=== PATIENT | female | born 1950 ===

== ENCOUNTER 2016-06-17 13:42 | Inpatient (IN) | payer MEDICAID ==
[2016-06-17 13:42] VITALS: PULSE 196; BMI 16.4
[2016-06-17] MEDS ORDERED: Albuterol-Ipratrop 3 mg / 0.5 (3 ml) UD IH STA (14:07)
[2016-06-17] MEDS ORDERED: Albuterol-Ipratrop 3 mg / 0.5 (3 ml) UD INH STA (14:07)
--- NOTE | 2016-06-17 14:13 | ED PDOC ---
HPI: General Adult Time Seen by Provider: 06/17/16 13:54 Chief Complaint (Nursing): Fever Chief Complaint (Provider): Fever and high blood pressure History Per: Other (prison) History/Exam Limitations: clinical condition Onset/Duration Of Symptoms: Days (Today) Current Symptoms Are (Timing): Still Present Additional Complaint(s): Pt. sent to ER from group home for fever and blood pressure being high. Pt. baseline is nonverbal and can't give any information. Has fernandes in place. Past Medical History Reviewed: Historical Data, Nursing Documentation, Vital Signs Vital Signs: Last Vital Signs Temp 101.6 F H 06/17/16 14:37 Pulse 115 H 06/17/16 13:44 Resp 20 06/17/16 13:44 BP 122/56 L 06/17/16 13:44 Pulse Ox 94 L 06/17/16 15:59 - Medical History PMH: Alzheimer's Disease, Anemia, Arthritis, Atrial Fibrillation, COPD, CVA ( left-sided), Dementia, Depression, Fractures (Left ankle), HTN, Hypercholesterolemia, Pneumonia, Chronic Kidney Disease - Surgical History Surgical History: - Family History Family History: States: Unknown Family Hx - Living Arrangements Living Arrangements: Correction/Assist Lv - Home Medications Home Medications: Ambulatory Orders Medication Instructions Recorded Acetaminophen [Tylenol 160mg/5ml 640 mg PEG Q4H PRN 08/24/15 Oral Soln] Ascorbic Acid [Vitamin C Liq] 500 mg PEG DAILY 08/24/15 Ferrous Sulfate [Ferosul] 5 ml PEG BID 08/24/15 Albuterol 0.083% [Albuterol 0.083% 3 ml IH Q6 #0 08/26/15 Inhal Mague (2.5 mg/3 ml) UD] Metoprolol Tartrate [Lopressor] 25 mg PO Q8 #0 tab 09/05/15 diltiaZEM [Cardizem] 60 mg GT Q8 #0 tab 09/05/15 Atorvastatin [Lipitor] 10 mg PEG HS 02/24/16 Lactulose [Generlac] 20 gm PEG BID PRN 02/24/16 Magnesium Hydroxide [Milk Of 30 ml PEG PRN PRN 02/24/16 Magnesia] Epoetin Narayan [Procrit] 10,000 unit SC MWF #0 ml 03/03/16 Piperacill/Tazo 3.375gm in Dex 3.375 gm IVPB QWK 03/10/16 [Zosyn 3.375 Gm IV] Vancomycin 1 GM [Vancomycin 1GM in 1 gm IVPB QWK 03/10/16 Normal Saline Addvantage] - Allergies Allergies/Adverse Reactions: Allergies Allergy/AdvReac Type Severity Reaction Status Date / Time No Known Allergies Allergy Verified 03/10/16 10:27 Review of Systems Review Of Systems: ROS cannot be obtained secondary to pt's inabilty to answer questions. Constitutional: Positive for: Fever Physical Exam - Reviewed Nursing Documentation Reviewed: Yes Vital Signs Reviewed: Yes - Physical Exam Appears: Positive for: Uncomfortable Head Exam: Positive for: ATRAUMATIC, NORMAL INSPECTION, NORMOCEPHALIC Skin: Positive for: Normal Color, Warm, DRY Eye Exam: Positive for: Normal appearance, PERRL ENT: Positive for: Normal ENT Inspection, Other (snores while breathing and mouth left open (pt. baseline)). Negative for: Tonsillar Exudate Neck: Positive for: Normal, Supple Cardiovascular/Chest: Positive for: Tachycardia (mild). Negative for: Edema Respiratory: Positive for: Decreased Breath Sounds, Other (coarse at base b/l). Negative for: Accessory Muscle Use Gastrointestinal/Abdominal: Positive for: Normal Exam, Bowel Sounds, Soft. Negative for: Tenderness Back: Positive for: Other (large sacral ulcer). Negative for: L CVA Tenderness , R CVA Tenderness Rectal: Positive for: Stool Is Heme: (black and hem pos), Black Stool Extremity: Negative for: Tenderness, Pedal Edema Neurologic/Psych: Positive for: Aphasia, Other (awake but nonverbal; does not follow any commands; has extremities in clenched position) - Laboratory Results Result Diagrams: 06/17/16 15:07 06/17/16 15:07 Interpretation Of Abn Labs: 19.9 wbc; lacate 2.5 - ECG ECG: Positive for: Interpreted By Me, Viewed By Me ECG Rhythm: Positive for: Sinus Tachycardia O2 Sat by Pulse Oximetry: 94 - Radiology X-Ray: Read By Radiologist X-Ray Interpretation: No Acute Disease - Progress ED Course And Treament: 1551: Stable. Awake. Likely uti as fernandes with purulent dc in urine (from fernandes from group home). Spoke with Dr. Nicholas. Will admit tele. Zosyn given as pt. urine infection sensitive from last visit. GI paged. [phone]: Spoke with Dr. Canales. Will consult. Continue current management. Spoke with quantitative researcher Dr. Paredes, does not need icu at this time. Will admit tele. - Critical Care Total Time (In Min): 30 Documented Critical Care: Time excludes all time spent performint seperately billable procedures Disposition - Clinical Impression Clinical Impression: Severe sepsis, UTI (urinary tract infection) - Patient ED Disposition Is Patient to be Admitted: Yes - Disposition Disposition Time: 15:55 Condition: GUARDED - Pt Status Changed To: Hospital Disposition Of: Inpatient - Admit Certification Admit to Inpatient:: After my assessment, the patient will require hospitalization for at least two midnights. This is because of the severity of symptoms shown, intensity of services needed, and/or the medical risk in this patient being treated as an outpatient. - POA Present On Arrival: Cath Associated UTI, Pressure Ulcer (sacral)
[2016-06-17] MEDS ORDERED: Sodium Chloride 0.9% 1,000 ML IV SCH (14:15)
--- NOTE | 2016-06-17 14:22 | CARD ---
APPROVED REPORT EKG Measurement Heart [id number] <Conclusion> Sinus tachycardia Nonspecific T wave abnormality Abnormal ECG
[2016-06-17] MEDS ORDERED: Albuterol-Ipratrop 3 mg / 0.5 (3 ml) UD ONE (14:30)
[2016-06-17 14:56] LABS: ABG ALLEN TEST YES; ARTERIAL BLOOD GAS PO2 94 mm/Hg (80-100)
[2016-06-17] MEDS: Pantoprazole 40 MG in Sodium Chloride 0.9% 100 ML IVPB SCH ×2 (15:07→22:24)
[2016-06-17 15:20] LABS: BASO # 0.1 K/uL (0.0-0.2); BASO % 0.5 % (0.0-2.0); EOS % 0.2 % (0.0-4.0); HEMATOCRIT 37.7 % (34.0-47.0); LYMPH # 0.8 K/uL (1.0-4.3); LYMPH % 4.2 % (20.0-40.0); MEAN CELL VOLUME 90.2 fl (81.0-99.0); MEAN CORPUSCULAR HEMOGLOBIN 28.8 pg (27.0-31.0); MEAN CORPUSCULAR HGB CONC 31.9 g/dL (33.0-37.0); MEAN PLATELET VOLUME 10.4 fl (7.2-11.7); MONO # 1.3 K/uL (0.0-0.8); MONO % 6.7 % (0.0-10.0); NEUT # 17.6 K/uL (1.8-7.0); NEUT % 88.4 % (50.0-75.0); NRBC % 0.3 % (0.0-0.0); RED CELL DISTRIBUTION WIDTH 13.7 % (11.5-14.5); WHITE BLOOD COUNT 19.9 K/uL (4.8-10.8)
[2016-06-17 15:21] LABS: PLATELET COUNT 174 K/uL (130-400)
[2016-06-17 15:31] LABS: ALKALINE PHOSPHATASE 86 U/L (38-126); ALT/SGPT 28 U/L (9-52); AST/SGOT 31 U/L (14-36); BILIRUBIN,TOTAL 0.5 mg/dl (0.2-1.3); BLOOD UREA NITROGEN 19 mg/dl (7-17); CALCIUM 9.6 mg/dL (8.4-10.2); CARBON DIOXIDE 25 mmol/L (22-30); CHLORIDE 102 mmol/L (98-107); GFR AFRICAN-AMERICAN > 60; GLUCOSE,RANDOM 118 mg/dL (65-105); MAGNESIUM 1.9 MG/DL (1.6-2.3); PHOSPHOROUS 3.3 mg/dl (2.5-4.5); POTASSIUM 4.2 MMOL/L (3.6-5.0); SODIUM 139 mmol/l (132-148); TOTAL PROTEIN 8.5 G/DL (6.3-8.2)
[2016-06-17 15:34] LABS: ALB/GLOB RATIO 0.8 (1.0-2.1)
--- NOTE | 2016-06-17 15:41 | RAD ---
Indication: Sepsis patient Portable chest Comparison: Chest x-ray performed 02/23/16 Findings: Examination limited by habitus, hypo inflation, and patient obliquity. The patient's chin obscures evaluation of the left lung apex. Chronic appearing interstitial markings. Small bilateral pleural effusions. Bibasilar atelectasis. No definite pneumothorax. Please note that chest x-ray has limited sensitivity for the detection of pulmonary masses. Degenerative changes. Osseous demineralization. Impression: Chronic appearing interstitial markings. Small bilateral pleural effusions. Bibasilar atelectasis.
[2016-06-17 15:42] LABS: PARTIAL THROMBOPLASTIN TIME 25.9 SECONDS (23.3-32.5)
[2016-06-17] MEDS ORDERED: Sodium Chloride 0.9% 1,000 ML IV STA (15:52)
[2016-06-17] MEDS ORDERED: Piperacillin/Tazobact 3.375 GM in Sodium Chloride 0.9% 100 ML IVPB ONE (16:15)
[2016-06-17 17:25] LABS: RBC URINE 56 /hpf (0-3); URINE BACTERIA RARE (<OCC); URINE BILIRUBIN NEGATIVE (NEGATIVE); URINE BLOOD MODERATE (NEGATIVE); URINE COLOR YELLOW (YELLOW); URINE GLUCOSE (UA) NEG (Normal); URINE KETONE NEGATIVE (NEGATIVE); URINE LEUKOCYTE ESTERASE MOD Leu/uL (Negative); URINE PROTEIN 100 mg/dL (NEGATIVE); URINE UROBILINOGEN 0.2-1.0 mg/dL (0.2-1.0); WBC URINE 22 /hpf (0-5)
[2016-06-17 18:09] LABS: NEUTROPHIL 89 % (42-75); TOTAL CELLS COUNTED 100
[2016-06-17 18:10] LABS: LARGE PLATELETS PRESENT
[2016-06-18] MEDS: Dextrose 5%/0.45% NS 1,000 ML IV SCH ×2 (00:53→16:20)
[2016-06-18] MEDS: Ciprofloxacin 400mg/200ml D5W 200 ML IVPB SCH ×2 (00:54→12:27)
[2016-06-18] MEDS: Piperacillin/Tazobact 3.375 GM in Sodium Chloride 0.9% 100 ML IVPB SCH ×4 (04:57→21:48)
[2016-06-18] MEDS: Pantoprazole 40 MG in Sodium Chloride 0.9% 100 ML IVPB SCH (04:59)
[2016-06-18 07:07] LABS: HEMATOCRIT 33.9 % (34.0-47.0); MEAN CELL VOLUME 90.6 fl (81.0-99.0); MEAN CORPUSCULAR HEMOGLOBIN 29.1 pg (27.0-31.0); MEAN CORPUSCULAR HGB CONC 32.1 g/dL (33.0-37.0); RED CELL DISTRIBUTION WIDTH 13.7 % (11.5-14.5); WHITE BLOOD COUNT 19.3 K/uL (4.8-10.8)
[2016-06-18 07:25] LABS: ALKALINE PHOSPHATASE 61 U/L (38-126); ALT/SGPT 22 U/L (9-52); AST/SGOT 23 U/L (14-36); BILIRUBIN,TOTAL 0.4 mg/dl (0.2-1.3); BLOOD UREA NITROGEN 14 mg/dl (7-17); CALCIUM 9.7 mg/dL (8.4-10.2); CARBON DIOXIDE 24 mmol/L (22-30); CHLORIDE 110 mmol/L (98-107); CHOLESTEROL 102 mg/dL (0-199); GFR AFRICAN-AMERICAN > 60; GLUCOSE,RANDOM 112 mg/dL (65-105); POTASSIUM 4.3 MMOL/L (3.6-5.0); SODIUM 142 mmol/l (132-148); TOTAL PROTEIN 7.5 G/DL (6.3-8.2)
[2016-06-18 07:32] LABS: T4 5.25 ug/dl (5.5-11.0)
[2016-06-18 07:41] LABS: ALB/GLOB RATIO 0.9 (1.0-2.1)
[2016-06-18] MEDS: Pantoprazole 40 mg Susp UD PEG SCH ×4 (12:00→16:48)
--- NOTE | 2016-06-18 12:37 | CP.PCM.CON ---
History of Present Illness - History of Present Illness History of Present Illness: GI Consult: Dr. Christianson Pt is a 65y/o non-verbal, jail female with Alzheimer's and dementia who presented to [facility] for high blood pressure and fever. History was obtained from chart as pt is unable to provide any. On admission pt was found to have Tmax of 101.6 and elevated WBC so pt was admitted. Currently, pt is resting comfortably in bed. No pain is elicited on physical exam. GI has been consulted for GI bleed but there is no history of bleeding that can be found anywhere in the chart. Pt does have blood in her urine on the UA and a hx of anemia which may be the cause of her slight drop in H/H. PMHx: Afib, COPD, HTN, HLD, CVA, anemia, & Alzheimer's dementia PSHx: PEG placement SocialHx: lives in jail NKDA Review of Systems - Review of Systems Systems not reviewed;Unavailable: Dementia Past Patient History - Infectious Disease Hx of Infectious Diseases: None - Past Medical History & Family History Past Medical History?: Yes - Past Social History Smoking Status: Former Smoker - CARDIAC Hx Atrial Fibrillation: Yes Hx Hypercholesterolemia: Yes Hx Hypertension: Yes - PULMONARY Hx Chronic Obstructive Pulmonary Disease (COPD): Yes - NEUROLOGICAL Hx Neurological Disorder: Yes Hx Alzheimer's Disease: Yes HX Cerebrovascular Accident: Yes Hx Dementia: Yes - HEENT Hx HEENT Problems: No - RENAL Hx Chronic Kidney Disease: Yes - ENDOCRINE/METABOLIC Hx Endocrine Disorders: No - HEMATOLOGICAL/ONCOLOGICAL Hx Anemia: Yes - INTEGUMENTARY Hx Dermatological Problems: Yes - MUSCULOSKELETAL/RHEUMATOLOGICAL Hx Falls: No - GASTROINTESTINAL Other/Comment: PEG tube - GENITOURINARY/GYNECOLOGICAL Hx Genitourinary Disorders: Yes - PSYCHIATRIC Hx Substance Use: No - SURGICAL HISTORY Hx Surgeries: Yes Hx Section: Yes Other/Comment: left ankle surgery, PEG insertion, PICC insertion - ANESTHESIA Hx Anesthesia: Yes Hx Anesthesia Reactions: No Hx Malignant Hyperthermia: No Meds Allergies/Adverse Reactions: Allergies Allergy/AdvReac Type Severity Reaction Status Date / Time No Known Allergies Allergy Verified 03/10/16 10:27 - Medications Medications: Current Medications Diltiazem HCl (Cardizem) 60 mg PEG Q8 [facility] Last Admin: 06/18/16 08:50 Dose: 60 mg Piperacillin Sod/Tazobactam (Sod 3.375 gm/ Sodium Chloride) 100 mls @ 100 mls/ hr IVPB Q6 [facility] Last Admin: 06/18/16 09:02 Dose: 100 mls/hr Ciprofloxacin (Cipro 400mg/200ml Dsw) 200 mls @ 200 mls/hr IVPB Q12H [facility] Last Admin: 06/18/16 12:27 Dose: 200 mls/hr Dextrose/Sodium Chloride (Dextrose 5%/0.45% Ns 1000 Ml) 1,000 mls @ 80 mls/hr IV .[id number] [facility] Stop: 06/19/16 00:16 Last Admin: 06/18/16 00:53 Dose: 80 mls/hr Latanoprost (Xalatan Opht) 1 drop OU HS [facility] Metoprolol Tartrate (Lopressor) 25 mg PEG Q8 [facility] Last Admin: 06/18/16 08:51 Dose: 25 mg Pantoprazole Sodium (Protonix Susp) 40 mg PEG BID [facility] Physical Exam - Constitutional Appears: No Acute Distress - Head Exam Head Exam: ATRAUMATIC, NORMOCEPHALIC - ENT Exam ENT Exam: Mucous Membranes Moist - Respiratory Exam Respiratory Exam: NORMAL BREATHING PATTERN - Cardiovascular Exam Cardiovascular Exam: Tachycardia - GI/Abdominal Exam GI & Abdominal Exam: Normal Bowel Sounds, Soft. absent: Distended, Guarding, Tenderness Additional comments: PEG tube in place - Rectal Exam Rectal Exam: absent: Black Stool, Bloody Stool - Extremities Exam Extremities exam: Negative for: tenderness - Skin Skin Exam: Dry, Warm Results - Vital Signs Recent Vital Signs: Last Vital Signs Temp 97.9 F 06/18/16 07:59 Pulse 91 H 06/18/16 09:00 Resp 20 06/18/16 07:59 BP 119/71 06/18/16 08:51 Pulse Ox 100 06/18/16 07:59 - Labs Result Diagrams: 06/18/16 05:55 06/18/16 05:55 Labs: Laboratory Results - last 24 hr 06/17/16 06/18/16 16:21 05:55 WBC 19.3 H RBC 3.74 L Hgb 10.9 L Hct 33.9 L MCV 90.6 MCH 29.1 MCHC 32.1 L RDW 13.7 Plt Count 149 Sodium 142 Potassium 4.3 Chloride 110 H Carbon Dioxide 24 Anion Gap 12 BUN 14 Creatinine 0.4 L Est GFR ( Amer) > 60 Est GFR (Non-Af Amer) > 60 Random Glucose 112 H Calcium 9.7 Total Bilirubin 0.4 AST 23 ALT 22 Alkaline Phosphatase 61 Total Protein 7.5 Albumin 3.4 L Globulin 4.0 H Albumin/Globulin Ratio 0.9 L Triglycerides 35 D Cholesterol 102 LDL Cholesterol Direct < 30 HDL Cholesterol 51 Thyroxine (T4) 5.25 L TSH 3rd Generation 0.70 Urine Color Yellow Urine Clarity Slighty-cloudy Urine pH 6.0 Ur Specific [place] 1.025 Urine Protein 100 Urine Glucose (UA) Neg Urine Ketones Negative Urine Blood Moderate Urine Nitrate Negative Urine Bilirubin Negative Urine Urobilinogen 0.2-1.0 Ur Leukocyte Esterase Mod Urine RBC (Auto) 56 H Urine Microscopic WBC 22 H Ur Squamous Epith Cells < 1 Urine Bacteria Rare Assessment & Plan - Assessment and Plan (Free Text) Assessment: 65F with fever & leukocytosis likely secondary to UTI Plan: - IV ABX - Monitor H/H - Ok to resume feeds through PEG tube - d/w Dr. Sammy Blair, PGY-2
--- NOTE | 2016-06-18 15:18 | CP.PCM.HP ---
History of Present Illness - History of Present Illness History of Present Illness: CC Fever/high BP. 65 y/o bedridden, non verbal resident at [facility] brought to ER [facility] for evaluation of high fever and high BP , onset DOA with no relief. Pt had high BP while at [place] associated to the fever, in ER TMAx 101.1 F, HR: 115 BP: 122/56, WBC: 19.9 Due to non verbal, all information was obtained from [facility]. No report of: N/V/D, abdominal pain, CP, SOB, cough, syncope, fall, sick contact. PMHx: A Fib with RVR, Metabolic Encephalopathy, Multiples CVAs, COPD, HTN, High Cholesterol, O/A, Alzheimer's, Severe Dementia, Hx Anemia, CKD. CXR shoed: B/L Pleural effusion, bibasilar atelectasis. EKG: Sinus Tachycardia. Present on Admission - Present on Admission Any Indicators Present on Admission: Yes Decubitus Ulcer Present: Yes Decubitus Ulcer Location: Sacrum Decubitus Ulcer Stage: IV Review of Systems - Review of Systems Systems not reviewed;Unavailable: Acuity of Condition, Dementia, Other (non verbal) Past Patient History - Infectious Disease Hx of Infectious Diseases: None - Past Medical History & Family History Past Medical History?: Yes - Past Social History Smoking Status: Former Smoker Alcohol: None Drugs: Denies Home Situation {Lives}: Group Home - CARDIAC Hx Cardiac Disorders: Yes Hx Atrial Fibrillation: Yes Hx Hypercholesterolemia: Yes Hx Hypertension: Yes - PULMONARY Hx Respiratory Disorders: Yes Hx Chronic Obstructive Pulmonary Disease (COPD): Yes Hx Pneumonia: Yes - NEUROLOGICAL Hx Neurological Disorder: Yes Hx Alzheimer's Disease: Yes HX Cerebrovascular Accident: Yes Hx Dementia: Yes - HEENT Hx HEENT Problems: No - RENAL Hx Chronic Kidney Disease: Yes - ENDOCRINE/METABOLIC Hx Endocrine Disorders: No - HEMATOLOGICAL/ONCOLOGICAL Hx Blood Disorders: Yes Hx Anemia: Yes - INTEGUMENTARY Hx Dermatological Problems: Yes - MUSCULOSKELETAL/RHEUMATOLOGICAL Hx Musculoskeletal Disorders: Yes Hx Arthritis: Yes Hx Falls: No Hx Fractures: Yes (L ankle) - GASTROINTESTINAL Hx Gastrointestinal Disorders: Yes Other/Comment: PEG tube - GENITOURINARY/GYNECOLOGICAL Hx Genitourinary Disorders: Yes Hx Urinary Tract Infection: Yes Other/Comment: Proctor Catheter - PSYCHIATRIC Hx Psychophysiologic Disorder: Yes Hx Depression: Yes Hx Substance Use: No - SURGICAL HISTORY Hx Surgeries: Yes Hx Section: Yes Other/Comment: left ankle surgery, PEG insertion, PICC insertion - ANESTHESIA Hx Anesthesia: Yes Hx Anesthesia Reactions: No Hx Malignant Hyperthermia: No Meds Allergies/Adverse Reactions: Allergies Allergy/AdvReac Type Severity Reaction Status Date / Time No Known Allergies Allergy Verified 03/10/16 10:27 Physical Exam - Constitutional Appears: No Acute Distress, Chronically Ill - Head Exam Head Exam: NORMAL INSPECTION - Eye Exam Eye Exam: PERRL - ENT Exam ENT Exam: Normal Oropharynx - Neck Exam Neck exam: Positive for: Normal Inspection - Respiratory Exam Respiratory Exam: Decreased Breath Sounds (at bases), Rhonchi (scattered) - Cardiovascular Exam Cardiovascular Exam: REGULAR RHYTHM, Systolic Murmur (3/6 Victor radiated to Axilla) - GI/Abdominal Exam GI & Abdominal Exam: Soft Additional comments: G Tube - Extremities Exam Additional comments: BUE contracted, stiff extremities. Left thigh with wound, redness R-L foot. - Back Exam Additional comments: Sacral pressure ulcer stage IV, excoriation b/l buttocks R>L. - Neurological Exam Additional comments: Non verbal, incomprehensible sounds, generalized rigidity, expressive aphasia. - Psychiatric Exam Psychiatric exam: Flat Affect - Skin Skin Exam: Warm Additional comments: Black discoloration L heel. Results - Vital Signs Recent Vital Signs: Last Vital Signs Temp 97.8 F 06/18/16 13:00 Pulse 90 06/18/16 13:00 Resp 20 06/18/16 13:00 BP 104/58 L 06/18/16 13:00 Pulse Ox 100 06/18/16 13:00 gavin Alberto - Labs Result Diagrams: 06/18/16 05:55 06/18/16 05:55 Labs: Laboratory Results - last 24 hr 06/17/16 06/18/16 16:21 05:55 WBC 19.3 H RBC 3.74 L Hgb 10.9 L Hct 33.9 L MCV 90.6 MCH 29.1 MCHC 32.1 L RDW 13.7 Plt Count 149 Sodium 142 Potassium 4.3 Chloride 110 H Carbon Dioxide 24 Anion Gap 12 BUN 14 Creatinine 0.4 L Est GFR ( Amer) > 60 Est GFR (Non-Af Amer) > 60 Random Glucose 112 H Calcium 9.7 Total Bilirubin 0.4 AST 23 ALT 22 Alkaline Phosphatase 61 Total Protein 7.5 Albumin 3.4 L Globulin 4.0 H Albumin/Globulin Ratio 0.9 L Triglycerides 35 D Cholesterol 102 LDL Cholesterol Direct < 30 HDL Cholesterol 51 Thyroxine (T4) 5.25 L TSH 3rd Generation 0.70 Urine Color Yellow Urine Clarity Slighty-cloudy Urine pH 6.0 Ur Specific [place] 1.025 Urine Protein 100 Urine Glucose (UA) Neg Urine Ketones Negative Urine Blood Moderate Urine Nitrate Negative Urine Bilirubin Negative Urine Urobilinogen 0.2-1.0 Ur Leukocyte Esterase Mod Urine RBC (Auto) 56 H Urine Microscopic WBC 22 H Ur Squamous Epith Cells < 1 Urine Bacteria Rare reviewed J.P. - EKG Data EKG comments: reviewed J.P. - Imaging and Cardiology Chest x-ray Status: Report reviewed by me (Remy) Assessment & Plan - Assessment and Plan (Free Text) Assessment: UTI Acte high PNA Acute high Severe Sepsis Acute high Anemia Chronic high HTN Chronic medium Dehydration Acute high Plan: Continue Zosyn, Cipro, Duoneb, Cardizen, Metropolol, f/u Blood and U C-S, GI consult appreciated. - Date & Time Date: 06/18/16 Time: 11:00
[2016-06-18] MEDS: Latanoprost 0.005% Opht SOUTION OU SCH (23:00)
[2016-06-19] MEDS: Ciprofloxacin 400mg/200ml D5W 200 ML IVPB SCH ×2 (00:30→12:21)
[2016-06-19] MEDS: Piperacillin/Tazobact 3.375 GM in Sodium Chloride 0.9% 100 ML IVPB SCH ×4 (05:00→21:23)
--- NOTE | 2016-06-19 09:07 | PQF GENQUE ---
This form is a permanent part of the medical record 06/19/16 Dr. Del Valle, Please clarify if the UTI is fernandes catheter related or not. Admitted with fever and high BP. Noted to have a fernandes and peg tube on admission.UA leukocytes and WBC. Urine CS pending. Treated with Cipro and Zosyn. Clarification of your documentation is requested to better reflect the severity of illness and intensity of treatment of your patient. PHYSICIAN'S RESPONSE [ ] UTI [ ] UTI due to indwelling fernandes catheter [ ] Other explanation : [ [ Unable to determine Based on your medical judgment of the clinical indicators outlined above please clarify the following: [] Practitioner response [] If unable to determine, please check the box, sign and date. Present On Admission (POA) Indicator: [] Present at the time of admission [] Not present at the time of admission [] Clinically Undetermined In responding to this query, please exercise your independent professional judgment. The fact that a question is asked does not imply that any particular answer is desired or expected. Thank you for your clarification on this documentation. If you have any questions please call:[phone] * Thank you, Yudy Leong RN CDMP MTDD
--- NOTE | 2016-06-19 09:22 | PQF GENQUE ---
This form is a permanent part of the medical record 06/19/16 Dr. Del Valle, Documentation Clarification: After workup : 1) Please clarify the possible etiology of the sepsis. 2) Documentation of Severe Sepsis. Please clarify the acute organ dysfunction related to severe sepsis. 65 year old snf patient admitted with fever and high BP. Temp 101.6, HR 115. WBC 19.9 with a L shift. Lactate 2.5. CXR: chronic appearing interstitial markings.Small bilateral effusions and atelectasis. Blood and urine cultures pending. Treated with Cipro and Zosyn. + fernandes,catheter, PEG tube and stage 4 sacral pressure ulcer POA. Clarification of your documentation is requested to better reflect the severity of illness and intensity of treatment of your patient. PHYSICIAN'S RESPONSE Based on your medical judgment of the clinical indicators outlined above please clarify the following: [] Practitioner response [] If unable to determine, please check the box, sign and date. Present On Admission (POA) Indicator: [] Present at the time of admission [] Not present at the time of admission [] Clinically Undetermined In responding to this query, please exercise your independent professional judgment. The fact that a question is asked does not imply that any particular answer is desired or expected. Thank you for your clarification on this documentation. If you have any questions please call:[phone] * Thank you, Yudy Leong RN [facility]
[2016-06-19] MEDS: Pantoprazole 40 mg Susp UD PEG SCH ×2 (10:21→17:46)
[2016-06-19 11:40] LABS: HEMATOCRIT 32.1 % (34.0-47.0); MEAN CELL VOLUME 90.6 fl (81.0-99.0); MEAN CORPUSCULAR HEMOGLOBIN 29.4 pg (27.0-31.0); MEAN CORPUSCULAR HGB CONC 32.4 g/dL (33.0-37.0); RED CELL DISTRIBUTION WIDTH 13.5 % (11.5-14.5); WHITE BLOOD COUNT 13.3 K/uL (4.8-10.8)
--- NOTE | 2016-06-19 13:49 | CP.PCM.PN ---
Subjective - Date & Time of Evaluation Date of Evaluation: 06/19/16 Time of Evaluation: 11:00 - Subjective Subjective: UTI/ PNA Pt with eyes open, f/u with head movements to verbal stimuli. Objective - Vital Signs/Intake and Output Vital Signs (last 24 hours): Temp Pulse Resp BP Pulse Ox 98.9 F 92 H 18 108/65 99 06/19/16 12:37 06/19/16 12:37 06/19/16 12:37 06/19/16 12:37 06/19/16 12:37 - Medications Medications: Current Medications Diltiazem HCl (Cardizem) 60 mg PEG Q8 [facility] Last Admin: 06/19/16 10:16 Dose: 60 mg Piperacillin Sod/Tazobactam (Sod 3.375 gm/ Sodium Chloride) 100 mls @ 100 mls/ hr IVPB Q6 [facility] Last Admin: 06/19/16 10:17 Dose: 100 mls/hr Ciprofloxacin (Cipro 400mg/200ml Dsw) 200 mls @ 200 mls/hr IVPB Q12H [facility] Last Admin: 06/19/16 12:21 Dose: 200 mls/hr Latanoprost (Xalatan Opht) 1 drop OU HS [facility] Last Admin: 06/18/16 23:00 Dose: 1 drop Metoprolol Tartrate (Lopressor) 25 mg PEG Q8 [facility] Last Admin: 06/19/16 10:20 Dose: 25 mg Pantoprazole Sodium (Protonix Susp) 40 mg PEG BID [facility] Last Admin: 06/19/16 10:21 Dose: 40 mg - Labs Labs: 06/19/16 11:35 06/18/16 05:55 PT 10.7 SECONDS (9.6-11.2) 06/17/16 15:07 INR 1.03 (0.92-1.08) 06/17/16 15:07 APTT 25.9 SECONDS (23.3-32.5) 06/17/16 15:07 - Constitutional Appears: No Acute Distress, Chronically Ill - Head Exam Head Exam: NORMAL INSPECTION - Eye Exam Eye Exam: PERRL - ENT Exam ENT Exam: Normal Oropharynx - Neck Exam Neck Exam: Normal Inspection - Respiratory Exam Respiratory Exam: Decreased Breath Sounds (at bases), Rhonchi (scattered) - Cardiovascular Exam Cardiovascular Exam: REGULAR RHYTHM, Murmur (systolic 3/6 apex radiated to axilla.) - GI/Abdominal Exam GI & Abdominal Exam: Soft Additional comments: PEG tube in place. - Extremities Exam Additional comments: BUE contracted, stiff extremities, left thigh with wound, redness R-L foot. - Back Exam Additional comments: Sacral pressure ulcer stage IV, excoriation b/l buttock R>L - Neurological Exam Additional comments: Non -verbal, incomprehensible sounds, generalized rigidity, expressive aphasia. - Psychiatric Exam Psychiatric exam: Flat Affect - Skin Skin Exam: Warm Additional comments: Black discoloration L heel. Assessment and Plan - Assessment and Plan (Free Text) Assessment: UTI Acute high PNA acute high Severe Sepsis Acute high Anemia Chronic high HTN Chronic medium Dehydration Resolved. Plan: Continue Zosyn, Cipro. Cardizem, Metoprolol and rest of Tx.
[2016-06-19] MEDS: Latanoprost 0.005% Opht SOUTION OU SCH (21:22)
[2016-06-20] MEDS: Ciprofloxacin 400mg/200ml D5W 200 ML IVPB SCH ×2 (00:07→11:38)
[2016-06-20] MEDS: Piperacillin/Tazobact 3.375 GM in Sodium Chloride 0.9% 100 ML IVPB SCH ×2 (03:18→09:33)
[2016-06-20] MEDS: Pantoprazole 40 mg Susp UD PEG SCH (09:33)
[2016-06-20 10:37] LABS: HEMATOCRIT 33.8 % (34.0-47.0); MEAN CELL VOLUME 89.1 fl (81.0-99.0); MEAN CORPUSCULAR HEMOGLOBIN 29.1 pg (27.0-31.0); MEAN CORPUSCULAR HGB CONC 32.7 g/dL (33.0-37.0); RED CELL DISTRIBUTION WIDTH 13.5 % (11.5-14.5); WHITE BLOOD COUNT 8.1 K/uL (4.8-10.8)
[2016-06-20 12:37] VITALS: PULSE 88; RESP 20
[2016-06-20 15:57] VITALS: BP 116/61; O2SAT 99
--- NOTE | 2016-06-20 17:24 | CP.PCM.PN ---
Subjective - Date & Time of Evaluation Date of Evaluation: 06/20/16 - Subjective Subjective: F/U UTI. Eyes open, moving head to verbal stimuli. Objective - Vital Signs/Intake and Output Vital Signs (last 24 hours): Temp Pulse Resp BP Pulse Ox 99.2 F 88 20 116/61 99 06/20/16 15:57 06/20/16 15:57 06/20/16 15:57 06/20/16 15:57 06/20/16 15:57 Intake and Output: 06/20/16 06/20/16 06:59 18:59 Intake Total 1940 Output Total 2625 Balance -685 - Medications Medications: Current Medications Diltiazem HCl (Cardizem) 60 mg PEG Q8 [facility] Last Admin: 06/20/16 09:32 Dose: 60 mg Piperacillin Sod/Tazobactam (Sod 3.375 gm/ Sodium Chloride) 100 mls @ 100 mls/ hr IVPB Q6 [facility] Last Admin: 06/20/16 09:33 Dose: 100 mls/hr Ciprofloxacin (Cipro 400mg/200ml Dsw) 200 mls @ 200 mls/hr IVPB Q12H [facility] Last Admin: 06/20/16 11:38 Dose: 200 mls/hr Latanoprost (Xalatan Opht) 1 drop OU HS [facility] Last Admin: 06/19/16 21:22 Dose: 1 drop Metoprolol Tartrate (Lopressor) 25 mg PEG Q8 [facility] Last Admin: 06/20/16 09:32 Dose: 25 mg Pantoprazole Sodium (Protonix Susp) 40 mg PEG BID [facility] Last Admin: 06/20/16 09:33 Dose: 40 mg - Labs Labs: 06/20/16 10:20 06/18/16 05:55 PT 10.7 SECONDS (9.6-11.2) 06/17/16 15:07 INR 1.03 (0.92-1.08) 06/17/16 15:07 APTT 25.9 SECONDS (23.3-32.5) 06/17/16 15:07 - Constitutional Appears: No Acute Distress, Chronically Ill - Head Exam Head Exam: NORMAL INSPECTION - Eye Exam Eye Exam: PERRL - ENT Exam ENT Exam: Normal Oropharynx - Neck Exam Neck Exam: Normal Inspection - Respiratory Exam Respiratory Exam: Decreased Breath Sounds (at bases) - Cardiovascular Exam Cardiovascular Exam: REGULAR RHYTHM, Murmur (systolic 3/6 apex radiated to axilla) - GI/Abdominal Exam GI & Abdominal Exam: Soft Additional comments: PEG tube in place - Extremities Exam Additional comments: BUE contracted, stiff extremities, redness R-L foot. - Back Exam Additional comments: Sacral ulcer stage IV, excoriation b/l buttock R>L - Neurological Exam Additional comments: Non verbal, incomprehensible sounds, generalized rigidity, expressive aphasia - Psychiatric Exam Psychiatric exam: Flat Affect - Skin Skin Exam: Warm (Black discoloration L heel.) Assessment and Plan - Assessment and Plan (Free Text) Assessment: UTI Acute high 2nd to Proctor catheter PNA Improved. Sepsis Improved. 2nd to UTI. Anemia Chronic improved. HTN Chronic. Dehydration Resolved. Plan: Pt discharged today on Cipro x 8 days, f/u Urine C-S 48 hrs after completion of Cipro.
[2016-06-20 18:17] VITALS: TEMP 98.2
== END 2016-06-20 17:30 | DRG 569 ==
LOC: H.ER 13:42 → H.ERHOLD 16:10 → H.TEL 21:57
PROVIDERS: ADMIT Internal Medicine Pulmonary Disease; ATTEND Internal Medicine Pulmonary Disease
DX: T83.511A Infection and inflammatory reaction due to indwelling urethral catheter, initial encounter (principal); A41.9 Sepsis, unspecified organism; R65.20 Severe sepsis without septic shock; J18.9 Pneumonia, unspecified organism; L89.154 Pressure ulcer of sacral region, stage 4; G30.9 Alzheimer's disease, unspecified; F02.80 Dementia in other diseases classified elsewhere, unspecified severity, without behavioral disturbance, psychotic disturbance, mood disturbance, and anxiety; J44.0 Chronic obstructive pulmonary disease with (acute) lower respiratory infection; N18.9 Chronic kidney disease, unspecified; E86.0 Dehydration; I48.91 Unspecified atrial fibrillation; Z93.1 Gastrostomy status; N39.0 Urinary tract infection, site not specified; E78.5 Hyperlipidemia, unspecified; Z74.01 Bed confinement status; Z87.891 Personal history of nicotine dependence; I12.9 Hypertensive chronic kidney disease with stage 1 through stage 4 chronic kidney disease, or unspecified chronic kidney disease; F32.9 Major depressive disorder, single episode, unspecified; Z86.73 Personal history of transient ischemic attack (TIA), and cerebral infarction without residual deficits; M19.90 Unspecified osteoarthritis, unspecified site; D64.9 Anemia, unspecified; E78.00 Pure hypercholesterolemia, unspecified

== ENCOUNTER 2016-09-27 15:49 | Emergency (ER) | payer MEDICARE, MEDICAID | END 2016-09-27 22:35 | LOC: H.ER 15:49 | DX: A41.9 Sepsis, unspecified organism (principal); J18.9 Pneumonia, unspecified organism ==

== ENCOUNTER 2016-09-27 20:01 | Inpatient (IN) | payer MEDICARE, MEDICAID ==
[~2016-09-27 20:01] MED LIST: Vancomycin 1 g Inj ONE
[2016-09-28 00:32] VITALS: BMI 20.6
[2016-09-28] MEDS ORDERED: LACTULOSE PEG PRN (01:01)
[2016-09-28] MEDS ORDERED: Magnesium Hydroxide Susp 30 ml UD PEG PRN (01:01)
[2016-09-28] MEDS ORDERED: Acetaminophen 160 mg/5 ml UD PEG PRN (01:01)
[2016-09-28] MEDS ORDERED: Acetaminophen 650mg/20.3ml solution UD PEG PRN (02:00)
[2016-09-28] MEDS: Piperacillin/Tazobact 3.375 GM in Sodium Chloride 0.9% 100 ML IVPB SCH ×4 (05:04→21:39)
[2016-09-28] MEDS: Albuterol-Ipratrop 3 mg / 0.5 (3 ml) UD INH SCH ×3 (07:30→19:28)
[2016-09-28] MEDS ORDERED: ASCORBATE CALCIUM 500 MG PEG SCH (09:00)
[2016-09-28 09:31] LABS: INR 1.1 (0.9-1.2); PARTIAL THROMBOPLASTIN TIME 27.3 Seconds (25.6-37.1)
[2016-09-28] MEDS: Ascorbic Acid 500 mg/5 ml Liq(50 ml) PEG SCH (10:01)
[2016-09-28] MEDS: Azithromycin 500 MG in Sodium Chloride 0.9% 250 ML IVPB SCH (10:02)
[2016-09-28 10:25] LABS: ALBUMIN 3.9 g/dL (3.5-5.0); ALT/SGPT 34 U/L (9-52); AST/SGOT 24 U/L (14-36); B-TYPE NATRIURETIC PEPTIDE 286 pg/ml (0-900); BLOOD UREA NITROGEN 26 mg/dl (7-17); CALCIUM 9.4 mg/dL (8.4-10.2); GFR AFRICAN-AMERICAN > 60; GFR NON-AFRICAN AMERICAN > 60
[2016-09-28] MEDS ORDERED: Magnesium Hydroxide Susp 30 ml UD PO PRN (11:17)
[2016-09-28 11:28] LABS: BASO # 0.1 K/uL (0.0-0.2); BASO % 0.7 % (0.0-2.0); EOS # 0.3 K/uL (0.0-0.7); EOS % 1.8 % (0.0-4.0); HEMOGLOBIN 10.8 g/dL (12.0-16.0); LYMPH # 1.5 K/uL (1.0-4.3); LYMPH % 10.3 % (20.0-40.0); MEAN CELL VOLUME 86.9 fl (81.0-99.0); MEAN CORPUSCULAR HEMOGLOBIN 27.7 pg (27.0-31.0); MEAN CORPUSCULAR HGB CONC 31.9 g/dL (33.0-37.0); MEAN PLATELET VOLUME 11.2 fl (7.2-11.7); MONO # 0.9 K/uL (0.0-0.8); MONO % 6.4 % (0.0-10.0); NEUT # 11.4 K/uL (1.8-7.0); NEUT % 80.8 % (50.0-75.0); NRBC % 0.1 % (0.0-0.0); RBC 3.91 Mil/uL (3.80-5.20); RED CELL DISTRIBUTION WIDTH 14.8 % (11.5-14.5); WHITE BLOOD COUNT 14.2 K/uL (4.8-10.8)
[2016-09-28] MEDS ORDERED: Pneumococcal 23-Valent Vaccine IM ONE (11:31)
[2016-09-28] MEDS: Acetaminophen 650mg/20.3ml solution UD PEG PRN (14:13)
--- NOTE | 2016-09-28 15:00 | CP.PCM.CON ---
History of Present Illness - History of Present Illness History of Present Illness: 65 y/o Female a halfway resident. h/o CVA, dementia, has GT tube feeding admitted for SOB Echo August 2014 EF35% sever MR Review of Systems - Constitutional Constitutional: Fever - Cardiovascular Cardiovascular: Leg Edema, Orthopnea - Respiratory Respiratory: Dyspnea Past Patient History - Infectious Disease Hx of Infectious Diseases: None - Past Medical History & Family History Past Medical History?: Yes - Past Social History Smoking Status: Unknown If Ever Smoked - CARDIAC Hx Cardiac Disorders: Yes Hx Atrial Fibrillation: Yes Hx Congestive Heart Failure: Yes (systolic failure) Hx Hypercholesterolemia: Yes Hx Hypertension: Yes - PULMONARY Hx Respiratory Disorders: Yes Hx Chronic Obstructive Pulmonary Disease (COPD): Yes Hx Pneumonia: Yes - NEUROLOGICAL Hx Neurological Disorder: Yes Hx Alzheimer's Disease: Yes HX Cerebrovascular Accident: Yes Hx Dementia: Yes - HEENT Hx HEENT Problems: No - RENAL Hx Chronic Kidney Disease: Yes - ENDOCRINE/METABOLIC Hx Endocrine Disorders: No - HEMATOLOGICAL/ONCOLOGICAL Hx Blood Disorders: Yes Hx Anemia: Yes - INTEGUMENTARY Hx Dermatological Problems: Yes - MUSCULOSKELETAL/RHEUMATOLOGICAL Hx Musculoskeletal Disorders: No Hx Falls: No - GASTROINTESTINAL Hx Gastrointestinal Disorders: Yes Other/Comment: PEG tube - GENITOURINARY/GYNECOLOGICAL Hx Genitourinary Disorders: Yes Hx Incontinence: Yes Other/Comment: Proctor Catheter - PSYCHIATRIC Hx Psychophysiologic Disorder: No Hx Substance Use: No - SURGICAL HISTORY Hx Surgeries: Yes Hx Section: Yes Other/Comment: left ankle surgery, PEG insertion, PICC insertion - ANESTHESIA Hx Anesthesia: Yes Hx Anesthesia Reactions: No Hx Malignant Hyperthermia: No Meds Allergies/Adverse Reactions: Allergies Allergy/AdvReac Type Severity Reaction Status Date / Time No Known Allergies Allergy Verified 03/10/16 10:27 - Medications Medications: Current Medications Acetaminophen (Tylenol 650mg/20.3ml Solution Ud) 650 mg PEG Q4 PRN PRN Reason: Pain, Mild (1-3) Acetaminophen (Tylenol 650mg/20.3ml Solution Ud) 650 mg PEG Q6 PRN PRN Reason: Temperature Last Admin: 09/28/16 14:13 Dose: 650 mg Albuterol/Ipratropium (Duoneb 3 Mg/0.5 Mg (3 Ml) Ud) 3 ml INH RQ6 [facility] Last Admin: 09/28/16 13:53 Dose: 3 ml Ascorbic Acid (Vitamin C Liq) 500 mg PEG DAILY [facility] Last Admin: 09/28/16 10:01 Dose: 5 ml Atorvastatin Calcium (Lipitor) 10 mg PEG HS [facility] Bisacodyl (Dulcolax) 10 mg [place] DAILY PRN PRN Reason: Constipation Diltiazem HCl (Cardizem) 60 mg PEG Q8 [facility] Last Admin: 09/28/16 10:00 Dose: 60 mg Vancomycin HCl 1 gm/ Sodium (Chloride) 250 mls @ 166.667 mls/hr IVPB Q12 [facility] Last Admin: 09/28/16 10:01 Dose: 166.667 mls/hr Azithromycin 500 mg/ Sodium (Chloride) 250 mls @ 250 mls/hr IVPB DAILY [facility] Last Admin: 09/28/16 10:02 Dose: 250 mls/hr Piperacillin Sod/Tazobactam (Sod 3.375 gm/ Sodium Chloride) 100 mls @ 100 mls/ hr IVPB Q6 [facility] Last Admin: 09/28/16 10:03 Dose: 100 mls/hr Lactulose (Enulose) 20 gm PEG BID PRN PRN Reason: Constipation Latanoprost (Xalatan Opht) 1 drop OU HS [facility] Magnesium Hydroxide (Milk Of Magnesia) 30 ml PO DAILY PRN PRN Reason: Constipation Metoprolol Tartrate (Lopressor) 25 mg PEG Q8 [facility] Last Admin: 09/28/16 10:00 Dose: 25 mg Tramadol HCl (Ultram) 50 mg GT Q6 PRN PRN Reason: Pain, severe (8-10) Physical Exam - Constitutional Appears: Toxic - Head Exam Head Exam: ATRAUMATIC - Eye Exam Eye Exam: Normal appearance - Neck Exam Neck exam: Positive for: Normal Inspection - Respiratory Exam Respiratory Exam: Rhonchi, Wheezes - Cardiovascular Exam Cardiovascular Exam: Tachycardia - GI/Abdominal Exam GI & Abdominal Exam: Normal Bowel Sounds - Extremities Exam Extremities exam: Positive for: pedal edema Results - Vital Signs Recent Vital Signs: Last Vital Signs Temp 100.4 F H 09/28/16 14:13 Pulse 96 H 09/28/16 12:00 Resp 18 09/28/16 12:00 BP 108/67 09/28/16 12:00 Pulse Ox 98 09/28/16 12:00 - Labs Result Diagrams: 09/27/16 16:30 07/01/17 16:30 Labs: Laboratory Results - last 24 hr 09/27/16 09/27/16 09/27/16 16:30 16:30 16:30 WBC 14.2 H D RBC 3.91 Hgb 10.8 L Hct 34.0 MCV 86.9 D MCH 27.7 MCHC 31.9 L RDW 14.8 H Plt Count 230 MPV 11.2 Neut % (Auto) 80.8 H Lymph % (Auto) 10.3 L [place] % (Auto) 6.4 Eos % (Auto) 1.8 Baso % (Auto) 0.7 Neut # 11.4 H Lymph # 1.5 [place] # 0.9 H Eos # 0.3 Baso # 0.1 PT 12.2 INR 1.1 APTT 27.3 Sodium 140 Potassium 4.2 Chloride 103 Carbon Dioxide 29 Anion Gap 12 BUN 26 H Creatinine 0.5 L Est GFR ( Amer) > 60 Est GFR (Non-Af Amer) > 60 Random Glucose 98 Calcium 9.4 Total Bilirubin 0.4 AST 24 ALT 34 Alkaline Phosphatase 110 Troponin I 0.0250 NT-Pro-B Natriuret Pep 286 Total Protein 7.7 Albumin 3.9 Globulin 3.8 Albumin/Globulin Ratio 1.0 09/28/16 09/28/16 06:30 12:20 WBC RBC Hgb Hct MCV MCH MCHC RDW Plt Count MPV Neut % (Auto) Lymph % (Auto) [place] % (Auto) Eos % (Auto) Baso % (Auto) Neut # Lymph # [place] # Eos # Baso # PT INR APTT Sodium Potassium Chloride Carbon Dioxide Anion Gap BUN Creatinine Est GFR ( Amer) Est GFR (Non-Af Amer) Random Glucose Calcium Total Bilirubin AST ALT Alkaline Phosphatase Troponin I 0.0320 0.0250 NT-Pro-B Natriuret Pep Total Protein Albumin Globulin Albumin/Globulin Ratio - EKG Data EKG comments: sinus Tachy. 105 BPM Assessment & Plan - Assessment and Plan (Free Text) Assessment: CHF acute systolic Pneumonia H/o CVA Plan: Cont. Acetaminophen (Tylenol 650mg/20.3ml Solution Ud) 650 mg PEG Q4 PRN PRN Reason: Pain, Mild (1-3) Acetaminophen (Tylenol 650mg/20.3ml Solution Ud) 650 mg PEG Q6 PRN PRN Reason: Temperature Last Admin: 09/28/16 14:13 Dose: 650 mg Albuterol/Ipratropium (Duoneb 3 Mg/0.5 Mg (3 Ml) Ud) 3 ml INH RQ6 [facility] Last Admin: 09/28/16 13:53 Dose: 3 ml Ascorbic Acid (Vitamin C Liq) 500 mg PEG DAILY [facility] Last Admin: 09/28/16 10:01 Dose: 5 ml Atorvastatin Calcium (Lipitor) 10 mg PEG HS [facility] Bisacodyl (Dulcolax) 10 mg [place] DAILY PRN PRN Reason: Constipation Diltiazem HCl (Cardizem) 60 mg PEG Q8 [facility] Last Admin: 09/28/16 10:00 Dose: 60 mg Vancomycin HCl 1 gm/ Sodium (Chloride) 250 mls @ 166.667 mls/hr IVPB Q12 [facility] Last Admin: 09/28/16 10:01 Dose: 166.667 mls/hr Azithromycin 500 mg/ Sodium (Chloride) 250 mls @ 250 mls/hr IVPB DAILY [facility] Last Admin: 09/28/16 10:02 Dose: 250 mls/hr Piperacillin Sod/Tazobactam (Sod 3.375 gm/ Sodium Chloride) 100 mls @ 100 mls/ hr IVPB Q6 [facility] Last Admin: 09/28/16 10:03 Dose: 100 mls/hr Lactulose (Enulose) 20 gm PEG BID PRN PRN Reason: Constipation Latanoprost (Xalatan Opht) 1 drop OU HS [facility] Magnesium Hydroxide (Milk Of Magnesia) 30 ml PO DAILY PRN PRN Reason: Constipation Metoprolol Tartrate (Lopressor) 25 mg PEG Q8 [facility] Last Admin: 09/28/16 10:00 Dose: 25 mg Tramadol HCl (Ultram) 50 mg [place] Q6 PRN PRN Reason: Pain, severe (8-10) Start Lasix 40 mg IVP daily. Enalapril 2.5 mg daily Repeat Echo Poor prognosis
--- NOTE | 2016-09-28 15:16 | CP.PCM.HP ---
History of Present Illness - History of Present Illness History of Present Illness: CC: SOB. 65 y/o F, non verbal, resident at [facility], brought by EMS to [facility] [place] for evaluation of SOB on 09/27/16 with no relirf. Pt was evaluated for moderate SOB associated to cough, non productive, non bloody. Worsening symptoms of Fever, TMAx today 100.4 F. WBC 14.2 Due to non verbal, Pt information is been obtained from NH and previous medical records. No: N/V/D, abdominal pain, CP, syncope, fall, sick contact. PMHx: COPD, Hx PAFib with RVR, Metabolic Encephalopathy, Multiples CVAs, NSTEMI , HTN, High Cholesterol, O/A, Alzheimer's Disease, Severe Dementia, Hx Chronic Anemia, CKD, PNA, UTI. CXR shows: PNA. Present on Admission - Present on Admission Any Indicators Present on Admission: Yes Decubitus Ulcer Present: Yes Decubitus Ulcer Location: Sacrum Decubitus Ulcer Stage: IV Review of Systems - Review of Systems Systems not reviewed;Unavailable: Acuity of Condition, Dementia, Other (Non verbal.) - Constitutional Constitutional: Fever Past Patient History - Infectious Disease Hx of Infectious Diseases: None - Past Medical History & Family History Past Medical History?: Yes Pertinent Family History: Unknown. - Past Social History Smoking Status: Former Smoker Alcohol: None Drugs: Denies Home Situation {Lives}: Correction - CARDIAC Hx Cardiac Disorders: Yes Hx Atrial Fibrillation: Yes Hx Congestive Heart Failure: Yes (systolic failure) Hx Hypercholesterolemia: Yes Hx Hypertension: Yes - PULMONARY Hx Respiratory Disorders: Yes Hx Chronic Obstructive Pulmonary Disease (COPD): Yes Hx Pneumonia: Yes - NEUROLOGICAL Hx Neurological Disorder: Yes Hx Alzheimer's Disease: Yes HX Cerebrovascular Accident: Yes Hx Dementia: Yes - HEENT Hx HEENT Problems: No - RENAL Hx Chronic Kidney Disease: Yes - ENDOCRINE/METABOLIC Hx Endocrine Disorders: No - HEMATOLOGICAL/ONCOLOGICAL Hx Blood Disorders: Yes Hx Anemia: Yes - INTEGUMENTARY Hx Dermatological Problems: Yes - MUSCULOSKELETAL/RHEUMATOLOGICAL Hx Musculoskeletal Disorders: No Hx Falls: No - GASTROINTESTINAL Hx Gastrointestinal Disorders: Yes Other/Comment: PEG tube - GENITOURINARY/GYNECOLOGICAL Hx Genitourinary Disorders: Yes Hx Incontinence: Yes Other/Comment: Proctor Catheter - PSYCHIATRIC Hx Psychophysiologic Disorder: No Hx Substance Use: No - SURGICAL HISTORY Hx Surgeries: Yes Hx Section: Yes Other/Comment: left ankle surgery, PEG insertion, PICC insertion - ANESTHESIA Hx Anesthesia: Yes Hx Anesthesia Reactions: No Hx Malignant Hyperthermia: No Meds Allergies/Adverse Reactions: Allergies Allergy/AdvReac Type Severity Reaction Status Date / Time No Known Allergies Allergy Verified 03/10/16 10:27 Physical Exam - Constitutional Appears: No Acute Distress, Chronically Ill - Head Exam Head Exam: NORMAL INSPECTION - Eye Exam Eye Exam: PERRL - ENT Exam ENT Exam: Normal Oropharynx - Neck Exam Neck exam: Positive for: Normal Inspection - Respiratory Exam Respiratory Exam: Decreased Breath Sounds, Rhonchi (b/l) - Cardiovascular Exam Cardiovascular Exam: REGULAR RHYTHM, Systolic Murmur (3/6 [place] radiated to Axilla.) - GI/Abdominal Exam GI & Abdominal Exam: Normal Bowel Sounds, Soft Additional comments: Peg Tube - Extremities Exam Additional comments: BUE contracted and stiff. - Back Exam Additional comments: Sacral ulcer stage IV - Neurological Exam Additional comments: Eyes open, expressive aphasia, generalized rigidity, moves head following verbal stimuli - Psychiatric Exam Psychiatric exam: Flat Affect - Skin Skin Exam: Warm Results - Vital Signs Recent Vital Signs: Last Vital Signs Temp 100.4 F H 09/28/16 14:13 Pulse 96 H 09/28/16 12:00 Resp 18 09/28/16 12:00 BP 108/67 09/28/16 12:00 Pulse Ox 98 09/28/16 12:00 reviewed Remy - Labs Result Diagrams: 09/27/16 16:30 09/27/16 16:30 Labs: Laboratory Results - last 24 hr 09/27/16 09/27/16 09/27/16 16:30 16:30 16:30 WBC 14.2 H D RBC 3.91 Hgb 10.8 L Hct 34.0 MCV 86.9 D MCH 27.7 MCHC 31.9 L RDW 14.8 H Plt Count 230 MPV 11.2 Neut % (Auto) 80.8 H Lymph % (Auto) 10.3 L [place] % (Auto) 6.4 Eos % (Auto) 1.8 Baso % (Auto) 0.7 Neut # 11.4 H Lymph # 1.5 [place] # 0.9 H Eos # 0.3 Baso # 0.1 PT 12.2 INR 1.1 APTT 27.3 Sodium 140 Potassium 4.2 Chloride 103 Carbon Dioxide 29 Anion Gap 12 BUN 26 H Creatinine 0.5 L Est GFR ( Amer) > 60 Est GFR (Non-Af Amer) > 60 Random Glucose 98 Calcium 9.4 Total Bilirubin 0.4 AST 24 ALT 34 Alkaline Phosphatase 110 Troponin I 0.0250 NT-Pro-B Natriuret Pep 286 Total Protein 7.7 Albumin 3.9 Globulin 3.8 Albumin/Globulin Ratio 1.0 09/28/16 09/28/16 06:30 12:20 WBC RBC Hgb Hct MCV MCH MCHC RDW Plt Count MPV Neut % (Auto) Lymph % (Auto) [place] % (Auto) Eos % (Auto) Baso % (Auto) Neut # Lymph # [place] # Eos # Baso # PT INR APTT Sodium Potassium Chloride Carbon Dioxide Anion Gap BUN Creatinine Est GFR ( Amer) Est GFR (Non-Af Amer) Random Glucose Calcium Total Bilirubin AST ALT Alkaline Phosphatase Troponin I 0.0320 0.0250 NT-Pro-B Natriuret Pep Total Protein Albumin Globulin Albumin/Globulin Ratio reviewed J.P. - Imaging and Cardiology Chest x-ray Status: Report reviewed by me (J.P.) Assessment & Plan (1) Pneumonia Status: Acute Priority: High (2) Acute on chronic systolic CHF (congestive heart failure) Status: Acute Priority: High (3) Mitral valve regurgitation Status: Acute Priority: High (4) COPD (chronic obstructive pulmonary disease) Status: Chronic Priority: High (5) HTN (hypertension) Status: Acute Priority: Medium (6) Chronic anemia Status: Chronic Priority: High (7) Hx of non-ST elevation myocardial infarction (NSTEMI) Status: Chronic Priority: Medium - Assessment and Plan (Free Text) Plan: F/U Blood C-S, continue Vanco, Zithromax. Zopsyn, Duoneb, Echo, Cardiology consult. - Date & Time Date: 09/28/16 Time: 11:20
[2016-09-28] MEDS: Latanoprost 0.005% Opht SOUTION OU SCH (21:42)
[2016-09-29] MEDS: Acetaminophen 650mg/20.3ml solution UD PEG PRN (00:04)
[2016-09-29] MEDS: Albuterol-Ipratrop 3 mg / 0.5 (3 ml) UD INH SCH ×4 (01:02→19:14)
[2016-09-29] MEDS: Piperacillin/Tazobact 3.375 GM in Sodium Chloride 0.9% 100 ML IVPB SCH ×4 (03:05→22:17)
[2016-09-29] MEDS: Azithromycin 500 MG in Sodium Chloride 0.9% 250 ML IVPB SCH (08:51)
[2016-09-29] MEDS: Ascorbic Acid 500 mg/5 ml Liq(50 ml) PEG SCH (09:39)
--- NOTE | 2016-09-29 09:48 | CARD ---
APPROVED REPORT EKG Measurement Heart [id number] <Conclusion> Sinus tachycardia Otherwise normal ECG
--- NOTE | 2016-09-29 09:59 | RAD ---
PROCEDURE: Chest dated 09/27/2016 HISTORY: None available COMPARISON: No prior study available comparison TECHNIQUE: Single AP semi-erect portable view of the chest performed note that the examination is somewhat limited due to patient side bending and rotation to the left side FINDINGS: Current study reveals poorly defined opacity left lower lobe that could represent some combination of atelectasis/infiltrate and small effusion. The on there also diffuse increased interstitial markings ; rule out mild pulmonary edema versus interstitial pneumonia versus other interstitial disease process. Clinical correlation recommended. . No evidence of pneumothorax IMPRESSION: Poorly defined opacity left lower lobe that could represent some combination of atelectasis/infiltrate and small effusion. The on there also diffuse increased interstitial markings ; rule out mild pulmonary edema versus interstitial pneumonia versus other interstitial disease process. Clinical correlation recommended.
--- NOTE | 2016-09-29 12:14 | CARD ---
APPROVED REPORT EXAM: Two-dimensional and M-mode echocardiogram with Doppler and color Doppler. Other Information Quality : GoodRhythm : NSR INDICATION Elevated Tropnin 2D DIMENSIONS IVSd0.74 (0.7-1.1cm)LVDd4.71 (3.9-5.9cm) LVOT Diameter1.90 (1.8-2.4cm)PWd1.02 (0.7-1.1cm) IVSs1.15 (0.8-1.2cm)LVDs3.72 (2.5-4.0cm) FS (%) 21.0 %PWs1.17 (0.8-1.2cm) M-Mode DIMENSIONS Left Atrium (MM)4.56 (2.5-4.0cm)IVSd0.76 (0.7-1.1cm) Aortic Root3.24 (2.2-3.7cm)LVDd6.38 (4.0-5.6cm) Aortic Cusp Exc.2.09 (1.5-2.0cm)PWd0.79 (0.7-1.1cm) IVSs1.06 cmFS (%) 35 % LVDs4.15 (2.0-3.8cm)PWs1.18 cm Mitral Valve MV E Vpxvmafm15.4cm/sMV DECEL [id number] A Nuzjctyz55.0cm/s MV [id number]/A ratio0.9MVA (PHT)2.29cm2 TDI Lateral E' Peak V13.12cm/sMedial E' Peak V6.68cm/sE/Lateral E'4.6 E/Medial E'9.0 Tricuspid Valve TR Peak [id number]/sRAP [id number] Peak Gr.23mmHg [id number] LEFT VENTRICLE The left ventricle is normal size. There is normal left ventricular wall thickness. The systolic function is moderately impaired. The Ejection Fraction is 30-35%. There is global hypokinesis of the left ventricle. The left ventricular diastolic function is normal. No left ventricle thrombus noted on this study. There is no mass noted in the left ventricle. RIGHT VENTRICLE The right ventricle is normal size. There is normal right ventricular wall thickness. The right ventricular systolic function is normal. ATRIA The left atrium is mildly dilated. The right atrium size is normal. The interatrial septum is intact with no evidence for an atrial septal defect. AORTIC VALVE The aortic valve is normal in structure and function. No aortic regurgitation is present. There is no aortic valvular stenosis. There is no aortic valvular vegetation. MITRAL VALVE Mitral annular calcification is mild to moderate. There is no evidence of mitral valve prolapse. There is no mitral valve stenosis. Mitral regurgitation is moderate to severe. TRICUSPID VALVE The tricuspid valve is normal in structure and function. There is no tricuspid valve regurgitation noted. There is no tricuspid valve prolapse or vegetation. There is no tricuspid valve stenosis. PULMONIC VALVE The pulmonary valve is normal in structure and function. There is no pulmonic valvular regurgitation. There is no pulmonic valvular stenosis. GREAT VESSELS The aortic root is normal in size. The IVC is normal in size and collapses >50% with inspiration. PERICARDIAL EFFUSION The pericardium appears normal. There is no pleural effusion. <Conclusion> The left ventricle is normal size. The systolic function is moderately impaired. The Ejection Fraction is 30-35%. There is global hypokinesis of the left ventricle. The left atrium is mildly dilated. Mitral annular calcification is mild to moderate. Mitral regurgitation is moderate to severe.
--- NOTE | 2016-09-29 14:37 | CP.PCM.PN ---
Subjective - Date & Time of Evaluation Date of Evaluation: 09/29/16 Time of Evaluation: 14:37 - Subjective Subjective: SOB improved Objective - Vital Signs/Intake and Output Vital Signs (last 24 hours): Temp Pulse Resp BP Pulse Ox 99.1 F 96 H 18 120/73 99 09/29/16 13:00 09/29/16 13:00 09/29/16 13:00 09/29/16 13:00 09/29/16 13:00 - Medications Medications: Current Medications Acetaminophen (Tylenol 650mg/20.3ml Solution Ud) 650 mg PEG Q4 PRN PRN Reason: Pain, Mild (1-3) Acetaminophen (Tylenol 650mg/20.3ml Solution Ud) 650 mg PEG Q6 PRN PRN Reason: Temperature Last Admin: 09/29/16 00:04 Dose: 650 mg Albuterol/Ipratropium (Duoneb 3 Mg/0.5 Mg (3 Ml) Ud) 3 ml INH RQ6 [facility] Last Admin: 09/29/16 13:42 Dose: 3 ml Ascorbic Acid (Vitamin C Liq) 500 mg PEG DAILY [facility] Last Admin: 09/29/16 09:39 Dose: 5 ml Atorvastatin Calcium (Lipitor) 10 mg PEG HS [facility] Last Admin: 09/28/16 21:38 Dose: 10 mg Bisacodyl (Dulcolax) 10 mg [place] DAILY PRN PRN Reason: Constipation Diltiazem HCl (Cardizem) 60 mg PEG Q8 [facility] Last Admin: 09/29/16 09:38 Dose: 60 mg Enalapril Maleate (Vasotec) 2.5 mg PO DAILY [facility] Last Admin: 09/29/16 09:39 Dose: 2.5 mg Furosemide (Lasix) 40 mg IV DAILY [facility] Last Admin: 09/29/16 09:01 Dose: 40 mg Vancomycin HCl 1 gm/ Sodium (Chloride) 250 mls @ 166.667 mls/hr IVPB Q12 [facility] Last Admin: 09/29/16 08:59 Dose: 166.667 mls/hr Azithromycin 500 mg/ Sodium (Chloride) 250 mls @ 250 mls/hr IVPB DAILY [facility] Last Admin: 09/29/16 08:51 Dose: 250 mls/hr Piperacillin Sod/Tazobactam (Sod 3.375 gm/ Sodium Chloride) 100 mls @ 100 mls/ hr IVPB Q6 [facility] Last Admin: 09/29/16 09:05 Dose: 100 mls/hr Lactulose (Enulose) 20 gm PEG BID PRN PRN Reason: Constipation Latanoprost (Xalatan Opht) 1 drop OU HS [facility] Last Admin: 09/28/16 21:42 Dose: 1 drop Magnesium Hydroxide (Milk Of Magnesia) 30 ml PO DAILY PRN PRN Reason: Constipation Metoprolol Tartrate (Lopressor) 25 mg PEG Q8 [facility] Last Admin: 09/29/16 09:37 Dose: 25 mg Tramadol HCl (Ultram) 50 mg GT Q6 PRN PRN Reason: Pain, severe (8-10) - Labs Labs: 09/27/16 16:30 09/27/16 16:30 PT 12.2 Seconds (9.8-13.1) 09/27/16 16:30 INR 1.1 (0.9-1.2) 09/27/16 16:30 APTT 27.3 Seconds (25.6-37.1) 09/27/16 16:30 - Head Exam Head Exam: ATRAUMATIC - Eye Exam Eye Exam: Normal appearance - Neck Exam Neck Exam: Normal Inspection - Respiratory Exam Respiratory Exam: Rhonchi - Cardiovascular Exam Cardiovascular Exam: REGULAR RHYTHM - Extremities Exam Extremities Exam: Normal Inspection Assessment and Plan - Assessment and Plan (Free Text) Assessment: CHF Pneumonia CVA Dementia Repeat Echo EF30-35 % Moderate to sever MR Plan: Cont. Acetaminophen (Tylenol 650mg/20.3ml Solution Ud) 650 mg PEG Q4 PRN PRN Reason: Pain, Mild (1-3) Acetaminophen (Tylenol 650mg/20.3ml Solution Ud) 650 mg PEG Q6 PRN PRN Reason: Temperature Last Admin: 09/29/16 00:04 Dose: 650 mg Albuterol/Ipratropium (Duoneb 3 Mg/0.5 Mg (3 Ml) Ud) 3 ml INH RQ6 [facility] Last Admin: 09/29/16 13:42 Dose: 3 ml Ascorbic Acid (Vitamin C Liq) 500 mg PEG DAILY [facility] Last Admin: 09/29/16 09:39 Dose: 5 ml Atorvastatin Calcium (Lipitor) 10 mg PEG HS [facility] Last Admin: 09/28/16 21:38 Dose: 10 mg Bisacodyl (Dulcolax) 10 mg [place] DAILY PRN PRN Reason: Constipation Diltiazem HCl (Cardizem) 60 mg PEG Q8 [facility] Last Admin: 09/29/16 09:38 Dose: 60 mg Enalapril Maleate (Vasotec) 2.5 mg PO DAILY [facility] Last Admin: 09/29/16 09:39 Dose: 2.5 mg Furosemide (Lasix) 40 mg IV DAILY [facility] Last Admin: 09/29/16 09:01 Dose: 40 mg Vancomycin HCl 1 gm/ Sodium (Chloride) 250 mls @ 166.667 mls/hr IVPB Q12 [facility] Last Admin: 09/29/16 08:59 Dose: 166.667 mls/hr Azithromycin 500 mg/ Sodium (Chloride) 250 mls @ 250 mls/hr IVPB DAILY [facility] Last Admin: 09/29/16 08:51 Dose: 250 mls/hr Piperacillin Sod/Tazobactam (Sod 3.375 gm/ Sodium Chloride) 100 mls @ 100 mls/ hr IVPB Q6 [facility] Last Admin: 09/29/16 09:05 Dose: 100 mls/hr Lactulose (Enulose) 20 gm PEG BID PRN PRN Reason: Constipation Latanoprost (Xalatan Opht) 1 drop OU HS [facility] Last Admin: 09/28/16 21:42 Dose: 1 drop Magnesium Hydroxide (Milk Of Magnesia) 30 ml PO DAILY PRN PRN Reason: Constipation Metoprolol Tartrate (Lopressor) 25 mg PEG Q8 [facility] Last Admin: 09/29/16 09:37 Dose: 25 mg Tramadol HCl (Ultram) 50 mg GT Q6 PRN PRN Reason: Pain, severe (8-10)
--- NOTE | 2016-09-29 16:59 | CP.PCM.PN ---
Subjective - Date & Time of Evaluation Date of Evaluation: 09/29/16 Time of Evaluation: 09:40 - Subjective Subjective: F/U PNA. Eyes ope, moving head to verbal stimuli. Objective - Vital Signs/Intake and Output Vital Signs (last 24 hours): Temp Pulse Resp BP Pulse Ox 99.5 F 106 H 20 122/69 97 09/29/16 15:44 09/29/16 16:48 09/29/16 15:44 09/29/16 16:48 09/29/16 15:44 - Medications Medications: Current Medications Acetaminophen (Tylenol 650mg/20.3ml Solution Ud) 650 mg PEG Q4 PRN PRN Reason: Pain, Mild (1-3) Acetaminophen (Tylenol 650mg/20.3ml Solution Ud) 650 mg PEG Q6 PRN PRN Reason: Temperature Last Admin: 09/29/16 00:04 Dose: 650 mg Albuterol/Ipratropium (Duoneb 3 Mg/0.5 Mg (3 Ml) Ud) 3 ml INH RQ6 [facility] Last Admin: 09/29/16 13:42 Dose: 3 ml Ascorbic Acid (Vitamin C Liq) 500 mg PEG DAILY [facility] Last Admin: 09/29/16 09:39 Dose: 5 ml Atorvastatin Calcium (Lipitor) 10 mg PEG HS [facility] Last Admin: 09/28/16 21:38 Dose: 10 mg Bisacodyl (Dulcolax) 10 mg [place] DAILY PRN PRN Reason: Constipation Diltiazem HCl (Cardizem) 60 mg PEG Q8 [facility] Last Admin: 09/29/16 16:46 Dose: 60 mg Enalapril Maleate (Vasotec) 2.5 mg PO DAILY [facility] Last Admin: 09/29/16 09:39 Dose: 2.5 mg Furosemide (Lasix) 40 mg IV DAILY [facility] Last Admin: 09/29/16 09:01 Dose: 40 mg Vancomycin HCl 1 gm/ Sodium (Chloride) 250 mls @ 166.667 mls/hr IVPB Q12 [facility] Last Admin: 09/29/16 08:59 Dose: 166.667 mls/hr Azithromycin 500 mg/ Sodium (Chloride) 250 mls @ 250 mls/hr IVPB DAILY [facility] Last Admin: 09/29/16 08:51 Dose: 250 mls/hr Piperacillin Sod/Tazobactam (Sod 3.375 gm/ Sodium Chloride) 100 mls @ 100 mls/ hr IVPB Q6 [facility] Last Admin: 09/29/16 15:38 Dose: 100 mls/hr Lactulose (Enulose) 20 gm PEG BID PRN PRN Reason: Constipation Latanoprost (Xalatan Opht) 1 drop OU HS [facility] Last Admin: 09/28/16 21:42 Dose: 1 drop Magnesium Hydroxide (Milk Of Magnesia) 30 ml PO DAILY PRN PRN Reason: Constipation Metoprolol Tartrate (Lopressor) 25 mg PEG Q8 [facility] Last Admin: 09/29/16 16:48 Dose: 25 mg Tramadol HCl (Ultram) 50 mg GT Q6 PRN PRN Reason: Pain, severe (8-10) - Labs Labs: 09/27/16 16:30 09/27/16 16:30 PT 12.2 Seconds (9.8-13.1) 09/27/16 16:30 INR 1.1 (0.9-1.2) 09/27/16 16:30 APTT 27.3 Seconds (25.6-37.1) 09/27/16 16:30 - Constitutional Appears: No Acute Distress, Chronically Ill - Head Exam Head Exam: NORMAL INSPECTION - Eye Exam Eye Exam: PERRL - ENT Exam ENT Exam: Normal Oropharynx - Neck Exam Neck Exam: Normal Inspection - Respiratory Exam Respiratory Exam: Decreased Breath Sounds, Rhonchi (b/l) - Cardiovascular Exam Cardiovascular Exam: REGULAR RHYTHM, Murmur (systolic 3/6 [place] radiated to Axilla.) - GI/Abdominal Exam GI & Abdominal Exam: Normal Bowel Sounds Additional comments: Peg tube in place. - Extremities Exam Additional comments: BUE contracted and stiff - Back Exam Additional comments: Sacral ulcer stage IV - Neurological Exam Neurological Exam: Awake Additional comments: Eyes open , moves head following verbal stimuli, expressive aphasia, generalized rigidity. - Psychiatric Exam Psychiatric exam: Flat Affect - Skin Skin Exam: Warm Assessment and Plan (1) Pneumonia Status: Acute (2) COPD (chronic obstructive pulmonary disease) Status: Chronic (3) Acute on chronic systolic CHF (congestive heart failure) Status: Acute (4) HTN (hypertension) Status: Acute (5) Mitral valve regurgitation Status: Acute (6) Chronic anemia Status: Chronic (7) Hx of non-ST elevation myocardial infarction (NSTEMI) Status: Chronic - Assessment and Plan (Free Text) Plan: Echo: Systolic function moderately impaired, EF 30-36%, moderate to severe MR. WBC from yesterday 14.2, no fever, continue Zithomax, Vanco, Zosyn, Duoneb and rest of Tx. Cardiology consult appreciated.
[2016-09-29 18:13] LABS: PROTHROMBIN TIME 12.2 Seconds (9.8-13.1)
[2016-09-29] MEDS: Latanoprost 0.005% Opht SOUTION OU SCH (22:19)
[2016-09-30] MEDS: Albuterol-Ipratrop 3 mg / 0.5 (3 ml) UD INH SCH ×4 (01:00→19:16)
[2016-09-30] MEDS: Acetaminophen 650mg/20.3ml solution UD PEG PRN (04:39)
[2016-09-30] MEDS: Piperacillin/Tazobact 3.375 GM in Sodium Chloride 0.9% 100 ML IVPB SCH ×4 (04:39→22:48)
[2016-09-30] MEDS: Azithromycin 500 MG in Sodium Chloride 0.9% 250 ML IVPB SCH (08:30)
[2016-09-30] MEDS: Ascorbic Acid 500 mg/5 ml Liq(50 ml) PEG SCH (08:53)
[2016-09-30] MEDS: Enoxaparin 40 mg Syringe SC SCH (13:00)
--- NOTE | 2016-09-30 16:10 | CP.PCM.PN ---
Subjective - Date & Time of Evaluation Date of Evaluation: 09/30/16 Time of Evaluation: 16:08 - Subjective Subjective: No apparent distress Objective - Vital Signs/Intake and Output Vital Signs (last 24 hours): Temp Pulse Resp BP Pulse Ox 98.3 F 97 H 20 153/78 H 100 09/30/16 13:40 09/30/16 13:40 09/30/16 13:40 09/30/16 13:40 09/30/16 13:40 Intake and Output: 09/30/16 09/30/16 06:59 18:59 Intake Total 1311 Balance 1311 - Medications Medications: Current Medications Acetaminophen (Tylenol 650mg/20.3ml Solution Ud) 650 mg PEG Q4 PRN PRN Reason: Pain, Mild (1-3) Acetaminophen (Tylenol 650mg/20.3ml Solution Ud) 650 mg PEG Q6 PRN PRN Reason: Temperature Last Admin: 09/30/16 04:39 Dose: 650 mg Albuterol/Ipratropium (Duoneb 3 Mg/0.5 Mg (3 Ml) Ud) 3 ml INH RQ6 [facility] Last Admin: 09/30/16 07:39 Dose: 3 ml Ascorbic Acid (Vitamin C Liq) 500 mg PEG DAILY [facility] Last Admin: 09/30/16 08:53 Dose: 500 ml Aspirin (Aspirin Chewable) 81 mg PO DAILY [facility] Atorvastatin Calcium (Lipitor) 10 mg PEG HS [facility] Last Admin: 09/29/16 22:00 Dose: 10 mg Bisacodyl (Dulcolax) 10 mg [place] DAILY PRN PRN Reason: Constipation Diltiazem HCl (Cardizem) 60 mg PEG Q8 [facility] Last Admin: 09/30/16 08:49 Dose: 60 mg Enalapril Maleate (Vasotec) 2.5 mg PO DAILY [facility] Last Admin: 09/30/16 08:52 Dose: 2.5 mg Enoxaparin Sodium (Lovenox) 40 mg SC DAILY [facility] PRN Reason: Protocol Last Admin: 09/30/16 13:00 Dose: 40 mg Furosemide (Lasix) 40 mg IV DAILY [facility] Last Admin: 09/30/16 08:50 Dose: 40 mg Vancomycin HCl 1 gm/ Sodium (Chloride) 250 mls @ 166.667 mls/hr IVPB Q12 [facility] Last Admin: 09/30/16 09:00 Dose: 166.667 mls/hr Azithromycin 500 mg/ Sodium (Chloride) 250 mls @ 250 mls/hr IVPB DAILY [facility] Last Admin: 09/30/16 08:30 Dose: 250 mls/hr Piperacillin Sod/Tazobactam (Sod 3.375 gm/ Sodium Chloride) 100 mls @ 100 mls/ hr IVPB Q6 [facility] Last Admin: 09/30/16 09:00 Dose: 100 mls/hr Lactulose (Enulose) 20 gm PEG BID PRN PRN Reason: Constipation Latanoprost (Xalatan Opht) 1 drop OU HS [facility] Last Admin: 09/29/16 22:19 Dose: 1 drop Magnesium Hydroxide (Milk Of Magnesia) 30 ml PO DAILY PRN PRN Reason: Constipation Metoprolol Tartrate (Lopressor) 25 mg PEG Q8 [facility] Last Admin: 09/30/16 08:45 Dose: 25 mg Tramadol HCl (Ultram) 50 mg GT Q6 PRN PRN Reason: Pain, severe (8-10) - Labs Labs: 09/27/16 16:30 09/27/16 16:30 PT 12.2 Seconds (9.8-13.1) 09/27/16 16:30 INR 1.1 (0.9-1.2) 09/27/16 16:30 APTT 27.3 Seconds (25.6-37.1) 09/27/16 16:30 - Head Exam Head Exam: NORMOCEPHALIC - Neck Exam Neck Exam: Normal Inspection - Respiratory Exam Respiratory Exam: Rhonchi - Cardiovascular Exam Cardiovascular Exam: REGULAR RHYTHM - Extremities Exam Extremities Exam: Pedal Edema Assessment and Plan - Assessment and Plan (Free Text) Assessment: CHF pneumonia CVA Moderate to sever MR Plan: Cont Acetaminophen (Tylenol 650mg/20.3ml Solution Ud) 650 mg PEG Q4 PRN PRN Reason: Pain, Mild (1-3) Acetaminophen (Tylenol 650mg/20.3ml Solution Ud) 650 mg PEG Q6 PRN PRN Reason: Temperature Last Admin: 09/30/16 04:39 Dose: 650 mg Albuterol/Ipratropium (Duoneb 3 Mg/0.5 Mg (3 Ml) Ud) 3 ml INH RQ6 [facility] Last Admin: 09/30/16 07:39 Dose: 3 ml Ascorbic Acid (Vitamin C Liq) 500 mg PEG DAILY [facility] Last Admin: 09/30/16 08:53 Dose: 500 ml Aspirin (Aspirin Chewable) 81 mg PO DAILY [facility] Atorvastatin Calcium (Lipitor) 10 mg PEG HS [facility] Last Admin: 09/29/16 22:00 Dose: 10 mg Bisacodyl (Dulcolax) 10 mg [place] DAILY PRN PRN Reason: Constipation Diltiazem HCl (Cardizem) 60 mg PEG Q8 [facility] Last Admin: 09/30/16 08:49 Dose: 60 mg Enalapril Maleate (Vasotec) 2.5 mg PO DAILY [facility] Last Admin: 09/30/16 08:52 Dose: 2.5 mg Enoxaparin Sodium (Lovenox) 40 mg SC DAILY [facility] PRN Reason: Protocol Last Admin: 09/30/16 13:00 Dose: 40 mg Furosemide (Lasix) 40 mg IV DAILY [facility] Last Admin: 09/30/16 08:50 Dose: 40 mg Vancomycin HCl 1 gm/ Sodium (Chloride) 250 mls @ 166.667 mls/hr IVPB Q12 [facility] Last Admin: 09/30/16 09:00 Dose: 166.667 mls/hr Azithromycin 500 mg/ Sodium (Chloride) 250 mls @ 250 mls/hr IVPB DAILY [facility] Last Admin: 09/30/16 08:30 Dose: 250 mls/hr Piperacillin Sod/Tazobactam (Sod 3.375 gm/ Sodium Chloride) 100 mls @ 100 mls/ hr IVPB Q6 [facility] Last Admin: 09/30/16 09:00 Dose: 100 mls/hr Lactulose (Enulose) 20 gm PEG BID PRN PRN Reason: Constipation Latanoprost (Xalatan Opht) 1 drop OU HS [facility] Last Admin: 09/29/16 22:19 Dose: 1 drop Magnesium Hydroxide (Milk Of Magnesia) 30 ml PO DAILY PRN PRN Reason: Constipation Metoprolol Tartrate (Lopressor) 25 mg PEG Q8 [facility] Last Admin: 09/30/16 08:45 Dose: 25 mg Tramadol HCl (Ultram) 50 mg GT Q6 PRN PRN Reason: Pain, severe (8-10)
--- NOTE | 2016-09-30 17:14 | CP.PCM.PN ---
Subjective - Date & Time of Evaluation Date of Evaluation: 09/30/16 Time of Evaluation: 13:00 - Subjective Subjective: F/U PNA Pt with eyes open, follows verbal stimuli with head movement, aphasic. Objective - Vital Signs/Intake and Output Vital Signs (last 24 hours): Temp Pulse Resp BP Pulse Ox 98.7 F 94 H 20 115/69 100 09/30/16 16:25 09/30/16 16:25 09/30/16 16:25 09/30/16 16:25 09/30/16 16:25 Intake and Output: 09/30/16 09/30/16 06:59 18:59 Intake Total 1311 Balance 1311 - Medications Medications: Current Medications Acetaminophen (Tylenol 650mg/20.3ml Solution Ud) 650 mg PEG Q4 PRN PRN Reason: Pain, Mild (1-3) Acetaminophen (Tylenol 650mg/20.3ml Solution Ud) 650 mg PEG Q6 PRN PRN Reason: Temperature Last Admin: 09/30/16 04:39 Dose: 650 mg Albuterol/Ipratropium (Duoneb 3 Mg/0.5 Mg (3 Ml) Ud) 3 ml INH RQ6 [facility] Last Admin: 09/30/16 07:39 Dose: 3 ml Ascorbic Acid (Vitamin C Liq) 500 mg PEG DAILY [facility] Last Admin: 09/30/16 08:53 Dose: 500 ml Aspirin (Aspirin Chewable) 81 mg PO DAILY [facility] Atorvastatin Calcium (Lipitor) 10 mg PEG HS [facility] Last Admin: 09/29/16 22:00 Dose: 10 mg Bisacodyl (Dulcolax) 10 mg [place] DAILY PRN PRN Reason: Constipation Diltiazem HCl (Cardizem) 60 mg PEG Q8 [facility] Last Admin: 09/30/16 16:25 Dose: 60 mg Enalapril Maleate (Vasotec) 2.5 mg PO DAILY [facility] Last Admin: 09/30/16 08:52 Dose: 2.5 mg Enoxaparin Sodium (Lovenox) 40 mg SC DAILY [facility] PRN Reason: Protocol Last Admin: 09/30/16 13:00 Dose: 40 mg Furosemide (Lasix) 40 mg IV DAILY [facility] Last Admin: 09/30/16 08:50 Dose: 40 mg Vancomycin HCl 1 gm/ Sodium (Chloride) 250 mls @ 166.667 mls/hr IVPB Q12 [facility] Last Admin: 09/30/16 09:00 Dose: 166.667 mls/hr Azithromycin 500 mg/ Sodium (Chloride) 250 mls @ 250 mls/hr IVPB DAILY [facility] Last Admin: 09/30/16 08:30 Dose: 250 mls/hr Piperacillin Sod/Tazobactam (Sod 3.375 gm/ Sodium Chloride) 100 mls @ 100 mls/ hr IVPB Q6 [facility] Last Admin: 09/30/16 16:20 Dose: 100 mls/hr Lactulose (Enulose) 20 gm PEG BID PRN PRN Reason: Constipation Latanoprost (Xalatan Opht) 1 drop OU HS [facility] Last Admin: 09/29/16 22:19 Dose: 1 drop Magnesium Hydroxide (Milk Of Magnesia) 30 ml PO DAILY PRN PRN Reason: Constipation Metoprolol Tartrate (Lopressor) 25 mg PEG Q8 [facility] Last Admin: 09/30/16 16:24 Dose: 25 mg Tramadol HCl (Ultram) 50 mg GT Q6 PRN PRN Reason: Pain, severe (8-10) - Labs Labs: 09/27/16 16:30 09/27/16 16:30 PT 12.2 Seconds (9.8-13.1) 09/27/16 16:30 INR 1.1 (0.9-1.2) 09/27/16 16:30 APTT 27.3 Seconds (25.6-37.1) 09/27/16 16:30 - Constitutional Appears: No Acute Distress, Chronically Ill - Head Exam Head Exam: NORMAL INSPECTION - Eye Exam Eye Exam: PERRL - ENT Exam ENT Exam: Normal Oropharynx - Neck Exam Neck Exam: Normal Inspection - Respiratory Exam Respiratory Exam: Decreased Breath Sounds, Rhonchi (b/l) - Cardiovascular Exam Cardiovascular Exam: REGULAR RHYTHM, Murmur (systolic murmur 3/6 [place] radiated to Axilla.) - GI/Abdominal Exam GI & Abdominal Exam: Soft, Normal Bowel Sounds Additional comments: Peg tube in place - Extremities Exam Additional comments: BUE contracted and stiff. - Back Exam Additional comments: Sacral ulcer stage IV - Neurological Exam Additional comments: Eyes open, expressive aphasia, generalized rigidity, moves head following verbal stimuli - Psychiatric Exam Psychiatric exam: Flat Affect - Skin Skin Exam: Warm Assessment and Plan (1) Pneumonia Status: Acute (2) COPD (chronic obstructive pulmonary disease) Status: Chronic (3) Acute on chronic systolic CHF (congestive heart failure) Status: Acute (4) HTN (hypertension) Status: Acute (5) Mitral valve regurgitation Status: Acute (6) Chronic anemia Status: Chronic (7) Hx of non-ST elevation myocardial infarction (NSTEMI) Status: Chronic - Assessment and Plan (Free Text) Plan: Continue Zithromax, Zosyn, [place], CT Chest in AM.
[2016-09-30] MEDS: Latanoprost 0.005% Opht SOUTION OU SCH (21:03)
[2016-10-01] MEDS: Albuterol-Ipratrop 3 mg / 0.5 (3 ml) UD INH SCH ×4 (01:11→20:23)
[2016-10-01] MEDS: Piperacillin/Tazobact 3.375 GM in Sodium Chloride 0.9% 100 ML IVPB SCH ×3 (04:09→18:04)
[2016-10-01 07:02] LABS: BASO # 0.1 K/uL (0.0-0.2); BASO % 0.9 % (0.0-2.0); EOS # 0.7 K/uL (0.0-0.7); EOS % 8.9 % (0.0-4.0); HEMOGLOBIN 10.7 g/dL (12.0-16.0); LYMPH # 1.5 K/uL (1.0-4.3); LYMPH % 20.7 % (20.0-40.0); MEAN CORPUSCULAR HGB CONC 32.2 g/dL (33.0-37.0); MEAN PLATELET VOLUME 10.7 fl (7.2-11.7); MONO # 0.8 K/uL (0.0-0.8); MONO % 11.3 % (0.0-10.0); NEUT # 4.3 K/uL (1.8-7.0); NEUT % 58.2 % (50.0-75.0); NRBC % 0.1 % (0.0-0.0); RBC 3.8 Mil/uL (3.80-5.20); RED CELL DISTRIBUTION WIDTH 14.6 % (11.5-14.5); WHITE BLOOD COUNT 7.4 K/uL (4.8-10.8)
[2016-10-01 07:13] LABS: ALB/GLOB RATIO 0.9 (1.0-2.1); ALBUMIN 3.6 g/dL (3.5-5.0); ALT/SGPT 30 U/L (9-52); AST/SGOT 26 U/L (14-36); BLOOD UREA NITROGEN 19 mg/dl (7-17); CALCIUM 9.3 mg/dL (8.4-10.2); GFR AFRICAN-AMERICAN > 60; GFR NON-AFRICAN AMERICAN > 60; HDL CHOLESTEROL 41 MG/DL (30-70)
[2016-10-01 07:23] LABS: T4 8.23 ug/dl (5.5-11.0)
[2016-10-01 07:24] LABS: LDL CHOLESTEROL 36 mg/dL (0-129)
--- NOTE | 2016-10-01 09:39 | PQF GENQUE ---
Dr. Del Valle, (1) Sepsis ruled in or Sepsis ruled out? (2) If ruled in etiology if known? i.e. due to Pneumonia or due to Sacral Decubitus or Multifactorial etiology OR: Unable to determine Admission order: Admitting dx: Pneumonia, Sepsis H and P: moderate SOB associated to cough, non productive, non bloody. Worsening symptoms of Fever, TMAx: today 100.4 F. WBC 14.2 POA:Ulcer Location: Sacrum Decubitus Ulcer Stage: IV Diagnoses include: (1) Pneumonia Status: Acute bld. culture; no growth after 24 hrs urine culture:1MSP <10,000 CFU/ML. C1MSP MULTIPLE SPECIES. PROBABLE CONTAMINATION. pulse: 96->104 09/28: temp: 100->100.4 and 09/29: temp: 101.5-max thus far WBC: 14.2 left shift IVAB This form is a permanent part of the medical record Clarification of your documentation is requested to better reflect the severity of illness and intensity of treatment of your patient. Indicators present [] Specify: [] [] Specify: [] [] Specify: [] [] Specify: [] Location in the medical record that reflects the above clinical findings: [] Treatment Provided: [] PHYSICIAN'S RESPONSE Based on your medical judgment of the clinical indicators outlined above please clarify the following: [] Practitioner response [] If unable to determine, please check the box, sign and date. Present On Admission (POA) Indicator: [] Present at the time of admission [] Not present at the time of admission [] Clinically Undetermined In responding to this query, please exercise your independent professional judgment. The fact that a question is asked does not imply that any particular answer is desired or expected. Thank you for your clarification on this documentation. If you have any questions please call. * Thank you, Evita Cooper RN BSN ext. #[phone] (ext. [phone] temporarily out of service) ALICIA
[2016-10-01] MEDS: Ascorbic Acid 500 mg/5 ml Liq(50 ml) PEG SCH (09:50)
[2016-10-01] MEDS: Enoxaparin 40 mg Syringe SC SCH (09:51)
--- NOTE | 2016-10-01 10:06 | PQF GENQUE ---
Dr. Del Valle, 1.. Please specify type of pneumonia in the progress notes: Aspiration pneumonia Please document specific aspirate (food, liquids, etc.) Please indicate if this is postprocedural Bacterial (specify organism) Bronchopneumonia (specify organism) Interstitual pneumonia Organizing pneumonia/BOOP RSV pneumonia Viral pneumonia Other pneumonia (specify organism or type) Clinically unable to determine OR:Unknown 2. Please specify the organism causing the pneumonia: if known after the work up is completed Note: CAP, HAP, and HCAP indicate where the pneumonia H and P: moderate SOB associated to cough, non productive, non bloody. Worsening symptoms of Fever, TMAx: today 100.4 F. WBC 14.2 POA:Ulcer Location: Sacrum Decubitus Ulcer Stage: IV PMHx: COPD, Hx PAFib with RVR, Metabolic Encephalopathy, Multiples CVAs, NSTEMI , HTN, High Cholesterol, O/A, Alzheimer's Disease, Severe Dementia, Hx Chronic Anemia, CKD, PNA, :BUE contracted and stiff. - Back Exam: Sacral ulcer stage IV -Eyes open, expressive aphasia, generalized rigidity, moves head following verbal stimuli IVAB This form is a permanent part of the medical record Clarification of your documentation is requested to better reflect the severity of illness and intensity of treatment of your patient. Indicators present [] Specify: [] [] Specify: [] [] Specify: [] [] Specify: [] Location in the medical record that reflects the above clinical findings: [] Treatment Provided: [] PHYSICIAN'S RESPONSE Based on your medical judgment of the clinical indicators outlined above please clarify the following: [] Practitioner response [] If unable to determine, please check the box, sign and date. Present On Admission (POA) Indicator: [] Present at the time of admission [] Not present at the time of admission [] Clinically Undetermined In responding to this query, please exercise your independent professional judgment. The fact that a question is asked does not imply that any particular answer is desired or expected. Thank you for your clarification on this documentation. If you have any questions please call. * Thank you, Evita Cooper RN BSN ext. #[phone] (ext. [phone] temporarily out of service) [facility]
[2016-10-01] MEDS: Azithromycin 500 MG in Sodium Chloride 0.9% 250 ML IVPB SCH (10:33)
--- NOTE | 2016-10-01 16:31 | CP.PCM.PN ---
Subjective - Date & Time of Evaluation Date of Evaluation: 10/01/16 Time of Evaluation: 16:29 - Subjective Subjective: No apparent distress Objective - Vital Signs/Intake and Output Vital Signs (last 24 hours): Temp Pulse Resp BP Pulse Ox 98.7 F 91 H 20 106/66 99 10/01/16 16:24 10/01/16 16:24 10/01/16 16:24 10/01/16 16:24 10/01/16 16:24 Intake and Output: 10/01/16 10/01/16 06:59 18:59 Intake Total 1480 1480 Balance 1480 1480 - Medications Medications: Current Medications Acetaminophen (Tylenol 650mg/20.3ml Solution Ud) 650 mg PEG Q4 PRN PRN Reason: Pain, Mild (1-3) Acetaminophen (Tylenol 650mg/20.3ml Solution Ud) 650 mg PEG Q6 PRN PRN Reason: Temperature Last Admin: 09/30/16 04:39 Dose: 650 mg Albuterol/Ipratropium (Duoneb 3 Mg/0.5 Mg (3 Ml) Ud) 3 ml INH RQ6 [facility] Last Admin: 10/01/16 13:24 Dose: 3 ml Ascorbic Acid (Vitamin C Liq) 500 mg PEG DAILY [facility] Last Admin: 10/01/16 09:50 Dose: 500 ml Aspirin (Aspirin Chewable) 81 mg PO DAILY [facility] Last Admin: 10/01/16 09:51 Dose: 81 mg Atorvastatin Calcium (Lipitor) 10 mg PEG HS [facility] Last Admin: 09/30/16 21:00 Dose: 10 mg Bisacodyl (Dulcolax) 10 mg [place] DAILY PRN PRN Reason: Constipation Diltiazem HCl (Cardizem) 60 mg PEG Q8 [facility] Last Admin: 10/01/16 09:50 Dose: 60 mg Enalapril Maleate (Vasotec) 2.5 mg PO DAILY [facility] Last Admin: 10/01/16 09:50 Dose: 2.5 mg Enoxaparin Sodium (Lovenox) 40 mg SC DAILY [facility] PRN Reason: Protocol Last Admin: 10/01/16 09:51 Dose: 40 mg Furosemide (Lasix) 40 mg IV DAILY [facility] Last Admin: 10/01/16 09:52 Dose: 40 mg Vancomycin HCl 1 gm/ Sodium (Chloride) 250 mls @ 166.667 mls/hr IVPB Q12 [facility] Last Admin: 10/01/16 09:54 Dose: 166.667 mls/hr Azithromycin 500 mg/ Sodium (Chloride) 250 mls @ 250 mls/hr IVPB DAILY [facility] Last Admin: 10/01/16 10:33 Dose: 250 mls/hr Piperacillin Sod/Tazobactam (Sod 3.375 gm/ Sodium Chloride) 100 mls @ 100 mls/ hr IVPB Q6 [facility] Last Admin: 10/01/16 10:34 Dose: 100 mls/hr Lactulose (Enulose) 20 gm PEG BID PRN PRN Reason: Constipation Latanoprost (Xalatan Opht) 1 drop OU HS [facility] Last Admin: 09/30/16 21:03 Dose: 1 drop Magnesium Hydroxide (Milk Of Magnesia) 30 ml PO DAILY PRN PRN Reason: Constipation Metoprolol Tartrate (Lopressor) 25 mg PEG Q8 [facility] Last Admin: 10/01/16 09:51 Dose: 25 mg Tramadol HCl (Ultram) 50 mg GT Q6 PRN PRN Reason: Pain, severe (8-10) - Labs Labs: 10/01/16 06:10 10/01/16 06:10 PT 12.2 Seconds (9.8-13.1) 09/27/16 16:30 INR 1.1 (0.9-1.2) 09/27/16 16:30 APTT 27.3 Seconds (25.6-37.1) 09/27/16 16:30 - Constitutional Appears: No Acute Distress - Head Exam Head Exam: NORMAL INSPECTION - Eye Exam Eye Exam: Normal appearance - Respiratory Exam Respiratory Exam: Rhonchi - Cardiovascular Exam Cardiovascular Exam: REGULAR RHYTHM - Extremities Exam Extremities Exam: Normal Inspection Assessment and Plan - Assessment and Plan (Free Text) Assessment: CHF CVA Pneumonia Plan: Cont Acetaminophen (Tylenol 650mg/20.3ml Solution Ud) 650 mg PEG Q4 PRN PRN Reason: Pain, Mild (1-3) Acetaminophen (Tylenol 650mg/20.3ml Solution Ud) 650 mg PEG Q6 PRN PRN Reason: Temperature Last Admin: 09/30/16 04:39 Dose: 650 mg Albuterol/Ipratropium (Duoneb 3 Mg/0.5 Mg (3 Ml) Ud) 3 ml INH RQ6 [facility] Last Admin: 10/01/16 13:24 Dose: 3 ml Ascorbic Acid (Vitamin C Liq) 500 mg PEG DAILY [facility] Last Admin: 10/01/16 09:50 Dose: 500 ml Aspirin (Aspirin Chewable) 81 mg PO DAILY [facility] Last Admin: 10/01/16 09:51 Dose: 81 mg Atorvastatin Calcium (Lipitor) 10 mg PEG HS [facility] Last Admin: 09/30/16 21:00 Dose: 10 mg Bisacodyl (Dulcolax) 10 mg [place] DAILY PRN PRN Reason: Constipation Diltiazem HCl (Cardizem) 60 mg PEG Q8 [facility] Last Admin: 10/01/16 09:50 Dose: 60 mg Enalapril Maleate (Vasotec) 2.5 mg PO DAILY [facility] Last Admin: 10/01/16 09:50 Dose: 2.5 mg Enoxaparin Sodium (Lovenox) 40 mg SC DAILY [facility] PRN Reason: Protocol Last Admin: 10/01/16 09:51 Dose: 40 mg Furosemide (Lasix) 40 mg IV DAILY [facility] Last Admin: 10/01/16 09:52 Dose: 40 mg Vancomycin HCl 1 gm/ Sodium (Chloride) 250 mls @ 166.667 mls/hr IVPB Q12 [facility] Last Admin: 10/01/16 09:54 Dose: 166.667 mls/hr Azithromycin 500 mg/ Sodium (Chloride) 250 mls @ 250 mls/hr IVPB DAILY [facility] Last Admin: 10/01/16 10:33 Dose: 250 mls/hr Piperacillin Sod/Tazobactam (Sod 3.375 gm/ Sodium Chloride) 100 mls @ 100 mls/ hr IVPB Q6 [facility] Last Admin: 10/01/16 10:34 Dose: 100 mls/hr Lactulose (Enulose) 20 gm PEG BID PRN PRN Reason: Constipation Latanoprost (Xalatan Opht) 1 drop OU HS [facility] Last Admin: 09/30/16 21:03 Dose: 1 drop Magnesium Hydroxide (Milk Of Magnesia) 30 ml PO DAILY PRN PRN Reason: Constipation Metoprolol Tartrate (Lopressor) 25 mg PEG Q8 [facility] Last Admin: 10/01/16 09:51 Dose: 25 mg Tramadol HCl (Ultram) 50 mg GT Q6 PRN PRN Reason: Pain, severe (8-10)
--- NOTE | 2016-10-01 16:52 | CP.PCM.PN ---
Subjective - Date & Time of Evaluation Date of Evaluation: 10/01/16 Time of Evaluation: 09:20 - Subjective Subjective: F/U PNA Pt aphasic, follows with the eyes verbal stimulation. Objective - Vital Signs/Intake and Output Vital Signs (last 24 hours): Temp Pulse Resp BP Pulse Ox 98.7 F 91 H 20 106/66 99 10/01/16 16:24 10/01/16 16:24 10/01/16 16:24 10/01/16 16:24 10/01/16 16:24 Intake and Output: 10/01/16 10/01/16 06:59 18:59 Intake Total 1480 1480 Balance 1480 1480 - Medications Medications: Current Medications Acetaminophen (Tylenol 650mg/20.3ml Solution Ud) 650 mg PEG Q4 PRN PRN Reason: Pain, Mild (1-3) Acetaminophen (Tylenol 650mg/20.3ml Solution Ud) 650 mg PEG Q6 PRN PRN Reason: Temperature Last Admin: 09/30/16 04:39 Dose: 650 mg Albuterol/Ipratropium (Duoneb 3 Mg/0.5 Mg (3 Ml) Ud) 3 ml INH RQ6 [facility] Last Admin: 10/01/16 13:24 Dose: 3 ml Ascorbic Acid (Vitamin C Liq) 500 mg PEG DAILY [facility] Last Admin: 10/01/16 09:50 Dose: 500 ml Aspirin (Aspirin Chewable) 81 mg PO DAILY [facility] Last Admin: 10/01/16 09:51 Dose: 81 mg Atorvastatin Calcium (Lipitor) 10 mg PEG HS [facility] Last Admin: 09/30/16 21:00 Dose: 10 mg Bisacodyl (Dulcolax) 10 mg [place] DAILY PRN PRN Reason: Constipation Diltiazem HCl (Cardizem) 60 mg PEG Q8 [facility] Last Admin: 10/01/16 09:50 Dose: 60 mg Enalapril Maleate (Vasotec) 2.5 mg PO DAILY [facility] Last Admin: 10/01/16 09:50 Dose: 2.5 mg Enoxaparin Sodium (Lovenox) 40 mg [place] DAILY [facility] PRN Reason: Protocol Last Admin: 10/01/16 09:51 Dose: 40 mg Furosemide (Lasix) 40 mg IV DAILY [facility] Last Admin: 10/01/16 09:52 Dose: 40 mg Vancomycin HCl 1 gm/ Sodium (Chloride) 250 mls @ 166.667 mls/hr IVPB Q12 [facility] Last Admin: 10/01/16 09:54 Dose: 166.667 mls/hr Azithromycin 500 mg/ Sodium (Chloride) 250 mls @ 250 mls/hr IVPB DAILY [facility] Last Admin: 10/01/16 10:33 Dose: 250 mls/hr Piperacillin Sod/Tazobactam (Sod 3.375 gm/ Sodium Chloride) 100 mls @ 100 mls/ hr IVPB Q6 [facility] Last Admin: 10/01/16 10:34 Dose: 100 mls/hr Lactulose (Enulose) 20 gm PEG BID PRN PRN Reason: Constipation Latanoprost (Xalatan Opht) 1 drop OU HS [facility] Last Admin: 09/30/16 21:03 Dose: 1 drop Magnesium Hydroxide (Milk Of Magnesia) 30 ml PO DAILY PRN PRN Reason: Constipation Metoprolol Tartrate (Lopressor) 25 mg PEG Q8 [facility] Last Admin: 10/01/16 09:51 Dose: 25 mg Tramadol HCl (Ultram) 50 mg [place] Q6 PRN PRN Reason: Pain, severe (8-10) - Labs Labs: 10/01/16 06:10 10/01/16 06:10 PT 12.2 Seconds (9.8-13.1) 09/27/16 16:30 INR 1.1 (0.9-1.2) 09/27/16 16:30 APTT 27.3 Seconds (25.6-37.1) 09/27/16 16:30 - Constitutional Appears: No Acute Distress, Chronically Ill - Head Exam Head Exam: NORMAL INSPECTION - Eye Exam Eye Exam: PERRL - ENT Exam ENT Exam: Normal Oropharynx - Neck Exam Neck Exam: Normal Inspection - Respiratory Exam Respiratory Exam: Decreased Breath Sounds, Rhonchi (b/l) - Cardiovascular Exam Cardiovascular Exam: REGULAR RHYTHM, Murmur (systolic 3/6 [place] radiated to Axilla.) - GI/Abdominal Exam GI & Abdominal Exam: Soft, Normal Bowel Sounds Additional comments: Peg tube in place. - Extremities Exam Additional comments: BUE contracted and stiff - Back Exam Additional comments: Sacral ulcer stage IV - Neurological Exam Additional comments: Eyes open, moves head following verbal stimuli, expressive aphasia, generalized rigidity. - Psychiatric Exam Psychiatric exam: Flat Affect - Skin Skin Exam: Warm Assessment and Plan (1) Pneumonia Status: Acute (2) Acute on chronic systolic CHF (congestive heart failure) Status: Acute (3) Mitral valve regurgitation Status: Acute (4) COPD (chronic obstructive pulmonary disease) Status: Chronic (5) HTN (hypertension) Status: Acute (6) Chronic anemia Status: Chronic (7) Hx of non-ST elevation myocardial infarction (NSTEMI) Status: Chronic - Assessment and Plan (Free Text) Plan: Continue current Tx, f/u CT chest result.
[2016-10-01] MEDS: Latanoprost 0.005% Opht SOUTION OU SCH (22:54)
[2016-10-02] MEDS: Piperacillin/Tazobact 3.375 GM in Sodium Chloride 0.9% 100 ML IVPB SCH ×5 (00:05→23:00)
[2016-10-02] MEDS: Albuterol-Ipratrop 3 mg / 0.5 (3 ml) UD INH SCH ×4 (01:00→19:14)
[2016-10-02 06:23] LABS: MEAN CELL VOLUME 85.9 fl (81.0-99.0); MEAN CORPUSCULAR HEMOGLOBIN 27.7 pg (27.0-31.0); MEAN CORPUSCULAR HGB CONC 32.3 g/dL (33.0-37.0); RBC 3.98 Mil/uL (3.80-5.20); RED CELL DISTRIBUTION WIDTH 14.3 % (11.5-14.5); WHITE BLOOD COUNT 7.6 K/uL (4.8-10.8)
[2016-10-02 06:31] LABS: BLOOD UREA NITROGEN 17 mg/dl (7-17); CALCIUM 9.4 mg/dL (8.4-10.2); GFR AFRICAN-AMERICAN > 60; GFR NON-AFRICAN AMERICAN > 60
--- NOTE | 2016-10-02 06:50 | CARD ---
APPROVED REPORT EKG Measurement Heart [id number] <Conclusion> Sinus tachycardia Moderate voltage criteria for LVH, may be normal variant Borderline ECG
[2016-10-02] MEDS: Azithromycin 500 MG in Sodium Chloride 0.9% 250 ML IVPB SCH (08:52)
[2016-10-02] MEDS: Enoxaparin 40 mg Syringe SC SCH (10:20)
[2016-10-02] MEDS: Ascorbic Acid 500 mg/5 ml Liq(50 ml) PEG SCH (10:20)
--- NOTE | 2016-10-02 14:39 | CT ---
PROCEDURE: CT Chest without contrast HISTORY: Pneumonia COMPARISON: 02/28/2016. CT abdomen and pelvis. Prior study demonstrated bilateral pleural effusions and compressive atelectasis. TECHNIQUE: Contiguous axial images were obtained through the chest without intravenous contrast enhancement. Sagittal and coronal reconstructions were performed. Radiation dose (DLP): 498.51 mGy-cm. This CT exam was performed using one or more of the following dose reduction techniques: Automated exposure control, adjustment of the mA and/or kV according to patient size, and/or use of iterative reconstruction technique. FINDINGS: LUNGS: Left lower lobe infiltrate, findings similar to those seen on recent chest x-ray. Incidental finding(s): Calcified granuloma as ago esophageal recess region, right lower lobe MEDIASTINUM: Unremarkable thoracic aorta. No aneurysm. Normal sized heart. Main pulmonary artery unremarkable. No vascular congestion. Multiple mediastinal lymph nodes the preponderance of which are 1.5 cm and less. PLEURA: No pleural fluid. No pneumothorax. BONES: No fracture. No destructive lesion. Scoliosis, secondary degenerative change at multiple levels. UPPER ABDOMEN: Nonobstructing right renal calculus disease. Similar findings identified on the prior CT. Smaller calculi identified both upper poles. OTHER FINDINGS: None. IMPRESSION: Left lower lobe infiltrate likely pneumonia. No additional, significance/adjacent abnormalities in the thorax. Incidental finding(s): Nonobstructing left renal calculus disease.
--- NOTE | 2016-10-02 15:15 | CP.PCM.PN ---
Subjective - Date & Time of Evaluation Date of Evaluation: 10/02/16 Time of Evaluation: 11:00 - Subjective Subjective: No apparent distress Objective - Vital Signs/Intake and Output Vital Signs (last 24 hours): Temp Pulse Resp BP Pulse Ox 98.8 F 89 18 122/77 97 10/02/16 07:42 10/02/16 10:19 10/02/16 07:42 10/02/16 10:19 10/02/16 07:42 Intake and Output: 10/02/16 10/02/16 06:59 18:59 Intake Total 890 Balance 890 - Medications Medications: Current Medications Acetaminophen (Tylenol 650mg/20.3ml Solution Ud) 650 mg PEG Q4 PRN PRN Reason: Pain, Mild (1-3) Acetaminophen (Tylenol 650mg/20.3ml Solution Ud) 650 mg PEG Q6 PRN PRN Reason: Temperature Last Admin: 09/30/16 04:39 Dose: 650 mg Albuterol/Ipratropium (Duoneb 3 Mg/0.5 Mg (3 Ml) Ud) 3 ml INH RQ6 [facility] Last Admin: 10/02/16 13:36 Dose: 3 ml Ascorbic Acid (Vitamin C Liq) 500 mg PEG DAILY [facility] Last Admin: 10/02/16 10:20 Dose: 500 ml Aspirin (Aspirin Chewable) 81 mg PO DAILY [facility] Last Admin: 10/02/16 10:16 Dose: 81 mg Atorvastatin Calcium (Lipitor) 10 mg PEG HS [facility] Last Admin: 10/01/16 22:53 Dose: 10 mg Bisacodyl (Dulcolax) 10 mg [place] DAILY PRN PRN Reason: Constipation Diltiazem HCl (Cardizem) 60 mg PEG Q8 [facility] Last Admin: 10/02/16 10:16 Dose: 60 mg Enalapril Maleate (Vasotec) 2.5 mg PO DAILY [facility] Last Admin: 10/02/16 10:20 Dose: 2.5 mg Enoxaparin Sodium (Lovenox) 40 mg [place] DAILY [facility] PRN Reason: Protocol Last Admin: 10/02/16 10:20 Dose: 40 mg Furosemide (Lasix) 40 mg IV DAILY [facility] Last Admin: 10/02/16 10:19 Dose: 40 mg Vancomycin HCl 1 gm/ Sodium (Chloride) 250 mls @ 166.667 mls/hr IVPB Q12 [facility] Last Admin: 10/02/16 08:52 Dose: 166.667 mls/hr Azithromycin 500 mg/ Sodium (Chloride) 250 mls @ 250 mls/hr IVPB DAILY [facility] Last Admin: 10/02/16 08:52 Dose: 250 mls/hr Piperacillin Sod/Tazobactam (Sod 3.375 gm/ Sodium Chloride) 100 mls @ 100 mls/ hr IVPB Q6 [facility] Last Admin: 10/02/16 10:21 Dose: 100 mls/hr Lactulose (Enulose) 20 gm PEG BID PRN PRN Reason: Constipation Latanoprost (Xalatan Opht) 1 drop OU HS [facility] Last Admin: 10/01/16 22:54 Dose: 1 drop Magnesium Hydroxide (Milk Of Magnesia) 30 ml PO DAILY PRN PRN Reason: Constipation Metoprolol Tartrate (Lopressor) 25 mg PEG Q8 [facility] Last Admin: 10/02/16 10:19 Dose: 25 mg Tramadol HCl (Ultram) 50 mg GT Q6 PRN PRN Reason: Pain, severe (8-10) - Labs Labs: 10/02/16 05:45 10/02/16 05:45 PT 12.2 Seconds (9.8-13.1) 09/27/16 16:30 INR 1.1 (0.9-1.2) 09/27/16 16:30 APTT 27.3 Seconds (25.6-37.1) 09/27/16 16:30 - Constitutional Appears: Non-toxic - Head Exam Head Exam: NORMAL INSPECTION Additional comments: starring look - ENT Exam ENT Exam: Normal Exam - Neck Exam Neck Exam: Normal Inspection - Respiratory Exam Respiratory Exam: Decreased Breath Sounds - Cardiovascular Exam Cardiovascular Exam: REGULAR RHYTHM - Extremities Exam Extremities Exam: Normal Inspection Assessment and Plan - Assessment and Plan (Free Text) Plan: (1) Pneumonia Status: Acute (2) Acute on chronic systolic CHF (congestive heart failure) Status: Acute (3) Mitral valve regurgitation Status: Acute (4) COPD (chronic obstructive pulmonary disease) Status: Chronic (5) HTN (hypertension) Status: Acute (6)CVA Status : old Cont. Acetaminophen (Tylenol 650mg/20.3ml Solution Ud) 650 mg PEG Q4 PRN PRN Reason: Pain, Mild (1-3) Acetaminophen (Tylenol 650mg/20.3ml Solution Ud) 650 mg PEG Q6 PRN PRN Reason: Temperature Last Admin: 09/30/16 04:39 Dose: 650 mg Albuterol/Ipratropium (Duoneb 3 Mg/0.5 Mg (3 Ml) Ud) 3 ml INH RQ6 [facility] Last Admin: 10/02/16 13:36 Dose: 3 ml Ascorbic Acid (Vitamin C Liq) 500 mg PEG DAILY [facility] Last Admin: 10/02/16 10:20 Dose: 500 ml Aspirin (Aspirin Chewable) 81 mg PO DAILY [facility] Last Admin: 10/02/16 10:16 Dose: 81 mg Atorvastatin Calcium (Lipitor) 10 mg PEG HS [facility] Last Admin: 10/01/16 22:53 Dose: 10 mg Bisacodyl (Dulcolax) 10 mg [place] DAILY PRN PRN Reason: Constipation Diltiazem HCl (Cardizem) 60 mg PEG Q8 [facility] Last Admin: 10/02/16 10:16 Dose: 60 mg Enalapril Maleate (Vasotec) 2.5 mg PO DAILY [facility] Last Admin: 10/02/16 10:20 Dose: 2.5 mg Enoxaparin Sodium (Lovenox) 40 mg SC DAILY [facility] PRN Reason: Protocol Last Admin: 10/02/16 10:20 Dose: 40 mg Furosemide (Lasix) 40 mg IV DAILY [facility] Last Admin: 10/02/16 10:19 Dose: 40 mg Vancomycin HCl 1 gm/ Sodium (Chloride) 250 mls @ 166.667 mls/hr IVPB Q12 [facility] Last Admin: 10/02/16 08:52 Dose: 166.667 mls/hr Azithromycin 500 mg/ Sodium (Chloride) 250 mls @ 250 mls/hr IVPB DAILY [facility] Last Admin: 10/02/16 08:52 Dose: 250 mls/hr Piperacillin Sod/Tazobactam (Sod 3.375 gm/ Sodium Chloride) 100 mls @ 100 mls/ hr IVPB Q6 [facility] Last Admin: 10/02/16 10:21 Dose: 100 mls/hr Lactulose (Enulose) 20 gm PEG BID PRN PRN Reason: Constipation Latanoprost (Xalatan Opht) 1 drop OU HS [facility] Last Admin: 10/01/16 22:54 Dose: 1 drop Magnesium Hydroxide (Milk Of Magnesia) 30 ml PO DAILY PRN PRN Reason: Constipation Metoprolol Tartrate (Lopressor) 25 mg PEG Q8 [facility] Last Admin: 10/02/16 10:19 Dose: 25 mg Tramadol HCl (Ultram) 50 mg GT Q6 PRN PRN Reason: Pain, severe (8-10)
--- NOTE | 2016-10-02 17:44 | CP.PCM.PN ---
Subjective - Date & Time of Evaluation Date of Evaluation: 10/02/16 Time of Evaluation: 12:00 - Subjective Subjective: F/U PNA. Pt with eyes open, aphasic, follows with head movements to verbal stimuli. Objective - Vital Signs/Intake and Output Vital Signs (last 24 hours): Temp Pulse Resp BP Pulse Ox 99 F 96 H 20 101/65 96 10/02/16 16:08 10/02/16 16:08 10/02/16 16:08 10/02/16 16:08 10/02/16 16:08 Intake and Output: 10/02/16 10/02/16 06:59 18:59 Intake Total 890 Balance 890 - Medications Medications: Current Medications Acetaminophen (Tylenol 650mg/20.3ml Solution Ud) 650 mg PEG Q4 PRN PRN Reason: Pain, Mild (1-3) Acetaminophen (Tylenol 650mg/20.3ml Solution Ud) 650 mg PEG Q6 PRN PRN Reason: Temperature Last Admin: 09/30/16 04:39 Dose: 650 mg Albuterol/Ipratropium (Duoneb 3 Mg/0.5 Mg (3 Ml) Ud) 3 ml INH RQ6 [facility] Last Admin: 10/02/16 13:36 Dose: 3 ml Ascorbic Acid (Vitamin C Liq) 500 mg PEG DAILY [facility] Last Admin: 10/02/16 10:20 Dose: 500 ml Aspirin (Aspirin Chewable) 81 mg PO DAILY [facility] Last Admin: 10/02/16 10:16 Dose: 81 mg Atorvastatin Calcium (Lipitor) 10 mg PEG HS [facility] Last Admin: 10/01/16 22:53 Dose: 10 mg Bisacodyl (Dulcolax) 10 mg [place] DAILY PRN PRN Reason: Constipation Diltiazem HCl (Cardizem) 60 mg PEG Q8 [facility] Last Admin: 10/02/16 10:16 Dose: 60 mg Enalapril Maleate (Vasotec) 2.5 mg PO DAILY [facility] Last Admin: 10/02/16 10:20 Dose: 2.5 mg Enoxaparin Sodium (Lovenox) 40 mg SC DAILY [facility] PRN Reason: Protocol Last Admin: 10/02/16 10:20 Dose: 40 mg Furosemide (Lasix) 40 mg IV DAILY [facility] Last Admin: 10/02/16 10:19 Dose: 40 mg Vancomycin HCl 1 gm/ Sodium (Chloride) 250 mls @ 166.667 mls/hr IVPB Q12 [facility] Last Admin: 10/02/16 08:52 Dose: 166.667 mls/hr Azithromycin 500 mg/ Sodium (Chloride) 250 mls @ 250 mls/hr IVPB DAILY [facility] Last Admin: 10/02/16 08:52 Dose: 250 mls/hr Piperacillin Sod/Tazobactam (Sod 3.375 gm/ Sodium Chloride) 100 mls @ 100 mls/ hr IVPB Q6 [facility] Last Admin: 10/02/16 16:31 Dose: 100 mls/hr Lactulose (Enulose) 20 gm PEG BID PRN PRN Reason: Constipation Latanoprost (Xalatan Opht) 1 drop OU HS [facility] Last Admin: 10/01/16 22:54 Dose: 1 drop Magnesium Hydroxide (Milk Of Magnesia) 30 ml PO DAILY PRN PRN Reason: Constipation Metoprolol Tartrate (Lopressor) 25 mg PEG Q8 [facility] Last Admin: 10/02/16 10:19 Dose: 25 mg Tramadol HCl (Ultram) 50 mg GT Q6 PRN PRN Reason: Pain, severe (8-10) - Labs Labs: 10/02/16 05:45 10/02/16 05:45 PT 12.2 Seconds (9.8-13.1) 09/27/16 16:30 INR 1.1 (0.9-1.2) 09/27/16 16:30 APTT 27.3 Seconds (25.6-37.1) 09/27/16 16:30 - Constitutional Appears: No Acute Distress, Chronically Ill - Head Exam Head Exam: NORMAL INSPECTION - Eye Exam Eye Exam: PERRL - ENT Exam ENT Exam: Normal Oropharynx - Neck Exam Neck Exam: Normal Inspection - Respiratory Exam Respiratory Exam: Decreased Breath Sounds, Rhonchi (b/l) - Cardiovascular Exam Cardiovascular Exam: REGULAR RHYTHM, Murmur (systolic 3/6 [place] radiated to Axilla.) - GI/Abdominal Exam GI & Abdominal Exam: Soft, Normal Bowel Sounds Additional comments: Peg tube in place. - Extremities Exam Additional comments: BUE contracted and stiff. - Back Exam Additional comments: Sacral ulcer stage IV - Neurological Exam Neurological Exam: Awake Additional comments: Eyes open , moves head following verbal stimuli, generalized rigidity. - Psychiatric Exam Psychiatric exam: Flat Affect - Skin Skin Exam: Warm Assessment and Plan (1) Pneumonia Status: Acute (2) Acute on chronic systolic CHF (congestive heart failure) Status: Acute (3) Mitral valve regurgitation Status: Acute (4) COPD (chronic obstructive pulmonary disease) Status: Chronic (5) HTN (hypertension) Status: Acute (6) Chronic anemia Status: Chronic (7) Hx of non-ST elevation myocardial infarction (NSTEMI) Status: Chronic - Assessment and Plan (Free Text) Plan: CT Chest LLL PNA, continue Zosyn, Vanco, Zithromax and rest of Tx.
[2016-10-02] MEDS: Latanoprost 0.005% Opht SOUTION OU SCH (22:30)
[2016-10-03] MEDS: Albuterol-Ipratrop 3 mg / 0.5 (3 ml) UD INH SCH ×3 (01:10→13:22)
[2016-10-03] MEDS: Piperacillin/Tazobact 3.375 GM in Sodium Chloride 0.9% 100 ML IVPB SCH ×2 (04:46→09:30)
[2016-10-03 08:21] VITALS: PULSE 96; O2SAT 96
[2016-10-03] MEDS: Azithromycin 500 MG in Sodium Chloride 0.9% 250 ML IVPB SCH (09:31)
[2016-10-03] MEDS: Enoxaparin 40 mg Syringe SC SCH (09:40)
[2016-10-03] MEDS: Ascorbic Acid 500 mg/5 ml Liq(50 ml) PEG SCH (09:43)
--- NOTE | 2016-10-03 13:37 | CP.PCM.PN ---
Subjective - Date & Time of Evaluation Date of Evaluation: 10/03/16 Time of Evaluation: 13:31 - Subjective Subjective: no apparent distress Objective - Vital Signs/Intake and Output Vital Signs (last 24 hours): Temp Pulse Resp BP Pulse Ox 99 F 96 H 20 109/68 96 10/03/16 08:21 10/03/16 09:44 10/03/16 08:21 10/03/16 09:44 10/03/16 08:21 Intake and Output: 10/03/16 10/03/16 06:59 18:59 Intake Total 890 Output Total 180 Balance 710 - Medications Medications: Current Medications Acetaminophen (Tylenol 650mg/20.3ml Solution Ud) 650 mg PEG Q4 PRN PRN Reason: Pain, Mild (1-3) Acetaminophen (Tylenol 650mg/20.3ml Solution Ud) 650 mg PEG Q6 PRN PRN Reason: Temperature Last Admin: 09/30/16 04:39 Dose: 650 mg Albuterol/Ipratropium (Duoneb 3 Mg/0.5 Mg (3 Ml) Ud) 3 ml INH RQ6 [facility] Last Admin: 10/03/16 13:22 Dose: 3 ml Ascorbic Acid (Vitamin C Liq) 500 mg PEG DAILY [facility] Last Admin: 10/03/16 09:43 Dose: 500 ml Aspirin (Aspirin Chewable) 81 mg PO DAILY [facility] Last Admin: 10/03/16 09:46 Dose: 81 mg Atorvastatin Calcium (Lipitor) 10 mg PEG HS [facility] Last Admin: 10/02/16 22:25 Dose: 10 mg Bisacodyl (Dulcolax) 10 mg VT DAILY PRN PRN Reason: Constipation Diltiazem HCl (Cardizem) 60 mg PEG Q8 [facility] Last Admin: 10/03/16 09:43 Dose: 60 mg Enalapril Maleate (Vasotec) 2.5 mg PO DAILY [facility] Last Admin: 10/03/16 09:46 Dose: 2.5 mg Enoxaparin Sodium (Lovenox) 40 mg SC DAILY [facility] PRN Reason: Protocol Last Admin: 10/03/16 09:40 Dose: 40 mg Furosemide (Lasix) 40 mg IV DAILY [facility] Last Admin: 10/02/16 10:19 Dose: 40 mg Vancomycin HCl 1 gm/ Sodium (Chloride) 250 mls @ 166.667 mls/hr IVPB Q12 [facility] Last Admin: 10/03/16 09:39 Dose: 166.667 mls/hr Azithromycin 500 mg/ Sodium (Chloride) 250 mls @ 250 mls/hr IVPB DAILY [facility] Last Admin: 10/03/16 09:31 Dose: 250 mls/hr Piperacillin Sod/Tazobactam (Sod 3.375 gm/ Sodium Chloride) 100 mls @ 100 mls/ hr IVPB Q6 [facility] Last Admin: 10/03/16 09:30 Dose: 100 mls/hr Lactulose (Enulose) 20 gm PEG BID PRN PRN Reason: Constipation Latanoprost (Xalatan Opht) 1 drop OU HS [facility] Last Admin: 10/02/16 22:30 Dose: 1 drop Magnesium Hydroxide (Milk Of Magnesia) 30 ml PO DAILY PRN PRN Reason: Constipation Metoprolol Tartrate (Lopressor) 25 mg PEG Q8 [facility] Last Admin: 10/03/16 09:44 Dose: 25 mg Tramadol HCl (Ultram) 50 mg GT Q6 PRN PRN Reason: Pain, severe (8-10) - Labs Labs: 10/02/16 05:45 10/02/16 05:45 PT 12.2 Seconds (9.8-13.1) 09/27/16 16:30 INR 1.1 (0.9-1.2) 09/27/16 16:30 APTT 27.3 Seconds (25.6-37.1) 09/27/16 16:30 - Head Exam Head Exam: ATRAUMATIC - Eye Exam Additional comments: starring look - Neck Exam Neck Exam: Normal Inspection - Respiratory Exam Respiratory Exam: Rhonchi - Cardiovascular Exam Cardiovascular Exam: REGULAR RHYTHM - Extremities Exam Extremities Exam: Normal Inspection Assessment and Plan - Assessment and Plan (Free Text) Assessment: CHF pneumonia CVA Plan: Cont. Acetaminophen (Tylenol 650mg/20.3ml Solution Ud) 650 mg PEG Q4 PRN PRN Reason: Pain, Mild (1-3) Acetaminophen (Tylenol 650mg/20.3ml Solution Ud) 650 mg PEG Q6 PRN PRN Reason: Temperature Last Admin: 09/30/16 04:39 Dose: 650 mg Albuterol/Ipratropium (Duoneb 3 Mg/0.5 Mg (3 Ml) Ud) 3 ml INH RQ6 [facility] Last Admin: 10/03/16 13:22 Dose: 3 ml Ascorbic Acid (Vitamin C Liq) 500 mg PEG DAILY [facility] Last Admin: 10/03/16 09:43 Dose: 500 ml Aspirin (Aspirin Chewable) 81 mg PO DAILY [facility] Last Admin: 10/03/16 09:46 Dose: 81 mg Atorvastatin Calcium (Lipitor) 10 mg PEG HS [facility] Last Admin: 10/02/16 22:25 Dose: 10 mg Bisacodyl (Dulcolax) 10 mg VT DAILY PRN PRN Reason: Constipation Diltiazem HCl (Cardizem) 60 mg PEG Q8 [facility] Last Admin: 10/03/16 09:43 Dose: 60 mg Enalapril Maleate (Vasotec) 2.5 mg PO DAILY [facility] Last Admin: 10/03/16 09:46 Dose: 2.5 mg Enoxaparin Sodium (Lovenox) 40 mg SC DAILY [facility] PRN Reason: Protocol Last Admin: 10/03/16 09:40 Dose: 40 mg Furosemide (Lasix) 40 mg IV DAILY [facility] Last Admin: 10/02/16 10:19 Dose: 40 mg Vancomycin HCl 1 gm/ Sodium (Chloride) 250 mls @ 166.667 mls/hr IVPB Q12 [facility] Last Admin: 10/03/16 09:39 Dose: 166.667 mls/hr Azithromycin 500 mg/ Sodium (Chloride) 250 mls @ 250 mls/hr IVPB DAILY [facility] Last Admin: 10/03/16 09:31 Dose: 250 mls/hr Piperacillin Sod/Tazobactam (Sod 3.375 gm/ Sodium Chloride) 100 mls @ 100 mls/ hr IVPB Q6 [facility] Last Admin: 10/03/16 09:30 Dose: 100 mls/hr Lactulose (Enulose) 20 gm PEG BID PRN PRN Reason: Constipation Latanoprost (Xalatan Opht) 1 drop OU HS [facility] Last Admin: 10/02/16 22:30 Dose: 1 drop Magnesium Hydroxide (Milk Of Magnesia) 30 ml PO DAILY PRN PRN Reason: Constipation Metoprolol Tartrate (Lopressor) 25 mg PEG Q8 [facility] Last Admin: 10/03/16 09:44 Dose: 25 mg Tramadol HCl (Ultram) 50 mg GT Q6 PRN PRN Reason: Pain, severe (8-10) For [facility] transfer Discussed with [facility]
[2016-10-03 16:22] VITALS: BP 108/70; RESP 18; TEMP 99.1
--- NOTE | 2016-10-03 21:38 | CP.PCM.PN ---
Subjective - Date & Time of Evaluation Date of Evaluation: 10/03/16 Time of Evaluation: 13:40 - Subjective Subjective: F/U PNA Pt aphasic, follows with head movements to verbal stimuli. Objective - Vital Signs/Intake and Output Vital Signs (last 24 hours): Temp Pulse Resp BP Pulse Ox 99.1 F 96 H 18 108/70 96 10/03/16 16:00 10/03/16 16:00 10/03/16 16:00 10/03/16 16:00 10/03/16 16:00 Intake and Output: 10/03/16 10/04/16 18:59 06:59 Intake Total 890 Output Total 180 Balance 710 - Labs Labs: 10/02/16 05:45 10/02/16 05:45 PT 12.2 Seconds (9.8-13.1) 09/27/16 16:30 INR 1.1 (0.9-1.2) 09/27/16 16:30 APTT 27.3 Seconds (25.6-37.1) 09/27/16 16:30 - Constitutional Appears: No Acute Distress, Chronically Ill - Head Exam Head Exam: NORMAL INSPECTION - Eye Exam Eye Exam: PERRL - ENT Exam ENT Exam: Normal Oropharynx - Neck Exam Neck Exam: Normal Inspection - Respiratory Exam Respiratory Exam: Decreased Breath Sounds (b/l) - Cardiovascular Exam Cardiovascular Exam: REGULAR RHYTHM, Murmur (systolic 3/6 [place] radiated to Axilla.) - GI/Abdominal Exam GI & Abdominal Exam: Soft, Normal Bowel Sounds Additional comments: Peg tube in place. - Extremities Exam Additional comments: BUE contracted and stiff. - Back Exam Additional comments: Sacral ulcer stage IV - Neurological Exam Neurological Exam: Awake Additional comments: Eyes open, moves head following verbal stimuli, expressive aphasia, generalized rigidity. - Psychiatric Exam Psychiatric exam: Flat Affect - Skin Skin Exam: Warm Assessment and Plan (1) Pneumonia Assessment & Plan: Improved. Status: Acute (2) Acute on chronic systolic CHF (congestive heart failure) Status: Acute (3) Mitral valve regurgitation Status: Acute (4) COPD (chronic obstructive pulmonary disease) Status: Chronic (5) HTN (hypertension) Status: Acute (6) Chronic anemia Status: Chronic (7) Hx of non-ST elevation myocardial infarction (NSTEMI) Status: Chronic - Assessment and Plan (Free Text) Plan: Pt improved and stable to be discharged to [facility], follows instruction medication sheet, I will follow the Pt in that facility.
--- NOTE | 2016-10-13 12:53 | CP.PCM.DIS ---
Provider - Provider Date of Admission: 09/27/16 20:01 Attending physician: Sy Del Valle MD Primary care physician: Chris Bonner MD Consults: Cardiology and Wound Care. Time Spent in preparation of Discharge (in minutes): 25 Diagnosis - Discharge Diagnosis (1) Pneumonia Status: Acute Priority: High (2) Acute on chronic systolic CHF (congestive heart failure) Status: Acute Priority: High (3) Mitral valve regurgitation Status: Acute Priority: High (4) COPD (chronic obstructive pulmonary disease) Status: Chronic Priority: High (5) HTN (hypertension) Status: Acute Priority: Medium (6) Chronic anemia Status: Chronic Priority: High (7) Hx of non-ST elevation myocardial infarction (NSTEMI) Status: Chronic Priority: Medium Hospital Course - Lab Results Lab Results: Micro Results 09/27/16 16:50 Blood Blood Culture - Final NO GROWTH AFTER 5 DAYS 09/27/16 16:50 Blood Gram Stain - Final TEST NOT PERFORMED 09/27/16 17:20 Throat Group A Strep Throat Culture - Final NO BETA STREP GROUP A ISOLATED. 09/27/16 16:30 Urine,Clean Catch Urine Culture - Final <10,000 CFU/ML. MULTIPLE SPECIES. PROBABLE CONTAMINATION. Most Recent Lab Values WBC 7.6 K/uL (4.8-10.8) 10/02/16 05:45 RBC 3.98 Mil/uL (3.80-5.20) 10/02/16 05:45 Hgb 11.0 g/dL (12.0-16.0) L 10/02/16 05:45 Hct 34.2 % (34.0-47.0) 10/02/16 05:45 MCV 85.9 fl (81.0-99.0) 10/02/16 05:45 MCH 27.7 pg (27.0-31.0) 10/02/16 05:45 MCHC 32.3 g/dL (33.0-37.0) L 10/02/16 05:45 RDW 14.3 % (11.5-14.5) 10/02/16 05:45 Plt Count 236 K/uL (130-400) 10/02/16 05:45 MPV 10.7 fl (7.2-11.7) 10/01/16 06:10 Neut % (Auto) 58.2 % (50.0-75.0) 10/01/16 06:10 Lymph % (Auto) 20.7 % (20.0-40.0) 10/01/16 06:10 Edgar % (Auto) 11.3 % (0.0-10.0) H 10/01/16 06:10 Eos % (Auto) 8.9 % (0.0-4.0) H 10/01/16 06:10 Baso % (Auto) 0.9 % (0.0-2.0) 10/01/16 06:10 Neut # 4.3 K/uL (1.8-7.0) 10/01/16 06:10 Lymph # 1.5 K/uL (1.0-4.3) 10/01/16 06:10 Edgar # 0.8 K/uL (0.0-0.8) 10/01/16 06:10 Eos # 0.7 K/uL (0.0-0.7) 10/01/16 06:10 Baso # 0.1 K/uL (0.0-0.2) 10/01/16 06:10 PT 12.2 Seconds (9.8-13.1) 09/27/16 16:30 INR 1.1 (0.9-1.2) 09/27/16 16:30 APTT 27.3 Seconds (25.6-37.1) 09/27/16 16:30 Sodium 145 mmol/l (132-148) 10/02/16 05:45 Potassium 3.6 MMOL/L (3.6-5.0) 10/02/16 05:45 Chloride 107 mmol/L (98-107) 10/02/16 05:45 Carbon Dioxide 29 mmol/L (22-30) 10/02/16 05:45 Anion Gap 14 (10-20) 10/02/16 05:45 BUN 17 mg/dl (7-17) 10/02/16 05:45 Creatinine 0.6 mg/dL (0.7-1.2) L 10/02/16 05:45 Est GFR ( Amer) > 60 10/02/16 05:45 Est GFR (Non-Af Amer) > 60 10/02/16 05:45 Random Glucose 102 mg/dL (65-105) 10/02/16 05:45 Calcium 9.4 mg/dL (8.4-10.2) 10/02/16 05:45 Total Bilirubin 0.3 mg/dl (0.2-1.3) 10/01/16 06:10 AST 26 U/L (14-36) 10/01/16 06:10 ALT 30 U/L (9-52) 10/01/16 06:10 Alkaline Phosphatase 86 U/L (38-126) 10/01/16 06:10 Troponin I 0.0250 ng/mL (0.00-0.120) 09/28/16 12:20 NT-Pro-B Natriuret Pep 286 pg/ml (0-900) 09/27/16 16:30 Total Protein 7.6 G/DL (6.3-8.2) 10/01/16 06:10 Albumin 3.6 g/dL (3.5-5.0) 10/01/16 06:10 Globulin 4.0 gm/dL (2.2-3.9) H 10/01/16 06:10 Albumin/Globulin Ratio 0.9 (1.0-2.1) L 10/01/16 06:10 Triglycerides 72 mg/DL (0-149) D 10/01/16 06:10 Cholesterol 103 mg/dL (0-199) 10/01/16 06:10 LDL Cholesterol Direct 36 mg/dL (0-129) 10/01/16 06:10 HDL Cholesterol 41 MG/DL (30-70) 10/01/16 06:10 Thyroxine (T4) 8.23 ug/dl (5.5-11.0) 10/01/16 06:10 TSH 3rd Generation 2.42 mIU/ML (0.46-4.68) 10/01/16 06:10 Mycoplasma pneumon IgG 1.73 (<=0.90) H 10/01/16 07:39 Mycoplasma pneumon IgM 62 U/mL (<770) 10/01/16 07:39 - Date & Time of H&P Date of H&P: 09/28/16 Time of H&P: 11:20 Discharge Exam - Head Exam Head Exam: NORMAL INSPECTION Discharge Plan - Discharge Medications Prescriptions: Furosemide [Lasix] 40 mg PO DAILY #30 udc Azithromycin [Zithromax] 500 mg PO DAILY #4 tablet Piperacillin/Tazobact 3.375 gm [Zosyn 3.375 in NS 100ml] 3.375 gm IVPB Q8 #21 bag - Follow Up Plan Condition: FAIR Disposition: TRANSF TO SNF Instructions: Sepsis (GEN) Additional Instructions: patient cleared for discharge to [facility] today by cont. Zosyn 3.375 q8 iv x 1 week cont. zithromax via peg Referrals: Chris Bonner MD [Primary Care Provider] -
== END 2016-10-03 20:06 | DRG 291 ==
LOC: H.TEL 20:01 → UNDODISIN 20:10 → UNDOADMIN 22:35 → H.ERHOLD 22:35 → H.TEL 23:01 → H.ERHOLD 23:01 → UNDOADMIN 09-28 20:00 → H.TEL 09-28 20:00 → H.MEDSURG1 09-29 20:00 → UNDOADMIN 09-29 20:00 → H.TEL 09-30 13:30 → H.MEDSURG1 09-30 13:30
PROVIDERS: ADMIT Internal Medicine Pulmonary Disease; ATTEND Internal Medicine Pulmonary Disease
PROC: 3E0G76Z Introduction of Nutritional Substance into Upper GI, Via Natural or Artificial Opening (ICD-10-PCS; principal; 2016-09-29)
DX: I13.0 Hypertensive heart and chronic kidney disease with heart failure and stage 1 through stage 4 chronic kidney disease, or unspecified chronic kidney disease (principal); I50.23 Acute on chronic systolic (congestive) heart failure; J18.9 Pneumonia, unspecified organism; L89.154 Pressure ulcer of sacral region, stage 4; G30.9 Alzheimer's disease, unspecified; F02.80 Dementia in other diseases classified elsewhere, unspecified severity, without behavioral disturbance, psychotic disturbance, mood disturbance, and anxiety; I48.91 Unspecified atrial fibrillation; D64.9 Anemia, unspecified; E78.00 Pure hypercholesterolemia, unspecified; I25.2 Old myocardial infarction; I34.0 Nonrheumatic mitral (valve) insufficiency; J44.9 Chronic obstructive pulmonary disease, unspecified; N18.9 Chronic kidney disease, unspecified; Z86.73 Personal history of transient ischemic attack (TIA), and cerebral infarction without residual deficits; Z87.01 Personal history of pneumonia (recurrent); Z87.440 Personal history of urinary (tract) infections; Z93.1 Gastrostomy status

== ENCOUNTER 2017-02-23 09:47 | Inpatient (IN) | payer MEDICARE, MEDICAID ==
[2017-02-23 09:48] VITALS: PULSE 196
[2017-02-23 09:51] VITALS: BMI 26.5
[2017-02-23 10:57] LABS: BASO # 0.1 K/uL (0.0-0.2); BASO % 1.1 % (0.0-2.0); EOS # 0.4 K/uL (0.0-0.7); EOS % 4.1 % (0.0-4.0); HEMATOCRIT 39.7 % (34.0-47.0); LYMPH # 2.3 K/uL (1.0-4.3); LYMPH % 22.2 % (20.0-40.0); MEAN CELL VOLUME 90.1 fl (81.0-99.0); MEAN CORPUSCULAR HEMOGLOBIN 29.8 pg (27.0-31.0); MONO # 0.7 K/uL (0.0-0.8); MONO % 7.2 % (0.0-10.0); NEUT # 6.6 K/uL (1.8-7.0); NEUT % 65.4 % (50.0-75.0); NRBC % 0.2 % (0.0-0.0); RED CELL DISTRIBUTION WIDTH 13.9 % (11.5-14.5); WHITE BLOOD COUNT 10.1 K/uL (4.8-10.8)
[2017-02-23 10:58] LABS: VENOUS BLOOD GAS BASE EXCESS 6.5 mmol/L (0.0-2.0); VENOUS BLOOD GAS PCO2 44 mmHg (40-60); VENOUS BLOOD PH 7.46 (7.32-7.43)
[2017-02-23 11:05] LABS: PARTIAL THROMBOPLASTIN TIME 30.2 Seconds (25.6-37.1)
[2017-02-23 11:06] LABS: ALKALINE PHOSPHATASE 74 U/L (38-126); ALT/SGPT 35 U/L (9-52); AST/SGOT 20 U/L (14-36); BILIRUBIN,TOTAL 0.4 mg/dl (0.2-1.3); BLOOD UREA NITROGEN 23 mg/dl (7-17); CALCIUM 9.6 mg/dL (8.4-10.2); CARBON DIOXIDE 29 mmol/L (22-30); CHLORIDE 107 mmol/L (98-107); GFR AFRICAN-AMERICAN > 60; GLUCOSE,RANDOM 93 mg/dL (65-105); POTASSIUM 4.8 MMOL/L (3.6-5.0); SODIUM 148 mmol/l (132-148); TOTAL PROTEIN 8.4 G/DL (6.3-8.2)
[2017-02-23 11:09] LABS: ALB/GLOB RATIO 1.1 (1.0-2.1)
--- NOTE | 2017-02-23 11:11 | ED PDOC ---
HPI: General Adult Time Seen by Provider: 02/23/17 10:24 Chief Complaint (Nursing): Abdominal Pain History Per: Patient Additional Complaint(s): Pt. brought in by EMS for peg tube malfunction as per CT ([place]). Pt. non-verbal. Past Medical History Reviewed: Historical Data, Nursing Documentation, Vital Signs Vital Signs: Last Vital Signs Temp 98.6 F 02/23/17 18:33 Pulse 98 H 02/23/17 19:24 Resp 18 02/23/17 19:24 BP 130/78 02/23/17 19:24 Pulse Ox 98 02/23/17 19:24 - Medical History PMH: Alzheimer's Disease, Anemia, Arthritis, Atrial Fibrillation, CHF (systolic failure), COPD, CVA (left-sided), Dementia, Depression, Fractures (L ankle), HTN , Hypercholesterolemia, Pneumonia, Chronic Kidney Disease - Surgical History Surgical History: - Family History Family History: States: No Known Family Hx - Home Medications Home Medications: Ambulatory Orders Medication Instructions Recorded Ascorbate Calcium [Vitamin C] 500 mg PEG DAILY 06/17/16 Atorvastatin [Lipitor] 10 mg PEG HS 06/17/16 Ferrous Sulfate [Ferosul] 330 mg PEG BID 06/17/16 Lactulose [Enulose] 30 ml PEG BID PRN 06/17/16 Latanoprost 0.005% Opht [Xalatan 1 drop OU HS 06/17/16 Opht] Magnesium Hydroxide [Milk Of 30 ml PEG HS PRN 06/17/16 Magnesia] Metoprolol Tartrate [Lopressor] 25 mg PEG Q8 06/17/16 [id number] [Cardizem] 60 mg PEG Q8 06/17/16 Acetaminophen [Tylenol 160mg/5ml 640 mg PEG Q4 PRN 09/28/16 Oral Soln] Tramadol HCl [Ultram] 50 mg PEG Q6 PRN 09/28/16 Albuterol/Ipratropium [Duoneb 3 3 ml INH RQ6 10/03/16 mg/0.5 mg (3 ml) UD] Bisacodyl [Dulcolax] 10 mg IA DAILY PRN sup 10/03/16 Enoxaparin [Lovenox] 40 mg SC DAILY syr 10/03/16 Acetaminophen [Tylenol 160mg/5ml 640 mg PEG DAILY 02/23/17 Oral Soln] Aspirin [Aspirin Chewable] 81 mg PEG DAILY 02/23/17 Enalapril Maleate [Vasotec] 2.5 mg PEG DAILY 02/23/17 - Allergies Allergies/Adverse Reactions: Allergies Allergy/AdvReac Type Severity Reaction Status Date / Time No Known Allergies Allergy Verified 03/10/16 10:27 Review of Systems Review Of Systems: ROS cannot be obtained secondary to pt's inabilty to answer questions. Physical Exam - Reviewed Nursing Documentation Reviewed: Yes Vital Signs Reviewed: Yes - Physical Exam Appears: Positive for: Non-toxic, No Acute Distress Head Exam: Positive for: ATRAUMATIC, NORMAL INSPECTION, NORMOCEPHALIC Skin: Positive for: Normal Color, Warm, DRY Eye Exam: Positive for: EOMI, Normal appearance, PERRL ENT: Positive for: Normal ENT Inspection Neck: Positive for: Normal Cardiovascular/Chest: Positive for: Regular Rate, Rhythm Respiratory: Positive for: CNT, Normal Breath Sounds Gastrointestinal/Abdominal: Positive for: Normal Exam, Bowel Sounds, Soft, Other (peg tube in place with foul smelling discharge noted). Negative for: Tenderness Back: Positive for: Normal Inspection Neurologic/Psych: Positive for: Alert. Negative for: Facial Droop - Laboratory Results Result Diagrams: 02/23/17 10:30 02/23/17 10:30 - ECG O2 Sat by Pulse Oximetry: 93 - Progress ED Course And Treament: Labs ordered. EKG ordered. CXR ordered. Case d/w Dr. Del Valle who requests Dr. Christianson and for pt. to be admitted. Case d/w Dr. Christianson who requests for pt. to get CT abd/pelvis w/ IV contrast. Pt. evaluated by Dr. Del Valle in ED. Peg tube functioning properly in ED. Disposition - Clinical Impression Clinical Impression: PEG tube malfunction - Patient ED Disposition Is Patient to be Admitted: No - Disposition Disposition Time: 11:10 Condition: STABLE
[2017-02-23 13:13] LABS: RBC URINE 6109 /hpf (0-3); URINE BACTERIA MANY (<OCC); URINE BILIRUBIN NEGATIVE (NEGATIVE); URINE BLOOD LARGE (NEGATIVE); URINE COLOR YELLOW (YELLOW); URINE GLUCOSE (UA) NEG (Normal); URINE KETONE NEGATIVE (NEGATIVE); URINE LEUKOCYTE ESTERASE NEG Leu/uL (Negative); URINE PROTEIN 30 mg/dL (NEGATIVE); URINE UROBILINOGEN 0.2-1.0 mg/dL (0.2-1.0); WBC URINE 197 /hpf (0-5)
[2017-02-23] MEDS ORDERED: Iohexol 300 100 ML IJ ONE (13:28)
[2017-02-23] MEDS ORDERED: Sodium Chloride 0.9% 50 ML IV ONE (13:28)
--- NOTE | 2017-02-23 14:03 | RAD ---
HISTORY: clearance COMPARISON: Chest x-ray performed 09/27/16 TECHNIQUE: Chest, one view. FINDINGS: Examination limited by habitus. LUNGS: Left lower lobe discoid atelectasis or infiltrate. Please note that chest x-ray has limited sensitivity for the detection of pulmonary masses. PLEURA: No significant pleural effusion identified. No definite pneumothorax . CARDIOVASCULAR: Heart size appears within normal limits. Atherosclerotic calcifications of the aorta. OSSEOUS STRUCTURES: Osseous demineralization. Degenerative changes. VISUALIZED UPPER ABDOMEN: Unremarkable. OTHER FINDINGS: None. IMPRESSION: Discoid left lower lobe atelectasis or infiltrate.
--- NOTE | 2017-02-23 14:31 | CT ---
PROCEDURE: CT Abdomen and Pelvis with contrast HISTORY: peg tube with discharge COMPARISON: 02/28/2016 TECHNIQUE: Contrast dose: 95 mL Omnipaque 300 Radiation dose: Total exam DLP = 964.92 mGy-cm. This CT exam was performed using one or more of the following dose reduction techniques: Automated exposure control, adjustment of the mA and/or kV according to patient size, and/or use of iterative reconstruction technique. FINDINGS: LOWER THORAX: Left lower lobe consolidation. There is fluid or mucus filling the left lower lobe bronchus and branches. Consideration should be given to suctioning. LIVER: Unremarkable. No gross lesion or ductal dilatation. GALLBLADDER AND BILE DUCTS: Unremarkable. PANCREAS: Unremarkable. No gross lesion or ductal dilatation. SPLEEN: Unremarkable. ADRENALS: Unremarkable. No mass. KIDNEYS AND URETERS: 1.6 cm left lower pole renal cyst. Previously, this measured approximately 1.4 cm. This apparent slight increase in size should be further evaluated with ultrasound. Tiny cortical cyst in the lower pole left kidney, unchanged. Previous identified nonobstructing bilateral renal calculi are not evident. No hydronephrosis. VASCULATURE: Unremarkable. No aortic aneurysm. BOWEL: There is a large amount of feces in the rectum. There is no bowel obstruction. A percutaneous gastrostomy tube is present. It is positioned within the gastric lumen. There is no collection seen about the tube in the anterior abdominal wall. There is a very small hiatal hernia. The stomach is otherwise unremarkable. There are no other abnormal bowel loops. APPENDIX: Normal appendix. PERITONEUM: Unremarkable. No free fluid. No free air. LYMPH NODES: Unremarkable. No enlarged lymph nodes. BLADDER: Decompressed around a [place] catheter balloon REPRODUCTIVE: Unremarkable postmenopausal uterus BONES: There is mild worsening of the L5 compression fracture compared to prior examination. There is worsened compression fracture of the L4 vertebra. There is new mild compression fracture of the L2 and L3 vertebrae. The age of these fractures is indeterminate. There is thoracolumbar dextroscoliosis. OTHER FINDINGS: None. IMPRESSION: No evidence of abdominal wall abscess about the percutaneous gastrostomy tube. The gastrostomy tube is appropriately positioned within the gastric lumen. Very small hiatal hernia. Large amount of feces in the rectum. Left lower lobe pulmonary consolidation and fluid or mucus within the lower lobe bronchus and branches. Consider chest PT and/or suction. Very small hiatal hernia. Multiple new or worsening compression fractures compared to 02/28/2016. These fractures are of indeterminate age.
[2017-02-23 16:07] LABS: VENOUS BLOOD GAS BASE EXCESS 4.5 mmol/L (0.0-2.0); VENOUS BLOOD GAS PCO2 43 mmHg (40-60); VENOUS BLOOD PH 7.44 (7.32-7.43)
--- NOTE | 2017-02-23 18:03 | CP.PCM.HP ---
History of Present Illness - History of Present Illness History of Present Illness: 66 y/o F, resident at [facility], was brought to ER [facility], [place] by EMS to be evaluated for Peg tube disfunction on DOA. Pt is Non verbal and bedridden with Multiple chronic PMHx, brought to hospital for Peg Tube replacement, Pt was seen by me in the ED unit, as per [place] information, Peg tube was pulled out by Pt in AM and appear with foul smelling and some discharge noted Aggravated factor: Unable to give information, unresponsive, non verbal. No report of Fever, chills, n/v/d, CP, SOB, cough, syncope. Present on Admission - Present on Admission Any Indicators Present on Admission: Yes Decubitus Ulcer Present: Yes Decubitus Ulcer Location: Sacral region Decubitus Ulcer Stage: IV Review of Systems - Review of Systems Systems not reviewed;Unavailable: Acuity of Condition, Dementia, Other (non verbal.) Past Patient History - Infectious Disease Hx of Infectious Diseases: None - Past Medical History & Family History Past Medical History?: Yes Pertinent Family History: Unknown - Past Social History Smoking Status: Former Smoker Alcohol: None Drugs: Denies Home Situation {Lives}: Fpc - CARDIAC Hx Cardiac Disorders: Yes Hx Atrial Fibrillation: Yes Hx Congestive Heart Failure: Yes (systolic failure) Hx Hypercholesterolemia: Yes Hx Hypertension: Yes - PULMONARY Hx Respiratory Disorders: Yes Hx Chronic Obstructive Pulmonary Disease (COPD): Yes Hx Pneumonia: Yes - NEUROLOGICAL Hx Neurological Disorder: Yes (Generalized rigidity.) Hx Alzheimer's Disease: Yes Hx Dementia: Yes - HEENT Hx HEENT Problems: No - RENAL Hx Chronic Kidney Disease: Yes - ENDOCRINE/METABOLIC Hx Endocrine Disorders: No - HEMATOLOGICAL/ONCOLOGICAL Hx Blood Disorders: Yes Hx Anemia: Yes - INTEGUMENTARY Hx Dermatological Problems: Yes - MUSCULOSKELETAL/RHEUMATOLOGICAL Hx Musculoskeletal Disorders: Yes Hx Arthritis: Yes Hx Fractures: Yes (L ankle) - GASTROINTESTINAL Hx Gastrointestinal Disorders: Yes Other/Comment: PEG tube, E-COLI - GENITOURINARY/GYNECOLOGICAL Hx Genitourinary Disorders: Yes Hx Incontinence: Yes Other/Comment: Proctor Catheter - PSYCHIATRIC Hx Psychophysiologic Disorder: Yes Hx Depression: Yes - SURGICAL HISTORY Hx Surgeries: Yes Hx Section: Yes Other/Comment: left ankle surgery, PEG insertion, PICC insertion - ANESTHESIA Hx Anesthesia: Yes Hx Anesthesia Reactions: No Hx Malignant Hyperthermia: No Meds Home Medications: Home Medication List Medication Instructions Recorded Confirmed Type Clindamycin [Cleocin] 300 mg IM Q8 #21 vial 02/27/17 Rx Lactobacillus Acidophilus [Bacid 1 cap PO BID cap 02/27/17 Rx Acidophilus] Meropenem [Merrem IV] 500 mg IVPB Q6 #28 vial 02/27/17 Rx Allergies/Adverse Reactions: Allergies Allergy/AdvReac Type Severity Reaction Status Date / Time No Known Allergies Allergy Verified 03/10/16 10:27 Physical Exam - Constitutional Appears: Chronically Ill - Head Exam Head Exam: NORMAL INSPECTION - Eye Exam Eye Exam: PERRL - ENT Exam ENT Exam: Normal Exam - Neck Exam Neck exam: Positive for: Normal Inspection - Respiratory Exam Respiratory Exam: Decreased Breath Sounds (at bases), Rhonchi (scattered) - Cardiovascular Exam Cardiovascular Exam: REGULAR RHYTHM, Systolic Murmur (3/6 [place] radiated to axilla.) - GI/Abdominal Exam GI & Abdominal Exam: Normal Bowel Sounds, Soft Additional comments: Peg tube in place with foul smelling secretion around the area. - Extremities Exam Additional comments: rigidity on extremities, LUE contracted. - Back Exam Additional comments: Sacral ulcer stage IV - Neurological Exam Additional comments: Generalized rigidity, non verbal, expressive aphasia. - Psychiatric Exam Additional comments: aphasic - Skin Skin Exam: Warm Results - Vital Signs Recent Vital Signs: Last Vital Signs Temp 98.6 F 02/23/17 17:16 Pulse 98 H 02/23/17 17:16 Resp 20 02/23/17 17:16 BP 110/66 02/23/17 17:16 Pulse Ox 98 02/23/17 17:16 reviewed J.Abigail - Labs Result Diagrams: 02/27/17 06:35 02/27/17 06:35 Labs: Laboratory Results - last 24 hr 02/23/17 02/23/17 02/23/17 10:30 10:30 10:30 WBC 10.1 RBC 4.41 Hgb 13.1 D Hct 39.7 MCV 90.1 D MCH 29.8 MCHC 33.0 RDW 13.9 Plt Count 201 MPV 11.0 Neut % (Auto) 65.4 Lymph % (Auto) 22.2 [place] % (Auto) 7.2 Eos % (Auto) 4.1 H Baso % (Auto) 1.1 Neut # 6.6 Lymph # 2.3 [place] # 0.7 Eos # 0.4 Baso # 0.1 PT 11.7 INR 1.0 APTT 30.2 pO2 VBG pH VBG pCO2 VBG HCO3 VBG Total CO2 VBG O2 Sat (Calc) VBG Base Excess VBG Potassium A-a O2 Difference Glucose Lactate FiO2 Crit Value Called To Crit Value Called By Crit Value Read Back Blood Gas Notified Time Sodium 148 Potassium 4.8 Chloride 107 Carbon Dioxide 29 Anion Gap 17 BUN 23 H Creatinine 0.6 L Est GFR ( Amer) > 60 Est GFR (Non-Af Amer) > 60 Random Glucose 93 Calcium 9.6 Total Bilirubin 0.4 AST 20 ALT 35 Alkaline Phosphatase 74 Total Protein 8.4 H Albumin 4.3 Globulin 4.1 H Albumin/Globulin Ratio 1.1 Venous Blood Potassium Urine Color Urine Clarity Urine pH Ur Specific [place] Urine Protein Urine Glucose (UA) Urine Ketones Urine Blood Urine Nitrate Urine Bilirubin Urine Urobilinogen Ur Leukocyte Esterase Urine RBC (Auto) Urine Microscopic WBC Ur Squamous Epith Cells Amorphous Sediment Urine Bacteria 02/23/17 02/23/17 02/23/17 10:36 12:38 15:57 WBC RBC Hgb Hct MCV MCH MCHC RDW Plt Count MPV Neut % (Auto) Lymph % (Auto) [place] % (Auto) Eos % (Auto) Baso % (Auto) Neut # Lymph # [place] # Eos # Baso # PT INR APTT pO2 22 L 53 VBG pH 7.46 H 7.44 H VBG pCO2 44 43 VBG HCO3 28.3 28.2 VBG Total CO2 32.7 H 30.5 H VBG O2 Sat (Calc) 42.9 93.9 H VBG Base Excess 6.5 H 4.5 H VBG Potassium 4.3 A-a O2 Difference 73.0 Glucose 79 110 H Lactate 2.3 H 0.8 FiO2 21.0 21.0 Crit Value Called To Jeet price Crit Value Called By 15 Crit Value Read Back Y Blood Gas Notified Time 1058 Sodium 196.0 H* Potassium Chloride 124.0 H 108.0 H Carbon Dioxide Anion Gap BUN Creatinine Est GFR ( Amer) Est GFR (Non-Af Amer) Random Glucose Calcium Total Bilirubin AST ALT Alkaline Phosphatase Total Protein Albumin Globulin Albumin/Globulin Ratio Venous Blood Potassium 4.3 Urine Color Yellow Urine Clarity Cloudy Urine pH 7.0 Ur Specific [place] 1.012 Urine Protein 30 Urine Glucose (UA) Neg Urine Ketones Negative Urine Blood Large Urine Nitrate Positive H Urine Bilirubin Negative Urine Urobilinogen 0.2-1.0 Ur Leukocyte Esterase Neg Urine RBC (Auto) 6109 H Urine Microscopic WBC 197 H Ur Squamous Epith Cells 4 Amorphous Sediment Rare H Urine Bacteria Many H reviewed J.P. Assessment & Plan (1) PEG tube malfunction Status: Acute Priority: High (2) Decubitus ulcer of lower back, stage 4 Status: Chronic Priority: High (3) Dementia Status: Chronic Priority: Medium (4) History of CVA (cerebrovascular accident) Status: Chronic Priority: Medium (5) Paroxysmal A-fib Status: Chronic Priority: Medium (6) Chronic systolic congestive heart failure Status: Chronic Priority: Medium (7) COPD (chronic obstructive pulmonary disease) Status: Chronic Priority: Medium (8) HTN (hypertension) Status: Chronic Priority: Medium - Assessment and Plan (Free Text) Plan: CT PEG tube within the Gastric Lumen , no abscess , multiple compression Fx' s , CXR lung left lower lobe atelectasis or consolidation , U/A bacteria , GI consult , continue PEG medications, hold PEG feeding ,f/u Wound C-S , Blood and U/A C-S
[2017-02-23] MEDS: Dextrose 5%/0.45% NS 1,000 ML IV SCH (23:07)
[2017-02-23] MEDS: Latanoprost 0.005% Opht SOUTION OU SCH (23:17)
[2017-02-24] MEDS: Albuterol-Ipratrop 3 mg / 0.5 (3 ml) UD INH SCH ×4 (01:21→19:12)
[2017-02-24 06:26] LABS: HEMATOCRIT 35.7 % (34.0-47.0); MEAN CELL VOLUME 89.4 fl (81.0-99.0); MEAN CORPUSCULAR HEMOGLOBIN 29.6 pg (27.0-31.0); MEAN CORPUSCULAR HGB CONC 33.1 g/dL (33.0-37.0); RED CELL DISTRIBUTION WIDTH 13.9 % (11.5-14.5); WHITE BLOOD COUNT 8.2 K/uL (4.8-10.8)
[2017-02-24 06:46] LABS: ALKALINE PHOSPHATASE 57 U/L (38-126); ALT/SGPT 28 U/L (9-52); AST/SGOT 17 U/L (14-36); BILIRUBIN,TOTAL 0.5 mg/dl (0.2-1.3); BLOOD UREA NITROGEN 21 mg/dl (7-17); CALCIUM 9.1 mg/dL (8.4-10.2); CARBON DIOXIDE 29 mmol/L (22-30); CHLORIDE 109 mmol/L (98-107); GFR AFRICAN-AMERICAN > 60; GLUCOSE,RANDOM 118 mg/dL (65-105); POTASSIUM 4.2 MMOL/L (3.6-5.0); SODIUM 145 mmol/l (132-148); T4 7.48 ug/dl (5.5-11.0); TOTAL PROTEIN 7.5 G/DL (6.3-8.2)
[2017-02-24 07:00] LABS: THYROID STIMULATING HORMONE 1.02 mIU/ML (0.46-4.68)
[2017-02-24] MEDS: Enoxaparin 40 mg Syringe SC SCH (09:26)
--- NOTE | 2017-02-24 10:55 | CARD ---
APPROVED REPORT EKG Measurement Heart [id number] <Conclusion> Normal sinus rhythm Nonspecific T wave abnormality Abnormal ECG
[2017-02-24] MEDS: Dextrose 5%/0.45% NS 1,000 ML IV SCH (12:12)
--- NOTE | 2017-02-24 13:18 | CP.PCM.PN ---
Subjective - Date & Time of Evaluation Date of Evaluation: 02/24/17 Time of Evaluation: 13:15 - Subjective Subjective: no overnight events Objective - Vital Signs/Intake and Output Vital Signs (last 24 hours): Temp Pulse Resp BP Pulse Ox 97.6 F 91 H 20 105/67 97 02/24/17 08:00 02/24/17 09:35 02/24/17 08:00 02/24/17 09:35 02/24/17 08:00 - Medications Medications: Current Medications Albuterol/Ipratropium (Duoneb 3 Mg/0.5 Mg (3 Ml) Ud) 3 ml INH RQ6 [facility] Last Admin: 02/24/17 07:35 Dose: 3 ml Aspirin (Aspirin Chewable) 81 mg PEG DAILY [facility] Last Admin: 02/24/17 09:28 Dose: 81 mg Diltiazem HCl (Cardizem) 60 mg PEG Q8 [facility] Last Admin: 02/24/17 09:35 Dose: 60 mg Enalapril Maleate (Vasotec) 2.5 mg PEG DAILY [facility] Last Admin: 02/24/17 09:36 Dose: 2.5 mg Enoxaparin Sodium (Lovenox) 40 mg SC DAILY [facility] PRN Reason: Protocol Last Admin: 02/24/17 09:26 Dose: 40 mg Dextrose/Sodium Chloride (Dextrose 5%/0.45% Ns 1000 Ml) 1,000 mls @ 80 mls/hr IV .[id number] [facility] Stop: 02/24/17 21:35 Last Admin: 02/24/17 12:12 Dose: 80 mls/hr Latanoprost (Xalatan Opht) 1 drop OU HS [facility] Last Admin: 02/23/17 23:17 Dose: 1 drop Metoprolol Tartrate (Lopressor) 25 mg PEG Q8 [facility] Last Admin: 02/24/17 09:35 Dose: 25 mg Pantoprazole Sodium (Protonix Inj) 40 mg IVP DAILY [facility] Last Admin: 02/24/17 09:27 Dose: 40 mg Tramadol HCl (Ultram) 50 mg GT Q6 PRN PRN Reason: Pain, severe (8-10) Last Admin: 02/24/17 00:22 Dose: 50 mg - Labs Labs: 02/24/17 05:25 02/24/17 05:25 PT 11.7 Seconds (9.8-13.1) 02/23/17 10:30 INR 1.0 (0.9-1.2) 02/23/17 10:30 APTT 30.2 Seconds (25.6-37.1) 02/23/17 10:30 - Head Exam Head Exam: ATRAUMATIC, NORMAL INSPECTION - Neck Exam Neck Exam: Normal Inspection - Respiratory Exam Respiratory Exam: NORMAL BREATHING PATTERN - Cardiovascular Exam Cardiovascular Exam: REGULAR RHYTHM Assessment and Plan - Assessment and Plan (Free Text) Assessment: 66 yo female with dysphagia peg in place, can use UTI with poss sepsis no active GI issues
[2017-02-24 15:05] LABS: RBC URINE 274 /hpf (0-3); URINE BACTERIA MANY (<OCC); URINE BILIRUBIN NEGATIVE (NEGATIVE); URINE BLOOD LARGE (NEGATIVE); URINE CALCIUM OXALATE CRYSTALS RARE /hpf (<OCC); URINE COLOR RED (YELLOW); URINE GLUCOSE (UA) NEG (Normal); URINE KETONE NEGATIVE (NEGATIVE); URINE LEUKOCYTE ESTERASE NEG Leu/uL (Negative); URINE PROTEIN 100 mg/dL (NEGATIVE); URINE UROBILINOGEN 0.2-1.0 mg/dL (0.2-1.0); WBC URINE 9 /hpf (0-5)
--- NOTE | 2017-02-24 17:14 | CP.PCM.PN ---
Subjective - Date & Time of Evaluation Date of Evaluation: 02/24/17 Time of Evaluation: 12:20 - Subjective Subjective: F/U Peg Tube malfunction. Pt awake, aphasic, following with eyes movements to verbal stimuli. Objective - Vital Signs/Intake and Output Vital Signs (last 24 hours): Temp Pulse Resp BP Pulse Ox 98.4 F 92 H 20 102/64 97 02/24/17 16:21 02/24/17 16:21 02/24/17 16:21 02/24/17 16:21 02/24/17 16:21 - Medications Medications: Current Medications Albuterol/Ipratropium (Duoneb 3 Mg/0.5 Mg (3 Ml) Ud) 3 ml INH RQ6 [facility] Last Admin: 02/24/17 13:36 Dose: 3 ml Aspirin (Aspirin Chewable) 81 mg PEG DAILY [facility] Last Admin: 02/24/17 09:28 Dose: 81 mg Diltiazem HCl (Cardizem) 60 mg PEG Q8 [facility] Last Admin: 02/24/17 09:35 Dose: 60 mg Enalapril Maleate (Vasotec) 2.5 mg PEG DAILY [facility] Last Admin: 02/24/17 09:36 Dose: 2.5 mg Enoxaparin Sodium (Lovenox) 40 mg SC DAILY [facility] PRN Reason: Protocol Last Admin: 02/24/17 09:26 Dose: 40 mg Dextrose/Sodium Chloride (Dextrose 5%/0.45% Ns 1000 Ml) 1,000 mls @ 80 mls/hr IV .[id number] [facility] Stop: 02/24/17 21:35 Last Admin: 02/24/17 12:12 Dose: 80 mls/hr Latanoprost (Xalatan Opht) 1 drop OU HS [facility] Last Admin: 02/23/17 23:17 Dose: 1 drop Metoprolol Tartrate (Lopressor) 25 mg PEG Q8 [facility] Last Admin: 02/24/17 09:35 Dose: 25 mg Mupirocin (Bactroban Ointment) 1 applic TOP BID [facility] Pantoprazole Sodium (Protonix Inj) 40 mg IVP DAILY [facility] Last Admin: 02/24/17 09:27 Dose: 40 mg Tramadol HCl (Ultram) 50 mg GT Q6 PRN PRN Reason: Pain, severe (8-10) Last Admin: 02/24/17 00:22 Dose: 50 mg - Labs Labs: 02/24/17 05:25 02/24/17 05:25 PT 11.7 Seconds (9.8-13.1) 02/23/17 10:30 INR 1.0 (0.9-1.2) 02/23/17 10:30 APTT 30.2 Seconds (25.6-37.1) 02/23/17 10:30 - Constitutional Appears: Chronically Ill - Head Exam Head Exam: NORMAL INSPECTION - Eye Exam Eye Exam: PERRL - ENT Exam ENT Exam: Normal Exam - Neck Exam Neck Exam: Normal Inspection - Respiratory Exam Respiratory Exam: Decreased Breath Sounds (at bases), Rhonchi (scattered) - Cardiovascular Exam Cardiovascular Exam: REGULAR RHYTHM, Murmur (systolic 3/6 [place] radiated to axilla.) - GI/Abdominal Exam GI & Abdominal Exam: Soft, Normal Bowel Sounds Additional comments: mild drainage , Peg tube in place - Extremities Exam Additional comments: Stiff extremities, LUE contracted - Back Exam Additional comments: Sacral ulcer stage IV - Neurological Exam Additional comments: Generalized rigidity, non verbal, expressive aphasia. - Skin Skin Exam: Warm Assessment and Plan (1) PEG tube malfunction Status: Acute (2) Decubitus ulcer of lower back, stage 4 Status: Chronic (3) Dementia Status: Chronic (4) History of CVA (cerebrovascular accident) Status: Chronic (5) Paroxysmal A-fib Status: Chronic (6) Chronic systolic congestive heart failure Status: Chronic (7) COPD (chronic obstructive pulmonary disease) Status: Chronic (8) HTN (hypertension) Status: Chronic - Assessment and Plan (Free Text) Plan: Will reviewed Retirement record for Hx of trauma. F/U Chest CT, Continue Bactroban, Lopressor, Duoneb and rest of Tx.
--- NOTE | 2017-02-24 18:40 | CT ---
CT chest without IV contrast Indication: Lung infiltrate Technique: Contiguous axial images were obtained through the chest without intravenous contrast enhancement. Sagittal and coronal reconstructions were generated and reviewed. This CT exam was performed using 1 or more of the falling dose reduction techniques: Automated exposure control, adjustment of the MAA and/or kV according to patient size, and/or use of iterative reconstruction technique. Radiation dose (DLP): 551.58 MGy-cm. Comparison: Chest x-ray performed 04/25/16 chest, CT chest without contrast performed 10/01/16 Findings: Visualized portions of the inferior thyroid gland appear unremarkable. The unenhanced mediastinal and hilar vascular structures appear grossly unremarkable. The heart appears within normal limits of size. Left lower lobe consolidation. Probable fluid or mucous filling left lower lobe bronchus or branches. Correlate clinically and recommend follow-up to resolution to exclude underlying malignant neoplasm. No pleural effusion. No pneumothorax. Small hiatal hernia/distal esophageal wall thickening. Limited visualization of the noncontrast upper abdomen demonstrates evidence of sludge and probable gallstone. Dense calcification within the right upper quadrant may reflect ureteral calculus. Marked scoliosis and kyphosis. Degenerative changes. Impression: Left lower lobe consolidation. Probable fluid or mucous filling left lower lobe bronchus or branches. Correlate clinically and recommend follow-up to resolution to exclude underlying malignant neoplasm. Limited visualization of the noncontrast upper abdomen demonstrates evidence of sludge and probable gallstone. Dense calcification within the right upper quadrant may reflect ureteral calculus.
[2017-02-24] MEDS: Latanoprost 0.005% Opht SOUTION OU SCH (21:04)
[2017-02-25] MEDS: Albuterol-Ipratrop 3 mg / 0.5 (3 ml) UD INH SCH ×4 (01:05→20:08)
--- NOTE | 2017-02-25 08:16 | CON ---
DATE: 02/23/2017 HISTORY OF PRESENT ILLNESS: This is a pleasant, but demented senior care patient who is 66 years old who was brought in for PEG tube dysfunction. Patient cannot give any history, history is obtained by chart and staff. Essentially, PEG tube was removed by the patient and restarted by the ER staff by the time I saw her, appears to be functioning well and in good position. Patient cannot give any history. There is no pain, no complaints at this point. Otherwise, lying in bed comfortably, in no apparent distress. PAST MEDICAL HISTORY: As above. PAST SURGICAL HISTORY: As above. MEDICATIONS: Have been reviewed. REVIEW OF SYSTEMS: All other systems have been reviewed and negative except the patient's dementia. PHYSICAL EXAMINATION: VITAL SIGNS: Here in the hospital, currently unremarkable. GENERAL: Pleasant elderly appearing female, lying in bed comfortably, in no apparent distress. HEENT: Head, normocephalic, atraumatic. Eyes, pupils equally reactive to light bilaterally. No conjunctival pallor or icterus. NECK: Supple. Normal range of motion. LUNGS: Coarse breath sounds bilaterally. HEART: S1, S2 regular rhythm. No murmurs appreciated. ABDOMEN: Soft, nontender. Bowel sounds present. No rebound, no guarding. RECTAL: Deferred. EXTREMITIES: Pulses felt bilaterally. SKIN: Warm, dry and intact. NEUROLOGIC: A and O x1. LABORATORY DATA: All labs and relevant radiology had been reviewed. Labs include WBC of 10.1, hemoglobin 13.1. Sodium 196, BUN 23, creatinine 0.6. UA positive for bacteria and nitrites. CAT scan done with the PEG tube in good position. ASSESSMENT AND PLAN: This is a [id number] female with what appears to be urinary tract infection and dysphagia. From gastrointestinal standpoint, can use the percutaneous endoscopic gastrostomy tube, antibiotics per Respiratory and Primary care team. We will follow patient with you. Thank you for the consult. Be Christianson MD/ PhD cc:
[2017-02-25] MEDS: Enoxaparin 40 mg Syringe SC SCH (09:18)
[2017-02-25] MEDS: Clindamycin in NS 300 MG/50 ML BAG IVPB SCH ×2 (11:30→17:27)
[2017-02-25] MEDS: Meropenem 500 MG in Sodium Chloride 0.9% 100 ML IVPB SCH ×2 (11:30→17:30)
--- NOTE | 2017-02-25 11:53 | CP.PCM.PCO ---
Assessment & Plan - Assessment and Plan (Free Text) Assessment: peg site wound cx reported positive for ecoli/ MRSA CT abd pelvis with new mild compression fx L2 L3 , worse compression fx L4 read by dr. Sam Previous and current CT scan reviewed and compared with As per vertebral fx appear subacute plan for bone scan as per Dr.pinal Liu consulted for pos cx results pt. started on Merrem and Clinda iv - sensitive to ecoli/ mrsa
--- NOTE | 2017-02-25 13:41 | CP.PCM.CON ---
History of Present Illness - History of Present Illness History of Present Illness: REFERRED FOR ID EVAL OF MDRO'S FROM PEG TUBE SITE 66 y/o F, resident at [facility], [facility] to be evaluated for Peg tube disfunction- PEG TUBE SITE WAS CULTURES AND FOUND TO HAVE MRSA AND E COLI MDRO STARTED ON IV RX / WOUND CARE REGIMEN Pt is Non verbal and bedridden with Multiple chronic PMHx, brought to hospital for Peg Tube replacement, Pt was seen by me in the ED unit, as per [facility] information, Peg tube was pulled out by Pt in AM and appear with foul smelling and some discharge noted Aggravated factor: Unable to give information, unresponsive, non verbal. No report of Fever, chills, n/v/d, CP, SOB, cough, syncope. PMH: Alzheimer's Disease, Anemia, Arthritis, Atrial Fibrillation, CHF (systolic failure), COPD, CVA (left-sided), Dementia, Depression, Fractures (L ankle), HTN , Hypercholesterolemia, Pneumonia, Chronic Kidney Disease Review of Systems - Review of Systems Systems not reviewed;Unavailable: Altered Mental Status - Constitutional Constitutional: As Per HPI - EENT Eyes: absent: As Per HPI, Blind Spots, Blurred Vision, Change in Vision, Decreased Night Vision, Diplopia, Discharge, Dry Eye, Exophthalmos, Floaters, Irritation, Itchy Eyes, Loss of Peripheral Vision, Pain, Photophobia, Requires Corrective Lenses, Sees Flashes, Spots in Vision, Tunnel Vision, Other Visual Disturbances, Loss of Vision, Other Ears: absent: As Per HPI, Decreased Hearing, Ear Discharge, Ear Pain, Tinnitus, Abnormal Hearing, Disequilibrium, Dizziness, Other Nose/Mouth/Throat: absent: As Per HPI, Epistaxis, Nasal Congestion, Nasal Discharge, Nasal Obstruction, Nasal Trauma, Nose Pain, Post Nasal Drip, Sinus Pain, Sinus Pressure, Bleeding Gums, Change in Voice, Dental Pain, Dry Mouth, Dysphagia, Halitosis, Hoarsness, Lip Swelling, Mouth Lesions, Mouth Pain, Odynophagia, Sore Throat, Throat Swelling, Tongue Swelling, Facial Pain, Neck Pain, Neck Mass, Other - Cardiovascular Cardiovascular: absent: As Per HPI, Acrocyanosis, Chest Pain, Chest Pain at Rest , Chest Pain with Activity, Claudication, Diaphoresis, Dyspnea, Dyspnea on Exertion, Edema, Irregular Heart Rhythm, Pain Radiating to Arm/Neck/Jaw, Leg Edema, Leg Ulcers, Lightheadedness, Orthopnea, Palpitations, Paroxysmal Nocturnal Dyspnea, Pedal Edema, Radiating Pain, Rapid Heart Rate, Slow Heart Rate, Syncope, Other - Respiratory Respiratory: absent: As Per HPI, Cough, Dyspnea, Hemoptysis, Dyspnea on Exertion , Wheezing, Snoring, Stridor, Pain on Inspiration, Chest Congestion, Excessive Mucous Production, Change in Mucous Color, Pain with Coughing, Other - Gastrointestinal Gastrointestinal: absent: As Per HPI, Abdominal Pain, Belching, Bloating, Change in Bowel Habits, Change in Stool Character, Coffee Ground Emesis, Constipation, Cramping, Diarrhea, Dyspepsia, Dysphagia, Early Satiety, Excessive Flatus, Fecal Incontinence, Heartburn, Hematemesis, Hematochezia, Loose Stools, Melena, Nausea, Odynophagia, Temesmus, Vomiting, Other - Genitourinary Genitourinary: absent: As Per HPI, Change in Urinary Stream, Difficulty Urinating, Dysuria, Flank Pain, Hematuria, Pyuria, Nocturia, Urinary Incontinence, Urinary Frequency, Urinary Hesitance, Urinary Urgency, Voiding Freq/Small Amts, Freq UTI, Hx Renal/Bladder Calculi, Hx /Renal Surgery, Bladder Distension, Other - Reproductive: Female Reproductive:Female: absent: As Per HPI, Amenorrhea, Amenorrhea/ Control, Currently Menstual, Cycle <21 Days, Cycle >35 Days, Cycle Variable, Menses 1-7 Days, Menses >/= 8 Days, Menses Variable, Cycle > 4 Weeks Between, No Menses for 6 Months, Heavy Menses, Light Menses, Normal Menses, Spotting Between Cycles , S/P Hysterectomy, Menopausal, Post Menopausal, Premenarche, Abnormal Vaginal Bleeding, Dysmenorrhea, Dyspareunia, Genital Lesions, Genital Pruritis, Pelvic Pain, Prolapse Symptoms, Sexual Dysfunction, Vaginal Discharge, Vaginal Dryness , Vaginal Odor, Vaginal Pruritis, Other - Menstruation Menstruation: absent: As Per HPI, Amenorrhea, Amenorrhea/ Control, Currently Menstual, Cycle <21 Days, Cycle >35 Days, Cycle Variable, Menses 1-7 Days, Menses >/= 8 Days, Menses Variable, Cycle > 4 Weeks Between, No Menses for 6 Months, Heavy Menses, Light Menses, Normal Menses, Spotting Between Cycles , S/P Hysterectomy, Menopausal, Post Menopausal, Premenarche, Abnormal Vaginal Bleeding, Dysmenorrhea, Other - Musculoskeletal Musculoskeletal: absent: As Per HPI, Abnormal Gait, Arthralgias, Atrophy, Back Pain, Deformity, Joint Swelling, Limited Range of Motion, Loss of Height, Muscle Cramps, Muscle Weakness, Myalgias, Neck Pain, Numbness, Radiating Pain into Limb, Stiffness, Tingling, Other - Integumentary Integumentary: absent: As Per HPI, Acne, Alopecia, Bleeding Lesions, Change in Hair, Change in Nails, Change in Pigmentation, Changing Lesions, Dry Skin, Erythema, Furuncle, Hirsutism, Lesions, New Lesions, Non-Healing Lesions, Photosensitivity, Pruritus, Rash, Skin Pain, Skin Ulcer, Sores, Striae, Swelling , Unusual Bruising, Wounds, Jaundice, Other - Neurological Neurological: absent: As Per HPI, Abnormal Gait, Abnormal Hearing, Abnormal Movements, Abnormal Speech, Behavioral Changes, Burning Sensations, Confusion, Convulsions, Disequilibrium, Dizziness, Numbness, Focal Weakness, Frequent Falls , Headaches, Lack of Coordination, Loss of Vision, Memory Loss, Paresthesias, Radicular Pain, Restless Legs, Sensory Deficit, Syncope, Tingling, Tremor, Vertigo, Weakness, Other Visual Disturbances, Other - Psychiatric Psychiatric: absent: As Per HPI, Abnormal Sleep Pattern, Anhedonia, Anxiety, Auditory Hallucinations, Behavioral Changes, Change in Appetite, Change in Libido, Confusion, Depression, Difficulty Concentrating, Hallucinations, Homicidal Ideation, Hopelessness, Irritability, Memory Loss, Mood Swings, Panic Attacks, Paranoia, Suicidal Ideation, Visual Hallucinations, Tactile Hallucinations, Other - Endocrine Endocrine: absent: As Per HPI, Change in Body Appearance, Change in Libido, Cold Intolorance, Deepening of Voice, Excessive Sweating, Fatigue, Flushing, Heat Intolorance, Increase in Ring/Shoe/Hat Size, Palpitations, Polydipsia, Polyphagia, Polyuria, Other - Hematologic/Lymphatic Hematologic: absent: As Per HPI, Easy Bleeding, Easy Bruising, Lymphadenopathy, Other Past Patient History - Infectious Disease Hx of Infectious Diseases: None - Past Medical History & Family History Past Medical History?: Yes - Past Social History Smoking Status: Former Smoker Alcohol: None Drugs: Denies Home Situation {Lives}: Alf - CARDIAC Hx Cardiac Disorders: Yes Hx Atrial Fibrillation: Yes Hx Congestive Heart Failure: Yes (systolic failure) Hx Hypercholesterolemia: Yes Hx Hypertension: Yes - PULMONARY Hx Respiratory Disorders: Yes Hx Chronic Obstructive Pulmonary Disease (COPD): Yes Hx Pneumonia: Yes - NEUROLOGICAL Hx Neurological Disorder: Yes (Generalized rigidity.) Hx Alzheimer's Disease: Yes Hx Dementia: Yes - HEENT Hx HEENT Problems: No - RENAL Hx Chronic Kidney Disease: Yes - ENDOCRINE/METABOLIC Hx Endocrine Disorders: No - HEMATOLOGICAL/ONCOLOGICAL Hx Blood Disorders: Yes Hx Anemia: Yes - INTEGUMENTARY Hx Dermatological Problems: Yes - MUSCULOSKELETAL/RHEUMATOLOGICAL Hx Musculoskeletal Disorders: Yes Hx Arthritis: Yes Hx Fractures: Yes (L ankle) - GASTROINTESTINAL Hx Gastrointestinal Disorders: Yes Other/Comment: PEG tube, E-COLI - GENITOURINARY/GYNECOLOGICAL Hx Genitourinary Disorders: Yes Hx Incontinence: Yes Other/Comment: Proctor Catheter - PSYCHIATRIC Hx Psychophysiologic Disorder: Yes Hx Depression: Yes - SURGICAL HISTORY Hx Surgeries: Yes Hx Section: Yes Other/Comment: left ankle surgery, PEG insertion, PICC insertion - ANESTHESIA Hx Anesthesia: Yes Hx Anesthesia Reactions: No Hx Malignant Hyperthermia: No Meds Allergies/Adverse Reactions: Allergies Allergy/AdvReac Type Severity Reaction Status Date / Time No Known Allergies Allergy Verified 03/10/16 10:27 - Medications Medications: Current Medications Albuterol/Ipratropium (Duoneb 3 Mg/0.5 Mg (3 Ml) Ud) 3 ml INH RQ6 [facility] Last Admin: 02/25/17 13:22 Dose: 3 ml Aspirin (Aspirin Chewable) 81 mg PEG DAILY [facility] Last Admin: 02/25/17 09:15 Dose: 81 mg Diltiazem HCl (Cardizem) 60 mg PEG Q8 [facility] Last Admin: 02/25/17 09:15 Dose: 60 mg Docusate Sodium (Colace Liquid) 100 mg PEG TID [facility] Enalapril Maleate (Vasotec) 2.5 mg PEG DAILY [facility] Last Admin: 02/25/17 09:27 Dose: 2.5 mg Enoxaparin Sodium (Lovenox) 40 mg SC DAILY [facility] PRN Reason: Protocol Last Admin: 02/25/17 09:18 Dose: 40 mg Clindamycin in NS (Clindamycin 300 Mg/50 Ml-Ns) 300 mg in 50 mls @ 50 mls/hr IVPB Q8 [facility] PRN Reason: Protocol Meropenem 500 mg/ Sodium (Chloride) 100 mls @ 100 mls/hr IVPB Q8 [facility] PRN Reason: Protocol Lactobacillus Acidophilus (Bacid Acidophilus) 1 cap PO BID [facility] Lactulose (Enulose) 10 gm PEG DAILY PRN PRN Reason: Constipation Latanoprost (Xalatan Opht) 1 drop OU HS [facility] Last Admin: 02/24/17 21:04 Dose: 1 drop Metoprolol Tartrate (Lopressor) 25 mg PEG Q8 [facility] Last Admin: 02/25/17 09:27 Dose: 25 mg Mupirocin (Bactroban Ointment) 1 applic TOP BID [facility] Last Admin: 02/25/17 09:15 Dose: 1 applic Pantoprazole Sodium (Protonix Inj) 40 mg IVP DAILY [facility] Last Admin: 02/25/17 09:19 Dose: 40 mg Tramadol HCl (Ultram) 50 mg GT Q6 PRN PRN Reason: Pain, severe (8-10) Last Admin: 02/24/17 20:55 Dose: 50 mg Physical Exam - Constitutional Appears: Non-toxic, Confused, Cachectic, Chronically Ill - Head Exam Head Exam: ATRAUMATIC, NORMAL INSPECTION, NORMOCEPHALIC - Eye Exam Eye Exam: PERRL. absent: Scleral icterus - ENT Exam ENT Exam: Mucous Membranes Dry, Normal External Ear Exam - Neck Exam Neck exam: Negative for: Lymphadenopathy - Respiratory Exam Respiratory Exam: Decreased Breath Sounds, Rhonchi - Cardiovascular Exam Cardiovascular Exam: Tachycardia, REGULAR RHYTHM, +S1, +S2 - GI/Abdominal Exam GI & Abdominal Exam: Diminished Bowel Sounds, Distended, Soft. absent: Guarding , Rebound, Rigid, Tenderness Additional comments: MILD DRAINAGE GT SITE - Rectal Exam Rectal Exam: Deferred - Exam Exam: NORMAL INSPECTION - Extremities Exam Extremities exam: Positive for: pedal pulses present. Negative for: calf tenderness, pedal edema, tenderness - Back Exam Back exam: absent: CVA tenderness (L), CVA tenderness (R) - Neurological Exam Neurological exam: Alert, Altered, CN II-XII Intact, Motor Sensory Deficit - Psychiatric Exam Psychiatric exam: Depressed - Skin Skin Exam: Dry Results - Vital Signs Recent Vital Signs: Last Vital Signs Temp 99.2 F 02/25/17 09:04 Pulse 104 H 02/25/17 09:15 Resp 20 02/25/17 09:04 BP 100/50 L 02/25/17 09:15 Pulse Ox 95 02/25/17 09:04 - Labs Result Diagrams: 02/24/17 05:25 02/24/17 05:25 Labs: Laboratory Results - last 24 hr 02/24/17 14:35 Urine Color Red Urine Clarity Cloudy Urine pH 5.0 Ur Specific Omro 1.045 H Urine Protein 100 Urine Glucose (UA) Neg Urine Ketones Negative Urine Blood Large Urine Nitrate Positive H Urine Bilirubin Negative Urine Urobilinogen 0.2-1.0 Ur Leukocyte Esterase Neg Urine RBC (Auto) 274 H Urine Microscopic WBC 9 H Calcium Oxalate Crystal Rare Urine Bacteria Many H Assessment & Plan (1) PEG tube malfunction Status: Acute Priority: High (2) COPD (chronic obstructive pulmonary disease) Status: Chronic Priority: Medium (3) Chronic systolic congestive heart failure Status: Chronic Priority: Medium (4) Dementia Status: Chronic Priority: Medium (5) HTN (hypertension) Status: Chronic Priority: Medium (6) History of CVA (cerebrovascular accident) Status: Chronic Priority: Medium (7) Paroxysmal A-fib Status: Chronic Priority: Medium - Assessment and Plan (Free Text) Assessment: CONT IV RX FOR NOW POSSIBLE D/C ON BACTRIM ONCE STABLE AWAIT GI EVAL
[2017-02-25] MEDS ORDERED: Lactulose 10 gm/15 ml Syrup PO PRN (14:00)
--- NOTE | 2017-02-25 16:05 | CP.PCM.PN ---
Subjective - Date & Time of Evaluation Date of Evaluation: 02/25/17 Time of Evaluation: 13:10 - Subjective Subjective: F/U Peg Tube Malfunction. Eyes open, follows with head verbal stimuli. Objective - Vital Signs/Intake and Output Vital Signs (last 24 hours): Temp Pulse Resp BP Pulse Ox 99.2 F 104 H 20 100/50 L 95 02/25/17 09:04 02/25/17 09:15 02/25/17 09:04 02/25/17 09:15 02/25/17 09:04 - Medications Medications: Current Medications Albuterol/Ipratropium (Duoneb 3 Mg/0.5 Mg (3 Ml) Ud) 3 ml INH RQ6 [facility] Last Admin: 02/25/17 13:22 Dose: 3 ml Aspirin (Aspirin Chewable) 81 mg PEG DAILY [facility] Last Admin: 02/25/17 09:15 Dose: 81 mg Diltiazem HCl (Cardizem) 60 mg PEG Q8 [facility] Last Admin: 02/25/17 09:15 Dose: 60 mg Docusate Sodium (Colace Liquid) 100 mg PEG TID [facility] Enalapril Maleate (Vasotec) 2.5 mg PEG DAILY [facility] Last Admin: 02/25/17 09:27 Dose: 2.5 mg Enoxaparin Sodium (Lovenox) 40 mg SC DAILY [facility] PRN Reason: Protocol Last Admin: 02/25/17 09:18 Dose: 40 mg Clindamycin in NS (Clindamycin 300 Mg/50 Ml-Ns) 300 mg in 50 mls @ 50 mls/hr IVPB Q8 [facility] PRN Reason: Protocol Meropenem 500 mg/ Sodium (Chloride) 100 mls @ 100 mls/hr IVPB Q8 [facility] PRN Reason: Protocol Lactobacillus Acidophilus (Bacid Acidophilus) 1 cap PO BID [facility] Lactulose (Enulose) 10 gm PO DAILY PRN PRN Reason: Constipation Latanoprost (Xalatan Opht) 1 drop OU HS [facility] Last Admin: 02/24/17 21:04 Dose: 1 drop Metoprolol Tartrate (Lopressor) 25 mg PEG Q8 [facility] Last Admin: 02/25/17 09:27 Dose: 25 mg Mupirocin (Bactroban Ointment) 1 applic TOP BID [facility] Last Admin: 02/25/17 09:15 Dose: 1 applic Pantoprazole Sodium (Protonix Inj) 40 mg IVP DAILY [facility] Last Admin: 02/25/17 09:19 Dose: 40 mg Tramadol HCl (Ultram) 50 mg GT Q6 PRN PRN Reason: Pain, severe (8-10) Last Admin: 02/24/17 20:55 Dose: 50 mg - Labs Labs: 02/24/17 05:25 02/24/17 05:25 PT 11.7 Seconds (9.8-13.1) 02/23/17 10:30 INR 1.0 (0.9-1.2) 02/23/17 10:30 APTT 30.2 Seconds (25.6-37.1) 02/23/17 10:30 - Constitutional Appears: No Acute Distress, Chronically Ill - Head Exam Head Exam: NORMAL INSPECTION - Eye Exam Eye Exam: PERRL - ENT Exam ENT Exam: Normal Exam - Neck Exam Neck Exam: Normal Inspection - Respiratory Exam Respiratory Exam: Decreased Breath Sounds (at bases), Rhonchi (scattered) - Cardiovascular Exam Cardiovascular Exam: REGULAR RHYTHM, Murmur (systolic 3/6 Sparks radiated to axilla.) - GI/Abdominal Exam GI & Abdominal Exam: Soft, Normal Bowel Sounds Additional comments: Peg tube in place. - Extremities Exam Additional comments: Stiff extremities, LUE contracted. - Back Exam Additional comments: Sacral ulcer stage IV - Neurological Exam Additional comments: Generalized rigidity, non verbal, expressive aphasia. - Skin Skin Exam: Warm Assessment and Plan (1) PEG tube malfunction Status: Acute (2) Decubitus ulcer of lower back, stage 4 Status: Chronic (3) Dementia Status: Chronic (4) History of CVA (cerebrovascular accident) Status: Chronic (5) Paroxysmal A-fib Status: Chronic (6) Chronic systolic congestive heart failure Status: Chronic (7) COPD (chronic obstructive pulmonary disease) Status: Chronic (8) HTN (hypertension) Status: Chronic - Assessment and Plan (Free Text) Plan: Peg Tube + for E Coli/ESBL, Staph MRSA, continue with Clinda, Merren and rest of Tx. Bone Scan.
[2017-02-25] MEDS: Lactobacillus Acidophilus 500 MU Cap PO SCH (17:43)
--- NOTE | 2017-02-25 17:56 | PCM.PROC ---
Procedures Attestation:: I certify that I have explained the specified Operation(s) or Procedure(s), risks, benefits and reasonable alternatives to the Patient and/or other person responsible. The opportunity was given to ask questions and all questions answered - Feeding Tube Replacement Type of Tube: gastrostomy Insertion Site Prior to Procedure: erythematous Tube Used for Reinsertion: Proctor Chinese Tube Size (F): 16 Verification of Placement: auscultation, other (aspirated gastric contents) Tube Secured by: tape/dressing, other (Balloon inflated, abdominal binder placed ) Patient Tolerated Procedure: well
[2017-02-25] MEDS: Latanoprost 0.005% Opht SOUTION OU SCH (22:06)
[2017-02-26] MEDS: Clindamycin in NS 300 MG/50 ML BAG IVPB SCH ×3 (01:23→17:02)
[2017-02-26] MEDS: Meropenem 500 MG in Sodium Chloride 0.9% 100 ML IVPB SCH ×5 (01:23→23:07)
[2017-02-26] MEDS: Albuterol-Ipratrop 3 mg / 0.5 (3 ml) UD INH SCH ×4 (01:25→19:35)
[2017-02-26] MEDS: Enoxaparin 40 mg Syringe SC SCH (08:36)
[2017-02-26] MEDS: Lactobacillus Acidophilus 500 MU Cap PO SCH ×2 (08:56→17:02)
[2017-02-26] MEDS ORDERED: Acetaminophen 650mg/20.3ml solution UD PEG PRN (09:37)
--- NOTE | 2017-02-26 10:53 | PQF GENQUE ---
This form is a permanent part of the medical record 02/26/17 Dr. Del Valle, Would you please clarify if there is an associated diagnosis or not to go along with the following findings. Admitted for PEG tube malfunction. + Foul smelling discharge noted. PEG site CS growing E Coli ESBL +, MRSA. ID called in : MDRO's from Peg Tube site and IVAB started. Clarification of your documentation is requested to better reflect the severity of illness and intensity of treatment of your patient. Indicators present [] Specify: [] [] Specify: [] [] Specify: [] [] Specify: [] Location in the medical record that reflects the above clinical findings: [] Treatment Provided: [] PHYSICIAN'S RESPONSE Based on your medical judgment of the clinical indicators outlined above please clarify the following: [] Practitioner response [] If unable to determine, please check the box, sign and date. Present On Admission (POA) Indicator: [] Present at the time of admission [] Not present at the time of admission [] Clinically Undetermined In responding to this query, please exercise your independent professional judgment. The fact that a question is asked does not imply that any particular answer is desired or expected. Thank you for your clarification on this documentation. If you have any questions please call:ext [phone] * Thank you, Yudy Leong RN [facility]
--- NOTE | 2017-02-26 11:00 | PQF GENQUE ---
This form is a permanent part of the medical record 02/26/17 Dr. Del Valle, Would you please clarify if there is an associated diagnosis or not to go along with the LLL consolidations seen on the CT. Patient who is bedridden and nonverbal is admitted with PEG tube malfunction. Noted to have decreased breath sounds at the bases and scattered rhonchi .History of COPD. Documentation of LLL consolidations. Treatment includes: Duonebs. \ Clarification of your documentation is requested to better reflect the severity of illness and intensity of treatment of your patient. Indicators present [] Specify: [] [] Specify: [] [] Specify: [] [] Specify: [] Location in the medical record that reflects the above clinical findings: [] Treatment Provided: [] PHYSICIAN'S RESPONSE Based on your medical judgment of the clinical indicators outlined above please clarify the following: [] Practitioner response [] If unable to determine, please check the box, sign and date. Present On Admission (POA) Indicator: [] Present at the time of admission [] Not present at the time of admission [] Clinically Undetermined In responding to this query, please exercise your independent professional judgment. The fact that a question is asked does not imply that any particular answer is desired or expected. Thank you for your clarification on this documentation. If you have any questions please call:ext [phone] * Thank you, Yudy Leong RN [facility]
--- NOTE | 2017-02-26 11:01 | CP.PCM.PN ---
Subjective - Date & Time of Evaluation Date of Evaluation: 02/26/17 Time of Evaluation: 11:00 - Subjective Subjective: at baseline Objective - Vital Signs/Intake and Output Vital Signs (last 24 hours): Temp Pulse Resp BP Pulse Ox 100.7 F H 99 H 20 130/74 100 02/26/17 07:52 02/26/17 08:36 02/26/17 07:52 02/26/17 08:36 02/26/17 07:52 - Medications Medications: Current Medications Acetaminophen (Tylenol 650mg/20.3ml Solution Ud) 650 mg PEG Q4 PRN PRN Reason: Temperature Albuterol/Ipratropium (Duoneb 3 Mg/0.5 Mg (3 Ml) Ud) 3 ml INH RQ6 [facility] Last Admin: 02/26/17 07:39 Dose: 3 ml Aspirin (Aspirin Chewable) 81 mg PEG DAILY [facility] Last Admin: 02/26/17 08:35 Dose: 81 mg Diltiazem HCl (Cardizem) 60 mg PEG Q8 [facility] Last Admin: 02/26/17 08:35 Dose: 60 mg Docusate Sodium (Colace Liquid) 100 mg PEG TID [facility] Last Admin: 02/26/17 08:48 Dose: 100 mg Enalapril Maleate (Vasotec) 2.5 mg PEG DAILY [facility] Last Admin: 02/26/17 08:35 Dose: 2.5 mg Enoxaparin Sodium (Lovenox) 40 mg SC DAILY [facility] PRN Reason: Protocol Last Admin: 02/26/17 08:36 Dose: 40 mg Clindamycin in NS (Clindamycin 300 Mg/50 Ml-Ns) 300 mg in 50 mls @ 50 mls/hr IVPB Q8 [facility] PRN Reason: Protocol Last Admin: 02/26/17 08:47 Dose: 50 mls/hr Meropenem 500 mg/ Sodium (Chloride) 100 mls @ 100 mls/hr IVPB Q8 [facility] PRN Reason: Protocol Last Admin: 02/26/17 08:48 Dose: 100 mls/hr Lactobacillus Acidophilus (Bacid Acidophilus) 1 cap PO BID [facility] Last Admin: 02/26/17 08:56 Dose: 1 cap Lactulose (Enulose) 10 gm PO DAILY PRN PRN Reason: Constipation Latanoprost (Xalatan Opht) 1 drop OU HS [facility] Last Admin: 02/25/17 22:06 Dose: 1 drop Metoprolol Tartrate (Lopressor) 25 mg PEG Q8 [facility] Last Admin: 02/26/17 08:36 Dose: 25 mg Mupirocin (Bactroban Ointment) 1 applic TOP BID [facility] Last Admin: 02/26/17 08:49 Dose: 1 applic Pantoprazole Sodium (Protonix Inj) 40 mg IVP DAILY [facility] Last Admin: 02/26/17 08:45 Dose: 40 mg Tramadol HCl (Ultram) 50 mg GT Q6 PRN PRN Reason: Pain, severe (8-10) Last Admin: 02/24/17 20:55 Dose: 50 mg - Labs Labs: 02/24/17 05:25 02/24/17 05:25 PT 11.7 Seconds (9.8-13.1) 02/23/17 10:30 INR 1.0 (0.9-1.2) 02/23/17 10:30 APTT 30.2 Seconds (25.6-37.1) 02/23/17 10:30 - Head Exam Head Exam: NORMAL INSPECTION - Respiratory Exam Respiratory Exam: NORMAL BREATHING PATTERN - Cardiovascular Exam Cardiovascular Exam: REGULAR RHYTHM - GI/Abdominal Exam GI & Abdominal Exam: Soft, Normal Bowel Sounds Assessment and Plan - Assessment and Plan (Free Text) Assessment: 66 yo female with UTI and dysphagia ok to use fernandes for feeds if needed, can switch to G tube
--- NOTE | 2017-02-26 15:31 | CP.PCM.PN ---
Subjective - Date & Time of Evaluation Date of Evaluation: 02/26/17 Time of Evaluation: 12:00 - Subjective Subjective: F/U Peg tube malfunction. Objective - Vital Signs/Intake and Output Vital Signs (last 24 hours): Temp Pulse Resp BP Pulse Ox 100.2 F H 99 H 20 130/74 100 02/26/17 13:00 02/26/17 08:36 02/26/17 07:52 02/26/17 08:36 02/26/17 07:52 - Medications Medications: Current Medications Acetaminophen (Tylenol 650mg/20.3ml Solution Ud) 650 mg PEG Q4 PRN PRN Reason: Temperature Last Admin: 02/26/17 13:00 Dose: 650 mg Albuterol/Ipratropium (Duoneb 3 Mg/0.5 Mg (3 Ml) Ud) 3 ml INH RQ6 [facility] Last Admin: 02/26/17 13:47 Dose: 3 ml Aspirin (Aspirin Chewable) 81 mg PEG DAILY [facility] Last Admin: 02/26/17 08:35 Dose: 81 mg Diltiazem HCl (Cardizem) 60 mg PEG Q8 [facility] Last Admin: 02/26/17 08:35 Dose: 60 mg Docusate Sodium (Colace Liquid) 100 mg PEG TID [facility] Last Admin: 02/26/17 13:05 Dose: 100 mg Enalapril Maleate (Vasotec) 2.5 mg PEG DAILY [facility] Last Admin: 02/26/17 08:35 Dose: 2.5 mg Enoxaparin Sodium (Lovenox) 40 mg SC DAILY [facility] PRN Reason: Protocol Last Admin: 02/26/17 08:36 Dose: 40 mg Clindamycin in NS (Clindamycin 300 Mg/50 Ml-Ns) 300 mg in 50 mls @ 50 mls/hr IVPB Q8 [facility] PRN Reason: Protocol Last Admin: 02/26/17 08:47 Dose: 50 mls/hr Meropenem 500 mg/ Sodium (Chloride) 100 mls @ 100 mls/hr IVPB Q8 [facility] PRN Reason: Protocol Last Admin: 02/26/17 08:48 Dose: 100 mls/hr Lactobacillus Acidophilus (Bacid Acidophilus) 1 cap PO BID [facility] Last Admin: 02/26/17 08:56 Dose: 1 cap Lactulose (Enulose) 10 gm PO DAILY PRN PRN Reason: Constipation Latanoprost (Xalatan Opht) 1 drop OU HS [facility] Last Admin: 02/25/17 22:06 Dose: 1 drop Metoprolol Tartrate (Lopressor) 25 mg PEG Q8 [facility] Last Admin: 02/26/17 08:36 Dose: 25 mg Mupirocin (Bactroban Ointment) 1 applic TOP BID [facility] Last Admin: 02/26/17 08:49 Dose: 1 applic Pantoprazole Sodium (Protonix Inj) 40 mg IVP DAILY [facility] Last Admin: 02/26/17 08:45 Dose: 40 mg Tramadol HCl (Ultram) 50 mg GT Q6 PRN PRN Reason: Pain, severe (8-10) Last Admin: 02/24/17 20:55 Dose: 50 mg - Labs Labs: 02/24/17 05:25 02/24/17 05:25 PT 11.7 Seconds (9.8-13.1) 02/23/17 10:30 INR 1.0 (0.9-1.2) 02/23/17 10:30 APTT 30.2 Seconds (25.6-37.1) 02/23/17 10:30 - Constitutional Appears: No Acute Distress, Chronically Ill - Head Exam Head Exam: NORMAL INSPECTION - Eye Exam Eye Exam: PERRL - ENT Exam ENT Exam: Normal Exam - Neck Exam Neck Exam: Normal Inspection - Respiratory Exam Respiratory Exam: Decreased Breath Sounds (ar bases), Rhonchi (scattered) - Cardiovascular Exam Cardiovascular Exam: REGULAR RHYTHM, Murmur (systolic 3/6 [place] radiated to axilla.) - GI/Abdominal Exam GI & Abdominal Exam: Soft, Normal Bowel Sounds Additional comments: Peg tube in place, minimal secretion - Extremities Exam Additional comments: Stiff extremities, LUE contracted. - Back Exam Additional comments: Sacral ulcer stage IV - Neurological Exam Additional comments: Generalized rigidity, non verbal, expressive aphasia. - Skin Skin Exam: Warm Assessment and Plan (1) PEG tube malfunction Status: Acute (2) Infection of PEG site Status: Acute (3) HCAP (healthcare-associated pneumonia) Status: Acute (4) UTI (urinary tract infection) Status: Acute (5) Decubitus ulcer of lower back, stage 4 Status: Chronic (6) Dementia Status: Chronic (7) History of CVA (cerebrovascular accident) Status: Chronic (8) Paroxysmal A-fib Status: Chronic (9) Chronic systolic congestive heart failure Status: Chronic (10) COPD (chronic obstructive pulmonary disease) Status: Chronic (11) HTN (hypertension) Status: Chronic - Assessment and Plan (Free Text) Plan: Continue Bactrobam , Clinda , Merren, DuoNeb and rest of treatment
--- NOTE | 2017-02-26 15:54 | CP.PCM.PN ---
Subjective - Date & Time of Evaluation Date of Evaluation: 02/26/17 Time of Evaluation: 09:00 - Subjective Subjective: arousable confused NAD IV rx in progress Objective - Vital Signs/Intake and Output Vital Signs (last 24 hours): Temp Pulse Resp BP Pulse Ox 100.2 F H 99 H 20 130/74 100 02/26/17 13:00 02/26/17 08:36 02/26/17 07:52 02/26/17 08:36 02/26/17 07:52 - Medications Medications: Current Medications Acetaminophen (Tylenol 650mg/20.3ml Solution Ud) 650 mg PEG Q4 PRN PRN Reason: Temperature Last Admin: 02/26/17 13:00 Dose: 650 mg Albuterol/Ipratropium (Duoneb 3 Mg/0.5 Mg (3 Ml) Ud) 3 ml INH RQ6 [facility] Last Admin: 02/26/17 13:47 Dose: 3 ml Aspirin (Aspirin Chewable) 81 mg PEG DAILY [facility] Last Admin: 02/26/17 08:35 Dose: 81 mg Diltiazem HCl (Cardizem) 60 mg PEG Q8 [facility] Last Admin: 02/26/17 08:35 Dose: 60 mg Docusate Sodium (Colace Liquid) 100 mg PEG TID [facility] Last Admin: 02/26/17 13:05 Dose: 100 mg Enalapril Maleate (Vasotec) 2.5 mg PEG DAILY [facility] Last Admin: 02/26/17 08:35 Dose: 2.5 mg Enoxaparin Sodium (Lovenox) 40 mg SC DAILY [facility] PRN Reason: Protocol Last Admin: 02/26/17 08:36 Dose: 40 mg Clindamycin in NS (Clindamycin 300 Mg/50 Ml-Ns) 300 mg in 50 mls @ 50 mls/hr IVPB Q8 [facility] PRN Reason: Protocol Last Admin: 02/26/17 08:47 Dose: 50 mls/hr Meropenem 500 mg/ Sodium (Chloride) 100 mls @ 100 mls/hr IVPB Q8 [facility] PRN Reason: Protocol Last Admin: 02/26/17 08:48 Dose: 100 mls/hr Lactobacillus Acidophilus (Bacid Acidophilus) 1 cap PO BID [facility] Last Admin: 02/26/17 08:56 Dose: 1 cap Lactulose (Enulose) 10 gm PO DAILY PRN PRN Reason: Constipation Latanoprost (Xalatan Opht) 1 drop OU HS [facility] Last Admin: 02/25/17 22:06 Dose: 1 drop Metoprolol Tartrate (Lopressor) 25 mg PEG Q8 [facility] Last Admin: 02/26/17 08:36 Dose: 25 mg Mupirocin (Bactroban Ointment) 1 applic TOP BID [facility] Last Admin: 02/26/17 08:49 Dose: 1 applic Pantoprazole Sodium (Protonix Inj) 40 mg IVP DAILY [facility] Last Admin: 02/26/17 08:45 Dose: 40 mg Tramadol HCl (Ultram) 50 mg GT Q6 PRN PRN Reason: Pain, severe (8-10) Last Admin: 02/24/17 20:55 Dose: 50 mg - Labs Labs: 02/24/17 05:25 02/24/17 05:25 PT 11.7 Seconds (9.8-13.1) 02/23/17 10:30 INR 1.0 (0.9-1.2) 02/23/17 10:30 APTT 30.2 Seconds (25.6-37.1) 02/23/17 10:30 - Constitutional Appears: Confused, Chronically Ill - Head Exam Head Exam: NORMOCEPHALIC - Eye Exam Eye Exam: absent: Scleral icterus - ENT Exam ENT Exam: Mucous Membranes Dry - Neck Exam Neck Exam: absent: Lymphadenopathy - Respiratory Exam Respiratory Exam: Decreased Breath Sounds - Cardiovascular Exam Cardiovascular Exam: REGULAR RHYTHM, +S1, +S2 - GI/Abdominal Exam GI & Abdominal Exam: Distended, Soft - Rectal Exam Rectal Exam: Deferred - Exam Exam: NORMAL INSPECTION - Extremities Exam Extremities Exam: absent: Pedal Edema - Back Exam Back Exam: absent: CVA tenderness (L), CVA tenderness (R) - Neurological Exam Neurological Exam: Altered, Awake - Psychiatric Exam Psychiatric exam: Depressed - Skin Skin Exam: Dry Assessment and Plan (1) PEG tube malfunction Status: Acute (2) COPD (chronic obstructive pulmonary disease) Status: Chronic (3) Chronic systolic congestive heart failure Status: Chronic (4) Dementia Status: Chronic (5) HTN (hypertension) Status: Chronic (6) History of CVA (cerebrovascular accident) Status: Chronic (7) Paroxysmal A-fib Status: Chronic (8) Pneumonia Status: Acute - Assessment and Plan (Free Text) Assessment: fever / SIRS/ Pneumonia? infectewd GT await GI eval cont clinda/ Merrem prognosis guarded
[2017-02-26] MEDS: Latanoprost 0.005% Opht SOUTION OU SCH (23:09)
[2017-02-27] MEDS: Clindamycin in NS 300 MG/50 ML BAG IVPB SCH ×2 (00:26→09:15)
[2017-02-27] MEDS: Albuterol-Ipratrop 3 mg / 0.5 (3 ml) UD INH SCH ×4 (01:47→19:54)
[2017-02-27] MEDS: Meropenem 500 MG in Sodium Chloride 0.9% 100 ML IVPB SCH ×4 (04:32→22:05)
[2017-02-27 06:57] LABS: HEMATOCRIT 33.6 % (34.0-47.0); MEAN CELL VOLUME 89.3 fl (81.0-99.0); MEAN CORPUSCULAR HEMOGLOBIN 29.2 pg (27.0-31.0); MEAN CORPUSCULAR HGB CONC 32.7 g/dL (33.0-37.0); RED CELL DISTRIBUTION WIDTH 13.6 % (11.5-14.5); WHITE BLOOD COUNT 5.9 K/uL (4.8-10.8)
[2017-02-27 07:29] LABS: BLOOD UREA NITROGEN 13 mg/dl (7-17); CARBON DIOXIDE 26 mmol/L (22-30); CHLORIDE 113 mmol/L (98-107); GFR AFRICAN-AMERICAN > 60; GLUCOSE,RANDOM 108 mg/dL (65-105); POTASSIUM 4.1 MMOL/L (3.6-5.0); SODIUM 146 mmol/l (132-148)
[2017-02-27] MEDS: Lactobacillus Acidophilus 500 MU Cap PO SCH (09:18)
--- NOTE | 2017-02-27 11:10 | NM ---
PROCEDURE: Whole Body Bone Scan HISTORY: New compression fracture suspected lumbar spine. COMPARISON: 02/23/2017 CT abdomen and pelvis. Summary of findings on the comparison examination: Mild worsening of L5 compression fracture compared to prior examination. Worsening compression fracture L4 vertebra. New mild compression fractures L2, L3 vertebrae. The ages of these fractures is indeterminatet TECHNIQUE: Following administration of 25.6 miCu of Tc MDP multiplanar whole body images were obtained. FINDINGS: Evidence for bony metastatic disease: None. Degenerative uptake: Thoracolumbar scoliosis secondary degenerative changes. Degenerative changes in the lower extremities primarily knees and ankles. Increased uptake in both shoulders left greater than right likely degenerative. Physiologic uptake: Normal physiologic activity in the kidneys. Other findings: None. IMPRESSION: No evidence of bony metastatic disease. No focal abnormalities thoracolumbar spine to indicate acute compression fracture.
[2017-02-27] MEDS ORDERED: Chlorhexidine Gluconate 1 APPL/PKT TP ONE (11:37)
[2017-02-27] MEDS: Enoxaparin 40 mg Syringe SC SCH (12:09)
--- NOTE | 2017-02-27 12:13 | CP.PCM.PN ---
Subjective - Date & Time of Evaluation Date of Evaluation: 02/27/17 Time of Evaluation: 12:00 - Subjective Subjective: no overnight events Objective - Vital Signs/Intake and Output Vital Signs (last 24 hours): Temp Pulse Resp BP Pulse Ox 98.2 F 101 H 21 118/60 97 02/27/17 08:47 02/27/17 09:21 02/27/17 08:47 02/27/17 09:21 02/27/17 08:47 - Medications Medications: Current Medications Acetaminophen (Tylenol 650mg/20.3ml Solution Ud) 650 mg PEG Q4 PRN PRN Reason: Temperature Last Admin: 02/26/17 13:00 Dose: 650 mg Albuterol/Ipratropium (Duoneb 3 Mg/0.5 Mg (3 Ml) Ud) 3 ml INH RQ6 [facility] Last Admin: 02/27/17 07:31 Dose: 3 ml Aspirin (Aspirin Chewable) 81 mg PEG DAILY [facility] Last Admin: 02/27/17 12:08 Dose: 81 mg Diltiazem HCl (Cardizem) 60 mg PEG Q8 [facility] Last Admin: 02/27/17 11:48 Dose: Not Given Docusate Sodium (Colace Liquid) 100 mg PEG TID [facility] Last Admin: 02/27/17 12:09 Dose: 100 mg Enalapril Maleate (Vasotec) 2.5 mg PEG DAILY [facility] Last Admin: 02/27/17 09:22 Dose: 2.5 mg Clindamycin in NS (Clindamycin 300 Mg/50 Ml-Ns) 300 mg in 50 mls @ 50 mls/hr IVPB Q8 [facility] PRN Reason: Protocol Last Admin: 02/27/17 09:15 Dose: 50 mls/hr Meropenem 500 mg/ Sodium (Chloride) 100 mls @ 100 mls/hr IVPB Q6H [facility] PRN Reason: Protocol Last Admin: 02/27/17 09:16 Dose: 100 mls/hr Lactobacillus Acidophilus (Bacid Acidophilus) 1 cap PO BID [facility] Last Admin: 02/27/17 09:18 Dose: Not Given Lactulose (Enulose) 10 gm PO DAILY PRN PRN Reason: Constipation Latanoprost (Xalatan Opht) 1 drop OU HS [facility] Last Admin: 02/26/17 23:09 Dose: 1 drop Metoprolol Tartrate (Lopressor) 25 mg PEG Q8 [facility] Last Admin: 02/27/17 09:21 Dose: 25 mg Mupirocin (Bactroban Ointment) 1 applic TOP BID [facility] Last Admin: 02/27/17 09:20 Dose: 1 applic Pantoprazole Sodium (Protonix Inj) 40 mg IVP DAILY [facility] Last Admin: 02/27/17 09:17 Dose: 40 mg Tramadol HCl (Ultram) 50 mg GT Q6 PRN PRN Reason: Pain, severe (8-10) Last Admin: 02/24/17 20:55 Dose: 50 mg - Labs Labs: 02/27/17 06:35 02/27/17 06:35 PT 11.7 Seconds (9.8-13.1) 02/23/17 10:30 INR 1.0 (0.9-1.2) 02/23/17 10:30 APTT 30.2 Seconds (25.6-37.1) 02/23/17 10:30 - Head Exam Head Exam: NORMAL INSPECTION - Neck Exam Neck Exam: Normal Inspection - Respiratory Exam Respiratory Exam: NORMAL BREATHING PATTERN - Cardiovascular Exam Cardiovascular Exam: REGULAR RHYTHM - GI/Abdominal Exam GI & Abdominal Exam: Soft, Normal Bowel Sounds Assessment and Plan - Assessment and Plan (Free Text) Assessment: 66 yo female with dypshagia replaced fernandes with 20 Fr G tube bedside ok to use please keep binder on
--- NOTE | 2017-02-27 13:10 | CP.PCM.PN ---
Subjective - Date & Time of Evaluation Date of Evaluation: 02/27/17 Time of Evaluation: 09:00 - Subjective Subjective: events noted iv rx in progress Objective - Vital Signs/Intake and Output Vital Signs (last 24 hours): Temp Pulse Resp BP Pulse Ox 98.2 F 101 H 21 118/60 97 02/27/17 08:47 02/27/17 09:21 02/27/17 08:47 02/27/17 09:21 02/27/17 08:47 - Medications Medications: Current Medications Acetaminophen (Tylenol 650mg/20.3ml Solution Ud) 650 mg PEG Q4 PRN PRN Reason: Temperature Last Admin: 02/26/17 13:00 Dose: 650 mg Albuterol/Ipratropium (Duoneb 3 Mg/0.5 Mg (3 Ml) Ud) 3 ml INH RQ6 [facility] Last Admin: 02/27/17 07:31 Dose: 3 ml Aspirin (Aspirin Chewable) 81 mg PEG DAILY [facility] Last Admin: 02/27/17 12:08 Dose: 81 mg Diltiazem HCl (Cardizem) 60 mg PEG Q8 [facility] Last Admin: 02/27/17 11:48 Dose: Not Given Docusate Sodium (Colace Liquid) 100 mg PEG TID [facility] Last Admin: 02/27/17 12:09 Dose: 100 mg Enalapril Maleate (Vasotec) 2.5 mg PEG DAILY [facility] Last Admin: 02/27/17 09:22 Dose: 2.5 mg Clindamycin in NS (Clindamycin 300 Mg/50 Ml-Ns) 300 mg in 50 mls @ 50 mls/hr IVPB Q8 [facility] PRN Reason: Protocol Last Admin: 02/27/17 09:15 Dose: 50 mls/hr Meropenem 500 mg/ Sodium (Chloride) 100 mls @ 100 mls/hr IVPB Q6H [facility] PRN Reason: Protocol Last Admin: 02/27/17 09:16 Dose: 100 mls/hr Lactobacillus Acidophilus (Bacid Acidophilus) 1 cap PO BID [facility] Last Admin: 02/27/17 09:18 Dose: Not Given Lactulose (Enulose) 10 gm PO DAILY PRN PRN Reason: Constipation Latanoprost (Xalatan Opht) 1 drop OU HS [facility] Last Admin: 02/26/17 23:09 Dose: 1 drop Metoprolol Tartrate (Lopressor) 25 mg PEG Q8 [facility] Last Admin: 02/27/17 09:21 Dose: 25 mg Mupirocin (Bactroban Ointment) 1 applic TOP BID [facility] Last Admin: 02/27/17 09:20 Dose: 1 applic Pantoprazole Sodium (Protonix Inj) 40 mg IVP DAILY [facility] Last Admin: 02/27/17 09:17 Dose: 40 mg Tramadol HCl (Ultram) 50 mg GT Q6 PRN PRN Reason: Pain, severe (8-10) Last Admin: 02/24/17 20:55 Dose: 50 mg - Labs Labs: 02/27/17 06:35 02/27/17 06:35 PT 11.7 Seconds (9.8-13.1) 02/23/17 10:30 INR 1.0 (0.9-1.2) 02/23/17 10:30 APTT 30.2 Seconds (25.6-37.1) 02/23/17 10:30 - Constitutional Appears: Non-toxic, Chronically Ill - Head Exam Head Exam: NORMOCEPHALIC - Eye Exam Eye Exam: PERRL - ENT Exam ENT Exam: Mucous Membranes Dry - Neck Exam Neck Exam: absent: Lymphadenopathy - Respiratory Exam Respiratory Exam: Decreased Breath Sounds - Cardiovascular Exam Cardiovascular Exam: REGULAR RHYTHM - GI/Abdominal Exam GI & Abdominal Exam: Distended, Soft - Rectal Exam Rectal Exam: Deferred - Exam Exam: NORMAL INSPECTION - Back Exam Back Exam: absent: CVA tenderness (L), CVA tenderness (R) - Neurological Exam Neurological Exam: Alert, Awake, Oriented x3 - Psychiatric Exam Psychiatric exam: Normal Mood - Skin Skin Exam: Dry Assessment and Plan (1) PEG tube malfunction Status: Acute (2) COPD (chronic obstructive pulmonary disease) Status: Chronic (3) Chronic systolic congestive heart failure Status: Chronic (4) Dementia Status: Chronic (5) HTN (hypertension) Status: Chronic (6) History of CVA (cerebrovascular accident) Status: Chronic (7) Paroxysmal A-fib Status: Chronic (8) Pneumonia Status: Acute
--- NOTE | 2017-02-27 14:12 | RAD ---
HISTORY: f/u COMPARISON: Chest radiograph dated 02/23/2017 FINDINGS: LUNGS: Improved aeration of the left lower lobe consolidation. Minimal residual left basilar opacity. PLEURA: No significant pleural effusion identified, no pneumothorax apparent. CARDIOVASCULAR: Atherosclerotic aortic calcifications. Cardiomediastinal silhouette within normal limits. . OSSEOUS STRUCTURES: Unchanged. VISUALIZED UPPER ABDOMEN: Normal. OTHER FINDINGS: None. IMPRESSION: Improved left lower lobe aeration with minimal residual left basilar opacity.
[2017-02-27] MEDS ORDERED: Lidocaine 1% Inj (20ml) ONE (14:53)
--- NOTE | 2017-02-27 15:04 | PCM.SURG1 ---
Surgeon's Initial Post Op Note - Surgeon's Notes Surgeon: Devyn Kimbrough MD Dairy Farmworker: NONE Type of Anesthesia: Local Pre-Operative Diagnosis: Poor venous access Operative Findings: Patent right basilic vein. Post-Operative Diagnosis: Poor venous access Operation Performed: single lumen picc right basilic vein, 43 cm. Tip is in the SVC. Specimen/Specimens Removed: none Estimated Blood Loss: EBL {In ML}: 2 Blood Products Given: N/A Drains Used: No Drains Post-Op Condition: Fair Date of Surgery/Procedure: 02/27/17 Time of Surgery/Procedure: 15:00
[2017-02-27 16:06] VITALS: RESP 20
--- NOTE | 2017-02-27 17:48 | CP.PCM.PN ---
Subjective - Date & Time of Evaluation Date of Evaluation: 02/27/17 Time of Evaluation: 13:30 - Subjective Subjective: F/U Peg Tube malfunction-infection, Pneumonia , UTI Aphasic Objective - Vital Signs/Intake and Output Vital Signs (last 24 hours): Temp Pulse Resp BP Pulse Ox 97.8 F 75 20 111/75 98 02/27/17 16:05 02/27/17 16:52 02/27/17 16:05 02/27/17 16:52 02/27/17 16:05 - Medications Medications: Current Medications Acetaminophen (Tylenol 650mg/20.3ml Solution Ud) 650 mg PEG Q4 PRN PRN Reason: Temperature Last Admin: 02/26/17 13:00 Dose: 650 mg Albuterol/Ipratropium (Duoneb 3 Mg/0.5 Mg (3 Ml) Ud) 3 ml INH RQ6 [facility] Last Admin: 02/27/17 13:49 Dose: 3 ml Aspirin (Aspirin Chewable) 81 mg PEG DAILY [facility] Last Admin: 02/27/17 12:08 Dose: 81 mg Diltiazem HCl (Cardizem) 60 mg PEG Q8 [facility] Last Admin: 02/27/17 16:50 Dose: 60 mg Docusate Sodium (Colace Liquid) 100 mg PEG TID [facility] Last Admin: 02/27/17 12:09 Dose: 100 mg Enalapril Maleate (Vasotec) 2.5 mg PEG DAILY [facility] Last Admin: 02/27/17 09:22 Dose: 2.5 mg Clindamycin in NS (Clindamycin 300 Mg/50 Ml-Ns) 300 mg in 50 mls @ 50 mls/hr IVPB Q8 [facility] PRN Reason: Protocol Last Admin: 02/27/17 09:15 Dose: 50 mls/hr Meropenem 500 mg/ Sodium (Chloride) 100 mls @ 100 mls/hr IVPB Q6H [facility] PRN Reason: Protocol Last Admin: 02/27/17 16:50 Dose: 100 mls/hr Lactobacillus Acidophilus (Bacid Acidophilus) 1 cap PO BID [facility] Last Admin: 02/27/17 09:18 Dose: Not Given Lactulose (Enulose) 10 gm PO DAILY PRN PRN Reason: Constipation Latanoprost (Xalatan Opht) 1 drop OU HS [facility] Last Admin: 02/26/17 23:09 Dose: 1 drop Metoprolol Tartrate (Lopressor) 25 mg PEG Q8 [facility] Last Admin: 02/27/17 16:52 Dose: 25 mg Mupirocin (Bactroban Ointment) 1 applic TOP BID [facility] Last Admin: 02/27/17 16:49 Dose: 1 applic Pantoprazole Sodium (Protonix Inj) 40 mg IVP DAILY [facility] Last Admin: 02/27/17 09:17 Dose: 40 mg Tramadol HCl (Ultram) 50 mg GT Q6 PRN PRN Reason: Pain, severe (8-10) Last Admin: 02/24/17 20:55 Dose: 50 mg - Labs Labs: 02/27/17 06:35 02/27/17 06:35 PT 11.7 Seconds (9.8-13.1) 02/23/17 10:30 INR 1.0 (0.9-1.2) 02/23/17 10:30 APTT 30.2 Seconds (25.6-37.1) 02/23/17 10:30 - Constitutional Appears: No Acute Distress, Chronically Ill - Head Exam Head Exam: NORMAL INSPECTION - Eye Exam Eye Exam: PERRL - ENT Exam ENT Exam: Normal Exam - Neck Exam Neck Exam: Normal Inspection - Respiratory Exam Respiratory Exam: Decreased Breath Sounds (at bases), Rhonchi (scattered) - Cardiovascular Exam Cardiovascular Exam: REGULAR RHYTHM, Murmur (systolic 3/6 [place] radiated to axilla.) - GI/Abdominal Exam GI & Abdominal Exam: Soft, Normal Bowel Sounds Additional comments: Peg tube in place, slight excoriation around the tube area. - Extremities Exam Additional comments: rigidity , LUE contracted - Back Exam Additional comments: Sacral ulcer stage IV - Neurological Exam Additional comments: Generalized rigidity, non verbal, expressive aphasia. - Skin Skin Exam: Warm Assessment and Plan (1) Infection of PEG site Status: Acute (2) PEG tube malfunction Assessment & Plan: E Coli , Staph MRSA Status: Resolved (3) UTI (urinary tract infection) Assessment & Plan: E Coli Status: Acute (4) HCAP (healthcare-associated pneumonia) Assessment & Plan: Aspiration Status: Acute (5) Decubitus ulcer of lower back, stage 4 Status: Chronic (6) Dementia Status: Chronic (7) History of CVA (cerebrovascular accident) Status: Chronic (8) Paroxysmal A-fib Status: Chronic (9) Chronic systolic congestive heart failure Status: Chronic (10) COPD (chronic obstructive pulmonary disease) Status: Chronic (11) HTN (hypertension) Status: Chronic - Assessment and Plan (Free Text) Plan: PEG tube inserted at Bedside by GI , had PICC line insertion , continue Clinda , Merren , Bactrobam , DuoNeb
[2017-02-27] MEDS ORDERED: Dextrose 5%/0.45% NS 1,000 ML IV SCH (19:30)
[2017-02-27] MEDS: Latanoprost 0.005% Opht SOUTION OU SCH (22:04)
[2017-02-28] MEDS: Clindamycin in NS 300 MG/50 ML BAG IVPB SCH ×2 (01:10→13:42)
[2017-02-28] MEDS: Albuterol-Ipratrop 3 mg / 0.5 (3 ml) UD INH SCH ×3 (01:55→13:05)
[2017-02-28] MEDS: Meropenem 500 MG in Sodium Chloride 0.9% 100 ML IVPB SCH (05:09)
[2017-02-28 07:15] LABS: MEAN CORPUSCULAR HEMOGLOBIN 29.1 pg (27.0-31.0); RED CELL DISTRIBUTION WIDTH 13.7 % (11.5-14.5); WHITE BLOOD COUNT 5.4 K/uL (4.8-10.8)
[2017-02-28 07:21] LABS: ALB/GLOB RATIO 0.8 (1.0-2.1); ALKALINE PHOSPHATASE 62 U/L (38-126); ALT/SGPT 20 U/L (9-52); AST/SGOT 16 U/L (14-36); BILIRUBIN,TOTAL 0.2 mg/dl (0.2-1.3); BLOOD UREA NITROGEN 16 mg/dl (7-17); CALCIUM 8.5 mg/dL (8.4-10.2); CARBON DIOXIDE 30 mmol/L (22-30); CHLORIDE 109 mmol/L (98-107); GFR AFRICAN-AMERICAN > 60; GLUCOSE,RANDOM 112 mg/dL (65-105); POTASSIUM 3.9 MMOL/L (3.6-5.0); SODIUM 145 mmol/l (132-148); TOTAL PROTEIN 6.7 G/DL (6.3-8.2)
[2017-02-28 08:21] VITALS: PULSE 98; TEMP 99.3; O2SAT 100
[2017-02-28] MEDS ORDERED: Meropenem 500 MG in Sodium Chloride 0.9% 50 ML IVPB SCH (09:30)
[2017-02-28] MEDS: Lactobacillus Acidophilus 500 MU Cap PO SCH (11:42)
[2017-02-28 11:46] VITALS: BP 128/64
--- NOTE | 2017-02-28 13:57 | CP.PCM.PN ---
Subjective - Date & Time of Evaluation Date of Evaluation: 02/28/17 Time of Evaluation: 13:00 - Subjective Subjective: eyes open , aphasic , follows with head movements verbal stimuli Objective - Vital Signs/Intake and Output Vital Signs (last 24 hours): Temp Pulse Resp BP Pulse Ox 99.3 F 98 H 20 128/64 100 02/28/17 08:21 02/28/17 08:21 02/28/17 08:21 02/28/17 11:42 02/28/17 08:21 - Labs Labs: 02/28/17 05:25 02/28/17 05:25 PT 11.7 Seconds (9.8-13.1) 02/23/17 10:30 INR 1.0 (0.9-1.2) 02/23/17 10:30 APTT 30.2 Seconds (25.6-37.1) 02/23/17 10:30 - Constitutional Appears: No Acute Distress, Chronically Ill - Eye Exam Eye Exam: PERRL - ENT Exam ENT Exam: Normal Exam - Neck Exam Neck Exam: Normal Inspection - Respiratory Exam Respiratory Exam: Decreased Breath Sounds (at bases), Rhonchi (scattered at bases) - Cardiovascular Exam Cardiovascular Exam: REGULAR RHYTHM, Murmur (systolic 3/6 apex , radiated to axilla) - GI/Abdominal Exam GI & Abdominal Exam: Soft, Normal Bowel Sounds (Peg ) Additional comments: slight excoriation around PEG tube - Extremities Exam Additional comments: rigidity , LUE contracted - Back Exam Additional comments: Sacral ulcer , stage IV - Neurological Exam Additional comments: generalized rigidity , follows with head movement verbal stimuli , non verbal , generalized rigidity - Skin Skin Exam: Warm Assessment and Plan (1) Infection of PEG site Status: Acute (2) PEG tube malfunction Status: Resolved (3) UTI (urinary tract infection) Status: Acute (4) HCAP (healthcare-associated pneumonia) Status: Acute (5) Decubitus ulcer of lower back, stage 4 Status: Chronic (6) Dementia Status: Chronic (7) History of CVA (cerebrovascular accident) Status: Chronic (8) Paroxysmal A-fib Status: Chronic (9) Chronic systolic congestive heart failure Status: Chronic (10) COPD (chronic obstructive pulmonary disease) Status: Chronic (11) HTN (hypertension) Status: Chronic - Assessment and Plan (Free Text) Plan: improved , stable to be discharged , continue Merren , Clinda IV in Snf , see inst/med sheet , I will follow Patient in this Facility
--- NOTE | 2017-03-02 11:19 | VASCULAR ---
PROCEDURE: Date of procedure: 02/27/2017 Procedure: 1. Placement of a right arm PICC with ultrasound and fluoroscopic guidance, CPT 57916 2. PICC tip confirmation with spot radiograph and is in the superior vena cava Medications: 1 percent lidocaine Total Fluoro time: 17.7 seconds Radiation: 2.14 MGy EBL: 2 cc HISTORY: Infection requiring long-term IV antibiotics TECHNIQUE: Following informed consent and procedure time-out, the patient was placed supine on the interventional table and the right arm prepped and draped in the usual sterile fashion. Ultrasound showed a patent and compressible right basilic vein. After the skin was anesthetized with lidocaine, the basilic vein was accessed with micro micropuncture technique using ultrasound guidance. A guidewire was then advanced under fluoroscopic guidance into the superior vena cava. An image documenting ultrasound guidance for vascular access was permanently saved. The length of the single-lumen 4 [place] PICC was trimmed to 43 centimeters and advanced through a peel-away sheath. The PICC was position with tip of PICC confirm a spot radiograph the superior vena cava. The PICC was secured to the patient's skin. The PICC was flushed. A biopatch and sterile dressing was applied. IMPRESSION: Placement of a single-lumen 4 [place] PICC trimmed to 43 centimeters via right basilic vein. The tip of the PICC is confirmed with spot radiograph and is in the superior vena cava.
--- NOTE | 2017-03-02 11:22 | CP.PCM.DIS ---
Provider - Provider Date of Admission: 02/23/17 14:51 Attending physician: Sy Del Valle MD Consults: Gastroenterology and ID. Time Spent in preparation of Discharge (in minutes): 25 Diagnosis - Discharge Diagnosis (1) Infection of PEG site Status: Acute (2) PEG tube malfunction Status: Resolved Priority: High (3) UTI (urinary tract infection) Status: Acute (4) HCAP (healthcare-associated pneumonia) Status: Acute (5) Decubitus ulcer of lower back, stage 4 Status: Chronic Priority: High (6) Dementia Status: Chronic Priority: Medium (7) History of CVA (cerebrovascular accident) Status: Chronic Priority: Medium (8) Paroxysmal A-fib Status: Chronic Priority: Medium (9) Chronic systolic congestive heart failure Status: Chronic Priority: Medium (10) COPD (chronic obstructive pulmonary disease) Status: Chronic Priority: Medium (11) HTN (hypertension) Status: Chronic Priority: Medium Hospital Course - Lab Results Lab Results: Micro Results 02/23/17 10:30 Blood Blood Culture - Final NO GROWTH AFTER 5 DAYS 02/23/17 10:30 Blood Gram Stain - Final TEST NOT PERFORMED 02/23/17 10:45 Blood Blood Culture - Final NO GROWTH AFTER 5 DAYS 02/23/17 10:45 Blood Gram Stain - Final TEST NOT PERFORMED 02/24/17 14:35 Urine,Catheterized Urine Culture - Final Escherichia Coli 02/23/17 12:38 Peg Site Gram Stain - Final 02/23/17 12:38 Peg Site Wound Culture - Final Escherichia Coli Methicillin Resistant S Aureus Most Recent Lab Values WBC 5.4 K/uL (4.8-10.8) 02/28/17 05:25 RBC 3.52 Mil/uL (3.80-5.20) L 02/28/17 05:25 Hgb 10.2 g/dL (12.0-16.0) L 02/28/17 05:25 Hct 32.0 % (34.0-47.0) L 02/28/17 05:25 MCV 91.0 fl (81.0-99.0) 02/28/17 05:25 MCH 29.1 pg (27.0-31.0) 02/28/17 05:25 MCHC 32.0 g/dL (33.0-37.0) L 02/28/17 05:25 RDW 13.7 % (11.5-14.5) 02/28/17 05:25 Plt Count 164 K/uL (130-400) 02/28/17 05:25 MPV 11.0 fl (7.2-11.7) 02/23/17 10:30 Neut % (Auto) 65.4 % (50.0-75.0) 02/23/17 10:30 Lymph % (Auto) 22.2 % (20.0-40.0) 02/23/17 10:30 [place] % (Auto) 7.2 % (0.0-10.0) 02/23/17 10:30 Eos % (Auto) 4.1 % (0.0-4.0) H 02/23/17 10:30 Baso % (Auto) 1.1 % (0.0-2.0) 02/23/17 10:30 Neut # 6.6 K/uL (1.8-7.0) 02/23/17 10:30 Lymph # 2.3 K/uL (1.0-4.3) 02/23/17 10:30 [place] # 0.7 K/uL (0.0-0.8) 02/23/17 10:30 Eos # 0.4 K/uL (0.0-0.7) 02/23/17 10:30 Baso # 0.1 K/uL (0.0-0.2) 02/23/17 10:30 PT 11.7 Seconds (9.8-13.1) 02/23/17 10:30 INR 1.0 (0.9-1.2) 02/23/17 10:30 APTT 30.2 Seconds (25.6-37.1) 02/23/17 10:30 pO2 53 mm/Hg (30-55) 02/23/17 15:57 VBG pH 7.44 (7.32-7.43) H 02/23/17 15:57 VBG pCO2 43 mmHg (40-60) 02/23/17 15:57 VBG HCO3 28.2 mmol/L 02/23/17 15:57 VBG Total CO2 30.5 mmol/L (22-28) H 02/23/17 15:57 VBG O2 Sat (Calc) 93.9 % (40-65) H 02/23/17 15:57 VBG Base Excess 4.5 mmol/L (0.0-2.0) H 02/23/17 15:57 VBG Potassium 4.3 mmol/L (3.6-5.2) 02/23/17 15:57 A-a O2 Difference 73.0 mm/Hg 02/23/17 10:36 Sodium 196.0 mmol/L (132-148) H* 02/23/17 10:36 Chloride 108.0 mmol/L (98-107) H 02/23/17 15:57 Glucose 110 mg/dL (65-105) H 02/23/17 15:57 Lactate 0.8 mmol/L (0.7-2.1) 02/23/17 15:57 FiO2 21.0 % 02/23/17 15:57 Crit Value Called To Jeet price 02/23/17 10:36 Crit Value Called By 15 02/23/17 10:36 Crit Value Read Back Y 02/23/17 10:36 Blood Gas Notified Time 1058 02/23/17 10:36 Sodium 145 mmol/l (132-148) 02/28/17 05:25 Potassium 3.9 MMOL/L (3.6-5.0) 02/28/17 05:25 Chloride 109 mmol/L (98-107) H 02/28/17 05:25 Carbon Dioxide 30 mmol/L (22-30) 02/28/17 05:25 Anion Gap 10 (10-20) 02/28/17 05:25 BUN 16 mg/dl (7-17) 02/28/17 05:25 Creatinine 0.4 mg/dl (0.7-1.2) L 02/28/17 05:25 Est GFR ( Amer) > 60 02/28/17 05:25 Est GFR (Non-Af Amer) > 60 02/28/17 05:25 Random Glucose 112 mg/dL (65-105) H 02/28/17 05:25 Calcium 8.5 mg/dL (8.4-10.2) 02/28/17 05:25 Total Bilirubin 0.2 mg/dl (0.2-1.3) 02/28/17 05:25 AST 16 U/L (14-36) 02/28/17 05:25 ALT 20 U/L (9-52) 02/28/17 05:25 Alkaline Phosphatase 62 U/L (38-126) 02/28/17 05:25 Total Protein 6.7 G/DL (6.3-8.2) 02/28/17 05:25 Albumin 3.1 g/dL (3.5-5.0) L 02/28/17 05:25 Globulin 3.6 gm/dL (2.2-3.9) 02/28/17 05:25 Albumin/Globulin Ratio 0.8 (1.0-2.1) L 02/28/17 05:25 Thyroxine (T4) 7.48 ug/dl (5.5-11.0) 02/24/17 05:25 Total T3 0.880 nmol/L (1.49-2.60) L 02/24/17 05:25 TSH 3rd Generation 1.02 mIU/ML (0.46-4.68) 02/24/17 05:25 Venous Blood Potassium 4.3 mmol/L (3.6-5.2) 02/23/17 15:57 Urine Color Red (YELLOW) 02/24/17 14:35 Urine Clarity Cloudy (Clear) 02/24/17 14:35 Urine pH 5.0 (5.0-8.0) 02/24/17 14:35 Ur Specific [place] 1.045 (1.003-1.030) H 02/24/17 14:35 Urine Protein 100 mg/dL (NEGATIVE) 02/24/17 14:35 Urine Glucose (UA) Neg mg/dL (Normal) 02/24/17 14:35 Urine Ketones Negative mg/dL (NEGATIVE) 02/24/17 14:35 Urine Blood Large (NEGATIVE) 02/24/17 14:35 Urine Nitrate Positive (NEGATIVE) H 02/24/17 14:35 Urine Bilirubin Negative (NEGATIVE) 02/24/17 14:35 Urine Urobilinogen 0.2-1.0 mg/dL (0.2-1.0) 02/24/17 14:35 Ur Leukocyte Esterase Neg [place]/uL (Negative) 02/24/17 14:35 Urine RBC (Auto) 274 /hpf (0-3) H 02/24/17 14:35 Urine Microscopic WBC 9 /hpf (0-5) H 02/24/17 14:35 Ur Squamous Epith Cells 4 /hpf (0-5) 02/23/17 12:38 Calcium Oxalate Crystal Rare /hpf (<OCC) 02/24/17 14:35 Amorphous Sediment Rare /ul (<OCC) H 02/23/17 12:38 Urine Bacteria Many (<OCC) H 02/24/17 14:35 - Date & Time of H&P Date of H&P: 02/23/17 Time of H&P: 13:30 Discharge Exam - Head Exam Head Exam: NORMAL INSPECTION Discharge Plan - Discharge Medications Prescriptions: Clindamycin [Cleocin] 300 mg IM Q8 #21 vial Meropenem [Merrem IV] 500 mg IVPB Q6 #28 vial - Follow Up Plan Condition: STABLE Disposition: TRANSF TO SNF Instructions: How to Use and Care for Your PEG Tube (DC), How to Use and Care for Your PEG Tube (GEN), Urinary Tract Infection in Women (DC), Urinary Tract Infection in Women (GEN) Referrals: Provider TBD, [Non-Staff] -
== END 2017-02-28 13:35 | DRG 393 ==
LOC: SUPCPDRO 09:47 → H.ER 09:47 → H.ERHOLD 14:51 → H.MEDSURG1 19:25
PROVIDERS: ADMIT Internal Medicine Pulmonary Disease; ATTEND Internal Medicine Pulmonary Disease
PROC: 02HV33Z Insertion of Infusion Device into Superior Vena Cava, Percutaneous Approach (ICD-10-PCS; principal; 2017-02-27)
PROC: B518ZZA Fluoroscopy of Superior Vena Cava, Guidance (ICD-10-PCS; 2017-02-27)
PROC: B548ZZA Ultrasonography of Superior Vena Cava, Guidance (ICD-10-PCS; 2017-02-27)
DX: K94.23 Gastrostomy malfunction (principal); L89.154 Pressure ulcer of sacral region, stage 4; J18.9 Pneumonia, unspecified organism; K94.22 Gastrostomy infection; I13.0 Hypertensive heart and chronic kidney disease with heart failure and stage 1 through stage 4 chronic kidney disease, or unspecified chronic kidney disease; I48.0 Paroxysmal atrial fibrillation; I48.2 Chronic atrial fibrillation; R13.10 Dysphagia, unspecified; I50.22 Chronic systolic (congestive) heart failure; R47.01 Aphasia; M48.56XA Collapsed vertebra, not elsewhere classified, lumbar region, initial encounter for fracture; N39.0 Urinary tract infection, site not specified; G30.9 Alzheimer's disease, unspecified; F02.80 Dementia in other diseases classified elsewhere, unspecified severity, without behavioral disturbance, psychotic disturbance, mood disturbance, and anxiety; N18.9 Chronic kidney disease, unspecified; Z74.01 Bed confinement status; Z79.899 Other long term (current) drug therapy; Z86.73 Personal history of transient ischemic attack (TIA), and cerebral infarction without residual deficits; Z87.01 Personal history of pneumonia (recurrent); E78.00 Pure hypercholesterolemia, unspecified; J44.9 Chronic obstructive pulmonary disease, unspecified; Z87.891 Personal history of nicotine dependence; D64.9 Anemia, unspecified; F32.9 Major depressive disorder, single episode, unspecified; F45.9 Somatoform disorder, unspecified; M19.90 Unspecified osteoarthritis, unspecified site; Y95 Nosocomial condition

== ENCOUNTER 2017-09-04 08:09 | Inpatient (IN) | payer MEDICARE, MEDICAID ==
[2017-09-04 08:10] VITALS: PULSE 196
[2017-09-04 08:17] VITALS: BMI 24.2
[2017-09-04] MEDS ORDERED: TOBRAMYCIN IV STA (10:08)
[2017-09-04] MEDS ORDERED: SODIUM CHLORIDE 0.9% IV STA (10:08)
--- NOTE | 2017-09-04 10:08 | ED PDOC ---
HPI: SOB/CHF/COPD Time Seen by Provider: 09/04/17 09:08 Chief Complaint (Nursing): Respiratory Distress Chief Complaint (Provider): Respiratory Distress History Per: EMS History/Exam Limitations: clinical condition Onset/Duration Of Symptoms: Other (prior to arrival) Current Symptoms Are (Timing): Still Present Additional Complaint(s): 66 y/o female sent from [facility] for evaluation. ESBL and MDR were found in patients sputum culture collected 08/26/2017. Patient is DNR , DNI, and non verbal. Past Medical History Reviewed: Historical Data, Nursing Documentation, Vital Signs Vital Signs: Last Vital Signs Temp 99.4 F 09/07/17 16:19 Pulse 96 H 09/07/17 16:55 Resp 20 09/07/17 16:19 BP 108/72 09/07/17 16:55 Pulse Ox 98 09/07/17 16:19 - Medical History PMH: Alzheimer's Disease, Anemia, Arthritis, Atrial Fibrillation, CHF (systolic failure), COPD, CVA (left-sided), Dementia, Depression, Fractures (L ankle), HTN , Hypercholesterolemia, Pneumonia, Chronic Kidney Disease - Surgical History Surgical History: - Family History Family History: States: Unknown Family Hx - Home Medications Home Medications: Ambulatory Orders Medication Instructions Recorded Ascorbate Calcium [Vitamin C] 500 mg PEG DAILY 06/17/16 Atorvastatin [Lipitor] 10 mg PEG HS 06/17/16 Ferrous Sulfate [Ferosul] 330 mg PEG BID 06/17/16 Lactulose [Enulose] 30 ml PEG BID PRN 06/17/16 Latanoprost 0.005% Opht [Xalatan 1 drop OU HS 06/17/16 Opht] Metoprolol Tartrate [Lopressor] 25 mg PEG Q8 06/17/16 diltiaZEM [Cardizem] 60 mg PEG Q8 06/17/16 Acetaminophen [Tylenol 160mg/5ml 640 mg PEG Q4 PRN 09/28/16 Oral Soln] Tramadol HCl [Ultram] 50 mg PEG Q6 PRN 09/28/16 Albuterol/Ipratropium [Duoneb 3 3 ml INH RQ6 10/03/16 mg/0.5 mg (3 ml) UD] Bisacodyl [Dulcolax] 10 mg [place] DAILY PRN sup 10/03/16 Enoxaparin [Lovenox] 40 mg SC DAILY syr 10/03/16 Acetaminophen [Tylenol 160mg/5ml 640 mg PEG DAILY 02/23/17 Oral Soln] Aspirin [Aspirin Chewable] 81 mg PEG DAILY 02/23/17 Enalapril Maleate [Vasotec] 2.5 mg PEG DAILY 02/23/17 Collagenase [Santyl] 1 applic TOP DAILY 09/04/17 Nystatin/Triamcinolone 1 applic TOP BID 09/04/17 [Nystatin/Triamcinolone Cream] Zinc Oxide [Secura Protective] 1 applic TOP DAILY 09/04/17 Zinc [Zinc Sulfate 220 mg Cap] 1 cap PEG DAILY 09/04/17 - Allergies Allergies/Adverse Reactions: Allergies Allergy/AdvReac Type Severity Reaction Status Date / Time No Known Allergies Allergy Verified 03/10/16 10:27 Review of Systems Review Of Systems: ROS cannot be obtained secondary to pt's inabilty to answer questions. Physical Exam - Reviewed Nursing Documentation Reviewed: Yes Vital Signs Reviewed: Yes - Physical Exam Appears: Positive for: Non-toxic, No Acute Distress Head Exam: Positive for: ATRAUMATIC, NORMAL INSPECTION, NORMOCEPHALIC Skin: Positive for: Normal Color, Warm, Dry. Negative for: Rash Eye Exam: Positive for: EOMI, Normal appearance, PERRL Neck: Positive for: Normal, Painless ROM, Supple Cardiovascular/Chest: Positive for: Regular Rate, Rhythm. Negative for: Murmur Respiratory: Positive for: Rhonchi (bilateral), Other (transmitted sounds). Negative for: Respiratory Distress Gastrointestinal/Abdominal: Positive for: Normal Exam, Soft. Negative for: Tenderness Back: Positive for: Normal Inspection. Negative for: L CVA Tenderness, R CVA Tenderness, Vertebral Tenderness Extremity: Positive for: Normal ROM. Negative for: Pedal Edema, Deformity Neurologic/Psych: Positive for: Alert (opens eyes to tactile stimuli) - Laboratory Results Result Diagrams: 09/07/17 05:45 09/07/17 05:45 - ECG O2 Sat by Pulse Oximetry: 100 (NC) Pulse Ox Interpretation: Normal Medical Decision Making Medical Decision Making: Impression: Pneumonia Plan: --VBG shock panel --CMP --Magnesium --CBC --PTT/PT --CXR --Blood culture --Urine culture --Ancef 1gm IVPB --Tobramycin 380mg IV --cook box filler --Vitals Q15M --O2 via NC --Urinalysis --Reevaluation 10:[address] Del Valle. He confirms that patient is DNR/DNI. Scribe Attestation: Documented by Richard Mahoney, acting as a scribe for Dea Garcia MD. Provider Scribe Attestation: All medical record entries made by the Scribe were at my direction and personally dictated by me. I have reviewed the chart and agree that the record accurately reflects my personal performance of the history, physical exam, medical decision making, and the department course for this patient. I have also personally directed, reviewed, and agree with the discharge instructions and disposition. Time: 1022 CXR RESULTS FINDINGS: LUNGS: Vague opacity left lung base which could be due to some combination of atelectasis and or infiltrate with effusion. Mild right basilar atelectasis. PLEURA: No significant pleural effusion identified, no pneumothorax apparent. CARDIOVASCULAR: Normal. OSSEOUS STRUCTURES: No significant abnormalities. VISUALIZED UPPER ABDOMEN: Normal. OTHER FINDINGS: None. IMPRESSION: Vague opacity left lung base which could be due to some combination of atelectasis and or infiltrate with effusion. Mild right basilar atelectasis. Scribe Attestation: Documented by Jorje Garcia, acting as a scribe for Dr. Dea Garcia. Provider Scribe Attestation: All medical record entries made by the Scribe were at my direction and personally dictated by me. I have reviewed the chart and agree that the record accurately reflects my personal performance of the history, physical exam, medical decision making, and the department course for this patient. I have also personally directed, reviewed and agree with the discharge instructions and disposition. Disposition - Clinical Impression Clinical Impression: Pneumonia, ESBL (extended spectrum beta-lactamase) producing bacteria infection , History of MDR Pseudomonas aeruginosa infection - Disposition Disposition Time: 10:36 Condition: GUARDED - Pt Status Changed To: Hospital Disposition Of: Inpatient - Admit Certification Admit to Inpatient:: After my assessment, the patient will require hospitalization for at least two midnights. This is because of the severity of symptoms shown, intensity of services needed, and/or the medical risk in this patient being treated as an outpatient. - POA Present On Arrival: Pressure Ulcer
[2017-09-04] MEDS ORDERED: ceFAZolin 1 GM in Sodium Chloride 0.9% 100 ML IVPB STA (10:09)
[2017-09-04 10:18] LABS: VENOUS BLOOD GAS BASE EXCESS 7.4 mmol/L (0.0-2.0); VENOUS BLOOD GAS PCO2 62 mmHg (40-60); VENOUS BLOOD GAS PO2 36 mm/Hg (30-55); VENOUS BLOOD PH 7.36 (7.32-7.43)
[2017-09-04 10:21] LABS: BASO # 0.1 K/uL (0.0-0.2); BASO % 0.8 % (0.0-2.0); EOS # 0.4 K/uL (0.0-0.7); EOS % 2.7 % (0.0-4.0); LYMPH # 1.7 K/uL (1.0-4.3); LYMPH % 10.6 % (20.0-40.0); MEAN CELL VOLUME 89.3 fl (81.0-99.0); MEAN CORPUSCULAR HEMOGLOBIN 28.7 pg (27.0-31.0); MEAN CORPUSCULAR HGB CONC 32.2 g/dL (33.0-37.0); MEAN PLATELET VOLUME 9.3 fl (7.2-11.7); MONO # 0.9 K/uL (0.0-0.8); MONO % 5.6 % (0.0-10.0); NEUT # 12.6 K/uL (1.8-7.0); NEUT % 80.3 % (50.0-75.0); RBC 3.81 Mil/uL (3.80-5.20); RED CELL DISTRIBUTION WIDTH 14.4 % (11.5-14.5)
[2017-09-04 10:24] LABS: PARTIAL THROMBOPLASTIN TIME 27.7 Seconds (25.6-37.1); PROTHROMBIN TIME 11.4 Seconds (9.8-13.1)
--- NOTE | 2017-09-04 10:24 | RAD ---
HISTORY: Sepsis patient. COMPARISON: Comparison made with prior chest radiograph 02/27/2017. FINDINGS: LUNGS: Vague opacity left lung base which could be due to some combination of atelectasis and or infiltrate with effusion. Mild right basilar atelectasis. PLEURA: No significant pleural effusion identified, no pneumothorax apparent. CARDIOVASCULAR: Normal. OSSEOUS STRUCTURES: No significant abnormalities. VISUALIZED UPPER ABDOMEN: Normal. OTHER FINDINGS: None. IMPRESSION: Vague opacity left lung base which could be due to some combination of atelectasis and or infiltrate with effusion. Mild right basilar atelectasis.
[2017-09-04 10:28] LABS: ALB/GLOB RATIO 0.8 (1.0-2.1); ALBUMIN 3.8 g/dL (3.5-5.0); ALT/SGPT 21 U/L (9-52); AST/SGOT 24 U/L (14-36); BLOOD UREA NITROGEN 22 mg/dl (7-17); CALCIUM 9.8 mg/dL (8.4-10.2); GFR AFRICAN-AMERICAN > 60; GFR NON-AFRICAN AMERICAN > 60
[2017-09-04 10:30] LABS: WHITE BLOOD COUNT 15.7 K/uL (4.8-10.8)
--- NOTE | 2017-09-04 12:33 | CP.PCM.CON ---
History of Present Illness - History of Present Illness History of Present Illness: 66 y/o female sent from [facility] for evaluation. ESBL and MDR were found in patients sputum culture collected 08/26/2017. Patient is DNR , DNI, and non verbal. patient is chronically bedridden confused congested - Medical History PMH: Alzheimer's Disease, Anemia, Arthritis, Atrial Fibrillation, CHF (systolic failure), COPD, CVA (left-sided), Dementia, Depression, Fractures (L ankle), HTN , Hypercholesterolemia, Pneumonia, Chronic Kidney Disease - Surgical History Surgical History: - Family History Family History: States: Unknown Family Hx - Home Medications Home Medications: Ambulatory Orders Medication Instructions Recorded Ascorbate Calcium [Vitamin C] 500 mg PEG DAILY 06/17/16 Atorvastatin [Lipitor] 10 mg PEG HS 06/17/16 Ferrous Sulfate [Ferosul] 330 mg PEG BID 06/17/16 Lactulose [Enulose] 30 ml PEG BID PRN 06/17/16 Latanoprost 0.005% Opht [Xalatan 1 drop OU HS 06/17/16 Opht] Magnesium Hydroxide [Milk Of 30 ml PEG HS PRN 06/17/16 Magnesia] Metoprolol Tartrate [Lopressor] 25 mg PEG Q8 06/17/16 diltiaZEM [Cardizem] 60 mg PEG Q8 06/17/16 Acetaminophen [Tylenol 160mg/5ml 640 mg PEG Q4 PRN 09/28/16 Oral Soln] Tramadol HCl [Ultram] 50 mg PEG Q6 PRN 09/28/16 Albuterol/Ipratropium [Duoneb 3 3 ml INH RQ6 10/03/16 mg/0.5 mg (3 ml) UD] Bisacodyl [Dulcolax] 10 mg [place] DAILY PRN sup 10/03/16 Enoxaparin [Lovenox] 40 mg [place] DAILY syr 10/03/16 Acetaminophen [Tylenol 160mg/5ml 640 mg PEG DAILY 02/23/17 Oral Soln] Aspirin [Aspirin Chewable] 81 mg PEG DAILY 02/23/17 Enalapril Maleate [Vasotec] 2.5 mg PEG DAILY 02/23/17 Clindamycin [Cleocin] 300 mg IM Q8 #21 vial 02/27/17 Lactobacillus Acidophilus [Bacid 1 cap PO BID cap 02/27/17 Acidophilus] Meropenem [Merrem IV] 500 mg IVPB Q6 #28 vial 02/27/17 - Allergies Allergies/Adverse Reactions: Allergies Allergy/AdvReac Type Severity Reaction Status Date / Time No Known Allergies Allergy Verified 03/10/16 10:27 Review of Systems Review Of Systems: ROS cannot be obtained secondary to pt's inabilty to answer questions. Past Patient History - Infectious Disease Hx of Infectious Diseases: ESL - Past Medical History & Family History Past Medical History?: Yes - Past Social History Smoking Status: Former Smoker - CARDIAC Hx Atrial Fibrillation: Yes Hx Congestive Heart Failure: Yes (systolic failure) Hx Hypercholesterolemia: Yes Hx Hypertension: Yes - PULMONARY Hx Chronic Obstructive Pulmonary Disease (COPD): Yes Hx Pneumonia: Yes - NEUROLOGICAL Hx Alzheimer's Disease: Yes Hx Dementia: Yes - HEENT Hx HEENT Problems: No - RENAL Hx Chronic Kidney Disease: Yes - ENDOCRINE/METABOLIC Hx Endocrine Disorders: No - HEMATOLOGICAL/ONCOLOGICAL Hx Anemia: Yes - INTEGUMENTARY Hx Dermatological Problems: Yes - MUSCULOSKELETAL/RHEUMATOLOGICAL Hx Arthritis: Yes Hx Fractures: Yes (L ankle) - GASTROINTESTINAL Other/Comment: PEG tube, E-COLI - GENITOURINARY/GYNECOLOGICAL Hx Genitourinary Disorders: Yes Hx Urinary Tract Infection: Yes Other/Comment: Proctor Catheter - PSYCHIATRIC Hx Depression: Yes - SURGICAL HISTORY Hx Surgeries: Yes Hx Section: Yes Other/Comment: left ankle surgery, PEG insertion, PICC insertion - ANESTHESIA Hx Anesthesia: Yes Hx Anesthesia Reactions: No Hx Malignant Hyperthermia: No Meds Allergies/Adverse Reactions: Allergies Allergy/AdvReac Type Severity Reaction Status Date / Time No Known Allergies Allergy Verified 03/10/16 10:27 Physical Exam - Constitutional Appears: No Acute Distress, Confused, Cachectic, Chronically Ill - Head Exam Head Exam: ATRAUMATIC, NORMOCEPHALIC - Eye Exam Eye Exam: PERRL. absent: Scleral icterus - ENT Exam ENT Exam: Mucous Membranes Dry, Normal Oropharynx - Neck Exam Neck exam: Negative for: Lymphadenopathy - Respiratory Exam Respiratory Exam: Decreased Breath Sounds, Prolonged Expiratory Phase, Rales, Rhonchi - Cardiovascular Exam Cardiovascular Exam: Tachycardia, REGULAR RHYTHM, +S1, +S2 - GI/Abdominal Exam GI & Abdominal Exam: Diminished Bowel Sounds, Distended, Soft. absent: Tenderness - Rectal Exam Rectal Exam: Deferred - Exam Exam: NORMAL INSPECTION - Extremities Exam Extremities exam: Positive for: pedal pulses present. Negative for: calf tenderness, pedal edema, tenderness Additional comments: contracted - Back Exam Back exam: absent: CVA tenderness (L), CVA tenderness (R), paraspinal tenderness - Neurological Exam Neurological exam: Alert, Altered, Motor Sensory Deficit - Psychiatric Exam Psychiatric exam: Depressed - Skin Skin Exam: Dry Results - Vital Signs Recent Vital Signs: Last Vital Signs Temp 99.9 F H 09/04/17 08:47 Pulse 91 H 09/04/17 08:16 Resp 20 09/04/17 08:16 BP 113/50 L 09/04/17 08:16 Pulse Ox 100 09/04/17 10:39 - Labs Result Diagrams: 09/04/17 09:30 09/04/17 09:30 Labs: Laboratory Results - last 24 hr 09/04/17 09/04/17 09/04/17 09:30 09:30 09:30 WBC 15.7 H D RBC 3.81 Hgb 11.0 L Hct 34.0 MCV 89.3 MCH 28.7 MCHC 32.2 L RDW 14.4 Plt Count 336 D MPV 9.3 Neut % (Auto) 80.3 H Lymph % (Auto) 10.6 L [place] % (Auto) 5.6 Eos % (Auto) 2.7 Baso % (Auto) 0.8 Neut # (Auto) 12.6 H Lymph # (Auto) 1.7 [place] # (Auto) 0.9 H Eos # (Auto) 0.4 Baso # (Auto) 0.1 PT 11.4 INR 1.0 APTT 27.7 pO2 VBG pH VBG pCO2 VBG HCO3 VBG Total CO2 VBG O2 Sat (Calc) VBG Base Excess VBG Potassium Glucose Lactate FiO2 Sodium 138 Potassium 4.8 Chloride 96 L Carbon Dioxide 34 H Anion Gap 13 BUN 22 H Creatinine 0.6 L Est GFR ( Amer) > 60 Est GFR (Non-Af Amer) > 60 Random Glucose 120 H Calcium 9.8 Phosphorus 4.0 Magnesium 2.0 Total Bilirubin 0.6 AST 24 ALT 21 Alkaline Phosphatase 83 Total Protein 8.3 H Albumin 3.8 Globulin 4.5 H Albumin/Globulin Ratio 0.8 L Venous Blood Potassium 09/04/17 10:10 WBC RBC Hgb Hct MCV MCH MCHC RDW Plt Count MPV Neut % (Auto) Lymph % (Auto) [place] % (Auto) Eos % (Auto) Baso % (Auto) Neut # (Auto) Lymph # (Auto) [place] # (Auto) Eos # (Auto) Baso # (Auto) PT INR APTT pO2 36 VBG pH 7.36 VBG pCO2 62 H VBG HCO3 29.9 VBG Total CO2 36.9 H VBG O2 Sat (Calc) 74.5 H VBG Base Excess 7.4 H VBG Potassium 4.7 Glucose 120 H Lactate 1.6 FiO2 21.0 Sodium 136.0 Potassium Chloride 99.0 Carbon Dioxide Anion Gap BUN Creatinine Est GFR ( Amer) Est GFR (Non-Af Amer) Random Glucose Calcium Phosphorus Magnesium Total Bilirubin AST ALT Alkaline Phosphatase Total Protein Albumin Globulin Albumin/Globulin Ratio Venous Blood Potassium 4.7 Assessment & Plan - Assessment and Plan (Free Text) Assessment: sepsis resp insufff pneumonia uti s/p cva ESBL sputum start merrem
[2017-09-04 12:54] LABS: SQUAMOUS EPITHIAL 1 /hpf (0-5); URINE AMORPHOUS SEDIMENT RARE /ul (<OCC); URINE BACTERIA RARE (<OCC); URINE BILIRUBIN NEGATIVE (NEGATIVE); URINE BLOOD NEGATIVE (NEGATIVE); URINE CLARITY CLOUDY (Clear); URINE COLOR YELLOW (YELLOW); URINE GLUCOSE (UA) NEG (Normal); URINE LEUKOCYTE ESTERASE TRACE Leu/uL (Negative); URINE PROTEIN 30 mg/dL (NEGATIVE); URINE UROBILINOGEN 0.2-1.0 mg/dL (0.2-1.0)
[2017-09-04] MEDS ORDERED: Sodium Chloride 3% for Inhalation 4 ML VIAL.NEB IH PRN (13:46)
[2017-09-04] MEDS ORDERED: Acetaminophen 650mg/20.3ml solution UD PEG PRN (14:36)
[2017-09-04] MEDS ORDERED: LACTULOSE PEG PRN (14:36)
--- NOTE | 2017-09-04 16:04 | CARD ---
APPROVED REPORT EKG Measurement Heart [id number] <Conclusion> Normal sinus rhythm Moderate voltage criteria for LVH, may be normal variant Nonspecific ST and T wave abnormality Abnormal ECG
[2017-09-04] MEDS: Meropenem 1 GM in Sodium Chloride 0.9% 100 ML IVPB SCH (16:25)
[2017-09-04] MEDS: Ferrous Sulfate 220 MG/5 ML PEG SCH (16:26)
--- NOTE | 2017-09-04 16:50 | CP.PCM.PN ---
Objective - Vital Signs/Intake and Output Vital Signs (last 24 hours): Temp Pulse Resp BP Pulse Ox 99.6 F 69 20 112/69 96 09/04/17 16:12 09/04/17 15:15 09/04/17 16:12 09/04/17 16:12 09/04/17 16:12 - Medications Medications: Current Medications Acetaminophen (Tylenol 650mg/20.3ml Solution Ud) 640 mg PEG Q4 PRN PRN Reason: Pain, Mild (1-3) Acetaminophen (Tylenol 650mg/20.3ml Solution Ud) 640 mg PEG DAILY [facility] Albuterol/Ipratropium (Duoneb 3 Mg/0.5 Mg (3 Ml) Ud) 3 ml INH RQ6 [facility] Ascorbic Acid (Vitamin C 500 Mg Tab) 500 mg PEG DAILY [facility] Last Admin: 09/04/17 16:27 Dose: 500 mg Aspirin (Aspirin Chewable) 81 mg PEG DAILY [facility] Atorvastatin Calcium (Lipitor) 10 mg PEG HS [facility] Bisacodyl (Dulcolax) 10 mg [place] DAILY PRN PRN Reason: Constipation Collagenase (Santyl) 1 applic TOP DAILY [facility] Diltiazem HCl (Cardizem) 60 mg PEG Q8 [facility] Enalapril Maleate (Vasotec) 2.5 mg PEG DAILY [facility] Enoxaparin Sodium (Lovenox) 40 mg SC DAILY [facility] PRN Reason: Protocol Ferrous Sulfate (Ferrous Sulfate) 330 mg PEG BID [facility] Last Admin: 09/04/17 16:26 Dose: 330 mg Home Med (Zinc Oxide [Secura Protective]) 1 applic TOP DAILY [facility] Meropenem 1 gm/ Sodium (Chloride) 100 mls @ 100 mls/hr IVPB Q8 [facility] PRN Reason: Protocol Last Admin: 09/04/17 16:25 Dose: 100 mls/hr Lactulose (Enulose) 20 gm PEG BID PRN PRN Reason: Constipation Latanoprost (Xalatan Opht) 1 drop OU HS [facility] Metoprolol Tartrate (Lopressor) 25 mg PEG Q8 [facility] Nystatin/Triamcinolone Acetonide (Mycolog Ii) 1 applic TOP BID [facility] Tramadol HCl (Ultram) 50 mg [place] Q6 PRN PRN Reason: Pain, severe (8-10) Zinc Sulfate (Zinc Sulfate 220 Mg Cap) 1 mg PEG DAILY [facility] - Labs Labs: 09/04/17 09:30 09/04/17 09:30 PT 11.4 Seconds (9.8-13.1) 09/04/17 09:30 INR 1.0 (0.9-1.2) 09/04/17 09:30 APTT 27.7 Seconds (25.6-37.1) 09/04/17 09:30
[2017-09-04] MEDS ORDERED: Mycolog II CREAM TOP SCH (17:00)
--- NOTE | 2017-09-04 17:14 | CP.PCM.HP ---
History of Present Illness - History of Present Illness History of Present Illness: CC: Respiratory Distress. 66 y/o F, with multiple chronic medical conditions including: CVA L side, CHF systolic, Hx of A Fib with RVR, COPD, CKD, Dementia, resident at [facility], [facility] for 2 days increased on DOA, associated to chest congestion, productive cough with mild whitish thin sputum. Pt using Nebulizer while at [facility] with no relief. Worsening symptoms: Found with + sputum for ESBL and MDR , collected while at the [facility] on 08/27/17. Generalized rigidity. Aggravated factor: Difficulty to speak or understand. As per NH: No fever, chills, vomiting, diarrhea, abdominal pain, CP, palpitations, syncope, sick contact. CXR shows: Vague opacity L Lung base, could be due to combination of atelectasis and or infiltrate with effusion. Mild basilar atelectasis. EKG showed: Normal sinus rhythm. Present on Admission - Present on Admission Any Indicators Present on Admission: Yes Decubitus Ulcer Stage: IV (Sacral region) Review of Systems - Review of Systems Systems not reviewed;Unavailable: Acuity of Condition (Inability to answer questions.) Past Patient History - Infectious Disease Hx of Infectious Diseases: ESL - Past Medical History & Family History Past Medical History?: Yes - Past Social History Smoking Status: Former Smoker Alcohol: None Drugs: Denies Home Situation {Lives}: Skilled Nursing - CARDIAC Hx Cardiac Disorders: Yes Hx Atrial Fibrillation: Yes Hx Congestive Heart Failure: Yes (systolic failure) Hx Hypercholesterolemia: Yes Hx Hypertension: Yes - PULMONARY Hx Respiratory Disorders: Yes Hx Chronic Obstructive Pulmonary Disease (COPD): Yes Hx Pneumonia: Yes - NEUROLOGICAL Hx Neurological Disorder: Yes Hx Alzheimer's Disease: Yes Hx Dementia: Yes - HEENT Hx HEENT Problems: No - RENAL Hx Chronic Kidney Disease: Yes - ENDOCRINE/METABOLIC Hx Endocrine Disorders: No - HEMATOLOGICAL/ONCOLOGICAL Hx Blood Disorders: Yes Hx Anemia: Yes - INTEGUMENTARY Hx Dermatological Problems: Yes - MUSCULOSKELETAL/RHEUMATOLOGICAL Hx Musculoskeletal Disorders: Yes Hx Arthritis: Yes Hx Fractures: Yes (L ankle) - GASTROINTESTINAL Hx Gastrointestinal Disorders: Yes Other/Comment: PEG tube, E-COLI - GENITOURINARY/GYNECOLOGICAL Hx Genitourinary Disorders: Yes Hx Urinary Tract Infection: Yes Other/Comment: Proctor Catheter - PSYCHIATRIC Hx Psychophysiologic Disorder: Yes Hx Depression: Yes - SURGICAL HISTORY Hx Surgeries: Yes Hx Section: Yes Other/Comment: left ankle surgery, PEG insertion, PICC insertion - ANESTHESIA Hx Anesthesia: Yes Hx Anesthesia Reactions: No Hx Malignant Hyperthermia: No Meds Allergies/Adverse Reactions: Allergies Allergy/AdvReac Type Severity Reaction Status Date / Time No Known Allergies Allergy Verified 03/10/16 10:27 Physical Exam - Constitutional Appears: No Acute Distress, Chronically Ill - Head Exam Head Exam: NORMAL INSPECTION - Eye Exam Eye Exam: PERRL - ENT Exam ENT Exam: Normal Oropharynx - Neck Exam Neck exam: Positive for: Normal Inspection - Respiratory Exam Respiratory Exam: Decreased Breath Sounds (at bases) - Cardiovascular Exam Cardiovascular Exam: REGULAR RHYTHM, Systolic Murmur (3/6 [place], radiated to axilla) - GI/Abdominal Exam GI & Abdominal Exam: Normal Bowel Sounds, Soft Additional comments: Peg tube - Extremities Exam Additional comments: BLE contracted, stiff - Back Exam Additional comments: Sacral region with decubitus ulcer stage IV. - Neurological Exam Neurological exam: Alert, Motor Sensory Deficit Additional comments: Eyes open, expressive aphasia, unable to follows commands. - Psychiatric Exam Psychiatric exam: Flat Affect - Skin Skin Exam: Warm Results - Vital Signs Recent Vital Signs: Last Vital Signs Temp 99.6 F 09/04/17 16:12 Pulse 69 09/04/17 15:15 Resp 20 09/04/17 16:12 BP 112/69 09/04/17 16:12 Pulse Ox 96 09/04/17 16:12 reviewed J.Abigail - Labs Result Diagrams: 09/04/17 09:30 09/04/17 09:30 Labs: Laboratory Results - last 24 hr 09/04/17 09/04/17 09/04/17 09:30 09:30 09:30 WBC 15.7 H D RBC 3.81 Hgb 11.0 L Hct 34.0 MCV 89.3 MCH 28.7 MCHC 32.2 L RDW 14.4 Plt Count 336 D MPV 9.3 Neut % (Auto) 80.3 H Lymph % (Auto) 10.6 L [place] % (Auto) 5.6 Eos % (Auto) 2.7 Baso % (Auto) 0.8 Neut # (Auto) 12.6 H Lymph # (Auto) 1.7 [place] # (Auto) 0.9 H Eos # (Auto) 0.4 Baso # (Auto) 0.1 PT 11.4 INR 1.0 APTT 27.7 pO2 VBG pH VBG pCO2 VBG HCO3 VBG Total CO2 VBG O2 Sat (Calc) VBG Base Excess VBG Potassium Glucose Lactate FiO2 Sodium 138 Potassium 4.8 Chloride 96 L Carbon Dioxide 34 H Anion Gap 13 BUN 22 H Creatinine 0.6 L Est GFR ( Amer) > 60 Est GFR (Non-Af Amer) > 60 Random Glucose 120 H Calcium 9.8 Phosphorus 4.0 Magnesium 2.0 Total Bilirubin 0.6 AST 24 ALT 21 Alkaline Phosphatase 83 Total Protein 8.3 H Albumin 3.8 Globulin 4.5 H Albumin/Globulin Ratio 0.8 L Venous Blood Potassium Urine Color Urine Clarity Urine pH Ur Specific [place] Urine Protein Urine Glucose (UA) Urine Ketones Urine Blood Urine Nitrate Urine Bilirubin Urine Urobilinogen Ur Leukocyte Esterase Urine RBC (Auto) Urine Microscopic WBC Ur Squamous Epith Cells Amorphous Sediment Urine Bacteria 09/04/17 09/04/17 10:10 12:00 WBC RBC Hgb Hct MCV MCH MCHC RDW Plt Count MPV Neut % (Auto) Lymph % (Auto) [place] % (Auto) Eos % (Auto) Baso % (Auto) Neut # (Auto) Lymph # (Auto) [place] # (Auto) Eos # (Auto) Baso # (Auto) PT INR APTT pO2 36 VBG pH 7.36 VBG pCO2 62 H VBG HCO3 29.9 VBG Total CO2 36.9 H VBG O2 Sat (Calc) 74.5 H VBG Base Excess 7.4 H VBG Potassium 4.7 Glucose 120 H Lactate 1.6 FiO2 21.0 Sodium 136.0 Potassium Chloride 99.0 Carbon Dioxide Anion Gap BUN Creatinine Est GFR ( Amer) Est GFR (Non-Af Amer) Random Glucose Calcium Phosphorus Magnesium Total Bilirubin AST ALT Alkaline Phosphatase Total Protein Albumin Globulin Albumin/Globulin Ratio Venous Blood Potassium 4.7 Urine Color Yellow Urine Clarity Cloudy Urine pH 6.0 Ur Specific [place] 1.023 Urine Protein 30 Urine Glucose (UA) Neg Urine Ketones Negative Urine Blood Negative Urine Nitrate Negative Urine Bilirubin Negative Urine Urobilinogen 0.2-1.0 Ur Leukocyte Esterase Trace Urine RBC (Auto) 31 H Urine Microscopic WBC 33 H Ur Squamous Epith Cells 1 Amorphous Sediment Rare H Urine Bacteria Rare reviewed J.P. - EKG Data EKG comments: Reviewed J.P. - Imaging and Cardiology Chest x-ray Status: Report reviewed by me (Remy) Assessment & Plan (1) Respiratory insufficiency Status: Acute Priority: High (2) PNA (pneumonia) Status: Acute Priority: High Comment: Sputum ESBL. (3) Sepsis Status: Acute Priority: High (4) UTI (urinary tract infection) Status: Acute Priority: High (5) COPD (chronic obstructive pulmonary disease) Status: Chronic Priority: High (6) Chronic systolic congestive heart failure Status: Chronic Priority: Medium (7) History of CVA (cerebrovascular accident) Status: Chronic Priority: Medium (8) Sacral decubitus ulcer, stage IV Status: Acute Priority: High - Assessment and Plan (Free Text) Plan: F/U Blood C-S, Sputum C-S, U C-S, continue O2 NC 2 L/M, Merrem, Duoneb, ASA, Lovenox, Sodium Chl, Vasotec, Metoprolol, Cardizem, and rest of Tx, ID consult appreciated. - Date & Time Date: 09/04/17 Time: 14:30
[2017-09-04] MEDS: Albuterol-Ipratrop 3 mg / 0.5 (3 ml) UD INH SCH (19:14)
[2017-09-04] MEDS: Enoxaparin 40 mg Syringe SC SCH (21:57)
[2017-09-04] MEDS: Latanoprost 0.005% Opht SOUTION OU SCH (22:00)
[2017-09-05] MEDS: Albuterol-Ipratrop 3 mg / 0.5 (3 ml) UD INH SCH ×4 (01:14→19:00)
[2017-09-05] MEDS: Meropenem 1 GM in Sodium Chloride 0.9% 100 ML IVPB SCH ×4 (02:28→16:02)
[2017-09-05 07:32] LABS: HEMOGLOBIN 10.9 g/dL (12.0-16.0); MEAN CELL VOLUME 88.7 fl (81.0-99.0); MEAN CORPUSCULAR HEMOGLOBIN 29.4 pg (27.0-31.0); MEAN CORPUSCULAR HGB CONC 33.1 g/dL (33.0-37.0); RBC 3.71 Mil/uL (3.80-5.20); RED CELL DISTRIBUTION WIDTH 14.2 % (11.5-14.5); WHITE BLOOD COUNT 11.8 K/uL (4.8-10.8)
[2017-09-05 07:48] LABS: ALB/GLOB RATIO 0.8 (1.0-2.1); ALBUMIN 3.4 g/dL (3.5-5.0); ALT/SGPT 23 U/L (9-52); AST/SGOT 22 U/L (14-36); BLOOD UREA NITROGEN 16 mg/dl (7-17); CALCIUM 9.4 mg/dL (8.4-10.2); GFR AFRICAN-AMERICAN > 60; GFR NON-AFRICAN AMERICAN > 60; HDL CHOLESTEROL 33 MG/DL (30-70)
[2017-09-05 08:00] LABS: LDL CHOLESTEROL < 30 mg/dL (0-129)
[2017-09-05] MEDS: Mycolog II OINT TOP SCH ×2 (08:13→16:04)
[2017-09-05] MEDS: Ferrous Sulfate 220 MG/5 ML PEG SCH ×2 (08:14→16:03)
[2017-09-05] MEDS: Enoxaparin 40 mg Syringe SC SCH (08:14)
[2017-09-05] MEDS ORDERED: ASCORBATE CALCIUM 500 MG PEG SCH (09:00)
[2017-09-05] MEDS ORDERED: ZINC OXIDE TOP SCH (09:00)
[2017-09-05] MEDS ORDERED: Acetaminophen 650mg/20.3ml solution UD PEG SCH (09:00)
[2017-09-05] MEDS: Santyl Collagenase OINTMENT TOP SCH (09:29)
--- NOTE | 2017-09-05 14:03 | CP.PCM.PN ---
Subjective - Date & Time of Evaluation Date of Evaluation: 09/05/17 Time of Evaluation: 14:00 - Subjective Subjective: F/U Respiratory insufficiency. No A/D, cough. Objective - Vital Signs/Intake and Output Vital Signs (last 24 hours): Temp Pulse Resp BP Pulse Ox 98.6 F 70 18 139/71 96 09/05/17 07:57 09/05/17 07:57 09/05/17 07:57 09/05/17 07:57 09/05/17 07:57 Intake and Output: 09/05/17 09/05/17 06:59 18:59 Intake Total 600 Output Total 600 Balance 0 - Medications Medications: Current Medications Acetaminophen (Tylenol 650mg/20.3ml Solution Ud) 650 mg PEG DAILY [facility] Acetaminophen (Tylenol 650mg/20.3ml Solution Ud) 650 mg PEG Q4 PRN PRN Reason: Pain, Mild (1-3) Albuterol/Ipratropium (Duoneb 3 Mg/0.5 Mg (3 Ml) Ud) 3 ml INH RQ6 [facility] Last Admin: 09/05/17 13:02 Dose: 3 ml Ascorbic Acid (Vitamin C 500 Mg Tab) 500 mg PEG DAILY [facility] Last Admin: 09/05/17 08:16 Dose: 500 mg Aspirin (Aspirin Chewable) 81 mg PEG DAILY [facility] Last Admin: 09/05/17 08:13 Dose: 81 mg Atorvastatin Calcium (Lipitor) 10 mg PEG HS [facility] Last Admin: 09/04/17 22:00 Dose: 10 mg Bisacodyl (Dulcolax) 10 mg [place] DAILY PRN PRN Reason: Constipation Collagenase (Santyl) 1 applic TOP DAILY [facility] Last Admin: 09/05/17 09:29 Dose: 1 applic Diltiazem HCl (Cardizem) 60 mg PEG Q8 [facility] Last Admin: 09/05/17 08:13 Dose: 60 mg Enalapril Maleate (Vasotec) 2.5 mg PEG DAILY [facility] Last Admin: 09/05/17 08:16 Dose: 2.5 mg Enoxaparin Sodium (Lovenox) 40 mg SC DAILY [facility] PRN Reason: Protocol Last Admin: 09/05/17 08:14 Dose: 40 mg Ferrous Sulfate (Ferrous Sulfate) 330 mg PEG BID [facility] Last Admin: 09/05/17 08:14 Dose: 330 mg Meropenem 1 gm/ Sodium (Chloride) 100 mls @ 100 mls/hr IVPB Q8 [facility] PRN Reason: Protocol Last Admin: 09/05/17 08:16 Dose: 100 mls/hr Lactulose (Enulose) 20 gm PEG BID PRN PRN Reason: Constipation Latanoprost (Xalatan Opht) 1 drop OU HS [facility] Last Admin: 09/04/17 22:00 Dose: 1 drop Metoprolol Tartrate (Lopressor) 25 mg PEG Q8 [facility] Last Admin: 09/05/17 08:12 Dose: 25 mg Nystatin/Triamcinolone Acetonide (Mycolog Ii Oint) 1 applic TOP BID [facility] Last Admin: 09/05/17 08:13 Dose: 1 applic Tramadol HCl (Ultram) 50 mg GT Q6 PRN PRN Reason: Pain, severe (8-10) Zinc Sulfate (Zinc Sulfate 220 Mg Cap) 220 mg PEG DAILY [facility] Last Admin: 09/05/17 08:17 Dose: 220 mg - Labs Labs: 09/05/17 05:20 09/05/17 05:20 PT 11.4 Seconds (9.8-13.1) 09/04/17 09:30 INR 1.0 (0.9-1.2) 09/04/17 09:30 APTT 27.7 Seconds (25.6-37.1) 09/04/17 09:30 - Constitutional Appears: No Acute Distress - Head Exam Head Exam: NORMAL INSPECTION - Eye Exam Eye Exam: PERRL - ENT Exam ENT Exam: Normal Exam - Neck Exam Neck Exam: Normal Inspection - Respiratory Exam Respiratory Exam: Decreased Breath Sounds (at bases) - Cardiovascular Exam Cardiovascular Exam: REGULAR RHYTHM, Murmur (3/6 [place], radiated to axilla.) - GI/Abdominal Exam GI & Abdominal Exam: Soft, Normal Bowel Sounds Additional comments: Peg tube - Extremities Exam Additional comments: BLE contracted, stiff - Back Exam Additional comments: Sacral region with decubitus ulcer stage IV - Neurological Exam Neurological Exam: Alert, Motor Sensory Deficit Additional comments: Expressive aphasia, unable to follows commands. - Psychiatric Exam Psychiatric exam: Flat Affect - Skin Skin Exam: Warm Assessment and Plan (1) Respiratory insufficiency Status: Acute (2) PNA (pneumonia) Status: Acute (3) Sepsis Status: Acute (4) UTI (urinary tract infection) Status: Acute (5) COPD (chronic obstructive pulmonary disease) Status: Chronic (6) Chronic systolic congestive heart failure Status: Chronic (7) History of CVA (cerebrovascular accident) Status: Chronic (8) Sacral decubitus ulcer, stage IV Status: Acute - Assessment and Plan (Free Text) Plan: Continue Merrem, Huseyino, Duoneb and rest of Tx.
[2017-09-05] MEDS: Acetaminophen 650mg/20.3ml solution UD PEG PRN (20:59)
[2017-09-05] MEDS: Latanoprost 0.005% Opht SOUTION OU SCH (21:01)
[2017-09-06] MEDS: Meropenem 1 GM in Sodium Chloride 0.9% 100 ML IVPB SCH ×3 (00:30→16:57)
[2017-09-06] MEDS: Albuterol-Ipratrop 3 mg / 0.5 (3 ml) UD INH SCH ×4 (01:27→19:12)
[2017-09-06] MEDS: Enoxaparin 40 mg Syringe SC SCH (08:33)
[2017-09-06] MEDS: Mycolog II OINT TOP SCH ×2 (08:33→17:27)
[2017-09-06] MEDS: Ferrous Sulfate 220 MG/5 ML PEG SCH ×2 (08:33→16:56)
[2017-09-06] MEDS: Acetaminophen 650mg/20.3ml solution UD PEG SCH (08:42)
--- NOTE | 2017-09-06 13:47 | CP.PCM.PN ---
Subjective - Date & Time of Evaluation Date of Evaluation: 09/06/17 Time of Evaluation: 08:00 - Subjective Subjective: remains alert at times congested NAD Objective - Vital Signs/Intake and Output Vital Signs (last 24 hours): Temp Pulse Resp BP Pulse Ox 98.0 F 68 18 111/73 95 09/06/17 09:00 09/06/17 09:00 09/06/17 09:00 09/06/17 09:00 09/06/17 09:00 Intake and Output: 09/06/17 09/06/17 06:59 18:59 Output Total 600 Balance -600 - Medications Medications: Current Medications Acetaminophen (Tylenol 650mg/20.3ml Solution Ud) 650 mg PEG DAILY [facility] Last Admin: 09/06/17 08:42 Dose: 650 mg Acetaminophen (Tylenol 650mg/20.3ml Solution Ud) 650 mg PEG Q4 PRN PRN Reason: Pain, Mild (1-3) Last Admin: 09/05/17 20:59 Dose: 650 mg Albuterol/Ipratropium (Duoneb 3 Mg/0.5 Mg (3 Ml) Ud) 3 ml INH RQ6 [facility] Last Admin: 09/06/17 13:37 Dose: 3 ml Ascorbic Acid (Vitamin C 500 Mg Tab) 500 mg PEG DAILY [facility] Last Admin: 09/06/17 08:34 Dose: 500 mg Aspirin (Aspirin Chewable) 81 mg PEG DAILY [facility] Last Admin: 09/06/17 08:32 Dose: 81 mg Atorvastatin Calcium (Lipitor) 10 mg PEG HS [facility] Last Admin: 09/05/17 21:00 Dose: 10 mg Bisacodyl (Dulcolax) 10 mg [place] DAILY PRN PRN Reason: Constipation Collagenase (Santyl) 1 applic TOP DAILY [facility] Last Admin: 09/05/17 09:29 Dose: 1 applic Diltiazem HCl (Cardizem) 60 mg PEG Q8 [facility] Last Admin: 09/06/17 08:32 Dose: 60 mg Enalapril Maleate (Vasotec) 2.5 mg PEG DAILY [facility] Last Admin: 09/06/17 08:34 Dose: 2.5 mg Enoxaparin Sodium (Lovenox) 40 mg SC DAILY [facility] PRN Reason: Protocol Last Admin: 09/06/17 08:33 Dose: 40 mg Ferrous Sulfate (Ferrous Sulfate) 330 mg PEG BID [facility] Last Admin: 09/06/17 08:33 Dose: 330 mg Meropenem 1 gm/ Sodium (Chloride) 100 mls @ 100 mls/hr IVPB Q8 [facility] PRN Reason: Protocol Last Admin: 09/06/17 08:31 Dose: 100 mls/hr Vancomycin HCl 1 gm/ Sodium (Chloride) 250 mls @ 166.667 mls/hr IVPB DAILY [facility] PRN Reason: Protocol Last Admin: 09/06/17 10:34 Dose: 166.667 mls/hr Lactulose (Enulose) 20 gm PEG BID PRN PRN Reason: Constipation Latanoprost (Xalatan Opht) 1 drop OU HS [facility] Last Admin: 09/05/17 21:01 Dose: 1 drop Metoprolol Tartrate (Lopressor) 25 mg PEG Q8 [facility] Last Admin: 09/06/17 08:34 Dose: 25 mg Nystatin/Triamcinolone Acetonide (Mycolog Ii Oint) 1 applic TOP BID [facility] Last Admin: 09/06/17 08:33 Dose: 1 applic Scopolamine (Transderm-Scop) 1 patch TD Q3D [facility] Last Admin: 09/06/17 10:35 Dose: 1 patch Tramadol HCl (Ultram) 50 mg GT Q6 PRN PRN Reason: Pain, severe (8-10) Last Admin: 09/06/17 06:28 Dose: 50 mg Zinc Sulfate (Zinc Sulfate 220 Mg Cap) 220 mg PEG DAILY [facility] Last Admin: 09/06/17 08:34 Dose: 220 mg - Labs Labs: 09/05/17 05:20 09/05/17 05:20 PT 11.4 Seconds (9.8-13.1) 09/04/17 09:30 INR 1.0 (0.9-1.2) 09/04/17 09:30 APTT 27.7 Seconds (25.6-37.1) 09/04/17 09:30 - Constitutional Appears: Confused, Chronically Ill - Head Exam Head Exam: NORMOCEPHALIC - Eye Exam Eye Exam: PERRL. absent: Scleral icterus - ENT Exam ENT Exam: Mucous Membranes Dry - Neck Exam Neck Exam: absent: Lymphadenopathy - Respiratory Exam Respiratory Exam: Decreased Breath Sounds, Rhonchi - Cardiovascular Exam Cardiovascular Exam: REGULAR RHYTHM, +S1, +S2 - GI/Abdominal Exam GI & Abdominal Exam: Distended - Rectal Exam Rectal Exam: Deferred - Exam Exam: NORMAL INSPECTION - Extremities Exam Extremities Exam: absent: Pedal Edema - Back Exam Back Exam: absent: CVA tenderness (L), CVA tenderness (R) - Neurological Exam Neurological Exam: Alert, Awake, CN II-XII Intact Neuro motor strength exam: Left Upper Extremity: 2/1, Right Upper Extremity: 4, Left Lower Extremity: 2/1, Right Lower Extremity: 4 - Psychiatric Exam Psychiatric exam: Depressed - Skin Skin Exam: Dry Assessment and Plan (1) PNA (pneumonia) Status: Acute (2) Respiratory insufficiency Status: Acute (3) Sacral decubitus ulcer, stage IV Status: Acute (4) Sepsis Status: Acute - Assessment and Plan (Free Text) Assessment: blood isolate likely a contaminanat vanco one dose given cont merrem
[2017-09-06] MEDS: Santyl Collagenase OINTMENT TOP SCH (17:27)
--- NOTE | 2017-09-06 23:09 | CP.PCM.PN ---
Subjective - Date & Time of Evaluation Date of Evaluation: 09/06/17 Time of Evaluation: 11:40 - Subjective Subjective: F/U Respiratory Insufficiency aphasic , No A/D, dry cough Objective - Vital Signs/Intake and Output Vital Signs (last 24 hours): Temp Pulse Resp BP Pulse Ox 98 F 99 H 20 120/73 97 09/06/17 17:00 09/06/17 17:00 09/06/17 17:00 09/06/17 17:00 09/06/17 17:00 Intake and Output: 09/06/17 09/07/17 18:59 06:59 Output Total 400 Balance -400 - Medications Medications: Current Medications Acetaminophen (Tylenol 650mg/20.3ml Solution Ud) 650 mg PEG DAILY [facility] Last Admin: 09/06/17 08:42 Dose: 650 mg Acetaminophen (Tylenol 650mg/20.3ml Solution Ud) 650 mg PEG Q4 PRN PRN Reason: Pain, Mild (1-3) Last Admin: 09/05/17 20:59 Dose: 650 mg Albuterol/Ipratropium (Duoneb 3 Mg/0.5 Mg (3 Ml) Ud) 3 ml INH RQ6 [facility] Last Admin: 09/06/17 19:12 Dose: 3 ml Ascorbic Acid (Vitamin C 500 Mg Tab) 500 mg PEG DAILY [facility] Last Admin: 09/06/17 08:34 Dose: 500 mg Aspirin (Aspirin Chewable) 81 mg PEG DAILY [facility] Last Admin: 09/06/17 08:32 Dose: 81 mg Atorvastatin Calcium (Lipitor) 10 mg PEG HS [facility] Last Admin: 09/05/17 21:00 Dose: 10 mg Bisacodyl (Dulcolax) 10 mg [place] DAILY PRN PRN Reason: Constipation Collagenase (Santyl) 1 applic TOP DAILY [facility] Last Admin: 09/06/17 17:27 Dose: Not Given Diltiazem HCl (Cardizem) 60 mg PEG Q8 [facility] Last Admin: 09/06/17 16:55 Dose: 60 mg Enalapril Maleate (Vasotec) 2.5 mg PEG DAILY [facility] Last Admin: 09/06/17 08:34 Dose: 2.5 mg Enoxaparin Sodium (Lovenox) 40 mg SC DAILY [facility] PRN Reason: Protocol Last Admin: 09/06/17 08:33 Dose: 40 mg Ferrous Sulfate (Ferrous Sulfate) 330 mg PEG BID [facility] Last Admin: 09/06/17 16:56 Dose: 330 mg Meropenem 1 gm/ Sodium (Chloride) 100 mls @ 100 mls/hr IVPB Q8 [facility] PRN Reason: Protocol Last Admin: 09/06/17 16:57 Dose: 100 mls/hr Vancomycin HCl 1 gm/ Sodium (Chloride) 250 mls @ 166.667 mls/hr IVPB DAILY [facility] PRN Reason: Protocol Last Admin: 09/06/17 10:34 Dose: 166.667 mls/hr Lactulose (Enulose) 20 gm PEG BID PRN PRN Reason: Constipation Latanoprost (Xalatan Opht) 1 drop OU HS [facility] Last Admin: 09/05/17 21:01 Dose: 1 drop Metoprolol Tartrate (Lopressor) 25 mg PEG Q8 [facility] Last Admin: 09/06/17 16:56 Dose: 25 mg Nystatin/Triamcinolone Acetonide (Mycolog Ii Oint) 1 applic TOP BID [facility] Last Admin: 09/06/17 17:27 Dose: 1 applic Scopolamine (Transderm-Scop) 1 patch TD Q3D [facility] Last Admin: 09/06/17 10:35 Dose: 1 patch Tramadol HCl (Ultram) 50 mg GT Q6 PRN PRN Reason: Pain, severe (8-10) Last Admin: 09/06/17 06:28 Dose: 50 mg Zinc Sulfate (Zinc Sulfate 220 Mg Cap) 220 mg PEG DAILY [facility] Last Admin: 09/06/17 08:34 Dose: 220 mg - Labs Labs: 09/05/17 05:20 09/05/17 05:20 PT 11.4 Seconds (9.8-13.1) 09/04/17 09:30 INR 1.0 (0.9-1.2) 09/04/17 09:30 APTT 27.7 Seconds (25.6-37.1) 09/04/17 09:30 - Constitutional Appears: No Acute Distress, Chronically Ill - Head Exam Head Exam: NORMAL INSPECTION - Eye Exam Eye Exam: PERRL - ENT Exam ENT Exam: Normal Oropharynx - Neck Exam Neck Exam: Normal Inspection - Respiratory Exam Respiratory Exam: Decreased Breath Sounds (at bases) - Cardiovascular Exam Cardiovascular Exam: REGULAR RHYTHM, Murmur (systolic 3/6 apex radiated to axilla.) - GI/Abdominal Exam GI & Abdominal Exam: Soft, Normal Bowel Sounds Additional comments: Peg tube - Extremities Exam Additional comments: BLE contracted, stiff - Back Exam Additional comments: Sacral decubitus ulcer stage IV - Neurological Exam Neurological Exam: Alert, Motor Sensory Deficit Additional comments: Expresive aphasia, unable to follows commands. - Psychiatric Exam Psychiatric exam: Flat Affect - Skin Skin Exam: Warm Assessment and Plan (1) Respiratory insufficiency Status: Acute (2) PNA (pneumonia) Status: Acute (3) Sepsis Status: Acute (4) UTI (urinary tract infection) Status: Acute (5) COPD (chronic obstructive pulmonary disease) Status: Chronic (6) Chronic systolic congestive heart failure Status: Chronic (7) History of CVA (cerebrovascular accident) Status: Chronic (8) Sacral decubitus ulcer, stage IV Status: Acute - Assessment and Plan (Free Text) Plan: Scopolamine patch, Vanco, Merrem, Duoneb and rest of Tx.
[2017-09-06] MEDS: Latanoprost 0.005% Opht SOUTION OU SCH (23:31)
[2017-09-07] MEDS: Meropenem 1 GM in Sodium Chloride 0.9% 100 ML IVPB SCH ×4 (00:01→16:55)
[2017-09-07] MEDS: Albuterol-Ipratrop 3 mg / 0.5 (3 ml) UD INH SCH ×4 (01:11→19:09)
[2017-09-07 06:24] LABS: HEMOGLOBIN 10.3 g/dL (12.0-16.0); MEAN CELL VOLUME 89.2 fl (81.0-99.0); MEAN CORPUSCULAR HEMOGLOBIN 29.2 pg (27.0-31.0); MEAN CORPUSCULAR HGB CONC 32.7 g/dL (33.0-37.0); RBC 3.54 Mil/uL (3.80-5.20); RED CELL DISTRIBUTION WIDTH 14.6 % (11.5-14.5)
[2017-09-07 06:32] LABS: ALB/GLOB RATIO 0.8 (1.0-2.1); ALBUMIN 3.4 g/dL (3.5-5.0); ALT/SGPT 29 U/L (9-52); AST/SGOT 23 U/L (14-36); BLOOD UREA NITROGEN 19 mg/dl (7-17); CALCIUM 9.3 mg/dL (8.4-10.2); GFR AFRICAN-AMERICAN > 60; GFR NON-AFRICAN AMERICAN > 60
[2017-09-07] MEDS: Acetaminophen 650mg/20.3ml solution UD PEG SCH (09:00)
[2017-09-07] MEDS: Ferrous Sulfate 220 MG/5 ML PEG SCH ×2 (09:22→16:54)
[2017-09-07] MEDS: Enoxaparin 40 mg Syringe SC SCH (09:22)
[2017-09-07] MEDS: Mycolog II OINT TOP SCH ×2 (09:23→16:55)
[2017-09-07] MEDS: Santyl Collagenase OINTMENT TOP SCH (09:58)
--- NOTE | 2017-09-07 10:36 | PQF GENQUE ---
This form is a permanent part of the medical record 09/07/17 Dr. Del Valle, Please clarify the TYPE organism causing the pneumonia. Note: CAP, HAP, and HCAP indicate where the pneumonia was acquired, not a specific type. Patient presents with moderate SOB for 2 days increased on DOA, associated to chest congestion, productive cough with mild whitish thin sputum. Pt using Nebulizer while at [facility] with no relief. Found with + sputum for ESBL and MDR , collected while at the [place] on 08/27/17. SPUTUM CS 09/05: Pseudomonas Aeruginosa. Temp max 99.9, WBC 15.7 L shift. Treated with IVAB. Clarification of your documentation is requested to better reflect the severity of illness and intensity of treatment of your patient. Indicators present PHYSICIAN'S RESPONSE Type of Pneumonia: Aspiration pneumonia Bacterial (specify organism) Bronchopneumonia (specify organism) Interstitial pneumonia Organizing pneumonia/BOOP Pneumonia with influenza, mark flu, or H1N1 flu RSV pneumonia Tuberculosis, pulmonary Viral pneumonia Other pneumonia (specify organism or type) Clinically unable to determine Unknown Based on your medical judgment of the clinical indicators outlined above please clarify the following: [] Practitioner response [] If unable to determine, please check the box, sign and date. Present On Admission (POA) Indicator: [] Present at the time of admission [] Not present at the time of admission [] Clinically Undetermined In responding to this query, please exercise your independent professional judgment. The fact that a question is asked does not imply that any particular answer is desired or expected. Thank you for your clarification on this documentation. If you have any questions please call:[phone] * Thank you, Yudy Leong RN CDMP MTDD
--- NOTE | 2017-09-07 10:37 | CP.PCM.PN ---
Subjective - Date & Time of Evaluation Date of Evaluation: 09/07/17 Time of Evaluation: 10:00 - Subjective Subjective: no fever awake confused aphasic still congested sputum with mdro pseudomonas clinically responding to merrem genta added would ask lab to run carbapenem sensitivity Objective - Vital Signs/Intake and Output Vital Signs (last 24 hours): Temp Pulse Resp BP Pulse Ox 99 F 100 H 20 123/70 98 09/07/17 09:00 09/07/17 09:22 09/07/17 09:00 09/07/17 09:22 09/07/17 09:00 Intake and Output: 09/07/17 09/07/17 06:59 18:59 Output Total 400 Balance -400 - Medications Medications: Current Medications Acetaminophen (Tylenol 650mg/20.3ml Solution Ud) 650 mg PEG DAILY [facility] Last Admin: 09/06/17 08:42 Dose: 650 mg Acetaminophen (Tylenol 650mg/20.3ml Solution Ud) 650 mg PEG Q4 PRN PRN Reason: Pain, Mild (1-3) Last Admin: 09/05/17 20:59 Dose: 650 mg Albuterol/Ipratropium (Duoneb 3 Mg/0.5 Mg (3 Ml) Ud) 3 ml INH RQ6 [facility] Last Admin: 09/07/17 07:39 Dose: 3 ml Ascorbic Acid (Vitamin C 500 Mg Tab) 500 mg PEG DAILY [facility] Last Admin: 09/07/17 09:23 Dose: 500 mg Aspirin (Aspirin Chewable) 81 mg PEG DAILY [facility] Last Admin: 09/07/17 09:21 Dose: 81 mg Atorvastatin Calcium (Lipitor) 10 mg PEG HS [facility] Last Admin: 09/06/17 23:00 Dose: 10 mg Bisacodyl (Dulcolax) 10 mg [place] DAILY PRN PRN Reason: Constipation Collagenase (Santyl) 1 applic TOP DAILY [facility] Last Admin: 09/07/17 09:58 Dose: 1 applic Diltiazem HCl (Cardizem) 60 mg PEG Q8 [facility] Last Admin: 09/07/17 09:21 Dose: 60 mg Enalapril Maleate (Vasotec) 2.5 mg PEG DAILY [facility] Last Admin: 09/07/17 09:23 Dose: 2.5 mg Enoxaparin Sodium (Lovenox) 40 mg SC DAILY [facility] PRN Reason: Protocol Last Admin: 09/07/17 09:22 Dose: 40 mg Ferrous Sulfate (Ferrous Sulfate) 330 mg PEG BID [facility] Last Admin: 09/07/17 09:22 Dose: 330 mg Meropenem 1 gm/ Sodium (Chloride) 100 mls @ 100 mls/hr IVPB Q8 [facility] PRN Reason: Protocol Last Admin: 09/07/17 00:01 Dose: 100 mls/hr Vancomycin HCl 1 gm/ Sodium (Chloride) 250 mls @ 166.667 mls/hr IVPB DAILY [facility] PRN Reason: Protocol Last Admin: 09/06/17 10:34 Dose: 166.667 mls/hr Lactulose (Enulose) 20 gm PEG BID PRN PRN Reason: Constipation Latanoprost (Xalatan Opht) 1 drop OU HS [facility] Last Admin: 09/06/17 23:31 Dose: 1 drop Metoprolol Tartrate (Lopressor) 25 mg PEG Q8 [facility] Last Admin: 09/07/17 09:22 Dose: 25 mg Nystatin/Triamcinolone Acetonide (Mycolog Ii Oint) 1 applic TOP BID [facility] Last Admin: 09/07/17 09:23 Dose: 1 applic Scopolamine (Transderm-Scop) 1 patch TD Q3D [facility] Last Admin: 09/06/17 10:35 Dose: 1 patch Tramadol HCl (Ultram) 50 mg GT Q6 PRN PRN Reason: Pain, severe (8-10) Last Admin: 09/06/17 06:28 Dose: 50 mg Zinc Sulfate (Zinc Sulfate 220 Mg Cap) 220 mg PEG DAILY [facility] Last Admin: 09/07/17 09:23 Dose: 220 mg - Labs Labs: 09/07/17 05:45 09/07/17 05:45 PT 11.4 Seconds (9.8-13.1) 09/04/17 09:30 INR 1.0 (0.9-1.2) 09/04/17 09:30 APTT 27.7 Seconds (25.6-37.1) 09/04/17 09:30 - Constitutional Appears: Chronically Ill - Head Exam Head Exam: NORMOCEPHALIC - Eye Exam Eye Exam: PERRL - ENT Exam ENT Exam: Mucous Membranes Dry - Neck Exam Neck Exam: absent: Lymphadenopathy - Respiratory Exam Respiratory Exam: Decreased Breath Sounds - Cardiovascular Exam Cardiovascular Exam: REGULAR RHYTHM - GI/Abdominal Exam GI & Abdominal Exam: Distended - Rectal Exam Rectal Exam: Deferred - Exam Exam: NORMAL INSPECTION Assessment and Plan (1) PNA (pneumonia) Status: Acute (2) Respiratory insufficiency Status: Acute (3) Sacral decubitus ulcer, stage IV Status: Acute (4) Sepsis Status: Acute
[2017-09-07 11:42] LABS: ABG ALLEN TEST YES; ARTERIAL BLOOD GAS HCO3 29.8 mmol/L (21-28); ARTERIAL BLOOD GAS O2 CAPACITY 13.8 mL/dL (16-24); ARTERIAL BLOOD GAS O2 CONTENT 13.9 ML/dL (15-23); ARTERIAL BLOOD GAS O2 SAT 100.8 % (95-98); ARTERIAL BLOOD GAS PCO2 35 mm/Hg (35-45); ARTERIAL BLOOD GAS PH 7.53 (7.35-7.45); ARTERIAL BLOOD GAS PO2 111 mm/Hg (80-100); ARTERIAL BLOOD GAS TCO2 30.3 mmol/L (22-28)
--- NOTE | 2017-09-07 13:00 | RAD ---
HISTORY: Pneumonia COMPARISON: Frontal chest radiograph 09/04/2017. FINDINGS: LUNGS: Improved aeration is identified at the left base however overall inspiratory volume appears diminished. Residual atelectasis or airspace disease seen posterior and lateral to the left heart with bronchovascular markings appearing somewhat prominent bilaterally. PLEURA: No significant pleural effusion identified, no pneumothorax apparent. CARDIOVASCULAR: Normal cardiac size appreciated. No definite pulmonary vascular congestion. OSSEOUS STRUCTURES: No significant abnormalities. VISUALIZED UPPER ABDOMEN: Normal. OTHER FINDINGS: None. IMPRESSION: Improving aeration left base with limited airspace disease in the left retrocardiac left lower lobe subsegments. No acute right-sided infiltrate or bilateral pleural effusion.
[2017-09-07] MEDS: Gentamicin 40 MG in Sodium Chloride 0.9% 50 ML IVPB SCH ×2 (13:13→22:45)
[2017-09-07] MEDS: Famotidine 20mg/50ml 20 MG/50 ML BAG IVPB SCH (14:06)
--- NOTE | 2017-09-07 15:25 | IP.NPCORE ---
Pneumonia Progress Notes - Oxygenation Assessment (REQUIRED) Documented 02: Yes
--- NOTE | 2017-09-07 15:37 | CP.PCM.PN ---
Subjective - Date & Time of Evaluation Date of Evaluation: 09/07/17 - Subjective Subjective: F/U Respiratory Insufficiency eyes open , follows with head movements verbal stimulation , no AD Objective - Vital Signs/Intake and Output Vital Signs (last 24 hours): Temp Pulse Resp BP Pulse Ox 99 F 100 H 20 123/70 98 09/07/17 09:00 09/07/17 09:22 09/07/17 09:00 09/07/17 09:22 09/07/17 09:00 Intake and Output: 09/07/17 09/07/17 06:59 18:59 Output Total 400 Balance -400 - Medications Medications: Current Medications Acetaminophen (Tylenol 650mg/20.3ml Solution Ud) 650 mg PEG DAILY [facility] Last Admin: 09/07/17 09:00 Dose: 650 mg Acetaminophen (Tylenol 650mg/20.3ml Solution Ud) 650 mg PEG Q4 PRN PRN Reason: Pain, Mild (1-3) Last Admin: 09/05/17 20:59 Dose: 650 mg Albuterol/Ipratropium (Duoneb 3 Mg/0.5 Mg (3 Ml) Ud) 3 ml INH RQ6 [facility] Last Admin: 09/07/17 13:36 Dose: 3 ml Ascorbic Acid (Vitamin C 500 Mg Tab) 500 mg PEG DAILY [facility] Last Admin: 09/07/17 09:23 Dose: 500 mg Aspirin (Aspirin Chewable) 81 mg PEG DAILY [facility] Last Admin: 09/07/17 09:21 Dose: 81 mg Atorvastatin Calcium (Lipitor) 10 mg PEG HS [facility] Last Admin: 09/06/17 23:00 Dose: 10 mg Bisacodyl (Dulcolax) 10 mg [place] DAILY PRN PRN Reason: Constipation Collagenase (Santyl) 1 applic TOP DAILY [facility] Last Admin: 09/07/17 09:58 Dose: 1 applic Diltiazem HCl (Cardizem) 60 mg PEG Q8 [facility] Last Admin: 09/07/17 09:21 Dose: 60 mg Enalapril Maleate (Vasotec) 2.5 mg PEG DAILY [facility] Last Admin: 09/07/17 09:23 Dose: 2.5 mg Enoxaparin Sodium (Lovenox) 40 mg SC DAILY [facility] PRN Reason: Protocol Last Admin: 09/07/17 09:22 Dose: 40 mg Ferrous Sulfate (Ferrous Sulfate) 330 mg PEG BID [facility] Last Admin: 09/07/17 09:22 Dose: 330 mg Meropenem 1 gm/ Sodium (Chloride) 100 mls @ 100 mls/hr IVPB Q8 [facility] PRN Reason: Protocol Last Admin: 09/07/17 14:08 Dose: 100 mls/hr Gentamicin Sulfate 40 mg/ (Sodium Chloride) 51 mls @ 50.495 mls/hr IVPB Q12H [facility] PRN Reason: Protocol Last Admin: 09/07/17 13:13 Dose: 50.495 mls/hr Famotidine (Pepcid 20mg/50ml Premix) 20 mg in 50 mls @ 100 mls/hr IVPB DAILY [facility] Last Admin: 09/07/17 14:06 Dose: 100 mls/hr Lactulose (Enulose) 20 gm PEG BID PRN PRN Reason: Constipation Latanoprost (Xalatan Opht) 1 drop OU HS [facility] Last Admin: 09/06/17 23:31 Dose: 1 drop Metoprolol Tartrate (Lopressor) 25 mg PEG Q8 [facility] Last Admin: 09/07/17 09:22 Dose: 25 mg Nystatin/Triamcinolone Acetonide (Mycolog Ii Oint) 1 applic TOP BID [facility] Last Admin: 09/07/17 09:23 Dose: 1 applic Scopolamine (Transderm-Scop) 1 patch TD Q3D [facility] Last Admin: 09/06/17 10:35 Dose: 1 patch Tramadol HCl (Ultram) 50 mg GT Q6 PRN PRN Reason: Pain, severe (8-10) Last Admin: 09/06/17 06:28 Dose: 50 mg Zinc Sulfate (Zinc Sulfate 220 Mg Cap) 220 mg PEG DAILY [facility] Last Admin: 09/07/17 09:23 Dose: 220 mg - Labs Labs: 09/07/17 05:45 09/07/17 05:45 PT 11.4 Seconds (9.8-13.1) 09/04/17 09:30 INR 1.0 (0.9-1.2) 09/04/17 09:30 APTT 27.7 Seconds (25.6-37.1) 09/04/17 09:30 - Constitutional Appears: No Acute Distress, Chronically Ill - Head Exam Head Exam: NORMAL INSPECTION - Eye Exam Eye Exam: PERRL - ENT Exam ENT Exam: Normal Oropharynx - Neck Exam Neck Exam: Normal Inspection - Respiratory Exam Respiratory Exam: Decreased Breath Sounds (at bases) - Cardiovascular Exam Cardiovascular Exam: REGULAR RHYTHM, Murmur (systolic, 3/6 apex, radiated to axilla) - GI/Abdominal Exam GI & Abdominal Exam: Soft, Normal Bowel Sounds Additional comments: Peg tube - Extremities Exam Additional comments: B?E contracted, stiff - Back Exam Additional comments: Sacral region with decubitus ulcer stage IV - Neurological Exam Neurological Exam: Alert, Motor Sensory Deficit Additional comments: Expressive aphasia, unable to follows commands - Psychiatric Exam Psychiatric exam: Flat Affect - Skin Skin Exam: Warm Assessment and Plan (1) Respiratory insufficiency Status: Acute (2) PNA (pneumonia) Status: Acute (3) Sepsis Status: Acute (4) UTI (urinary tract infection) Status: Acute (5) COPD (chronic obstructive pulmonary disease) Status: Chronic (6) Chronic systolic congestive heart failure Status: Chronic (7) History of CVA (cerebrovascular accident) Status: Chronic (8) Sacral decubitus ulcer, stage IV Status: Acute - Assessment and Plan (Free Text) Plan: Neno Kaufman,, Evelyn NAVARRO Blood C-S contamination , one C-S neg , one pos Staph coag neg , to have PICC line
[2017-09-07] MEDS: Latanoprost 0.005% Opht SOUTION OU SCH (21:33)
[2017-09-08] MEDS: Meropenem 1 GM in Sodium Chloride 0.9% 100 ML IVPB SCH ×3 (00:01→17:15)
[2017-09-08] MEDS: Albuterol-Ipratrop 3 mg / 0.5 (3 ml) UD INH SCH ×4 (00:59→19:04)
[2017-09-08 06:24] LABS: HEMOGLOBIN 10.2 g/dL (12.0-16.0); MEAN CELL VOLUME 88.5 fl (81.0-99.0); MEAN CORPUSCULAR HEMOGLOBIN 29.5 pg (27.0-31.0); MEAN CORPUSCULAR HGB CONC 33.4 g/dL (33.0-37.0); RBC 3.45 Mil/uL (3.80-5.20); RED CELL DISTRIBUTION WIDTH 14.4 % (11.5-14.5); WHITE BLOOD COUNT 9.1 K/uL (4.8-10.8)
[2017-09-08 06:34] LABS: ALB/GLOB RATIO 0.8 (1.0-2.1); ALBUMIN 3.4 g/dL (3.5-5.0); ALT/SGPT 27 U/L (9-52); AST/SGOT 23 U/L (14-36); BLOOD UREA NITROGEN 16 mg/dl (7-17); CALCIUM 9.2 mg/dL (8.4-10.2); GFR AFRICAN-AMERICAN > 60; GFR NON-AFRICAN AMERICAN > 60
[2017-09-08] MEDS: Gentamicin 40 MG in Sodium Chloride 0.9% 50 ML IVPB SCH (09:00)
[2017-09-08] MEDS: Enoxaparin 40 mg Syringe SC SCH (09:18)
[2017-09-08] MEDS: Ferrous Sulfate 220 MG/5 ML PEG SCH ×2 (09:21→17:10)
[2017-09-08] MEDS: Mycolog II OINT TOP SCH ×2 (09:21→17:11)
[2017-09-08] MEDS: Santyl Collagenase OINTMENT TOP SCH (09:22)
[2017-09-08] MEDS: Acetaminophen 650mg/20.3ml solution UD PEG SCH (10:00)
[2017-09-08] MEDS: Famotidine 20mg/50ml 20 MG/50 ML BAG IVPB SCH (10:20)
--- NOTE | 2017-09-08 10:36 | CP.PCM.PN ---
Subjective - Date & Time of Evaluation Date of Evaluation: 09/08/17 Time of Evaluation: 08:00 - Subjective Subjective: afeb on IV rx congested NAD Objective - Vital Signs/Intake and Output Vital Signs (last 24 hours): Temp Pulse Resp BP Pulse Ox 98.5 F 100 H 20 109/61 100 09/08/17 08:00 09/08/17 08:00 09/08/17 08:00 09/08/17 08:00 09/08/17 08:00 Intake and Output: 09/08/17 09/08/17 06:59 18:59 Output Total 500 Balance -500 - Medications Medications: Current Medications Acetaminophen (Tylenol 650mg/20.3ml Solution Ud) 650 mg PEG DAILY [facility] Last Admin: 09/07/17 09:00 Dose: 650 mg Acetaminophen (Tylenol 650mg/20.3ml Solution Ud) 650 mg PEG Q4 PRN PRN Reason: Pain, Mild (1-3) Last Admin: 09/05/17 20:59 Dose: 650 mg Albuterol/Ipratropium (Duoneb 3 Mg/0.5 Mg (3 Ml) Ud) 3 ml INH RQ6 [facility] Last Admin: 09/08/17 07:14 Dose: 3 ml Ascorbic Acid (Vitamin C 500 Mg Tab) 500 mg PEG DAILY [facility] Last Admin: 09/07/17 09:23 Dose: 500 mg Aspirin (Aspirin Chewable) 81 mg PEG DAILY [facility] Last Admin: 09/07/17 09:21 Dose: 81 mg Atorvastatin Calcium (Lipitor) 10 mg PEG HS [facility] Last Admin: 09/07/17 21:32 Dose: 10 mg Bisacodyl (Dulcolax) 10 mg SC DAILY PRN PRN Reason: Constipation Collagenase (Santyl) 1 applic TOP DAILY [facility] Last Admin: 09/07/17 09:58 Dose: 1 applic Diltiazem HCl (Cardizem) 60 mg PEG Q8 [facility] Last Admin: 09/08/17 00:03 Dose: 60 mg Enalapril Maleate (Vasotec) 2.5 mg PEG DAILY [facility] Last Admin: 09/07/17 09:23 Dose: 2.5 mg Enoxaparin Sodium (Lovenox) 40 mg SC DAILY [facility] PRN Reason: Protocol Last Admin: 09/07/17 09:22 Dose: 40 mg Ferrous Sulfate (Ferrous Sulfate) 330 mg PEG BID [facility] Last Admin: 09/07/17 16:54 Dose: 330 mg Meropenem 1 gm/ Sodium (Chloride) 100 mls @ 100 mls/hr IVPB Q8 [facility] PRN Reason: Protocol Last Admin: 09/08/17 00:01 Dose: 100 mls/hr Gentamicin Sulfate 40 mg/ (Sodium Chloride) 51 mls @ 50.495 mls/hr IVPB Q12H [facility] PRN Reason: Protocol Last Admin: 09/07/17 22:45 Dose: 50.495 mls/hr Famotidine (Pepcid 20mg/50ml Premix) 20 mg in 50 mls @ 100 mls/hr IVPB DAILY [facility] Last Admin: 09/07/17 14:06 Dose: 100 mls/hr Lactulose (Enulose) 20 gm PEG BID PRN PRN Reason: Constipation Latanoprost (Xalatan Opht) 1 drop OU HS [facility] Last Admin: 09/07/17 21:33 Dose: 1 drop Metoprolol Tartrate (Lopressor) 25 mg PEG Q8 [facility] Last Admin: 09/08/17 00:05 Dose: 25 mg Nystatin/Triamcinolone Acetonide (Mycolog Ii Oint) 1 applic TOP BID [facility] Last Admin: 09/07/17 16:55 Dose: 1 applic Scopolamine (Transderm-Scop) 1 patch TD Q3D [facility] Last Admin: 09/06/17 10:35 Dose: 1 patch Tramadol HCl (Ultram) 50 mg GT Q6 PRN PRN Reason: Pain, severe (8-10) Last Admin: 09/06/17 06:28 Dose: 50 mg Zinc Sulfate (Zinc Sulfate 220 Mg Cap) 220 mg PEG DAILY [facility] Last Admin: 09/07/17 09:23 Dose: 220 mg - Labs Labs: 09/08/17 05:50 09/08/17 05:50 PT 11.4 Seconds (9.8-13.1) 09/04/17 09:30 INR 1.0 (0.9-1.2) 09/04/17 09:30 APTT 27.7 Seconds (25.6-37.1) 09/04/17 09:30 - Constitutional Appears: Non-toxic - Head Exam Head Exam: NORMOCEPHALIC - Eye Exam Eye Exam: PERRL - ENT Exam ENT Exam: Mucous Membranes Dry - Neck Exam Neck Exam: absent: Lymphadenopathy - Respiratory Exam Respiratory Exam: Decreased Breath Sounds - Cardiovascular Exam Cardiovascular Exam: REGULAR RHYTHM - GI/Abdominal Exam GI & Abdominal Exam: Distended - Rectal Exam Rectal Exam: Deferred Assessment and Plan (1) PNA (pneumonia) Status: Acute (2) Respiratory insufficiency Status: Acute (3) Sacral decubitus ulcer, stage IV Status: Acute (4) Sepsis Status: Acute - Assessment and Plan (Free Text) Assessment: will check genta level
--- NOTE | 2017-09-08 13:59 | CP.PCM.PN ---
Subjective - Date & Time of Evaluation Date of Evaluation: 09/08/17 Time of Evaluation: 10:20 - Subjective Subjective: F/U Respiratory Insufficiency. Objective - Vital Signs/Intake and Output Vital Signs (last 24 hours): Temp Pulse Resp BP Pulse Ox 98.5 F 100 H 20 109/61 100 09/08/17 08:00 09/08/17 09:19 09/08/17 08:00 09/08/17 09:19 09/08/17 08:00 Intake and Output: 09/08/17 09/08/17 06:59 18:59 Output Total 500 Balance -500 - Medications Medications: Current Medications Acetaminophen (Tylenol 650mg/20.3ml Solution Ud) 650 mg PEG DAILY [facility] Last Admin: 09/07/17 09:00 Dose: 650 mg Acetaminophen (Tylenol 650mg/20.3ml Solution Ud) 650 mg PEG Q4 PRN PRN Reason: Pain, Mild (1-3) Last Admin: 09/05/17 20:59 Dose: 650 mg Albuterol/Ipratropium (Duoneb 3 Mg/0.5 Mg (3 Ml) Ud) 3 ml INH RQ6 [facility] Last Admin: 09/08/17 13:00 Dose: 3 ml Ascorbic Acid (Vitamin C 500 Mg Tab) 500 mg PEG DAILY [facility] Last Admin: 09/08/17 09:00 Dose: 500 mg Aspirin (Aspirin Chewable) 81 mg PEG DAILY [facility] Last Admin: 09/08/17 09:18 Dose: 81 mg Atorvastatin Calcium (Lipitor) 10 mg PEG HS [facility] Last Admin: 09/07/17 21:32 Dose: 10 mg Bisacodyl (Dulcolax) 10 mg [place] DAILY PRN PRN Reason: Constipation Collagenase (Santyl) 1 applic TOP DAILY [facility] Last Admin: 09/08/17 09:22 Dose: 1 applic Diltiazem HCl (Cardizem) 60 mg PEG Q8 [facility] Last Admin: 09/08/17 09:19 Dose: 60 mg Enalapril Maleate (Vasotec) 2.5 mg PEG DAILY [facility] Last Admin: 09/08/17 09:00 Dose: 2.5 mg Enoxaparin Sodium (Lovenox) 40 mg SC DAILY [facility] PRN Reason: Protocol Last Admin: 09/08/17 09:18 Dose: 40 mg Ferrous Sulfate (Ferrous Sulfate) 330 mg PEG BID [facility] Last Admin: 09/08/17 09:21 Dose: 330 mg Meropenem 1 gm/ Sodium (Chloride) 100 mls @ 100 mls/hr IVPB Q8 [facility] PRN Reason: Protocol Last Admin: 09/08/17 00:01 Dose: 100 mls/hr Gentamicin Sulfate 40 mg/ (Sodium Chloride) 51 mls @ 50.495 mls/hr IVPB Q12H [facility] PRN Reason: Protocol Last Admin: 09/08/17 09:00 Dose: 50.495 mls/hr Famotidine (Pepcid 20mg/50ml Premix) 20 mg in 50 mls @ 100 mls/hr IVPB DAILY [facility] Last Admin: 09/07/17 14:06 Dose: 100 mls/hr Lactulose (Enulose) 20 gm PEG BID PRN PRN Reason: Constipation Latanoprost (Xalatan Opht) 1 drop OU HS [facility] Last Admin: 09/07/17 21:33 Dose: 1 drop Metoprolol Tartrate (Lopressor) 25 mg PEG Q8 [facility] Last Admin: 09/08/17 09:18 Dose: 25 mg Nystatin/Triamcinolone Acetonide (Mycolog Ii Oint) 1 applic TOP BID [facility] Last Admin: 09/08/17 09:21 Dose: 1 applic Scopolamine (Transderm-Scop) 1 patch TD Q3D [facility] Last Admin: 09/06/17 10:35 Dose: 1 patch Tramadol HCl (Ultram) 50 mg GT Q6 PRN PRN Reason: Pain, severe (8-10) Last Admin: 09/06/17 06:28 Dose: 50 mg Zinc Sulfate (Zinc Sulfate 220 Mg Cap) 220 mg PEG DAILY [facility] Last Admin: 09/08/17 09:18 Dose: 220 mg - Labs Labs: 09/08/17 05:50 09/08/17 05:50 PT 11.4 Seconds (9.8-13.1) 09/04/17 09:30 INR 1.0 (0.9-1.2) 09/04/17 09:30 APTT 27.7 Seconds (25.6-37.1) 09/04/17 09:30 - Constitutional Appears: No Acute Distress, Chronically Ill - Head Exam Head Exam: NORMAL INSPECTION - Eye Exam Eye Exam: PERRL - ENT Exam ENT Exam: Normal Oropharynx - Neck Exam Neck Exam: Normal Inspection - Respiratory Exam Respiratory Exam: Decreased Breath Sounds (at bases) - Cardiovascular Exam Cardiovascular Exam: REGULAR RHYTHM, Murmur (systolic, 3/6 apex radiated to axilla) - GI/Abdominal Exam GI & Abdominal Exam: Soft, Normal Bowel Sounds Additional comments: Peg tube - Extremities Exam Additional comments: BLE contracted, stiff - Back Exam Additional comments: Sacral decubitus ulcer stage IV. - Neurological Exam Neurological Exam: Alert, Motor Sensory Deficit Additional comments: Expressive aphasia, unable to follows commands - Psychiatric Exam Psychiatric exam: Flat Affect - Skin Skin Exam: Warm Assessment and Plan (1) Respiratory insufficiency Status: Acute (2) PNA (pneumonia) Status: Acute (3) Sepsis Status: Acute (4) UTI (urinary tract infection) Assessment & Plan: ruled out Status: Acute (5) COPD (chronic obstructive pulmonary disease) Status: Chronic (6) Chronic systolic congestive heart failure Status: Chronic (7) History of CVA (cerebrovascular accident) Status: Chronic (8) Sacral decubitus ulcer, stage IV Status: Acute
[2017-09-08] MEDS: Latanoprost 0.005% Opht SOUTION OU SCH (21:56)
[2017-09-09] MEDS: Gentamicin 40 MG in Sodium Chloride 0.9% 50 ML IVPB SCH ×2 (00:08→17:54)
[2017-09-09] MEDS: Meropenem 1 GM in Sodium Chloride 0.9% 100 ML IVPB SCH ×3 (00:36→16:25)
--- NOTE | 2017-09-09 00:39 | CP.PCM.PCO ---
Physician Communication Note - Physician Communication Note Physician Communication Note: paged by nurse for BP 98/59 mmHg with HR 95 bpm Assessment/Plan - Assessment and Plan (Free Text) Assessment: -patient asymptomatic, instructed nurse to hold scheduled dose of Lopressor and reassess BP in 2 hrs - Date & Time Date: 09/09/17 Time: 12:25
[2017-09-09] MEDS: Albuterol-Ipratrop 3 mg / 0.5 (3 ml) UD INH SCH ×4 (00:59→19:07)
[2017-09-09] MEDS: Famotidine 20mg/50ml 20 MG/50 ML BAG IVPB SCH (09:36)
[2017-09-09] MEDS: Ferrous Sulfate 220 MG/5 ML PEG SCH ×2 (09:39→16:30)
[2017-09-09] MEDS: Enoxaparin 40 mg Syringe SC SCH (09:41)
[2017-09-09] MEDS: Mycolog II OINT TOP SCH ×2 (09:42→16:31)
[2017-09-09] MEDS: Santyl Collagenase OINTMENT TOP SCH (09:44)
[2017-09-09] MEDS: Acetaminophen 650mg/20.3ml solution UD PEG SCH (09:48)
--- NOTE | 2017-09-09 12:24 | CP.PCM.PN ---
Subjective - Date & Time of Evaluation Date of Evaluation: 09/09/17 Time of Evaluation: 08:00 - Subjective Subjective: weak lethargic confused Objective - Vital Signs/Intake and Output Vital Signs (last 24 hours): Temp Pulse Resp BP Pulse Ox 98.2 F 87 20 103/65 95 09/09/17 08:39 09/09/17 09:40 09/09/17 08:39 09/09/17 09:40 09/09/17 08:39 - Medications Medications: Current Medications Acetaminophen (Tylenol 650mg/20.3ml Solution Ud) 650 mg PEG DAILY [facility] Last Admin: 09/09/17 09:48 Dose: 650 mg Acetaminophen (Tylenol 650mg/20.3ml Solution Ud) 650 mg PEG Q4 PRN PRN Reason: Pain, Mild (1-3) Last Admin: 09/05/17 20:59 Dose: 650 mg Albuterol/Ipratropium (Duoneb 3 Mg/0.5 Mg (3 Ml) Ud) 3 ml INH RQ6 [facility] Last Admin: 09/09/17 07:50 Dose: 3 ml Ascorbic Acid (Vitamin C 500 Mg Tab) 500 mg PEG DAILY [facility] Last Admin: 09/09/17 09:43 Dose: 500 mg Aspirin (Aspirin Chewable) 81 mg PEG DAILY [facility] Last Admin: 09/09/17 09:38 Dose: 81 mg Atorvastatin Calcium (Lipitor) 10 mg PEG HS [facility] Last Admin: 09/08/17 21:56 Dose: 10 mg Bisacodyl (Dulcolax) 10 mg [place] DAILY PRN PRN Reason: Constipation Collagenase (Santyl) 1 applic TOP DAILY [facility] Last Admin: 09/09/17 09:44 Dose: 1 applic Diltiazem HCl (Cardizem) 60 mg PEG Q8 [facility] Last Admin: 09/09/17 09:38 Dose: 60 mg Enalapril Maleate (Vasotec) 2.5 mg PEG DAILY [facility] Last Admin: 09/09/17 09:43 Dose: 2.5 mg Enoxaparin Sodium (Lovenox) 40 mg SC DAILY [facility] PRN Reason: Protocol Last Admin: 09/09/17 09:41 Dose: 40 mg Ferrous Sulfate (Ferrous Sulfate) 330 mg PEG BID [facility] Last Admin: 09/09/17 09:39 Dose: 330 mg Meropenem 1 gm/ Sodium (Chloride) 100 mls @ 100 mls/hr IVPB Q8 [facility] PRN Reason: Protocol Last Admin: 09/09/17 09:41 Dose: 100 mls/hr Gentamicin Sulfate 40 mg/ (Sodium Chloride) 51 mls @ 50.495 mls/hr IVPB Q12H [facility] PRN Reason: Protocol Last Admin: 09/09/17 00:08 Dose: 50.495 mls/hr Famotidine (Pepcid 20mg/50ml Premix) 20 mg in 50 mls @ 100 mls/hr IVPB DAILY [facility] Last Admin: 09/09/17 09:36 Dose: 100 mls/hr Lactulose (Enulose) 20 gm PEG BID PRN PRN Reason: Constipation Latanoprost (Xalatan Opht) 1 drop OU HS [facility] Last Admin: 09/08/17 21:56 Dose: 1 drop Metoprolol Tartrate (Lopressor) 25 mg PEG Q8 [facility] Last Admin: 09/09/17 09:40 Dose: 25 mg Nystatin/Triamcinolone Acetonide (Mycolog Ii Oint) 1 applic TOP BID [facility] Last Admin: 09/09/17 09:42 Dose: 1 applic Scopolamine (Transderm-Scop) 1 patch TD Q3D [facility] Last Admin: 09/09/17 09:42 Dose: 1 patch Tramadol HCl (Ultram) 50 mg GT Q6 PRN PRN Reason: Pain, severe (8-10) Last Admin: 09/06/17 06:28 Dose: 50 mg Zinc Sulfate (Zinc Sulfate 220 Mg Cap) 220 mg PEG DAILY [facility] Last Admin: 09/09/17 09:43 Dose: 220 mg - Labs Labs: 09/08/17 05:50 09/08/17 05:50 PT 11.4 Seconds (9.8-13.1) 09/04/17 09:30 INR 1.0 (0.9-1.2) 09/04/17 09:30 APTT 27.7 Seconds (25.6-37.1) 09/04/17 09:30 - Constitutional Appears: Chronically Ill - Head Exam Head Exam: NORMOCEPHALIC - Eye Exam Eye Exam: PERRL - ENT Exam ENT Exam: Mucous Membranes Dry - Neck Exam Neck Exam: absent: Lymphadenopathy - Respiratory Exam Respiratory Exam: Decreased Breath Sounds - Cardiovascular Exam Cardiovascular Exam: REGULAR RHYTHM - GI/Abdominal Exam GI & Abdominal Exam: Distended, Soft Assessment and Plan (1) PNA (pneumonia) Status: Acute (2) Respiratory insufficiency Status: Acute (3) Sacral decubitus ulcer, stage IV Status: Acute (4) Sepsis Status: Acute - Assessment and Plan (Free Text) Assessment: for PICC and cont IV antibiotics
--- NOTE | 2017-09-09 18:25 | CP.PCM.PN ---
Subjective - Date & Time of Evaluation Date of Evaluation: 09/09/17 Time of Evaluation: 10:40 - Subjective Subjective: F/U Respiratory Insufficiency. eyes open , follows with head verbal stimuli Objective - Vital Signs/Intake and Output Vital Signs (last 24 hours): Temp Pulse Resp BP Pulse Ox 98.5 F 103 H 20 116/73 97 09/09/17 16:28 09/09/17 16:30 09/09/17 16:28 09/09/17 16:30 09/09/17 16:28 - Medications Medications: Current Medications Acetaminophen (Tylenol 650mg/20.3ml Solution Ud) 650 mg PEG DAILY [facility] Last Admin: 09/09/17 09:48 Dose: 650 mg Acetaminophen (Tylenol 650mg/20.3ml Solution Ud) 650 mg PEG Q4 PRN PRN Reason: Pain, Mild (1-3) Last Admin: 09/05/17 20:59 Dose: 650 mg Albuterol/Ipratropium (Duoneb 3 Mg/0.5 Mg (3 Ml) Ud) 3 ml INH RQ6 [facility] Last Admin: 09/09/17 13:32 Dose: 3 ml Ascorbic Acid (Vitamin C 500 Mg Tab) 500 mg PEG DAILY [facility] Last Admin: 09/09/17 09:43 Dose: 500 mg Aspirin (Aspirin Chewable) 81 mg PEG DAILY [facility] Last Admin: 09/09/17 09:38 Dose: 81 mg Atorvastatin Calcium (Lipitor) 10 mg PEG HS [facility] Last Admin: 09/08/17 21:56 Dose: 10 mg Bisacodyl (Dulcolax) [address] DAILY PRN PRN Reason: Constipation Collagenase (Santyl) 1 applic TOP DAILY [facility] Last Admin: 09/09/17 09:44 Dose: 1 applic Diltiazem HCl (Cardizem) 60 mg PEG Q8 [facility] Last Admin: 09/09/17 16:29 Dose: 60 mg Enalapril Maleate (Vasotec) 2.5 mg PEG DAILY [facility] Last Admin: 09/09/17 09:43 Dose: 2.5 mg Enoxaparin Sodium (Lovenox) 40 mg SC DAILY [facility] PRN Reason: Protocol Last Admin: 09/09/17 09:41 Dose: 40 mg Ferrous Sulfate (Ferrous Sulfate) 330 mg PEG BID [facility] Last Admin: 09/09/17 16:30 Dose: 330 mg Meropenem 1 gm/ Sodium (Chloride) 100 mls @ 100 mls/hr IVPB Q8 [facility] PRN Reason: Protocol Last Admin: 09/09/17 16:25 Dose: 100 mls/hr Famotidine (Pepcid 20mg/50ml Premix) 20 mg in 50 mls @ 100 mls/hr IVPB DAILY [facility] Last Admin: 09/09/17 09:36 Dose: 100 mls/hr Gentamicin Sulfate 40 mg/ (Sodium Chloride) 51 mls @ 50.495 mls/hr IVPB Q12@ 0600,1800 [facility] PRN Reason: Protocol Lactulose (Enulose) 20 gm PEG BID PRN PRN Reason: Constipation Latanoprost (Xalatan Opht) 1 drop OU HS [facility] Last Admin: 09/08/17 21:56 Dose: 1 drop Metoprolol Tartrate (Lopressor) 25 mg PEG Q8 [facility] Last Admin: 09/09/17 16:30 Dose: 25 mg Nystatin/Triamcinolone Acetonide (Mycolog Ii Oint) 1 applic TOP BID [facility] Last Admin: 09/09/17 16:31 Dose: 1 applic Scopolamine (Transderm-Scop) 1 patch TD Q3D [facility] Last Admin: 09/09/17 09:42 Dose: 1 patch Tramadol HCl (Ultram) 50 mg GT Q6 PRN PRN Reason: Pain, severe (8-10) Last Admin: 09/06/17 06:28 Dose: 50 mg Zinc Sulfate (Zinc Sulfate 220 Mg Cap) 220 mg PEG DAILY [facility] Last Admin: 09/09/17 09:43 Dose: 220 mg - Labs Labs: 09/08/17 05:50 09/08/17 05:50 PT 11.4 Seconds (9.8-13.1) 09/04/17 09:30 INR 1.0 (0.9-1.2) 09/04/17 09:30 APTT 27.7 Seconds (25.6-37.1) 09/04/17 09:30 - Constitutional Appears: No Acute Distress, Chronically Ill - Head Exam Head Exam: NORMAL INSPECTION - Eye Exam Eye Exam: PERRL - ENT Exam ENT Exam: Normal Exam - Neck Exam Neck Exam: Normal Inspection - Respiratory Exam Respiratory Exam: Decreased Breath Sounds (at bases) - Cardiovascular Exam Cardiovascular Exam: REGULAR RHYTHM, Murmur (systolic 3/6 apex radiated to axilla) - GI/Abdominal Exam GI & Abdominal Exam: Soft, Normal Bowel Sounds Additional comments: Peg tube - Extremities Exam Additional comments: no CCE - Back Exam Additional comments: Sacral decubitus ulcer stage IV - Neurological Exam Neurological Exam: Alert, Motor Sensory Deficit Additional comments: Expressive aphasia, unable to follows commands, generalized rigidiyt - Psychiatric Exam Psychiatric exam: Normal Affect - Skin Skin Exam: Warm Assessment and Plan (1) Respiratory insufficiency Status: Acute (2) PNA (pneumonia) Assessment & Plan: Pseudomona Status: Acute (3) Sepsis Status: Acute (4) UTI (urinary tract infection) Status: Acute (5) Chronic systolic congestive heart failure Status: Chronic (6) History of CVA (cerebrovascular accident) Status: Chronic (7) Sacral decubitus ulcer, stage IV Status: Acute - Assessment and Plan (Free Text) Plan: continue Genta , Merren , DuoNeb and rest of treatment , PICC line insertion
[2017-09-09] MEDS: Latanoprost 0.005% Opht SOUTION OU SCH (21:15)
[2017-09-10] MEDS: Meropenem 1 GM in Sodium Chloride 0.9% 100 ML IVPB SCH ×2 (00:25→10:38)
[2017-09-10] MEDS: Albuterol-Ipratrop 3 mg / 0.5 (3 ml) UD INH SCH ×3 (02:44→13:07)
[2017-09-10] MEDS ORDERED: Gentamicin 40 MG in Sodium Chloride 0.9% 50 ML IVPB SCH (06:00)
[2017-09-10 08:20] VITALS: RESP 20
[2017-09-10] MEDS: Famotidine 20mg/50ml 20 MG/50 ML BAG IVPB SCH (10:15)
[2017-09-10] MEDS: Ferrous Sulfate 220 MG/5 ML PEG SCH (10:37)
[2017-09-10] MEDS: Enoxaparin 40 mg Syringe SC SCH (10:38)
[2017-09-10] MEDS ORDERED: Lidocaine 1% Inj (20ml) ONE (12:44)
--- NOTE | 2017-09-10 12:48 | CP.PCM.PN ---
Subjective - Date & Time of Evaluation Date of Evaluation: 09/10/17 Time of Evaluation: 12:00 - Subjective Subjective: F/U Respiratory Insufficiency Objective - Vital Signs/Intake and Output Vital Signs (last 24 hours): Temp Pulse Resp BP Pulse Ox 98.3 F 93 H 20 113/72 99 09/10/17 08:19 09/10/17 10:37 09/10/17 08:19 09/10/17 10:37 09/10/17 08:19 Intake and Output: 09/10/17 09/10/17 06:59 18:59 Intake Total 1230 Balance 1230 - Medications Medications: Current Medications Acetaminophen (Tylenol 650mg/20.3ml Solution Ud) 650 mg PEG DAILY [facility] Last Admin: 09/09/17 09:48 Dose: 650 mg Acetaminophen (Tylenol 650mg/20.3ml Solution Ud) 650 mg PEG Q4 PRN PRN Reason: Pain, Mild (1-3) Last Admin: 09/05/17 20:59 Dose: 650 mg Albuterol/Ipratropium (Duoneb 3 Mg/0.5 Mg (3 Ml) Ud) 3 ml INH RQ6 [facility] Last Admin: 09/10/17 07:20 Dose: 3 ml Ascorbic Acid (Vitamin C 500 Mg Tab) 500 mg PEG DAILY [facility] Last Admin: 09/09/17 09:43 Dose: 500 mg Aspirin (Aspirin Chewable) 81 mg PEG DAILY [facility] Last Admin: 09/10/17 10:36 Dose: 81 mg Atorvastatin Calcium (Lipitor) 10 mg PEG HS [facility] Last Admin: 09/09/17 21:15 Dose: 10 mg Bisacodyl (Dulcolax) 10 mg [facility] DAILY PRN PRN Reason: Constipation Collagenase (Santyl) 1 applic TOP DAILY [facility] Last Admin: 09/09/17 09:44 Dose: 1 applic Diltiazem HCl (Cardizem) 60 mg PEG Q8 [facility] Last Admin: 09/10/17 10:36 Dose: 60 mg Enalapril Maleate (Vasotec) 2.5 mg PEG DAILY [facility] Last Admin: 09/09/17 09:43 Dose: 2.5 mg Enoxaparin Sodium (Lovenox) 40 mg SC DAILY [facility] PRN Reason: Protocol Last Admin: 09/10/17 10:38 Dose: 40 mg Famotidine (Pepcid) 20 mg PEG DAILY [facility] Ferrous Sulfate (Ferrous Sulfate) 330 mg PEG BID [facility] Last Admin: 09/10/17 10:37 Dose: 330 mg Meropenem 1 gm/ Sodium (Chloride) 100 mls @ 100 mls/hr IVPB Q8 [facility] PRN Reason: Protocol Last Admin: 09/10/17 10:38 Dose: 100 mls/hr Famotidine (Pepcid 20mg/50ml Premix) 20 mg in 50 mls @ 100 mls/hr IVPB DAILY [facility] Stop: 09/10/17 18:00 Last Admin: 09/10/17 10:15 Dose: 100 mls/hr Gentamicin Sulfate 40 mg/ (Sodium Chloride) 51 mls @ 50.495 mls/hr IVPB Q12@ 0600,1800 [facility] PRN Reason: Protocol Last Admin: 09/10/17 06:13 Dose: 50.495 mls/hr Lactulose (Enulose) 20 gm PEG BID PRN PRN Reason: Constipation Latanoprost (Xalatan Opht) 1 drop OU HS [facility] Last Admin: 09/09/17 21:15 Dose: 1 drop Metoprolol Tartrate (Lopressor) 25 mg PEG Q8 [facility] Last Admin: 09/10/17 10:37 Dose: 25 mg Nystatin/Triamcinolone Acetonide (Mycolog Ii Oint) 1 applic TOP BID [facility] Last Admin: 09/09/17 16:31 Dose: 1 applic Scopolamine (Transderm-Scop) 1 patch TD Q3D [facility] Last Admin: 09/09/17 09:42 Dose: 1 patch Tramadol HCl (Ultram) 50 mg GT Q6 PRN PRN Reason: Pain, severe (8-10) Last Admin: 09/06/17 06:28 Dose: 50 mg Zinc Sulfate (Zinc Sulfate 220 Mg Cap) 220 mg PEG DAILY [facility] Last Admin: 09/09/17 09:43 Dose: 220 mg - Labs Labs: 09/08/17 05:50 09/08/17 05:50 PT 11.4 Seconds (9.8-13.1) 09/04/17 09:30 INR 1.0 (0.9-1.2) 09/04/17 09:30 APTT 27.7 Seconds (25.6-37.1) 09/04/17 09:30 - Constitutional Appears: No Acute Distress, Chronically Ill - Head Exam Head Exam: NORMAL INSPECTION - Eye Exam Eye Exam: PERRL - ENT Exam ENT Exam: Normal Oropharynx - Neck Exam Neck Exam: Normal Inspection - Respiratory Exam Respiratory Exam: Decreased Breath Sounds (at bases) - Cardiovascular Exam Cardiovascular Exam: REGULAR RHYTHM, Murmur (3/6 apex radiated to axilla) - GI/Abdominal Exam GI & Abdominal Exam: Normal Bowel Sounds Additional comments: Peg tube - Extremities Exam Additional comments: BLE contracted, stiff - Back Exam Additional comments: Sacral decubitus ulcer stage IV - Neurological Exam Neurological Exam: Awake Additional comments: Expressive aphasia, unable to follows commands. - Skin Skin Exam: Warm Assessment and Plan (1) Respiratory insufficiency Status: Acute (2) PNA (pneumonia) Status: Acute (3) Sepsis Status: Acute (4) UTI (urinary tract infection) Status: Acute (5) Chronic systolic congestive heart failure Status: Chronic (6) History of CVA (cerebrovascular accident) Status: Chronic (7) Sacral decubitus ulcer, stage IV Status: Acute
--- NOTE | 2017-09-10 13:01 | PCM.SURG1 ---
Surgeon's Initial Post Op Note - Surgeon's Notes Surgeon: Gilberto Roberts MD Recycling Tech: None Type of Anesthesia: Local Pre-Operative Diagnosis: infection Operative Findings: red rash on medial upper arm so typically placement of PICC deferred; left arm too contracted to access inner arm vessels. patent right cephalic vein. catheter length: 37 cm. catheter tip: cavoatrial junction Post-Operative Diagnosis: same Operation Performed: RUE PICC Insertion Specimen/Specimens Removed: n/a Estimated Blood Loss: EBL {In ML}: 3 Date of Surgery/Procedure: 09/10/17 Time of Surgery/Procedure: 13:00
[2017-09-10] MEDS: Acetaminophen 650mg/20.3ml solution UD PEG SCH (13:52)
[2017-09-10] MEDS: Mycolog II OINT TOP SCH (16:03)
[2017-09-10] MEDS: Acetaminophen 650mg/20.3ml solution UD PEG PRN (16:04)
[2017-09-10] MEDS: Santyl Collagenase OINTMENT TOP SCH (16:05)
[2017-09-10 16:08] VITALS: BP 145/80; PULSE 101; TEMP 98.5; O2SAT 99
--- NOTE | 2017-09-10 21:48 | CP.PCM.DIS ---
Provider - Provider Date of Admission: 09/04/17 10:36 Attending physician: Sy Del Valle MD Diagnosis - Discharge Diagnosis (1) Respiratory insufficiency Status: Acute Priority: High (2) PNA (pneumonia) Status: Acute Priority: High (3) Sepsis Status: Acute Priority: High (4) UTI (urinary tract infection) Status: Acute Priority: High (5) Chronic systolic congestive heart failure Status: Chronic Priority: Medium (6) History of CVA (cerebrovascular accident) Status: Chronic Priority: Medium (7) Sacral decubitus ulcer, stage IV Status: Acute Priority: High Hospital Course - Lab Results Lab Results: Micro Results 09/07/17 12:30 Blood Blood Culture - Preliminary NO GROWTH AFTER 3 DAYS 09/04/17 09:30 Blood S.aureus & Coag-Neg Staph PNA FISH - Final 09/04/17 09:30 Blood Blood Culture - Final 09/04/17 09:30 Blood Gram Stain - Final 09/04/17 10:00 Blood Blood Culture - Final NO GROWTH AFTER 5 DAYS 09/04/17 10:00 Blood Gram Stain - Final TEST NOT PERFORMED 09/05/17 16:31 Sputum Gram Stain - Final 09/05/17 16:31 Sputum Sputum Culture - Final Pseudomonas Aeruginosa 09/04/17 12:00 Urine Urine Culture - Final No Growth (<1,000 CFU/ML) Most Recent Lab Values WBC 9.1 K/uL (4.8-10.8) 09/08/17 05:50 RBC 3.45 Mil/uL (3.80-5.20) L 09/08/17 05:50 Hgb 10.2 g/dL (12.0-16.0) L 09/08/17 05:50 Hct 30.5 % (34.0-47.0) L 09/08/17 05:50 MCV 88.5 fl (81.0-99.0) 09/08/17 05:50 MCH 29.5 pg (27.0-31.0) 09/08/17 05:50 MCHC 33.4 g/dL (33.0-37.0) 09/08/17 05:50 RDW 14.4 % (11.5-14.5) 09/08/17 05:50 Plt Count 274 K/uL (130-400) 09/08/17 05:50 MPV 9.3 fl (7.2-11.7) 09/04/17 09:30 Neut % (Auto) 80.3 % (50.0-75.0) H 09/04/17 09:30 Lymph % (Auto) 10.6 % (20.0-40.0) L 09/04/17 09:30 Brown % (Auto) 5.6 % (0.0-10.0) 09/04/17 09:30 Eos % (Auto) 2.7 % (0.0-4.0) 09/04/17 09:30 Baso % (Auto) 0.8 % (0.0-2.0) 09/04/17 09:30 Neut # (Auto) 12.6 K/uL (1.8-7.0) H 09/04/17 09:30 Lymph # (Auto) 1.7 K/uL (1.0-4.3) 09/04/17 09:30 Brown # (Auto) 0.9 K/uL (0.0-0.8) H 09/04/17 09:30 Eos # (Auto) 0.4 K/uL (0.0-0.7) 09/04/17 09:30 Baso # (Auto) 0.1 K/uL (0.0-0.2) 09/04/17 09:30 PT 11.4 Seconds (9.8-13.1) 09/04/17 09:30 INR 1.0 (0.9-1.2) 09/04/17 09:30 APTT 27.7 Seconds (25.6-37.1) 09/04/17 09:30 pCO2 35 mm/Hg (35-45) 09/07/17 11:11 pO2 111 mm/Hg (80-100) H 09/07/17 11:11 HCO3 29.8 mmol/L (21-28) H 09/07/17 11:11 ABG pH 7.53 (7.35-7.45) H 09/07/17 11:11 ABG Total CO2 30.3 mmol/L (22-28) H 09/07/17 11:11 ABG O2 Saturation 100.8 % (95-98) H 09/07/17 11:11 ABG O2 Content 13.9 ML/dL (15-23) L 09/07/17 11:11 ABG Base Excess 6.2 mmol/L (-2.0-3.0) H 09/07/17 11:11 ABG Hemoglobin 10.0 g/dL (11.7-17.4) L 09/07/17 11:11 ABG Carboxyhemoglobin 1.5 % (0.5-1.5) 09/07/17 11:11 POC ABG HHb (Measured) -0.8 % (0.0-5.0) L 09/07/17 11:11 ABG Methemoglobin 1.9 % (0.0-3.0) 09/07/17 11:11 ABG O2 Capacity 13.8 mL/dL (16-24) L 09/07/17 11:11 Ze Test Yes 09/07/17 11:11 VBG pH 7.36 (7.32-7.43) 09/04/17 10:10 VBG pCO2 62 mmHg (40-60) H 09/04/17 10:10 VBG HCO3 29.9 mmol/L 09/04/17 10:10 VBG Total CO2 36.9 mmol/L (22-28) H 09/04/17 10:10 VBG O2 Sat (Calc) 74.5 % (40-65) H 09/04/17 10:10 VBG Base Excess 7.4 mmol/L (0.0-2.0) H 09/04/17 10:10 VBG Potassium 4.7 mmol/L (3.6-5.2) 09/04/17 10:10 A-a O2 Difference 59.0 mm/Hg 09/07/17 11:11 Hgb O2 Saturation 97.3 % (95.0-98.0) 09/07/17 11:11 Sodium 136.0 mmol/L (132-148) 09/04/17 10:10 Chloride 99.0 mmol/L (98-107) 09/04/17 10:10 Glucose 120 mg/dL (65-105) H 09/04/17 10:10 Lactate 1.6 mmol/L (0.7-2.1) 09/04/17 10:10 FiO2 30.0 % 09/07/17 11:11 Blood Gas Comments 2l/m nc,rr 09/07/17 11:11 Crit Value Read Back N 09/07/17 11:11 Sodium 140 mmol/l (132-148) 09/08/17 05:50 Potassium 4.4 MMOL/L (3.6-5.0) 09/08/17 05:50 Chloride 101 mmol/L (98-107) 09/08/17 05:50 Carbon Dioxide 33 mmol/L (22-30) H 09/08/17 05:50 Anion Gap 10 (10-20) 09/08/17 05:50 BUN 16 mg/dl (7-17) 09/08/17 05:50 Creatinine 0.5 mg/dl (0.7-1.2) L 09/08/17 05:50 Est GFR ( Amer) > 60 09/08/17 05:50 Est GFR (Non-Af Amer) > 60 09/08/17 05:50 POC Glucose (mg/dL) 114 mg/dL (65-110) H 09/10/17 15:35 Random Glucose 131 mg/dL (65-105) H 09/08/17 05:50 Calcium 9.2 mg/dL (8.4-10.2) 09/08/17 05:50 Phosphorus 4.0 mg/dl (2.5-4.5) 09/04/17 09:30 Magnesium 2.0 MG/DL (1.6-2.3) 09/04/17 09:30 Total Bilirubin 0.5 mg/dl (0.2-1.3) 09/08/17 05:50 AST 23 U/L (14-36) 09/08/17 05:50 ALT 27 U/L (9-52) 09/08/17 05:50 Alkaline Phosphatase 72 U/L (38-126) 09/08/17 05:50 Total Protein 7.3 G/DL (6.3-8.2) 09/08/17 05:50 Albumin 3.4 g/dL (3.5-5.0) L 09/08/17 05:50 Globulin 4.0 gm/dL (2.2-3.9) H 09/08/17 05:50 Albumin/Globulin Ratio 0.8 (1.0-2.1) L 09/08/17 05:50 Triglycerides 83 mg/DL (0-149) 09/05/17 05:20 Cholesterol 103 mg/dL (0-199) 09/05/17 05:20 LDL Cholesterol Direct < 30 mg/dL (0-129) 09/05/17 05:20 HDL Cholesterol 33 MG/DL (30-70) 09/05/17 05:20 TSH 3rd Generation 1.30 mIU/ML (0.46-4.68) 09/05/17 05:20 Venous Blood Potassium 4.7 mmol/L (3.6-5.2) 09/04/17 10:10 Urine Color Yellow (YELLOW) 09/04/17 12:00 Urine Clarity Cloudy (Clear) 09/04/17 12:00 Urine pH 6.0 (5.0-8.0) 09/04/17 12:00 Ur Specific [place] 1.023 (1.003-1.030) 09/04/17 12:00 Urine Protein 30 mg/dL (NEGATIVE) 09/04/17 12:00 Urine Glucose (UA) Neg mg/dL (Normal) 09/04/17 12:00 Urine Ketones Negative mg/dL (NEGATIVE) 09/04/17 12:00 Urine Blood Negative (NEGATIVE) 09/04/17 12:00 Urine Nitrate Negative (NEGATIVE) 09/04/17 12:00 Urine Bilirubin Negative (NEGATIVE) 09/04/17 12:00 Urine Urobilinogen 0.2-1.0 mg/dL (0.2-1.0) 09/04/17 12:00 Ur Leukocyte Esterase Trace [place]/uL (Negative) 09/04/17 12:00 Urine RBC (Auto) 31 /hpf (0-3) H 09/04/17 12:00 Urine Microscopic WBC 33 /hpf (0-5) H 09/04/17 12:00 Ur Squamous Epith Cells 1 /hpf (0-5) 09/04/17 12:00 Amorphous Sediment Rare /ul (<OCC) H 09/04/17 12:00 Urine Bacteria Rare (<OCC) 09/04/17 12:00 Gentamicin Trough 0.9 ug/mL (0.0-0.9) 09/09/17 10:43 Discharge Exam - Head Exam Head Exam: NORMAL INSPECTION Discharge Plan - Discharge Medications Prescriptions: Gentamicin 60mg/50ml NS 40 ml IV Q12 #14 bag Meropenem [Merrem IV] 1 gm IV Q8 #21 pds - Follow Up Plan Condition: GUARDED Disposition: REHAB FACILITY/REHAB UNIT Instructions: Pneumonia, Adult (DC), Folliculitis (DC), Extended-Spectrum Beta Lactamase Infection Additional Instructions: patient cleared for discharge to [facility] after PICC insertion continue Genta/Merrem for on more week please monito Genta Trough at [facility] Referrals: Ezequiel Blankenship MD [Staff Provider] - Sy Del Valle MD [Staff Provider] -
[2017-09-11] MEDS ORDERED: Famotidine 40 MG/5 ML PEG SCH (09:00)
--- NOTE | 2017-09-11 09:51 | VASCULAR ---
PROCEDURE: PERIPHERALLY INSERTED CENTRAL VENOUS CATHETER INSERTION CLINICAL HISTORY: 66-year-old female requiring residential intravenous antibiotics is referred to Interventional Radiology for PICC insertion. COMPARISON: PICC placement performed 02/27/2017 PROCEDURE: 1. Focused ultrasound of the right upper extremity vasculature. 2. Ultrasound-guided access. 3. Insertion of peripherally inserted central venous catheter. 4. Fluoroscopic localization of catheter tip. PRE-PROCEDURE FINDINGS: 1. Rash on inner right upper arm. Severe left arm contracture. 2. Patent right cephalic vein. POST-PROCEDURE FINDINGS: 1. Placement of 4 [place] single-lumen PICC. 2. Catheter length: 37 cm. 3. Catheter tip at cavoatrial junction. INTERVENTIONAL RADIOLOGIST: Gilberto Roberts M.D. (the attending was present for the entire procedure) ANESTHESIA: None. MEDICATION: Lidocaine 1% for local subcutaneous analgesia. COMPLICATIONS: None. RADIATION DOSE: Fluoroscopy Time: 11.4 seconds Cumulative Dose: 1.52 mGy PROCEDURE DESCRIPTION AND FINDINGS: The risks, benefits, alternatives and possible complications of the procedure were fully discussed; all questions were answered and informed consent was obtained. The patient was brought into the interventional suite and a pre-procedure 'time-out' was performed. The patient was placed on the fluoroscopy table in the supine position. A rash was present on the inner right upper arm. The left arm was severely contracted. The right upper extremity was prepped and draped in the usual sterile fashion. Maximum sterile barrier precautions were maintained throughout the entire procedure. Preliminary ultrasound images of the right upper extremity vasculature demonstrate patency of the right cephalic vein. Following subcutaneous infiltration of 1% lidocaine for local analgesia, under ultrasound guidance, a 21-gauge needle was advanced into the right cephalic vein with real-time visualization of needle entry. The ultrasound images were permanently recorded and submitted to the PACS. A 0.018 guidewire was advanced centrally to the cavoatrial junction. A 4.5 [place]itanian peel-away sheath was advanced over the guidewire. After obtaining length measurement, a 4 [place] single-lumen PICC was placed with the tip of the catheter at the cavoatrial junction. The total length of the catheter is 37 cm. The hub of the PICC was secured to the skin using a sterile adhesive bandage. The patient tolerated the procedure well without immediate post-procedure complications and was transferred back to the floor in stable condition. IMPRESSION: SUCCESSFUL INSERTION OF RIGHT UPPER EXTREMITY PICC VIA THE CEPHALIC VEIN. PICC OK TO USE.
== END 2017-09-10 17:00 | DRG 871 ==
LOC: H.ER 08:09 → H.ERHOLD 10:36 → H.MEDSURG1 14:06
PROVIDERS: ADMIT Internal Medicine Pulmonary Disease; ATTEND Internal Medicine Pulmonary Disease
PROC: 02HV33Z Insertion of Infusion Device into Superior Vena Cava, Percutaneous Approach (ICD-10-PCS; principal; 2017-09-10)
PROC: B548ZZA Ultrasonography of Superior Vena Cava, Guidance (ICD-10-PCS; 2017-09-10)
PROC: 3E04329 Introduction of Other Anti-infective into Central Vein, Percutaneous Approach (ICD-10-PCS; 2017-09-10)
DX: A41.9 Sepsis, unspecified organism (principal); J15.1 Pneumonia due to Pseudomonas; L89.154 Pressure ulcer of sacral region, stage 4; I50.22 Chronic systolic (congestive) heart failure; I13.0 Hypertensive heart and chronic kidney disease with heart failure and stage 1 through stage 4 chronic kidney disease, or unspecified chronic kidney disease; N39.0 Urinary tract infection, site not specified; J44.0 Chronic obstructive pulmonary disease with (acute) lower respiratory infection; Z16.12 Extended spectrum beta lactamase (ESBL) resistance; N18.9 Chronic kidney disease, unspecified; I48.91 Unspecified atrial fibrillation; G30.9 Alzheimer's disease, unspecified; F02.80 Dementia in other diseases classified elsewhere, unspecified severity, without behavioral disturbance, psychotic disturbance, mood disturbance, and anxiety; I69.320 Aphasia following cerebral infarction; E78.00 Pure hypercholesterolemia, unspecified; Z93.1 Gastrostomy status; Z66 Do not resuscitate; M19.90 Unspecified osteoarthritis, unspecified site; D64.9 Anemia, unspecified; Z74.01 Bed confinement status; Z87.01 Personal history of pneumonia (recurrent); Z87.440 Personal history of urinary (tract) infections; Z87.891 Personal history of nicotine dependence

== ENCOUNTER 2017-10-01 17:09 | Inpatient (IN) | payer MEDICARE, MEDICAID ==
[2017-10-01 17:09] VITALS: PULSE 196; BMI 24.2
[2017-10-01] MEDS ORDERED: Albuterol-Ipratrop 3 mg / 0.5 (3 ml) UD ONE (17:23)
[2017-10-01] MEDS ORDERED: Gentamicin 60mg/50ml NS 60 MG/50 ML BAG IVPB STA (17:57)
--- NOTE | 2017-10-01 18:00 | ED PDOC ---
HPI: SOB/CHF/COPD Time Seen by Provider: 10/01/17 17:36 Chief Complaint (Nursing): Shortness Of Breath Chief Complaint (Provider): SOB History Per: EMS, Other ([facility]) Additional Complaint(s): Pt sent from [place] for SOB. Pt with h/o MDR pneumonia, finished course of Meropenem and Gentamycin last month. Pt DNR & DNI, as per YAMILETH Harris and Dr. Del Valle (verbal verification by me). Past Medical History Vital Signs: Last Vital Signs Temp 99.1 F 10/05/17 08:00 Pulse 90 10/05/17 08:00 Resp 18 10/05/17 08:46 BP 101/59 L 10/05/17 09:24 Pulse Ox 99 10/05/17 08:00 - Medical History PMH: Alzheimer's Disease, Anemia, Arthritis, Atrial Fibrillation, CHF (systolic failure), COPD, CVA (left-sided), Dementia, Depression, Fractures (L ankle), HTN , Hypercholesterolemia, Pneumonia, Chronic Kidney Disease - Surgical History Surgical History: - Family History Family History: States: Unknown Family Hx - Home Medications Home Medications: Ambulatory Orders Medication Instructions Recorded Atorvastatin [Lipitor] 10 mg PEG HS 06/17/16 Ferrous Sulfate [Ferosul] 330 mg PEG BID 06/17/16 Metoprolol Tartrate [Lopressor] 25 mg PEG Q8 06/17/16 diltiaZEM [Cardizem] 60 mg PEG Q8 06/17/16 Acetaminophen [Tylenol 160mg/5ml 640 mg PEG Q4 PRN 09/28/16 Oral Soln] Tramadol HCl [Ultram] 50 mg PEG Q6 PRN 09/28/16 Albuterol/Ipratropium [Duoneb 3 3 ml INH RQ6 10/03/16 mg/0.5 mg (3 ml) UD] Bisacodyl [Dulcolax] 10 mg [place] DAILY PRN sup 10/03/16 Enoxaparin [Lovenox] 40 mg SC DAILY syr 10/03/16 Acetaminophen [Tylenol 160mg/5ml 640 mg PEG DAILY 02/23/17 Oral Soln] Aspirin [Aspirin Chewable] 81 mg PEG DAILY 02/23/17 Enalapril Maleate [Vasotec] 2.5 mg PEG DAILY 02/23/17 Zinc [Zinc Sulfate 220 mg Cap] 220 mg PEG DAILY 09/04/17 Famotidine [Pepcid] 20 mg PEG DAILY ml 09/10/17 Latanoprost 0.005% Opht [Xalatan 1 drop OU HS #0 bottle 09/10/17 Opht] Ascorbic Acid [Vitamin C 500 mg 500 mg PEG DAILY 10/01/17 Tab] Lactulose [Enulose] 20 gm PEG BID 10/01/17 Magnesium Hydroxide [Milk Of 30 ml PEG HS PRN 10/01/17 Magnesia] - Allergies Allergies/Adverse Reactions: Allergies Allergy/AdvReac Type Severity Reaction Status Date / Time No Known Allergies Allergy Verified 10/01/17 17:16 Review of Systems Review Of Systems: ROS cannot be obtained secondary to pt's inabilty to answer questions. Physical Exam - Reviewed Nursing Documentation Reviewed: Yes Vital Signs Reviewed: Yes - Physical Exam Appears: Positive for: In Acute Distress Head Exam: Positive for: ATRAUMATIC, NORMAL INSPECTION Skin: Positive for: Pallor Eye Exam: Positive for: Normal appearance, EOMI, PERRL Cardiovascular/Chest: Positive for: Regular Rate, Rhythm Respiratory: Positive for: Rhonchi, Respiratory Distress Neurologic/Psych: Positive for: Alert, Other (Nonverbal). Negative for: Oriented - Laboratory Results Result Diagrams: 10/05/17 04:20 10/05/17 04:20 - Core Measure Core Measure Indicators: Pneumonia - Critical Care Total Time (In Min): 45 Medical Decision Making Medical Decision Makin yo female from [place] with dyspnea. - labs - EKG - CXR - IV ABx Accession No. : [id number] Patient Name / ID : FITO CARRION / [id number] Exam Date : 10/01/2017 17:48:48 ( Approved ) Study Comment : Sex / Age : F / 66Y Creator : Nithin Goddard MD Dictator : Nithin Goddard MD Bilingual Case Manager : Digital Advertising Specialist : Nithin Goddard MD Approver2 : Report Date : 10/01/2017 18:25:42 My Comment : HISTORY: Shortness of breath COMPARISON: 09/07/2017 FINDINGS: LUNGS: Worsening left lower lobe infiltrate with air bronchograms likely acute pneumonia. PLEURA: No significant pleural effusion identified, no pneumothorax apparent. CARDIOVASCULAR: No radiographic findings to suggest acute or significant cardiovascular disease. OSSEOUS STRUCTURES: No significant abnormalities. VISUALIZED UPPER ABDOMEN: Normal. OTHER FINDINGS: None. IMPRESSION: Extensive left lower lobe infiltrate. Alveolar type with air bronchograms likely acute pneumonia. Disposition - Clinical Impression Clinical Impression: HCAP (healthcare-associated pneumonia), Respiratory distress - Patient ED Disposition Is Patient to be Admitted: Yes - Disposition Disposition Time: 18:55 Condition: GUARDED - Pt Status Changed To: Hospital Disposition Of: Inpatient - Admit Certification Admit to Inpatient:: After my assessment, the patient will require hospitalization for at least two midnights. This is because of the severity of symptoms shown, intensity of services needed, and/or the medical risk in this patient being treated as an outpatient. - POA Present On Arrival: Pressure Ulcer
[2017-10-01 18:20] LABS: ABG ALLEN TEST YES; ARTERIAL BLOOD GAS HCO3 30.2 mmol/L (21-28); ARTERIAL BLOOD GAS O2 SAT 89.4 % (95-98); ARTERIAL BLOOD GAS PCO2 36 mm/Hg (35-45); ARTERIAL BLOOD GAS PH 7.53 (7.35-7.45); ARTERIAL BLOOD GAS PO2 46 mm/Hg (80-100); ARTERIAL BLOOD GAS TCO2 31.2 mmol/L (22-28)
--- NOTE | 2017-10-01 18:27 | RAD ---
HISTORY: Shortness of breath COMPARISON: 09/07/2017 FINDINGS: LUNGS: Worsening left lower lobe infiltrate with air bronchograms likely acute pneumonia. PLEURA: No significant pleural effusion identified, no pneumothorax apparent. CARDIOVASCULAR: No radiographic findings to suggest acute or significant cardiovascular disease. OSSEOUS STRUCTURES: No significant abnormalities. VISUALIZED UPPER ABDOMEN: Normal. OTHER FINDINGS: None. IMPRESSION: Extensive left lower lobe infiltrate. Alveolar type with air bronchograms likely acute pneumonia.
[2017-10-01 18:32] LABS: BASO # 0.2 K/uL (0.0-0.2); BASO % 0.5 % (0.0-2.0); HEMOGLOBIN 9.6 g/dL (12.0-16.0); LYMPH # 1.7 K/uL (1.0-4.3); LYMPH % 4.7 % (20.0-40.0); MEAN CELL VOLUME 87.2 fl (81.0-99.0); MEAN CORPUSCULAR HGB CONC 32.1 g/dL (33.0-37.0); MEAN PLATELET VOLUME 10.7 fl (7.2-11.7); MONO % 5.5 % (0.0-10.0); NEUT % 89.3 % (50.0-75.0); PLATELET COUNT 286 K/uL (130-400); RBC 3.42 Mil/uL (3.80-5.20); RED CELL DISTRIBUTION WIDTH 14.7 % (11.5-14.5)
[2017-10-01 18:43] LABS: INR 1.1 (0.9-1.2); PARTIAL THROMBOPLASTIN TIME 33.4 Seconds (25.6-37.1); PROTHROMBIN TIME 12.1 Seconds (9.8-13.1)
[2017-10-01 18:45] LABS: TROPONIN I 0.039 ng/mL (0.00-0.120)
[2017-10-01 18:48] LABS: ALB/GLOB RATIO 0.9 (1.0-2.1); ALBUMIN 3.5 g/dL (3.5-5.0); CALCIUM 9.3 mg/dL (8.4-10.2)
[2017-10-01] MEDS ORDERED: Sodium Chloride 0.9% 1,000 ML IV STA (18:55)
[2017-10-01 20:05] LABS: ANISOCYTOSIS SLIGHT; BANDS 11 % (0-2); LARGE PLATELETS PRESENT; LYMPHOCYTE 3 % (20-50); METAMYELOCYTE 1 % (0-0); MONOCYTE 7 % (0-10); NEUTROPHIL 78 % (42-75); OVALOCYTES MODERATE; PLATELET ESTIMATE NORMAL (NORMAL); TOTAL CELLS COUNTED 100
[2017-10-01 20:26] LABS: URINE BACTERIA MOD (<OCC); URINE BILIRUBIN NEGATIVE (NEGATIVE); URINE BLOOD MODERATE (NEGATIVE); URINE CALCIUM OXALATE CRYSTALS OCC /hpf (<OCC); URINE CLARITY CLOUDY (Clear); URINE COLOR AMBER (YELLOW); URINE GLUCOSE (UA) NEG (Normal); URINE LEUKOCYTE ESTERASE MOD Leu/uL (Negative); URINE PROTEIN 100 mg/dL (NEGATIVE); URINE UROBILINOGEN 0.2-1.0 mg/dL (0.2-1.0)
[2017-10-01 21:38] LABS: VENOUS BLOOD GAS BASE EXCESS 4.5 mmol/L (0.0-2.0); VENOUS BLOOD GAS PCO2 46 mmHg (40-60); VENOUS BLOOD GAS PO2 33 mm/Hg (30-55); VENOUS BLOOD PH 7.42 (7.32-7.43)
[2017-10-01] MEDS ORDERED: Acetaminophen 160 mg/5 ml UD PEG PRN (23:54)
[2017-10-01] MEDS ORDERED: Magnesium Hydroxide Susp 30 ml UD PEG PRN (23:54)
[2017-10-02] MEDS ORDERED: Chlorhexidine Gluconate 1 APPL/PKT TP ONE ×2 (00:08→03:34)
[2017-10-02] MEDS: Albuterol-Ipratrop 3 mg / 0.5 (3 ml) UD INH SCH ×4 (00:17→11:13)
[2017-10-02] MEDS: Gentamicin 60mg/50ml NS 60 MG/50 ML BAG IVPB SCH ×3 (01:13→16:18)
[2017-10-02] MEDS ORDERED: Albuterol-Ipratrop 3 mg / 0.5 (3 ml) UD INH SCH (02:00)
[2017-10-02 06:00] LABS: HEMOGLOBIN 9.5 g/dL (12.0-16.0); MEAN CELL VOLUME 87.4 fl (81.0-99.0); MEAN CORPUSCULAR HEMOGLOBIN 28.4 pg (27.0-31.0); MEAN CORPUSCULAR HGB CONC 32.5 g/dL (33.0-37.0); RBC 3.34 Mil/uL (3.80-5.20); RED CELL DISTRIBUTION WIDTH 14.7 % (11.5-14.5); WHITE BLOOD COUNT 25.8 K/uL (4.8-10.8)
[2017-10-02 06:10] LABS: ALB/GLOB RATIO 0.9 (1.0-2.1); ALBUMIN 3.3 g/dL (3.5-5.0); ALT/SGPT 24 U/L (9-52); AST/SGOT 54 U/L (14-36); BLOOD UREA NITROGEN 31 mg/dl (7-17); CALCIUM 9.1 mg/dL (8.4-10.2); GFR AFRICAN-AMERICAN > 60; GFR NON-AFRICAN AMERICAN > 60
[2017-10-02 06:20] LABS: INR 1.1 (0.9-1.2); PROTHROMBIN TIME 11.8 Seconds (9.8-13.1)
[2017-10-02 06:21] LABS: PARTIAL THROMBOPLASTIN TIME 31.8 Seconds (25.6-37.1)
[2017-10-02] MEDS: Enoxaparin 40 mg Syringe SC SCH (09:06)
[2017-10-02] MEDS: Famotidine 40 MG/5 ML PEG SCH (09:36)
[2017-10-02] MEDS: Ferrous Sulfate 220 MG/5 ML PEG SCH ×2 (09:36→16:20)
[2017-10-02 09:53] LABS: SQUAMOUS EPITHIAL < 1 /hpf (0-5); URINE AMORPHOUS SEDIMENT OCC /ul (<OCC); URINE BACTERIA RARE (<OCC); URINE BILIRUBIN NEGATIVE (NEGATIVE); URINE BLOOD NEGATIVE (NEGATIVE); URINE CLARITY CLOUDY (Clear); URINE COLOR YELLOW (YELLOW); URINE GLUCOSE (UA) 50 mg/dL (Normal); URINE LEUKOCYTE ESTERASE NEG Leu/uL (Negative); URINE PROTEIN 30 mg/dL (NEGATIVE); URINE UROBILINOGEN 0.2-1.0 mg/dL (0.2-1.0); WBC CLUMPS OCC /hpf
--- NOTE | 2017-10-02 12:59 | CP.PCM.PCO ---
Assessment/Plan - Assessment/Plan Assessment (Free Text): Patient seen and examined Awake, nonverbal, tachypnic, tachycardic with some fevers, on High Flow NC getting iv abx infusing. Family at bedside, resuscitative status discussed. as per AMADOU Wilson, patient is a DNR/DNI status Will order and monitor pt. - Consults Consult Orders: Consultations 10/02/17 02:08 Nursing Referral for Wound Care Routine Comment: Physician Instructions: Reason For Exam: sacral wound noted
--- NOTE | 2017-10-02 14:41 | CP.PCM.CON ---
History of Present Illness - History of Present Illness History of Present Illness: 66 y/o female sent from [facility] for evaluation. ESBL and MDR were found in patients sputum culture collected 08/26/2017. She was treated with Merrem / Genta and improved Now with extensive LLL infiltrates and persistent fevers ID consulted for this - Medical History PMH: Alzheimer's Disease, Anemia, Arthritis, Atrial Fibrillation, CHF (systolic failure), COPD, CVA (left-sided), Dementia, Depression, Fractures (L ankle), HTN , Hypercholesterolemia, Pneumonia, Chronic Kidney Disease - Surgical History Surgical History: Review of Systems - Review of Systems Systems not reviewed;Unavailable: Altered Mental Status All systems: reviewed and no additional remarkable complaints except - Constitutional Constitutional: As Per HPI - EENT Eyes: absent: As Per HPI, Blind Spots, Blurred Vision, Change in Vision, Decreased Night Vision, Diplopia, Discharge, Dry Eye, Exophthalmos, Floaters, Irritation, Itchy Eyes, Loss of Peripheral Vision, Pain, Photophobia, Requires Corrective Lenses, Sees Flashes, Spots in Vision, Tunnel Vision, Other Visual Disturbances, Loss of Vision, Other Ears: absent: As Per HPI, Decreased Hearing, Ear Discharge, Ear Pain, Tinnitus, Abnormal Hearing, Disequilibrium, Dizziness, Other Nose/Mouth/Throat: absent: As Per HPI, Epistaxis, Nasal Congestion, Nasal Discharge, Nasal Obstruction, Nasal Trauma, Nose Pain, Post Nasal Drip, Sinus Pain, Sinus Pressure, Bleeding Gums, Change in Voice, Dental Pain, Dry Mouth, Dysphagia, Halitosis, Hoarsness, Lip Swelling, Mouth Lesions, Mouth Pain, Odynophagia, Sore Throat, Throat Swelling, Tongue Swelling, Facial Pain, Neck Pain, Neck Mass, Other - Breasts Breasts: absent: As Per HPI, Change in Shape, Mass, Pain, Nipple Discharge, Nipple Inversion, Skin Changes, Swelling, Other - Cardiovascular Cardiovascular: As Per HPI - Respiratory Respiratory: As Per HPI, Cough, Dyspnea. absent: Hemoptysis - Gastrointestinal Gastrointestinal: absent: As Per HPI, Abdominal Pain, Belching, Bloating, Change in Bowel Habits, Change in Stool Character, Coffee Ground Emesis, Constipation, Cramping, Diarrhea, Dyspepsia, Dysphagia, Early Satiety, Excessive Flatus, Fecal Incontinence, Heartburn, Hematemesis, Hematochezia, Loose Stools, Melena, Nausea, Odynophagia, Temesmus, Vomiting, Other - Genitourinary Genitourinary: absent: As Per HPI, Change in Urinary Stream, Difficulty Urinating, Dysuria, Flank Pain, Hematuria, Pyuria, Nocturia, Urinary Incontinence, Urinary Frequency, Urinary Hesitance, Urinary Urgency, Voiding Freq/Small Amts, Freq UTI, Hx Renal/Bladder Calculi, Hx /Renal Surgery, Bladder Distension, Other - Reproductive: Female Reproductive:Female: absent: As Per HPI, Amenorrhea, Amenorrhea/ Control, Currently Menstual, Cycle <21 Days, Cycle >35 Days, Cycle Variable, Menses 1-7 Days, Menses >/= 8 Days, Menses Variable, Cycle > 4 Weeks Between, No Menses for 6 Months, Heavy Menses, Light Menses, Normal Menses, Spotting Between Cycles , S/P Hysterectomy, Menopausal, Post Menopausal, Premenarche, Abnormal Vaginal Bleeding, Dysmenorrhea, Dyspareunia, Genital Lesions, Genital Pruritis, Pelvic Pain, Prolapse Symptoms, Sexual Dysfunction, Vaginal Discharge, Vaginal Dryness , Vaginal Odor, Vaginal Pruritis, Other - Menstruation Menstruation: absent: As Per HPI, Amenorrhea, Amenorrhea/ Control, Currently Menstual, Cycle <21 Days, Cycle >35 Days, Cycle Variable, Menses 1-7 Days, Menses >/= 8 Days, Menses Variable, Cycle > 4 Weeks Between, No Menses for 6 Months, Heavy Menses, Light Menses, Normal Menses, Spotting Between Cycles , S/P Hysterectomy, Menopausal, Post Menopausal, Premenarche, Abnormal Vaginal Bleeding, Dysmenorrhea, Other - Musculoskeletal Musculoskeletal: As Per HPI - Integumentary Integumentary: As Per HPI - Neurological Neurological: As Per HPI - Psychiatric Psychiatric: absent: As Per HPI, Abnormal Sleep Pattern, Anhedonia, Anxiety, Auditory Hallucinations, Behavioral Changes, Change in Appetite, Change in Libido, Confusion, Depression, Difficulty Concentrating, Hallucinations, Homicidal Ideation, Hopelessness, Irritability, Memory Loss, Mood Swings, Panic Attacks, Paranoia, Suicidal Ideation, Visual Hallucinations, Tactile Hallucinations, Other - Endocrine Endocrine: absent: As Per HPI, Change in Body Appearance, Change in Libido, Cold Intolorance, Deepening of Voice, Excessive Sweating, Fatigue, Flushing, Heat Intolorance, Increase in Ring/Shoe/Hat Size, Palpitations, Polydipsia, Polyphagia, Polyuria, Other - Hematologic/Lymphatic Hematologic: absent: As Per HPI, Easy Bleeding, Easy Bruising, Lymphadenopathy, Other Past Patient History - Infectious Disease Hx of Infectious Diseases: ESL - Past Medical History & Family History Past Medical History?: Yes - Past Social History Smoking Status: Unknown If Ever Smoked - CARDIAC Hx Cardiac Disorders: Yes - PULMONARY Hx Respiratory Disorders: Yes - NEUROLOGICAL Hx Neurological Disorder: Yes - HEENT Hx HEENT Problems: Yes - RENAL Hx Chronic Kidney Disease: Yes - ENDOCRINE/METABOLIC Hx Endocrine Disorders: No - HEMATOLOGICAL/ONCOLOGICAL Hx Blood Disorders: Yes - INTEGUMENTARY Hx Dermatological Problems: Yes - MUSCULOSKELETAL/RHEUMATOLOGICAL Hx Musculoskeletal Disorders: No Hx Falls: No - GASTROINTESTINAL Hx Gastrointestinal Disorders: Yes Other/Comment: PEG tube, E-COLI - GENITOURINARY/GYNECOLOGICAL Hx Genitourinary Disorders: Yes Hx Urinary Tract Infection: Yes Other/Comment: Proctor Catheter - PSYCHIATRIC Hx Psychophysiologic Disorder: Yes Hx Depression: Yes - SURGICAL HISTORY Hx Surgeries: Yes Hx Section: Yes Other/Comment: left ankle surgery, PEG insertion, PICC insertion - ANESTHESIA Hx Anesthesia: Yes Hx Anesthesia Reactions: No Hx Malignant Hyperthermia: No Meds Allergies/Adverse Reactions: Allergies Allergy/AdvReac Type Severity Reaction Status Date / Time No Known Allergies Allergy Verified 10/01/17 17:16 - Medications Medications: Current Medications Acetaminophen (Tylenol 650 Mg Supp) 650 mg [place] Q6 PRN PRN Reason: Fever >100.4 F Last Admin: 10/02/17 09:05 Dose: 650 mg Acetaminophen (Tylenol 650mg/20.3ml Solution Ud) 650 mg PEG Q4 PRN PRN Reason: Pain, Mild (1-3) Aspirin (Aspirin Chewable) 81 mg PEG DAILY [facility] Last Admin: 10/02/17 09:04 Dose: 81 mg Atorvastatin Calcium (Lipitor) 10 mg PEG HS [facility] Diltiazem HCl (Cardizem) 60 mg PEG Q8 [facility] Last Admin: 10/02/17 09:03 Dose: 60 mg Enalapril Maleate (Vasotec) 2.5 mg PEG DAILY [facility] Last Admin: 10/02/17 09:05 Dose: 2.5 mg Enoxaparin Sodium (Lovenox) 40 mg SC DAILY [facility] PRN Reason: Protocol Last Admin: 10/02/17 09:06 Dose: 40 mg Famotidine (Pepcid) 20 mg PEG DAILY [facility] Last Admin: 10/02/17 09:36 Dose: 20 mg Ferrous Sulfate (Ferrous Sulfate) 330 mg PEG BID [facility] Last Admin: 10/02/17 09:36 Dose: 330 mg Gentamicin Sulfate/Sodium Chloride (Gentamicin 60mg/50ml Ns) 60 mg in 50 mls @ 49.261 mls/hr IVPB Q8H [facility] PRN Reason: Protocol Last Admin: 10/02/17 09:06 Dose: 49.261 mls/hr Vancomycin HCl 1 gm/ Sodium (Chloride) 250 mls @ 166.667 mls/hr IVPB DAILY [facility] PRN Reason: Protocol Last Admin: 10/02/17 11:37 Dose: 166.667 mls/hr Lactulose (Enulose) 20 gm PEG BID [facility] Last Admin: 10/02/17 09:06 Dose: 20 gm Latanoprost (Xalatan Opht) 1 drop OU HS [facility] Magnesium Hydroxide (Milk Of Magnesia) 30 ml PEG HS PRN PRN Reason: Constipation Metoprolol Tartrate (Lopressor) 25 mg PEG Q8 [facility] Last Admin: 10/02/17 09:05 Dose: 25 mg Tramadol HCl (Ultram) 50 mg GT Q6 PRN PRN Reason: Pain, severe (8-10) Zinc Sulfate (Zinc Sulfate 220 Mg Cap) 220 mg PEG DAILY [facility] Last Admin: 10/02/17 09:16 Dose: 220 mg Physical Exam - Constitutional Appears: In Acute Distress, Confused, Chronically Ill - Head Exam Head Exam: ATRAUMATIC, NORMAL INSPECTION, NORMOCEPHALIC - Eye Exam Eye Exam: PERRL. absent: Scleral icterus - ENT Exam ENT Exam: Mucous Membranes Dry - Neck Exam Neck exam: Negative for: Lymphadenopathy - Respiratory Exam Respiratory Exam: Decreased Breath Sounds, Prolonged Expiratory Phase, Rhonchi, Wheezes - Cardiovascular Exam Cardiovascular Exam: REGULAR RHYTHM, +S1, +S2 - GI/Abdominal Exam GI & Abdominal Exam: Diminished Bowel Sounds, Distended, Soft. absent: Tenderness - Rectal Exam Rectal Exam: Deferred - Exam Exam: NORMAL INSPECTION - Extremities Exam Extremities exam: Positive for: pedal pulses present. Negative for: calf tenderness, pedal edema, tenderness - Back Exam Back exam: absent: CVA tenderness (L), CVA tenderness (R) - Neurological Exam Neurological exam: Alert, CN II-XII Intact, Motor Sensory Deficit - Psychiatric Exam Psychiatric exam: Anxious - Skin Skin Exam: Dry Results - Vital Signs Recent Vital Signs: Last Vital Signs Temp 100.1 F H 10/02/17 12:10 Pulse 116 H 10/02/17 12:10 Resp 18 10/02/17 12:10 BP 107/63 10/02/17 12:10 Pulse Ox 92 L 10/02/17 12:10 - Labs Result Diagrams: 10/02/17 05:24 10/02/17 05:24 Labs: Laboratory Results - last 24 hr 10/01/17 10/01/17 10/01/17 18:16 18:18 18:18 WBC 37.0 H* D RBC 3.42 L Hgb 9.6 L Hct 29.8 L MCV 87.2 MCH 28.0 MCHC 32.1 L RDW 14.7 H Plt Count 286 MPV 10.7 Neut % (Auto) 89.3 H Lymph % (Auto) 4.7 L Gem % (Auto) 5.5 Eos % (Auto) 0.0 Baso % (Auto) 0.5 Neut # (Auto) 33.0 H Lymph # (Auto) 1.7 Gem # (Auto) 2.0 H Eos # (Auto) 0.0 Baso # (Auto) 0.2 Neutrophils % (Manual) 78 H Band Neutrophils % 11 H* Lymphocytes % (Manual) 3 L Monocytes % (Manual) 7 Metamyelocytes % 1 H Platelet Estimate Normal Large Platelets Present Anisocytosis (manual) Slight Ovalocytes Moderate PT INR APTT pCO2 36 pO2 46 L HCO3 30.2 H ABG pH 7.53 H ABG Total CO2 31.2 H ABG O2 Saturation 89.4 L ABG Base Excess 7.1 H Ze Test Yes ABG Potassium 3.9 VBG pH VBG pCO2 VBG HCO3 VBG Total CO2 VBG O2 Sat (Calc) VBG Base Excess VBG Potassium A-a O2 Difference 194.0 Sodium 133.0 135 Chloride 99.0 94 L Glucose 143 H Lactate 2.3 H Vent Mode Tx neb mask FiO2 40.0 Potassium 4.4 Carbon Dioxide 27 Anion Gap 18 BUN 36 H Creatinine 1.2 Est GFR ( Amer) 55 Est GFR (Non-Af Amer) 45 Random Glucose 102 Calcium 9.3 Total Bilirubin 0.4 AST 50 H D ALT 21 Alkaline Phosphatase 72 Troponin I 0.0390 Total Protein 7.4 Albumin 3.5 Globulin 3.9 Albumin/Globulin Ratio 0.9 L Arterial Blood Potassium 3.9 Venous Blood Potassium Urine Color Urine Clarity Urine pH Ur Specific [place] Urine Protein Urine Glucose (UA) Urine Ketones Urine Blood Urine Nitrate Urine Bilirubin Urine Urobilinogen Ur Leukocyte Esterase Urine RBC (Auto) Urine WBC Clumps (Auto) Urine Microscopic WBC Ur Squamous Epith Cells Calcium Oxalate Crystal Amorphous Sediment Urine Bacteria Hyaline Casts 10/01/17 10/01/17 10/01/17 18:18 19:35 21:34 WBC RBC Hgb Hct MCV MCH MCHC RDW Plt Count MPV Neut % (Auto) Lymph % (Auto) Gem % (Auto) Eos % (Auto) Baso % (Auto) Neut # (Auto) Lymph # (Auto) Gem # (Auto) Eos # (Auto) Baso # (Auto) Neutrophils % (Manual) Band Neutrophils % Lymphocytes % (Manual) Monocytes % (Manual) Metamyelocytes % Platelet Estimate Large Platelets Anisocytosis (manual) Ovalocytes PT 12.1 INR 1.1 APTT 33.4 pCO2 pO2 33 HCO3 ABG pH ABG Total CO2 ABG O2 Saturation ABG Base Excess Ze Test ABG Potassium VBG pH 7.42 VBG pCO2 46 VBG HCO3 27.6 VBG Total CO2 31.2 H VBG O2 Sat (Calc) 67.7 H VBG Base Excess 4.5 H VBG Potassium 3.8 A-a O2 Difference Sodium 134.0 Chloride 102.0 Glucose 122 H Lactate 2.8 H Vent Mode FiO2 96.0 Potassium Carbon Dioxide Anion Gap BUN Creatinine Est GFR ( Amer) Est GFR (Non-Af Amer) Random Glucose Calcium Total Bilirubin AST ALT Alkaline Phosphatase Troponin I Total Protein Albumin Globulin Albumin/Globulin Ratio Arterial Blood Potassium Venous Blood Potassium 3.8 Urine Color [place] Urine Clarity Cloudy Urine pH 5.0 Ur Specific [place] 1.023 Urine Protein 100 Urine Glucose (UA) Neg Urine Ketones Negative Urine Blood Moderate Urine Nitrate Negative Urine Bilirubin Negative Urine Urobilinogen 0.2-1.0 Ur Leukocyte Esterase Mod Urine RBC (Auto) 176 H Urine WBC Clumps (Auto) Urine Microscopic WBC 23 H Ur Squamous Epith Cells Calcium Oxalate Crystal Occ H Amorphous Sediment Urine Bacteria Mod H Hyaline Casts 3-5 H 10/02/17 10/02/17 10/02/17 05:24 05:24 05:24 WBC 25.8 H RBC 3.34 L Hgb 9.5 L Hct 29.2 L MCV 87.4 MCH 28.4 MCHC 32.5 L RDW 14.7 H Plt Count 236 MPV Neut % (Auto) Lymph % (Auto) Gem % (Auto) Eos % (Auto) Baso % (Auto) Neut # (Auto) Lymph # (Auto) Gem # (Auto) Eos # (Auto) Baso # (Auto) Neutrophils % (Manual) Band Neutrophils % Lymphocytes % (Manual) Monocytes % (Manual) Metamyelocytes % Platelet Estimate Large Platelets Anisocytosis (manual) Ovalocytes PT 11.8 INR 1.1 APTT 31.8 pCO2 pO2 HCO3 ABG pH ABG Total CO2 ABG O2 Saturation ABG Base Excess Ze Test ABG Potassium VBG pH VBG pCO2 VBG HCO3 VBG Total CO2 VBG O2 Sat (Calc) VBG Base Excess VBG Potassium A-a O2 Difference Sodium 139 Chloride 102 Glucose Lactate Vent Mode FiO2 Potassium 4.2 Carbon Dioxide 27 Anion Gap 14 BUN 31 H Creatinine 0.6 L Est GFR ( Amer) > 60 Est GFR (Non-Af Amer) > 60 Random Glucose 114 H Calcium 9.1 Total Bilirubin 0.3 AST 54 H ALT 24 Alkaline Phosphatase 72 Troponin I Total Protein 7.0 Albumin 3.3 L Globulin 3.8 Albumin/Globulin Ratio 0.9 L Arterial Blood Potassium Venous Blood Potassium Urine Color Urine Clarity Urine pH Ur Specific [place] Urine Protein Urine Glucose (UA) Urine Ketones Urine Blood Urine Nitrate Urine Bilirubin Urine Urobilinogen Ur Leukocyte Esterase Urine RBC (Auto) Urine WBC Clumps (Auto) Urine Microscopic WBC Ur Squamous Epith Cells Calcium Oxalate Crystal Amorphous Sediment Urine Bacteria Hyaline Casts 10/02/17 09:26 WBC RBC Hgb Hct MCV MCH MCHC RDW Plt Count MPV Neut % (Auto) Lymph % (Auto) Gem % (Auto) Eos % (Auto) Baso % (Auto) Neut # (Auto) Lymph # (Auto) Gem # (Auto) Eos # (Auto) Baso # (Auto) Neutrophils % (Manual) Band Neutrophils % Lymphocytes % (Manual) Monocytes % (Manual) Metamyelocytes % Platelet Estimate Large Platelets Anisocytosis (manual) Ovalocytes PT INR APTT pCO2 pO2 HCO3 ABG pH ABG Total CO2 ABG O2 Saturation ABG Base Excess Ze Test ABG Potassium VBG pH VBG pCO2 VBG HCO3 VBG Total CO2 VBG O2 Sat (Calc) VBG Base Excess VBG Potassium A-a O2 Difference Sodium Chloride Glucose Lactate Vent Mode FiO2 Potassium Carbon Dioxide Anion Gap BUN Creatinine Est GFR ( Amer) Est GFR (Non-Af Amer) Random Glucose Calcium Total Bilirubin AST ALT Alkaline Phosphatase Troponin I Total Protein Albumin Globulin Albumin/Globulin Ratio Arterial Blood Potassium Venous Blood Potassium Urine Color Yellow Urine Clarity Cloudy Urine pH 5.0 Ur Specific [place] 1.016 Urine Protein 30 Urine Glucose (UA) 50 Urine Ketones Negative Urine Blood Negative Urine Nitrate Negative Urine Bilirubin Negative Urine Urobilinogen 0.2-1.0 Ur Leukocyte Esterase Neg Urine RBC (Auto) 4 H Urine WBC Clumps (Auto) Occ H Urine Microscopic WBC 4 Ur Squamous Epith Cells < 1 Calcium Oxalate Crystal Amorphous Sediment Occ H Urine Bacteria Rare Hyaline Casts Assessment & Plan (1) Acute hypernatremia Status: Acute (2) Acute kidney injury Status: Acute (3) Acute on chronic systolic CHF (congestive heart failure) Status: Acute Priority: High (4) Pneumonia Status: Acute Priority: High - Assessment and Plan (Free Text) Assessment: await cultures cont iv antibiotics chest PT Plan: poor prognosis
--- NOTE | 2017-10-02 15:35 | CP.PCM.PN ---
Objective - Vital Signs/Intake and Output Vital Signs (last 24 hours): Temp Pulse Resp BP Pulse Ox 100.1 F H 116 H 18 107/63 92 L 10/02/17 12:10 10/02/17 12:10 10/02/17 12:10 10/02/17 12:10 10/02/17 12:10 - Medications Medications: Current Medications Acetaminophen (Tylenol 650 Mg Supp) 650 mg [place] Q6 PRN PRN Reason: Fever >100.4 F Last Admin: 10/02/17 09:05 Dose: 650 mg Acetaminophen (Tylenol 650mg/20.3ml Solution Ud) 650 mg PEG Q4 PRN PRN Reason: Pain, Mild (1-3) Aspirin (Aspirin Chewable) 81 mg PEG DAILY [facility] Last Admin: 10/02/17 09:04 Dose: 81 mg Atorvastatin Calcium (Lipitor) 10 mg PEG HS [facility] Diltiazem HCl (Cardizem) 60 mg PEG Q8 [facility] Last Admin: 10/02/17 09:03 Dose: 60 mg Enalapril Maleate (Vasotec) 2.5 mg PEG DAILY [facility] Last Admin: 10/02/17 09:05 Dose: 2.5 mg Enoxaparin Sodium (Lovenox) 40 mg SC DAILY [facility] PRN Reason: Protocol Last Admin: 10/02/17 09:06 Dose: 40 mg Famotidine (Pepcid) 20 mg PEG DAILY [facility] Last Admin: 10/02/17 09:36 Dose: 20 mg Ferrous Sulfate (Ferrous Sulfate) 330 mg PEG BID [facility] Last Admin: 10/02/17 09:36 Dose: 330 mg Gentamicin Sulfate/Sodium Chloride (Gentamicin 60mg/50ml Ns) 60 mg in 50 mls @ 49.261 mls/hr IVPB Q8H [facility] PRN Reason: Protocol Last Admin: 10/02/17 09:06 Dose: 49.261 mls/hr Meropenem 1 gm/ Sodium (Chloride) 100 mls @ 100 mls/hr IVPB Q8 [facility] PRN Reason: Protocol Linezolid (Zyvox 600mg/300ml D5w) 600 mg in 300 mls @ 300 mls/hr IVPB Q12 [facility] PRN Reason: Protocol Lactulose (Enulose) 20 gm PEG BID [facility] Last Admin: 10/02/17 09:06 Dose: 20 gm Latanoprost (Xalatan Opht) 1 drop OU HS [facility] Magnesium Hydroxide (Milk Of Magnesia) 30 ml PEG HS PRN PRN Reason: Constipation Metoprolol Tartrate (Lopressor) 25 mg PEG Q8 [facility] Last Admin: 10/02/17 09:05 Dose: 25 mg Tramadol HCl (Ultram) 50 mg GT Q6 PRN PRN Reason: Pain, severe (8-10) Zinc Sulfate (Zinc Sulfate 220 Mg Cap) 220 mg PEG DAILY [facility] Last Admin: 10/02/17 09:16 Dose: 220 mg - Labs Labs: 10/02/17 05:24 10/02/17 05:24 PT 11.8 Seconds (9.8-13.1) 10/02/17 05:24 INR 1.1 (0.9-1.2) 10/02/17 05:24 APTT 31.8 Seconds (25.6-37.1) 10/02/17 05:24
[2017-10-02] MEDS: Meropenem 1 GM in Sodium Chloride 0.9% 100 ML IVPB SCH (17:51)
[2017-10-02] MEDS: Ipratropium 0.02% Inhal Soln (0.5 mg/2.5 ml) UD IH SCH (19:16)
[2017-10-02] MEDS: Levalbuterol 0.63 MG/3 ML Inhal Soln UD INH SCH (19:16)
[2017-10-02] MEDS: Linezolid 600 mg in D5W 300 ml 600 MG/300 ML BAG IVPB SCH (20:23)
[2017-10-02] MEDS: Acetaminophen 650mg/20.3ml solution UD PEG PRN (21:22)
[2017-10-02] MEDS: Latanoprost 0.005% Opht SOUTION OU SCH (22:12)
--- NOTE | 2017-10-02 23:35 | CP.PCM.HP ---
History of Present Illness - History of Present Illness History of Present Illness: CC: SOB. 66 y/o F, Status DNR/DNI, Multiple chronic medical conditions likely Hx CVA L side, CHF, A Fib with RVR, COPD, Alzheimer- Dementia, referred from [facility] to [facility] on 10/02/17, via EMS, to be evaluated for severe SOB with no relief that began 1 Hr [employer]. Pt with increased difficulty breathing, associated to persistent high fever, chest congestion, productive cough with thick green phlegms, non bloody, with difficulty to bring up secretions Pt was placed on high flow O2 NC, FIO2 33%. Worsening symptom: Tachycardia, monitor showing A Fib with HR 120-126 bpm. CXR + for extensive LLL infiltrates. Hx of been hospitalized [facility] from 09/04/17 to 09/10/17 for Pseudomona MDR Pneumonia treated Tx with Merren and Genta. Patient DNR, DNI Aggravated factor: Pt non-verbal. Present on Admission - Present on Admission Any Indicators Present on Admission: Yes Decubitus Ulcer Location: Sacral Decubitus Ulcer Stage: IV Review of Systems - Review of Systems Systems not reviewed;Unavailable: Acuity of Condition, Dementia, Other (Non verbal) Past Patient History - Infectious Disease Hx of Infectious Diseases: ESL - Past Medical History & Family History Past Medical History?: Yes Pertinent Family History: Unknown - Past Social History Smoking Status: Former Smoker Alcohol: None Drugs: Denies Home Situation {Lives}: Alf - CARDIAC Hx Cardiac Disorders: Yes Hx Atrial Fibrillation: Yes Hx Congestive Heart Failure: Yes Hx Hypertension: Yes - PULMONARY Hx Respiratory Disorders: Yes Hx Chronic Obstructive Pulmonary Disease (COPD): Yes Hx Pneumonia: Yes - NEUROLOGICAL Hx Neurological Disorder: Yes Hx Alzheimer's Disease: Yes Hx Dementia: Yes - HEENT Hx HEENT Problems: Yes - RENAL Hx Chronic Kidney Disease: Yes - ENDOCRINE/METABOLIC Hx Endocrine Disorders: No - HEMATOLOGICAL/ONCOLOGICAL Hx Blood Disorders: Yes Hx Anemia: Yes - INTEGUMENTARY Hx Dermatological Problems: Yes - MUSCULOSKELETAL/RHEUMATOLOGICAL Hx Musculoskeletal Disorders: Yes Hx Arthritis: Yes Hx Falls: No Hx Fractures: Yes (L ankle) - GASTROINTESTINAL Hx Gastrointestinal Disorders: Yes Other/Comment: PEG tube, E-COLI - GENITOURINARY/GYNECOLOGICAL Hx Genitourinary Disorders: Yes Hx Urinary Tract Infection: Yes Other/Comment: Proctor Catheter - PSYCHIATRIC Hx Psychophysiologic Disorder: Yes Hx Depression: Yes - SURGICAL HISTORY Hx Surgeries: Yes Hx Section: Yes Other/Comment: left ankle surgery, PEG insertion, PICC insertion - ANESTHESIA Hx Anesthesia: Yes Hx Anesthesia Reactions: No Hx Malignant Hyperthermia: No Meds Allergies/Adverse Reactions: Allergies Allergy/AdvReac Type Severity Reaction Status Date / Time No Known Allergies Allergy Verified 10/01/17 17:16 Physical Exam - Constitutional Appears: Chronically Ill - Head Exam Head Exam: NORMAL INSPECTION - Eye Exam Eye Exam: PERRL - ENT Exam ENT Exam: Mucous Membranes Dry - Neck Exam Neck exam: Positive for: Normal Inspection - Respiratory Exam Respiratory Exam: Decreased Breath Sounds, Rhonchi - Cardiovascular Exam Cardiovascular Exam: Irregular Rhythm, Systolic Murmur (3/6 apex radiated to axilla) - GI/Abdominal Exam GI & Abdominal Exam: Diminished Bowel Sounds, Distended, Soft Additional comments: Peg tube with erythema around the border, no bleeding. - Exam Additional comments: Proctor cath. - Extremities Exam Extremities exam: Negative for: pedal edema - Back Exam Additional comments: Sacral decubitus ulcer stage IV. - Neurological Exam Additional comments: Awake, expressive aphasia, unable to follows commands, upper extremities contracted, generalized rigidity. - Skin Skin Exam: Erythema (around peg-tube), Warm Results - Vital Signs Recent Vital Signs: Last Vital Signs Temp 100 F H 10/02/17 21:22 Pulse 111 H 10/02/17 21:14 Resp 23 10/02/17 19:26 BP 106/55 L 10/02/17 21:14 Pulse Ox 91 L 10/02/17 16:02 reviewed [email or web address] - Labs Result Diagrams: 10/03/17 04:45 10/03/17 04:45 Labs: Laboratory Results - last 24 hr 10/02/17 10/02/17 10/02/17 05:24 05:24 05:24 WBC 25.8 H RBC 3.34 L Hgb 9.5 L Hct 29.2 L MCV 87.4 MCH 28.4 MCHC 32.5 L RDW 14.7 H Plt Count 236 PT 11.8 INR 1.1 APTT 31.8 Sodium 139 Potassium 4.2 Chloride 102 Carbon Dioxide 27 Anion Gap 14 BUN 31 H Creatinine 0.6 L Est GFR ( Amer) > 60 Est GFR (Non-Af Amer) > 60 Random Glucose 114 H Calcium 9.1 Total Bilirubin 0.3 AST 54 H ALT 24 Alkaline Phosphatase 72 Total Protein 7.0 Albumin 3.3 L Globulin 3.8 Albumin/Globulin Ratio 0.9 L Urine Color Urine Clarity Urine pH Ur Specific [place] Urine Protein Urine Glucose (UA) Urine Ketones Urine Blood Urine Nitrate Urine Bilirubin Urine Urobilinogen Ur Leukocyte Esterase Urine RBC (Auto) Urine WBC Clumps (Auto) Urine Microscopic WBC Ur Squamous Epith Cells Amorphous Sediment Urine Bacteria 10/02/17 09:26 WBC RBC Hgb Hct MCV MCH MCHC RDW Plt Count PT INR APTT Sodium Potassium Chloride Carbon Dioxide Anion Gap BUN Creatinine Est GFR ( Amer) Est GFR (Non-Af Amer) Random Glucose Calcium Total Bilirubin AST ALT Alkaline Phosphatase Total Protein Albumin Globulin Albumin/Globulin Ratio Urine Color Yellow Urine Clarity Cloudy Urine pH 5.0 Ur Specific [place] 1.016 Urine Protein 30 Urine Glucose (UA) 50 Urine Ketones Negative Urine Blood Negative Urine Nitrate Negative Urine Bilirubin Negative Urine Urobilinogen 0.2-1.0 Ur Leukocyte Esterase Neg Urine RBC (Auto) 4 H Urine WBC Clumps (Auto) Occ H Urine Microscopic WBC 4 Ur Squamous Epith Cells < 1 Amorphous Sediment Occ H Urine Bacteria Rare reviewed J.P. - Imaging and Cardiology Chest x-ray Status: Report reviewed by me (J.P.) Assessment & Plan (1) PNA (pneumonia) Status: Acute Priority: High Comment: HCAP (2) Afib Status: Chronic Priority: High (3) Acute kidney injury Status: Acute Priority: High (4) Sacral decubitus ulcer, stage IV Status: Chronic Priority: High (5) HTN (hypertension) Status: Chronic (6) COPD (chronic obstructive pulmonary disease) Status: Chronic Priority: High (7) Dementia Status: Chronic - Assessment and Plan (Free Text) Plan: F/U U C-S, Blood C-S. Continue O2 NC, Xopenex, Merren, Gentamycin, Zyox, ASA 81mg, Atrovent, Lovenox, and rest of treatment , ID consult appreciated. - Date & Time Date: 10/02/17
[2017-10-03] MEDS: Gentamicin 60mg/50ml NS 60 MG/50 ML BAG IVPB SCH ×3 (00:42→16:30)
[2017-10-03] MEDS: Meropenem 1 GM in Sodium Chloride 0.9% 100 ML IVPB SCH ×3 (01:36→16:33)
[2017-10-03] MEDS: Levalbuterol 0.63 MG/3 ML Inhal Soln UD INH SCH ×4 (01:48→19:36)
[2017-10-03] MEDS: Ipratropium 0.02% Inhal Soln (0.5 mg/2.5 ml) UD IH SCH ×4 (01:48→19:36)
[2017-10-03 06:15] LABS: MEAN CELL VOLUME 86.8 fl (81.0-99.0); MEAN CORPUSCULAR HEMOGLOBIN 28.8 pg (27.0-31.0); MEAN CORPUSCULAR HGB CONC 33.2 g/dL (33.0-37.0); RBC 3.11 Mil/uL (3.80-5.20); RED CELL DISTRIBUTION WIDTH 14.4 % (11.5-14.5); WHITE BLOOD COUNT 11.5 K/uL (4.8-10.8)
[2017-10-03 06:22] LABS: BLOOD UREA NITROGEN 24 mg/dl (7-17); CALCIUM 8.8 mg/dL (8.4-10.2); GFR AFRICAN-AMERICAN > 60; GFR NON-AFRICAN AMERICAN > 60
[2017-10-03] MEDS: Enoxaparin 40 mg Syringe SC SCH (09:08)
[2017-10-03] MEDS: Famotidine 40 MG/5 ML PEG SCH (09:09)
[2017-10-03] MEDS: Ferrous Sulfate 220 MG/5 ML PEG SCH ×2 (09:10→16:51)
[2017-10-03] MEDS: Linezolid 600 mg in D5W 300 ml 600 MG/300 ML BAG IVPB SCH ×2 (09:14→22:23)
[2017-10-03] MEDS: Acetaminophen 650mg/20.3ml solution UD PEG PRN (09:16)
--- NOTE | 2017-10-03 15:09 | CP.PCM.PN ---
Subjective - Date & Time of Evaluation Date of Evaluation: 10/03/17 Time of Evaluation: 15:30 - Subjective Subjective: F/U PNA eyes open, follows with head verbal stimuli, aphasic, chest congestion reported by nurses, aspiration of secretions with blod also reported by nurses Objective - Vital Signs/Intake and Output Vital Signs (last 24 hours): Temp Pulse Resp BP Pulse Ox 99.2 F 85 20 100/62 97 10/03/17 12:38 10/03/17 12:38 10/03/17 12:38 10/03/17 12:38 10/03/17 12:38 - Medications Medications: Current Medications Acetaminophen (Tylenol 650 Mg Supp) 650 mg [place] Q6 PRN PRN Reason: Fever >100.4 F Last Admin: 10/02/17 16:20 Dose: 650 mg Acetaminophen (Tylenol 650mg/20.3ml Solution Ud) 650 mg PEG Q4 PRN PRN Reason: Pain, Mild (1-3) Last Admin: 10/03/17 09:16 Dose: 650 mg Aspirin (Aspirin Chewable) 81 mg PEG DAILY [facility] Last Admin: 10/03/17 09:09 Dose: 81 mg Atorvastatin Calcium (Lipitor) 10 mg PEG HS [facility] Last Admin: 10/02/17 21:14 Dose: 10 mg Diltiazem HCl (Cardizem) 60 mg PEG Q6 [facility] Last Admin: 10/03/17 09:08 Dose: 60 mg Enalapril Maleate (Vasotec) 2.5 mg PEG DAILY [facility] Last Admin: 10/03/17 09:11 Dose: 2.5 mg Enoxaparin Sodium (Lovenox) 40 mg SC DAILY [facility] PRN Reason: Protocol Last Admin: 10/03/17 09:08 Dose: 40 mg Famotidine (Pepcid) 20 mg PEG DAILY [facility] Last Admin: 10/03/17 09:09 Dose: 20 mg Ferrous Sulfate (Ferrous Sulfate) 330 mg PEG BID [facility] Last Admin: 10/03/17 09:10 Dose: 330 mg Gentamicin Sulfate/Sodium Chloride (Gentamicin 60mg/50ml Ns) 60 mg in 50 mls @ 49.261 mls/hr IVPB Q8H [facility] PRN Reason: Protocol Last Admin: 10/03/17 13:35 Dose: Not Given Meropenem 1 gm/ Sodium (Chloride) 100 mls @ 100 mls/hr IVPB Q8 [facility] PRN Reason: Protocol Last Admin: 10/03/17 09:15 Dose: 100 mls/hr Linezolid (Zyvox 600mg/300ml D5w) 600 mg in 300 mls @ 300 mls/hr IVPB Q12 [facility] PRN Reason: Protocol Last Admin: 10/03/17 09:14 Dose: 300 mls/hr Ipratropium [place] (Atrovent) 0.5 mg IH RQ6 [facility] Last Admin: 10/03/17 13:35 Dose: 0.5 mg Latanoprost (Xalatan Opht) 1 drop OU HS [facility] Last Admin: 10/02/17 22:12 Dose: 1 drop Levalbuterol HCl (Xopenex) 0.63 mg INH RQ6 [facility] Last Admin: 10/03/17 13:35 Dose: 0.63 mg Magnesium Hydroxide (Milk Of Magnesia) 30 ml PEG HS PRN PRN Reason: Constipation Metoprolol Tartrate (Lopressor) 25 mg PEG Q8 [facility] Last Admin: 10/03/17 09:10 Dose: 25 mg Tramadol HCl (Ultram) 50 mg GT Q6 PRN PRN Reason: Pain, severe (8-10) Zinc Sulfate (Zinc Sulfate 220 Mg Cap) 220 mg PEG DAILY [facility] Last Admin: 10/03/17 09:09 Dose: 220 mg - Labs Labs: 10/03/17 04:45 10/03/17 04:45 PT 11.8 Seconds (9.8-13.1) 10/02/17 05:24 INR 1.1 (0.9-1.2) 10/02/17 05:24 APTT 31.8 Seconds (25.6-37.1) 10/02/17 05:24 - Constitutional Appears: Chronically Ill - Head Exam Head Exam: NORMAL INSPECTION - Eye Exam Eye Exam: PERRL - ENT Exam ENT Exam: Normal Exam - Neck Exam Neck Exam: Normal Inspection - Respiratory Exam Respiratory Exam: Decreased Breath Sounds, Rhonchi - Cardiovascular Exam Cardiovascular Exam: Irregular Rhythm, Murmur (systolic 3/6 apex radiated to axilla) - GI/Abdominal Exam GI & Abdominal Exam: Soft, Diminished Bowel Sounds Additional comments: Peg tube with erythema around the borders - Exam Additional comments: Proctor cath - Extremities Exam Extremities Exam: absent: Pedal Edema - Back Exam Additional comments: Sacral ulcer stage IV - Neurological Exam Neurological Exam: Awake Additional comments: Expressive aphasia, unable to follows commands, upper extremities contracted, generalized rigidity - Skin Skin Exam: Warm Additional comments: Erythema around peg-tube. Assessment and Plan (1) PNA (pneumonia) Status: Acute (2) COPD exacerbation Status: Acute (3) Afib Status: Chronic (4) GUILLERMO (acute kidney injury) Status: Acute (5) Sacral decubitus ulcer, stage IV Status: Chronic (6) HTN (hypertension) Status: Chronic (7) Dementia Status: Chronic - Assessment and Plan (Free Text) Plan: wbc decreased 11.5, continue Genta (trough 2.2 decreased to 60mg IV q 8 hs ), Merren, Xopenex, Atrovent, Xopenex, Lovenox, monitor Hgb, f/u CBC, PT, PTT , INR, BMP
[2017-10-03] MEDS: Latanoprost 0.005% Opht SOUTION OU SCH (22:23)
[2017-10-04] MEDS: Gentamicin 60mg/50ml NS 60 MG/50 ML BAG IVPB SCH ×2 (00:21→09:47)
[2017-10-04] MEDS: Meropenem 1 GM in Sodium Chloride 0.9% 100 ML IVPB SCH ×3 (00:23→17:15)
[2017-10-04] MEDS: Levalbuterol 0.63 MG/3 ML Inhal Soln UD INH SCH ×4 (00:59→19:40)
[2017-10-04] MEDS: Ipratropium 0.02% Inhal Soln (0.5 mg/2.5 ml) UD IH SCH ×4 (00:59→19:40)
[2017-10-04 08:05] LABS: HEMOGLOBIN 8.8 g/dL (12.0-16.0); MEAN CELL VOLUME 87.2 fl (81.0-99.0); MEAN CORPUSCULAR HEMOGLOBIN 28.5 pg (27.0-31.0); MEAN CORPUSCULAR HGB CONC 32.7 g/dL (33.0-37.0); RBC 3.08 Mil/uL (3.80-5.20); RED CELL DISTRIBUTION WIDTH 14.4 % (11.5-14.5); WHITE BLOOD COUNT 9.3 K/uL (4.8-10.8)
[2017-10-04 08:27] LABS: PARTIAL THROMBOPLASTIN TIME 29.5 Seconds (25.6-37.1); PROTHROMBIN TIME 11.3 Seconds (9.8-13.1)
[2017-10-04 08:33] LABS: ALB/GLOB RATIO 0.8 (1.0-2.1); ALBUMIN 2.9 g/dL (3.5-5.0); ALT/SGPT 52 U/L (9-52); AST/SGOT 68 U/L (14-36); BLOOD UREA NITROGEN 16 mg/dl (7-17); CALCIUM 8.6 mg/dL (8.4-10.2); GFR AFRICAN-AMERICAN > 60; GFR NON-AFRICAN AMERICAN > 60
[2017-10-04] MEDS: Famotidine 40 MG/5 ML PEG SCH (09:40)
[2017-10-04] MEDS: Ferrous Sulfate 220 MG/5 ML PEG SCH ×2 (09:40→17:15)
[2017-10-04] MEDS: Enoxaparin 40 mg Syringe SC SCH (09:41)
[2017-10-04] MEDS: Linezolid 600 mg in D5W 300 ml 600 MG/300 ML BAG IVPB SCH ×2 (09:48→21:57)
[2017-10-04] MEDS ORDERED: Potassium Chloride 20 mEq/15 ml LIQ UD GT ONE (10:00)
--- NOTE | 2017-10-04 10:34 | RAD ---
HISTORY: Follow up xray for PNA COMPARISON: 10/01/2017 FINDINGS: LUNGS: Persistent left lower lobe infiltrate. New right lower lobe trait. PLEURA: No significant pleural effusion identified, no pneumothorax apparent. CARDIOVASCULAR: No radiographic findings to suggest acute or significant cardiovascular disease. OSSEOUS STRUCTURES: No significant abnormalities. VISUALIZED UPPER ABDOMEN: Normal. OTHER FINDINGS: None. IMPRESSION: Stable left lower lobe infiltrate. New extensive right lower lobe infiltrate with air bronchograms likely pneumonia.
--- NOTE | 2017-10-04 12:18 | CP.PCM.PN ---
Subjective - Date & Time of Evaluation Date of Evaluation: 10/04/17 Time of Evaluation: 10:00 - Subjective Subjective: still congested but less tachypneic and less fever IV rx in progress genta adjusted Objective - Vital Signs/Intake and Output Vital Signs (last 24 hours): Temp Pulse Resp BP Pulse Ox 99.5 F 90 18 103/63 90 L 10/04/17 09:00 10/04/17 09:40 10/04/17 12:01 10/04/17 09:40 10/04/17 09:00 - Medications Medications: Current Medications Acetaminophen (Tylenol 650 Mg Supp) 650 mg [place] Q6 PRN PRN Reason: Fever >100.4 F Last Admin: 10/02/17 16:20 Dose: 650 mg Acetaminophen (Tylenol 650mg/20.3ml Solution Ud) 650 mg PEG Q4 PRN PRN Reason: Pain, Mild (1-3) Last Admin: 10/03/17 09:16 Dose: 650 mg Aspirin (Aspirin Chewable) 81 mg PEG DAILY [facility] Last Admin: 10/04/17 09:39 Dose: 81 mg Atorvastatin Calcium (Lipitor) 10 mg PEG HS [facility] Last Admin: 10/03/17 22:23 Dose: 10 mg Diltiazem HCl (Cardizem) 60 mg PEG Q6 [facility] Last Admin: 10/04/17 09:39 Dose: 60 mg Enalapril Maleate (Vasotec) 2.5 mg PEG DAILY [facility] Last Admin: 10/04/17 09:42 Dose: 2.5 mg Enoxaparin Sodium (Lovenox) 40 mg SC DAILY [facility] PRN Reason: Protocol Last Admin: 10/04/17 09:41 Dose: 40 mg Famotidine (Pepcid) 20 mg PEG DAILY [facility] Last Admin: 10/04/17 09:40 Dose: 20 mg Ferrous Sulfate (Ferrous Sulfate) 330 mg PEG BID [facility] Last Admin: 10/04/17 09:40 Dose: 330 mg Meropenem 1 gm/ Sodium (Chloride) 100 mls @ 100 mls/hr IVPB Q8 [facility] PRN Reason: Protocol Last Admin: 10/04/17 09:39 Dose: 100 mls/hr Linezolid (Zyvox 600mg/300ml D5w) 600 mg in 300 mls @ 300 mls/hr IVPB Q12 [facility] PRN Reason: Protocol Last Admin: 10/04/17 09:48 Dose: 300 mls/hr Gentamicin Sulfate 60 mg/ (Sodium Chloride) 51.5 mls @ 50.739 mls/hr IVPB Q12H [facility] PRN Reason: Protocol Ipratropium [place] (Atrovent) 0.5 mg IH RQ6 [facility] Last Admin: 10/04/17 08:07 Dose: 0.5 mg Latanoprost (Xalatan Opht) 1 drop OU HS [facility] Last Admin: 10/03/17 22:23 Dose: 1 drop Levalbuterol HCl (Xopenex) 0.63 mg INH RQ6 [facility] Last Admin: 10/04/17 08:07 Dose: 0.63 mg Magnesium Hydroxide (Milk Of Magnesia) 30 ml PEG HS PRN PRN Reason: Constipation Metoprolol Tartrate (Lopressor) 25 mg PEG Q8 [facility] Last Admin: 10/04/17 09:40 Dose: 25 mg Tramadol HCl (Ultram) 50 mg GT Q6 PRN PRN Reason: Pain, severe (8-10) Last Admin: 10/04/17 00:55 Dose: 50 mg Zinc Sulfate (Zinc Sulfate 220 Mg Cap) 220 mg PEG DAILY [facility] Last Admin: 10/04/17 09:40 Dose: 220 mg - Labs Labs: 10/04/17 06:47 10/04/17 06:47 PT 11.3 Seconds (9.8-13.1) 10/04/17 06:47 INR 1.0 (0.9-1.2) 10/04/17 06:47 APTT 29.5 Seconds (25.6-37.1) 10/04/17 06:47 - Constitutional Appears: Non-toxic, Chronically Ill - Head Exam Head Exam: NORMOCEPHALIC - Eye Exam Eye Exam: PERRL - ENT Exam ENT Exam: Mucous Membranes Dry - Neck Exam Neck Exam: absent: Lymphadenopathy - Respiratory Exam Respiratory Exam: Decreased Breath Sounds - Cardiovascular Exam Cardiovascular Exam: REGULAR RHYTHM - GI/Abdominal Exam GI & Abdominal Exam: Distended - Rectal Exam Rectal Exam: Deferred - Exam Exam: NORMAL INSPECTION - Extremities Exam Extremities Exam: absent: Pedal Edema - Back Exam Back Exam: absent: CVA tenderness (L), CVA tenderness (R) - Neurological Exam Neurological Exam: Alert, Awake, CN II-XII Intact - Psychiatric Exam Psychiatric exam: Depressed - Skin Skin Exam: Dry, Intact Assessment and Plan (1) Acute hypernatremia Status: Deleted (2) Acute kidney injury Status: Acute (3) Acute on chronic systolic CHF (congestive heart failure) Status: Deleted (4) Pneumonia Status: Acute - Assessment and Plan (Free Text) Assessment: still congested but less tachypneic and less fever IV rx in progress genta adjusted
--- NOTE | 2017-10-04 15:48 | CP.PCM.PN ---
Subjective - Date & Time of Evaluation Date of Evaluation: 10/04/17 - Subjective Subjective: F/U PNA eyes open, follows with head verbal stimulation, cough productive with no blood reported by nurse Objective - Vital Signs/Intake and Output Vital Signs (last 24 hours): Temp Pulse Resp BP Pulse Ox 98.6 F 86 24 97/62 L 99 10/04/17 12:33 10/04/17 12:33 10/04/17 12:33 10/04/17 12:33 10/04/17 12:33 - Medications Medications: Current Medications Acetaminophen (Tylenol 650 Mg Supp) 650 mg [place] Q6 PRN PRN Reason: Fever >100.4 F Last Admin: 10/02/17 16:20 Dose: 650 mg Acetaminophen (Tylenol 650mg/20.3ml Solution Ud) 650 mg PEG Q4 PRN PRN Reason: Pain, Mild (1-3) Last Admin: 10/03/17 09:16 Dose: 650 mg Aspirin (Aspirin Chewable) 81 mg PEG DAILY [facility] Last Admin: 10/04/17 09:39 Dose: 81 mg Atorvastatin Calcium (Lipitor) 10 mg PEG HS [facility] Last Admin: 10/03/17 22:23 Dose: 10 mg Diltiazem HCl (Cardizem) 60 mg PEG Q6 [facility] Last Admin: 10/04/17 09:39 Dose: 60 mg Enalapril Maleate (Vasotec) 2.5 mg PEG DAILY [facility] Last Admin: 10/04/17 09:42 Dose: 2.5 mg Enoxaparin Sodium (Lovenox) 40 mg SC DAILY [facility] PRN Reason: Protocol Last Admin: 10/04/17 09:41 Dose: 40 mg Famotidine (Pepcid) 20 mg PEG DAILY [facility] Last Admin: 10/04/17 09:40 Dose: 20 mg Ferrous Sulfate (Ferrous Sulfate) 330 mg PEG BID [facility] Last Admin: 10/04/17 09:40 Dose: 330 mg Meropenem 1 gm/ Sodium (Chloride) 100 mls @ 100 mls/hr IVPB Q8 [facility] PRN Reason: Protocol Last Admin: 10/04/17 09:39 Dose: 100 mls/hr Linezolid (Zyvox 600mg/300ml D5w) 600 mg in 300 mls @ 300 mls/hr IVPB Q12 [facility] PRN Reason: Protocol Last Admin: 10/04/17 09:48 Dose: 300 mls/hr Gentamicin Sulfate 60 mg/ (Sodium Chloride) 51.5 mls @ 50.739 mls/hr IVPB Q12H [facility] PRN Reason: Protocol Last Admin: 10/04/17 12:22 Dose: Not Given Ipratropium [place] (Atrovent) 0.5 mg IH RQ6 [facility] Last Admin: 10/04/17 13:34 Dose: 0.5 mg Latanoprost (Xalatan Opht) 1 drop OU HS [facility] Last Admin: 10/03/17 22:23 Dose: 1 drop Levalbuterol HCl (Xopenex) 0.63 mg INH RQ6 [facility] Last Admin: 10/04/17 13:34 Dose: 0.63 mg Magnesium Hydroxide (Milk Of Magnesia) 30 ml PEG HS PRN PRN Reason: Constipation Metoprolol Tartrate (Lopressor) 25 mg PEG Q8 [facility] Last Admin: 10/04/17 09:40 Dose: 25 mg Tramadol HCl (Ultram) 50 mg GT Q6 PRN PRN Reason: Pain, severe (8-10) Last Admin: 10/04/17 00:55 Dose: 50 mg Zinc Sulfate (Zinc Sulfate 220 Mg Cap) 220 mg PEG DAILY [facility] Last Admin: 10/04/17 09:40 Dose: 220 mg - Labs Labs: 10/04/17 06:47 10/04/17 06:47 PT 11.3 Seconds (9.8-13.1) 10/04/17 06:47 INR 1.0 (0.9-1.2) 10/04/17 06:47 APTT 29.5 Seconds (25.6-37.1) 10/04/17 06:47 - Constitutional Appears: Chronically Ill - Head Exam Head Exam: NORMAL INSPECTION - Eye Exam Eye Exam: PERRL - ENT Exam ENT Exam: Normal Exam - Neck Exam Neck Exam: Normal Inspection - Respiratory Exam Respiratory Exam: Decreased Breath Sounds, Rhonchi - Cardiovascular Exam Cardiovascular Exam: Irregular Rhythm, Murmur (systlic, 3/6 apex radiated to axilla) - GI/Abdominal Exam GI & Abdominal Exam: Soft, Normal Bowel Sounds Additional comments: Peg tube with erythema around the border. - Exam Additional comments: Proctor cath - Extremities Exam Extremities Exam: Pedal Edema - Back Exam Additional comments: Sacral decubitus ulcer stage IV - Neurological Exam Neurological Exam: Awake Additional comments: expresive aphasia, unable to follows commands, upper extremities contracted, generalized rigidity. - Skin Skin Exam: Erythema (around peg tube), Warm Assessment and Plan (1) PNA (pneumonia) Status: Acute (2) COPD exacerbation Status: Acute (3) Afib Status: Chronic (4) GUILLERMO (acute kidney injury) Status: Acute (5) Sacral decubitus ulcer, stage IV Status: Chronic (6) HTN (hypertension) Status: Chronic (7) Dementia Status: Chronic - Assessment and Plan (Free Text) Plan: CXR persistant LLL infiltrate, new extensive RLL infiltrate, WBC 9.3, continue DuoNebShae Merren, CT Chest in am , K 3 , K replacement , continue rest of treatment, Dx and prognosis discussed with Patient's family at bedside
[2017-10-04] MEDS: Acetaminophen 650mg/20.3ml solution UD PEG PRN (17:24)
[2017-10-04] MEDS: Latanoprost 0.005% Opht SOUTION OU SCH (21:58)
[2017-10-05] MEDS: Meropenem 1 GM in Sodium Chloride 0.9% 100 ML IVPB SCH ×2 (00:26→09:22)
[2017-10-05] MEDS: Ipratropium 0.02% Inhal Soln (0.5 mg/2.5 ml) UD IH SCH ×4 (01:10→20:16)
[2017-10-05] MEDS: Levalbuterol 0.63 MG/3 ML Inhal Soln UD INH SCH ×4 (01:10→20:15)
[2017-10-05 05:23] LABS: HEMOGLOBIN 9.4 g/dL (12.0-16.0); MEAN CELL VOLUME 88.4 fl (81.0-99.0); MEAN CORPUSCULAR HGB CONC 32.8 g/dL (33.0-37.0); RBC 3.25 Mil/uL (3.80-5.20); RED CELL DISTRIBUTION WIDTH 14.5 % (11.5-14.5); WHITE BLOOD COUNT 8.4 K/uL (4.8-10.8)
[2017-10-05 06:01] LABS: ALB/GLOB RATIO 0.8 (1.0-2.1); ALT/SGPT 61 U/L (9-52); AST/SGOT 70 U/L (14-36); BLOOD UREA NITROGEN 12 mg/dl (7-17); CALCIUM 8.9 mg/dL (8.4-10.2); GFR AFRICAN-AMERICAN > 60; GFR NON-AFRICAN AMERICAN > 60
[2017-10-05] MEDS: Ferrous Sulfate 220 MG/5 ML PEG SCH (09:18)
[2017-10-05] MEDS: Enoxaparin 40 mg Syringe SC SCH (09:20)
[2017-10-05] MEDS: Famotidine 40 MG/5 ML PEG SCH (09:20)
[2017-10-05] MEDS: Linezolid 600 mg in D5W 300 ml 600 MG/300 ML BAG IVPB SCH ×2 (09:25→22:07)
[2017-10-05] MEDS ORDERED: Iohexol 300 100 ML IJ ONE (10:46)
[2017-10-05] MEDS ORDERED: Sodium Chloride 0.9% 50 ML IV ONE (10:47)
--- NOTE | 2017-10-05 11:00 | CP.PCM.PN ---
Subjective - Date & Time of Evaluation Date of Evaluation: 10/05/17 Time of Evaluation: 09:00 - Subjective Subjective: afebrile but still congested Objective - Vital Signs/Intake and Output Vital Signs (last 24 hours): Temp Pulse Resp BP Pulse Ox 99.1 F 90 18 101/59 L 99 10/05/17 08:00 10/05/17 08:00 10/05/17 08:46 10/05/17 09:24 10/05/17 08:00 - Medications Medications: Current Medications Acetaminophen (Tylenol 650 Mg Supp) 650 mg [place] Q6 PRN PRN Reason: Fever >100.4 F Last Admin: 10/02/17 16:20 Dose: 650 mg Acetaminophen (Tylenol 650mg/20.3ml Solution Ud) 650 mg PEG Q4 PRN PRN Reason: Pain, Mild (1-3) Last Admin: 10/04/17 17:24 Dose: 650 mg Aspirin (Aspirin Chewable) 81 mg PEG DAILY [facility] Last Admin: 10/05/17 09:19 Dose: 81 mg Atorvastatin Calcium (Lipitor) 10 mg PEG HS [facility] Last Admin: 10/04/17 21:58 Dose: 10 mg Diltiazem HCl (Cardizem) 60 mg PEG Q6 [facility] Last Admin: 10/05/17 09:25 Dose: Not Given Enalapril Maleate (Vasotec) 2.5 mg PEG DAILY [facility] Last Admin: 10/05/17 09:24 Dose: Not Given Enoxaparin Sodium (Lovenox) 40 mg SC DAILY [facility] PRN Reason: Protocol Last Admin: 10/05/17 09:20 Dose: 40 mg Famotidine (Pepcid) 20 mg PEG DAILY [facility] Last Admin: 10/05/17 09:20 Dose: 20 mg Ferrous Sulfate (Ferrous Sulfate) 330 mg PEG BID [facility] Last Admin: 10/05/17 09:18 Dose: 330 mg Meropenem 1 gm/ Sodium (Chloride) 100 mls @ 100 mls/hr IVPB Q8 [facility] PRN Reason: Protocol Last Admin: 10/05/17 09:22 Dose: 100 mls/hr Linezolid (Zyvox 600mg/300ml D5w) 600 mg in 300 mls @ 300 mls/hr IVPB Q12 [facility] PRN Reason: Protocol Last Admin: 07/09/18 09:25 Dose: 300 mls/hr Gentamicin Sulfate 60 mg/ (Sodium Chloride) 51.5 mls @ 50.739 mls/hr IVPB Q12H [facility] PRN Reason: Protocol Last Admin: 10/05/17 00:21 Dose: 50.739 mls/hr Ipratropium [place] (Atrovent) 0.5 mg IH RQ6 [facility] Last Admin: 10/05/17 07:52 Dose: 0.5 mg Latanoprost (Xalatan Opht) 1 drop OU HS [facility] Last Admin: 10/04/17 21:58 Dose: 1 drop Levalbuterol HCl (Xopenex) 0.63 mg INH RQ6 [facility] Last Admin: 10/05/17 07:52 Dose: 0.63 mg Magnesium Hydroxide (Milk Of Magnesia) 30 ml PEG HS PRN PRN Reason: Constipation Metoprolol Tartrate (Lopressor) 25 mg PEG Q8 [facility] Last Admin: 10/05/17 09:24 Dose: Not Given Zinc Sulfate (Zinc Sulfate 220 Mg Cap) 220 mg PEG DAILY [facility] Last Admin: 10/05/17 09:26 Dose: 220 mg - Labs Labs: 10/05/17 04:20 10/05/17 04:20 PT 11.3 Seconds (9.8-13.1) 10/04/17 06:47 INR 1.0 (0.9-1.2) 10/04/17 06:47 APTT 29.5 Seconds (25.6-37.1) 10/04/17 06:47 - Constitutional Appears: Non-toxic, Confused, Chronically Ill - Head Exam Head Exam: NORMOCEPHALIC - Eye Exam Eye Exam: absent: Scleral icterus - ENT Exam ENT Exam: Mucous Membranes Dry - Neck Exam Neck Exam: absent: Lymphadenopathy - Respiratory Exam Respiratory Exam: Decreased Breath Sounds - Cardiovascular Exam Cardiovascular Exam: REGULAR RHYTHM, +S1, +S2 - GI/Abdominal Exam GI & Abdominal Exam: Distended, Soft. absent: Tenderness - Rectal Exam Rectal Exam: Deferred - Exam Exam: NORMAL INSPECTION - Extremities Exam Extremities Exam: absent: Pedal Edema - Back Exam Back Exam: absent: CVA tenderness (L), CVA tenderness (R) - Neurological Exam Neurological Exam: Alert, Altered, CN II-XII Intact Assessment and Plan (1) Acute hypernatremia Status: Deleted (2) Acute kidney injury Status: Acute (3) Acute on chronic systolic CHF (congestive heart failure) Status: Deleted (4) Pneumonia Status: Acute - Assessment and Plan (Free Text) Assessment: for ct scan cont iv antibiotics monitor genta levels
[2017-10-05] MEDS ORDERED: Lidocaine 1% Inj (20ml) ONE (12:31)
--- NOTE | 2017-10-05 12:38 | CP.PCM.PN ---
Subjective - Date & Time of Evaluation Date of Evaluation: 10/05/17 Time of Evaluation: 11:05 - Subjective Subjective: F/U PNA Objective - Vital Signs/Intake and Output Vital Signs (last 24 hours): Temp Pulse Resp BP Pulse Ox 99.1 F 88 22 109/65 94 L 10/05/17 12:01 10/05/17 12:01 10/05/17 12:01 10/05/17 12:01 10/05/17 12:01 - Medications Medications: Current Medications Acetaminophen (Tylenol 650 Mg Supp) 650 mg [place] Q6 PRN PRN Reason: Fever >100.4 F Last Admin: 10/02/17 16:20 Dose: 650 mg Acetaminophen (Tylenol 650mg/20.3ml Solution Ud) 650 mg PEG Q4 PRN PRN Reason: Pain, Mild (1-3) Last Admin: 10/04/17 17:24 Dose: 650 mg Aspirin (Aspirin Chewable) 81 mg PEG DAILY [facility] Last Admin: 10/05/17 09:19 Dose: 81 mg Atorvastatin Calcium (Lipitor) 10 mg PEG HS [facility] Last Admin: 10/04/17 21:58 Dose: 10 mg Diltiazem HCl (Cardizem) 60 mg PEG Q6 [facility] Last Admin: 10/05/17 09:25 Dose: Not Given Enalapril Maleate (Vasotec) 2.5 mg PEG DAILY [facility] Last Admin: 10/05/17 09:24 Dose: Not Given Enoxaparin Sodium (Lovenox) 40 mg SC DAILY [facility] PRN Reason: Protocol Last Admin: 10/05/17 09:20 Dose: 40 mg Famotidine (Pepcid) 20 mg PEG DAILY [facility] Last Admin: 10/05/17 09:20 Dose: 20 mg Ferrous Sulfate (Ferrous Sulfate) 330 mg PEG BID [facility] Last Admin: 10/05/17 09:18 Dose: 330 mg Meropenem 1 gm/ Sodium (Chloride) 100 mls @ 100 mls/hr IVPB Q8 [facility] PRN Reason: Protocol Last Admin: 10/05/17 09:22 Dose: 100 mls/hr Linezolid (Zyvox 600mg/300ml D5w) 600 mg in 300 mls @ 300 mls/hr IVPB Q12 [facility] PRN Reason: Protocol Last Admin: 10/05/17 09:25 Dose: 300 mls/hr Gentamicin Sulfate 60 mg/ (Sodium Chloride) 51.5 mls @ 50.739 mls/hr IVPB Q12H [facility] PRN Reason: Protocol Last Admin: 10/05/17 00:21 Dose: 50.739 mls/hr Ipratropium [place] (Atrovent) 0.5 mg IH RQ6 [facility] Last Admin: 10/05/17 07:52 Dose: 0.5 mg Latanoprost (Xalatan Opht) 1 drop OU HS [facility] Last Admin: 10/04/17 21:58 Dose: 1 drop Levalbuterol HCl (Xopenex) 0.63 mg INH RQ6 [facility] Last Admin: 10/05/17 07:52 Dose: 0.63 mg Magnesium Hydroxide (Milk Of Magnesia) 30 ml PEG HS PRN PRN Reason: Constipation Metoprolol Tartrate (Lopressor) 25 mg PEG Q8 [facility] Last Admin: 10/05/17 09:24 Dose: Not Given Zinc Sulfate (Zinc Sulfate 220 Mg Cap) 220 mg PEG DAILY [facility] Last Admin: 10/05/17 09:26 Dose: 220 mg - Labs Labs: 10/05/17 04:20 10/05/17 04:20 PT 11.3 Seconds (9.8-13.1) 10/04/17 06:47 INR 1.0 (0.9-1.2) 10/04/17 06:47 APTT 29.5 Seconds (25.6-37.1) 10/04/17 06:47 - Constitutional Appears: Chronically Ill - Head Exam Head Exam: NORMAL INSPECTION - Eye Exam Eye Exam: PERRL - ENT Exam ENT Exam: Normal Exam - Neck Exam Neck Exam: Normal Inspection - Respiratory Exam Respiratory Exam: Decreased Breath Sounds, Rhonchi - Cardiovascular Exam Cardiovascular Exam: Irregular Rhythm, Murmur (systolic 3/6 apex radiated to axilla.) - GI/Abdominal Exam GI & Abdominal Exam: Soft, Normal Bowel Sounds Additional comments: Peg tube with erythema around the border. - Exam Additional comments: Proctor cath - Extremities Exam Extremities Exam: Pedal Edema - Back Exam Additional comments: Sacral decubitus ulcer stage IV - Neurological Exam Neurological Exam: Awake Additional comments: Disoriented, expresive aphasia, unable to follows commands, upper extremities contracted, generalized rigidity. - Skin Skin Exam: Erythema (around the peg tube.), Warm Assessment and Plan (1) PNA (pneumonia) Status: Acute (2) COPD exacerbation Status: Acute (3) Afib Status: Chronic (4) GUILLERMO (acute kidney injury) Status: Acute (5) Sacral decubitus ulcer, stage IV Status: Chronic (6) HTN (hypertension) Status: Chronic (7) Dementia Status: Chronic
--- NOTE | 2017-10-05 12:53 | PCM.SURG1 ---
Surgeon's Initial Post Op Note - Surgeon's Notes Surgeon: Devyn Kimbrough MD Cytology Laboratory Manager: NONE Type of Anesthesia: Local Pre-Operative Diagnosis: Poor venous access Operative Findings: US showed patent right basilic vein. Post-Operative Diagnosis: Poor venous access Operation Performed: Single lumen picc placement, 40 cm, right arm. Tip is in the SVC. Specimen/Specimens Removed: None Estimated Blood Loss: EBL {In ML}: 2 Blood Products Given: N/A Drains Used: No Drains Post-Op Condition: Fair Date of Surgery/Procedure: 10/05/17 Time of Surgery/Procedure: 12:45
--- NOTE | 2017-10-05 13:00 | CT ---
PROCEDURE: CT Chest with contrast HISTORY: Worsening PNA COMPARISON: Comparison is made with 02/24/2017 TECHNIQUE: Contiguous axial images were obtained through the chest with intravenous contrast enhancement. Sagittal and coronal reconstructions were performed. IV contrast: 95 cc of Omnipaque 300 Radiation dose (DLP): 462.7 mGy-cm. This CT exam was performed using one or more of the following dose reduction techniques: Automated exposure control, adjustment of the mA and/or kV according to patient size, and/or use of iterative reconstruction technique. FINDINGS: LUNGS: There are bilateral lower lobe partial atelectasis and consolidation. Mild to moderate pulmonary vascular congestion is noted. MEDIASTINUM: Unremarkable thoracic aorta. No aneurysm or dissection. The heart is upper normal/ mildly enlarged. A the main pulmonary artery is normal in caliber. [id number] pulmonary vascular congestion is noted. Mild mediastinal lymphadenopathy. PLEURA: Small to moderate bilateral pleural effusions BONES: No evidence of acute pathology or destructive bony lesion. Again noted is mild compression deformity of L2 vertebral body. UPPER ABDOMEN: There is mild right hydronephrosis up to 13 millimeter stone at the right UP junction again noted. Diffuse esophageal mucosal thickening is noted. OTHER FINDINGS: None. IMPRESSION: Bilateral lower lobe almost complete consolidation which may represent atelectasis due to pleural effusion. The possibility of underlying infiltrate or neoplasm is not totally excluded. Small to moderate bilateral pleural effusions. [id number] pulmonary vascular congestion. Mild mediastinal lymphadenopathy. Diffuse esophageal mucosal thickening. Re- demonstration of right UP junction renal stone
[2017-10-05] MEDS: Latanoprost 0.005% Opht SOUTION OU SCH (21:56)
[2017-10-06] MEDS: Meropenem 1 GM in Sodium Chloride 0.9% 100 ML IVPB SCH ×3 (00:33→16:19)
[2017-10-06] MEDS: Levalbuterol 0.63 MG/3 ML Inhal Soln UD INH SCH ×4 (01:18→19:23)
[2017-10-06] MEDS: Ipratropium 0.02% Inhal Soln (0.5 mg/2.5 ml) UD IH SCH ×4 (01:18→19:23)
[2017-10-06] MEDS: Ferrous Sulfate 220 MG/5 ML PEG SCH ×2 (08:52→16:20)
[2017-10-06] MEDS: Enoxaparin 40 mg Syringe SC SCH (08:53)
[2017-10-06] MEDS: Famotidine 40 MG/5 ML PEG SCH (08:54)
[2017-10-06] MEDS: Linezolid 600 mg in D5W 300 ml 600 MG/300 ML BAG IVPB SCH ×2 (11:43→20:37)
--- NOTE | 2017-10-06 12:21 | CP.PCM.PN ---
Subjective - Date & Time of Evaluation Date of Evaluation: 10/06/17 Time of Evaluation: 09:00 - Subjective Subjective: fever less s/p PICC iv rx in progress Objective - Vital Signs/Intake and Output Vital Signs (last 24 hours): Temp Pulse Resp BP Pulse Ox 98.7 F 87 18 105/70 95 10/06/17 12:00 10/06/17 12:00 10/06/17 12:00 10/06/17 12:00 10/06/17 12:00 Intake and Output: 10/06/17 10/06/17 06:59 18:59 Output Total 1200 Balance -1200 - Medications Medications: Current Medications Acetaminophen (Tylenol 650 Mg Supp) 650 mg ND Q6 PRN PRN Reason: Fever >100.4 F Last Admin: 10/02/17 16:20 Dose: 650 mg Acetaminophen (Tylenol 650mg/20.3ml Solution Ud) 650 mg PEG Q4 PRN PRN Reason: Pain, Mild (1-3) Last Admin: 10/04/17 17:24 Dose: 650 mg Aspirin (Aspirin Chewable) 81 mg PEG DAILY [facility] Last Admin: 10/06/17 08:49 Dose: 81 mg Atorvastatin Calcium (Lipitor) 10 mg PEG HS [facility] Last Admin: 10/05/17 21:56 Dose: 10 mg Diltiazem HCl (Cardizem) 60 mg PEG Q6 [facility] Last Admin: 10/06/17 09:04 Dose: 60 mg Enalapril Maleate (Vasotec) 2.5 mg PEG DAILY [facility] Last Admin: 10/06/17 08:55 Dose: 2.5 mg Enoxaparin Sodium (Lovenox) 40 mg SC DAILY [facility] PRN Reason: Protocol Last Admin: 10/06/17 08:53 Dose: 40 mg Famotidine (Pepcid) 20 mg PEG DAILY [facility] Last Admin: 10/06/17 08:54 Dose: 20 mg Ferrous Sulfate (Ferrous Sulfate) 330 mg PEG BID [facility] Last Admin: 10/06/17 08:52 Dose: 330 mg Meropenem 1 gm/ Sodium (Chloride) 100 mls @ 100 mls/hr IVPB Q8 [facility] PRN Reason: Protocol Last Admin: 10/06/17 09:03 Dose: 100 mls/hr Linezolid (Zyvox 600mg/300ml D5w) 600 mg in 300 mls @ 300 mls/hr IVPB Q12 [facility] PRN Reason: Protocol Last Admin: 10/06/17 11:43 Dose: 300 mls/hr Gentamicin Sulfate 60 mg/ (Sodium Chloride) 51.5 mls @ 50.739 mls/hr IVPB Q12H [facility] PRN Reason: Protocol Last Admin: 10/06/17 00:29 Dose: 50.739 mls/hr Ipratropium [place] (Atrovent) 0.5 mg IH RQ6 [facility] Last Admin: 10/06/17 08:07 Dose: 0.5 mg Latanoprost (Xalatan Opht) 1 drop OU HS [facility] Last Admin: 10/05/17 21:56 Dose: 1 drop Levalbuterol HCl (Xopenex) 0.63 mg INH RQ6 [facility] Last Admin: 10/06/17 08:07 Dose: 0.63 mg Magnesium Hydroxide (Milk Of Magnesia) 30 ml PEG HS PRN PRN Reason: Constipation Metoprolol Tartrate (Lopressor) 25 mg PEG Q8 [facility] Last Admin: 10/06/17 08:53 Dose: 25 mg Zinc Sulfate (Zinc Sulfate 220 Mg Cap) 220 mg PEG DAILY [facility] Last Admin: 10/06/17 08:55 Dose: 220 mg - Labs Labs: 10/05/17 04:20 10/05/17 04:20 PT 11.3 Seconds (9.8-13.1) 10/04/17 06:47 INR 1.0 (0.9-1.2) 10/04/17 06:47 APTT 29.5 Seconds (25.6-37.1) 10/04/17 06:47 - Constitutional Appears: Non-toxic, Chronically Ill - Head Exam Head Exam: NORMOCEPHALIC - Eye Exam Eye Exam: PERRL - ENT Exam ENT Exam: Mucous Membranes Dry - Neck Exam Neck Exam: absent: Lymphadenopathy - Respiratory Exam Respiratory Exam: Decreased Breath Sounds - Cardiovascular Exam Cardiovascular Exam: REGULAR RHYTHM - GI/Abdominal Exam GI & Abdominal Exam: Distended, Soft - Rectal Exam Rectal Exam: Deferred - Exam Exam: NORMAL INSPECTION - Extremities Exam Extremities Exam: absent: Pedal Edema - Back Exam Back Exam: absent: CVA tenderness (L), CVA tenderness (R) - Neurological Exam Neurological Exam: Alert, Altered, CN II-XII Intact - Psychiatric Exam Psychiatric exam: Normal Mood Assessment and Plan (1) Acute hypernatremia Status: Deleted (2) Acute kidney injury Status: Acute (3) Acute on chronic systolic CHF (congestive heart failure) Status: Deleted (4) Pneumonia Status: Acute - Assessment and Plan (Free Text) Assessment: may benefit from trach
--- NOTE | 2017-10-06 15:26 | CP.PCM.PN ---
Subjective - Date & Time of Evaluation Date of Evaluation: 10/06/17 Time of Evaluation: 12:50 - Subjective Subjective: F/U PNA Eyes open, follows with head verbal stimulaton, aphasic Objective - Vital Signs/Intake and Output Vital Signs (last 24 hours): Temp Pulse Resp BP Pulse Ox 98.7 F 87 18 105/70 95 10/06/17 12:00 10/06/17 12:00 10/06/17 12:00 10/06/17 12:00 10/06/17 12:00 Intake and Output: 10/06/17 10/06/17 06:59 18:59 Output Total 1200 Balance -1200 - Medications Medications: Current Medications Acetaminophen (Tylenol 650 Mg Supp) 650 mg [place] Q6 PRN PRN Reason: Fever >100.4 F Last Admin: 10/02/17 16:20 Dose: 650 mg Acetaminophen (Tylenol 650mg/20.3ml Solution Ud) 650 mg PEG Q4 PRN PRN Reason: Pain, Mild (1-3) Last Admin: 10/04/17 17:24 Dose: 650 mg Aspirin (Aspirin Chewable) 81 mg PEG DAILY [facility] Last Admin: 10/06/17 08:49 Dose: 81 mg Atorvastatin Calcium (Lipitor) 10 mg PEG HS [facility] Last Admin: 10/05/17 21:56 Dose: 10 mg Diltiazem HCl (Cardizem) 60 mg PEG Q6 [facility] Last Admin: 10/06/17 09:04 Dose: 60 mg Enalapril Maleate (Vasotec) 2.5 mg PEG DAILY [facility] Last Admin: 10/06/17 08:55 Dose: 2.5 mg Enoxaparin Sodium (Lovenox) 40 mg SC DAILY [facility] PRN Reason: Protocol Last Admin: 10/06/17 08:53 Dose: 40 mg Famotidine (Pepcid) 20 mg PEG DAILY [facility] Last Admin: 10/06/17 08:54 Dose: 20 mg Ferrous Sulfate (Ferrous Sulfate) 330 mg PEG BID [facility] Last Admin: 10/06/17 08:52 Dose: 330 mg Meropenem 1 gm/ Sodium (Chloride) 100 mls @ 100 mls/hr IVPB Q8 [facility] PRN Reason: Protocol Last Admin: 10/06/17 09:03 Dose: 100 mls/hr Linezolid (Zyvox 600mg/300ml D5w) 600 mg in 300 mls @ 300 mls/hr IVPB Q12 [facility] PRN Reason: Protocol Last Admin: 10/06/17 11:43 Dose: 300 mls/hr Gentamicin Sulfate 60 mg/ (Sodium Chloride) 51.5 mls @ 50.739 mls/hr IVPB Q12H [facility] PRN Reason: Protocol Last Admin: 10/06/17 13:40 Dose: 50.739 mls/hr Ipratropium [place] (Atrovent) 0.5 mg IH RQ6 [facility] Last Admin: 10/06/17 13:16 Dose: 0.5 mg Latanoprost (Xalatan Opht) 1 drop OU HS [facility] Last Admin: 10/05/17 21:56 Dose: 1 drop Levalbuterol HCl (Xopenex) 0.63 mg INH RQ6 [facility] Last Admin: 10/06/17 13:16 Dose: 0.63 mg Magnesium Hydroxide (Milk Of Magnesia) 30 ml PEG HS PRN PRN Reason: Constipation Metoprolol Tartrate (Lopressor) 25 mg PEG Q8 [facility] Last Admin: 10/06/17 08:53 Dose: 25 mg Zinc Sulfate (Zinc Sulfate 220 Mg Cap) 220 mg PEG DAILY [facility] Last Admin: 10/06/17 08:55 Dose: 220 mg - Labs Labs: 10/05/17 04:20 10/05/17 04:20 PT 11.3 Seconds (9.8-13.1) 10/04/17 06:47 INR 1.0 (0.9-1.2) 10/04/17 06:47 APTT 29.5 Seconds (25.6-37.1) 10/04/17 06:47 - Constitutional Appears: Chronically Ill - Head Exam Head Exam: ATRAUMATIC, NORMAL INSPECTION - Eye Exam Eye Exam: PERRL - ENT Exam ENT Exam: Normal Exam - Neck Exam Neck Exam: Normal Inspection - Respiratory Exam Respiratory Exam: Decreased Breath Sounds, Rhonchi (scattered) - Cardiovascular Exam Cardiovascular Exam: Irregular Rhythm, Murmur (systolic 3/6 apex radiated to axilla.) - GI/Abdominal Exam GI & Abdominal Exam: Soft, Diminished Bowel Sounds Additional comments: Peg tube with erythema around the border. - Exam Additional comments: Proctor Cath - Extremities Exam Extremities Exam: Pedal Edema - Back Exam Additional comments: Sacral decubitus ulcer stage IV - Neurological Exam Neurological Exam: Awake Additional comments: Disoriented, expressive aphasia, unable to follows commands, upper extremities contracted, generalized rigidity. - Skin Skin Exam: Erythema (around peg tube), Warm Assessment and Plan (1) PNA (pneumonia) Status: Acute (2) COPD exacerbation Status: Acute (3) Afib Status: Chronic (4) GUILLERMO (acute kidney injury) Status: Acute (5) Sacral decubitus ulcer, stage IV Status: Chronic (6) HTN (hypertension) Status: Chronic (7) Dementia Status: Chronic - Assessment and Plan (Free Text) Plan: continue Genta, Merren , Xopenex, Atrovent, Cardizem, Lopressor, Lovenox, and rest of treatment
[2017-10-06] MEDS: Latanoprost 0.005% Opht SOUTION OU SCH (22:04)
[2017-10-07] MEDS: Meropenem 1 GM in Sodium Chloride 0.9% 100 ML IVPB SCH ×3 (00:02→17:20)
[2017-10-07] MEDS: Ipratropium 0.02% Inhal Soln (0.5 mg/2.5 ml) UD IH SCH ×4 (01:05→19:26)
[2017-10-07] MEDS: Levalbuterol 0.63 MG/3 ML Inhal Soln UD INH SCH ×4 (01:05→19:27)
[2017-10-07] MEDS: Enoxaparin 40 mg Syringe SC SCH (08:49)
[2017-10-07] MEDS: Ferrous Sulfate 220 MG/5 ML PEG SCH ×3 (08:55→17:23)
[2017-10-07] MEDS: Famotidine 40 MG/5 ML PEG SCH (09:06)
[2017-10-07] MEDS: Acetaminophen 650mg/20.3ml solution UD PEG PRN ×3 (09:11→22:04)
[2017-10-07] MEDS: Linezolid 600 mg in D5W 300 ml 600 MG/300 ML BAG IVPB SCH (10:23)
--- NOTE | 2017-10-07 12:22 | CP.PCM.PN ---
Subjective - Date & Time of Evaluation Date of Evaluation: 10/07/17 Time of Evaluation: 08:00 - Subjective Subjective: awake alert aphasic nad Objective - Vital Signs/Intake and Output Vital Signs (last 24 hours): Temp Pulse Resp BP Pulse Ox 99.8 F H 101 H 24 108/68 100 10/07/17 09:11 10/07/17 10:22 10/07/17 11:23 10/07/17 10:22 10/07/17 08:00 Intake and Output: 10/07/17 10/07/17 06:59 18:59 Intake Total 1420 Output Total 1800 Balance -380 - Medications Medications: Current Medications Acetaminophen (Tylenol 650 Mg Supp) 650 mg ID Q6 PRN PRN Reason: Fever >100.4 F Last Admin: 10/02/17 16:20 Dose: 650 mg Acetaminophen (Tylenol 650mg/20.3ml Solution Ud) 650 mg PEG Q4 PRN PRN Reason: Pain, Mild (1-3) Last Admin: 10/07/17 09:11 Dose: 650 mg Aspirin (Aspirin Chewable) 81 mg PEG DAILY [facility] Last Admin: 10/07/17 08:54 Dose: 81 mg Atorvastatin Calcium (Lipitor) 10 mg PEG HS [facility] Last Admin: 10/06/17 22:04 Dose: 10 mg Diltiazem HCl (Cardizem) 60 mg PEG Q6 [facility] Last Admin: 10/07/17 10:22 Dose: 60 mg Enalapril Maleate (Vasotec) 2.5 mg PEG DAILY [facility] Last Admin: 10/07/17 09:07 Dose: 2.5 mg Enoxaparin Sodium (Lovenox) 40 mg SC DAILY [facility] PRN Reason: Protocol Last Admin: 10/07/17 08:49 Dose: 40 mg Famotidine (Pepcid) 20 mg PEG DAILY [facility] Last Admin: 10/07/17 09:06 Dose: 20 mg Ferrous Sulfate (Ferrous Sulfate) 330 mg PEG BID [facility] Last Admin: 10/07/17 08:55 Dose: 330 mg Meropenem 1 gm/ Sodium (Chloride) 100 mls @ 100 mls/hr IVPB Q8 [facility] PRN Reason: Protocol Last Admin: 10/07/17 08:48 Dose: 100 mls/hr Gentamicin Sulfate/Sodium Chloride (Gentamicin 60mg/50ml Ns) 60 mg in 50 mls @ 49.261 mls/hr IVPB Q12@0000,1200 [facility] PRN Reason: Protocol Stop: 10/09/17 12:01 Ipratropium [place] (Atrovent) 0.5 mg IH RQ6 [facility] Last Admin: 10/07/17 07:49 Dose: 0.5 mg Latanoprost (Xalatan Opht) 1 drop OU HS [facility] Last Admin: 10/06/17 22:04 Dose: 1 drop Levalbuterol HCl (Xopenex) 0.63 mg INH RQ6 [facility] Last Admin: 10/07/17 07:49 Dose: Not Given Magnesium Hydroxide (Milk Of Magnesia) 30 ml PEG HS PRN PRN Reason: Constipation Metoprolol Tartrate (Lopressor) 25 mg PEG Q8 [facility] Last Admin: 10/07/17 09:05 Dose: 25 mg Zinc Sulfate (Zinc Sulfate 220 Mg Cap) 220 mg PEG DAILY [facility] Last Admin: 10/07/17 09:07 Dose: 220 mg - Labs Labs: 10/05/17 04:20 10/05/17 04:20 PT 11.3 Seconds (9.8-13.1) 10/04/17 06:47 INR 1.0 (0.9-1.2) 10/04/17 06:47 APTT 29.5 Seconds (25.6-37.1) 10/04/17 06:47 - Constitutional Appears: Non-toxic, Chronically Ill - Head Exam Head Exam: NORMOCEPHALIC - Eye Exam Eye Exam: absent: Scleral icterus - ENT Exam ENT Exam: Mucous Membranes Dry - Neck Exam Neck Exam: absent: Lymphadenopathy - Respiratory Exam Respiratory Exam: Decreased Breath Sounds - Cardiovascular Exam Cardiovascular Exam: REGULAR RHYTHM - GI/Abdominal Exam GI & Abdominal Exam: Distended, Soft - Rectal Exam Rectal Exam: Deferred - Exam Exam: NORMAL INSPECTION - Extremities Exam Extremities Exam: absent: Pedal Edema - Back Exam Back Exam: absent: CVA tenderness (L), CVA tenderness (R) - Neurological Exam Neurological Exam: Alert, Awake, CN II-XII Intact. absent: Oriented x3 Neuro motor strength exam: Left Upper Extremity: 2/1, Right Upper Extremity: 4, Left Lower Extremity: 2/1, Right Lower Extremity: 4 - Psychiatric Exam Psychiatric exam: Depressed - Skin Skin Exam: Dry Assessment and Plan (1) Acute hypernatremia Status: Deleted (2) Acute kidney injury Status: Acute (3) Acute on chronic systolic CHF (congestive heart failure) Status: Deleted (4) Pneumonia Status: Acute - Assessment and Plan (Free Text) Assessment: d/c zyvox as all cultures neg for mrsa cont merrem and genta for 2 weeks
[2017-10-07] MEDS: Gentamicin 60mg/50ml NS 60 MG/50 ML BAG IVPB SCH (13:54)
--- NOTE | 2017-10-07 17:59 | CP.PCM.PN ---
Subjective - Date & Time of Evaluation Date of Evaluation: 10/07/17 Time of Evaluation: 11:30 - Subjective Subjective: F/U PNA Eyes open follows with head verbal stimulation, aphasic. Objective - Vital Signs/Intake and Output Vital Signs (last 24 hours): Temp Pulse Resp BP Pulse Ox 97.5 F L 91 H 19 131/74 100 10/07/17 17:28 10/07/17 17:24 10/07/17 16:08 10/07/17 17:24 10/07/17 16:08 Intake and Output: 10/07/17 10/07/17 06:59 18:59 Intake Total 1420 Output Total 1800 Balance -380 - Medications Medications: Current Medications Acetaminophen (Tylenol 650 Mg Supp) 650 mg IN Q6 PRN PRN Reason: Fever >100.4 F Last Admin: 10/02/17 16:20 Dose: 650 mg Acetaminophen (Tylenol 650mg/20.3ml Solution Ud) 650 mg PEG Q4 PRN PRN Reason: Pain, Mild (1-3) Last Admin: 10/07/17 17:28 Dose: 650 mg Aspirin (Aspirin Chewable) 81 mg PEG DAILY [facility] Last Admin: 10/07/17 08:54 Dose: 81 mg Atorvastatin Calcium (Lipitor) 10 mg PEG HS [facility] Last Admin: 10/06/17 22:04 Dose: 10 mg Diltiazem HCl (Cardizem) 60 mg PEG Q6 [facility] Last Admin: 10/07/17 17:21 Dose: 60 mg Enalapril Maleate (Vasotec) 2.5 mg PEG DAILY [facility] Last Admin: 10/07/17 09:07 Dose: 2.5 mg Enoxaparin Sodium (Lovenox) 40 mg SC DAILY [facility] PRN Reason: Protocol Last Admin: 10/07/17 08:49 Dose: 40 mg Famotidine (Pepcid) 20 mg PEG DAILY [facility] Last Admin: 10/07/17 09:06 Dose: 20 mg Ferrous Sulfate (Ferrous Sulfate) 330 mg PEG BID [facility] Last Admin: 10/07/17 17:23 Dose: 330 mg Meropenem 1 gm/ Sodium (Chloride) 100 mls @ 100 mls/hr IVPB Q8 [facility] PRN Reason: Protocol Last Admin: 10/07/17 17:20 Dose: 100 mls/hr Gentamicin Sulfate/Sodium Chloride (Gentamicin 60mg/50ml Ns) 60 mg in 50 mls @ 49.261 mls/hr IVPB Q12@0000,1200 [facility] PRN Reason: Protocol Stop: 10/09/17 13:46 Last Admin: 10/07/17 13:54 Dose: 49.261 mls/hr Ipratropium [place] (Atrovent) 0.5 mg IH RQ6 [facility] Last Admin: 10/07/17 13:06 Dose: 0.5 mg Latanoprost (Xalatan Opht) 1 drop OU HS [facility] Last Admin: 10/06/17 22:04 Dose: 1 drop Levalbuterol HCl (Xopenex) 0.63 mg INH RQ6 [facility] Last Admin: 10/07/17 13:06 Dose: 0.63 mg Magnesium Hydroxide (Milk Of Magnesia) 30 ml PEG HS PRN PRN Reason: Constipation Metoprolol Tartrate (Lopressor) 25 mg PEG Q8 [facility] Last Admin: 10/07/17 17:24 Dose: 25 mg Zinc Sulfate (Zinc Sulfate 220 Mg Cap) 220 mg PEG DAILY [facility] Last Admin: 10/07/17 09:07 Dose: 220 mg - Labs Labs: 10/05/17 04:20 10/05/17 04:20 PT 11.3 Seconds (9.8-13.1) 10/04/17 06:47 INR 1.0 (0.9-1.2) 10/04/17 06:47 APTT 29.5 Seconds (25.6-37.1) 10/04/17 06:47 - Constitutional Appears: Chronically Ill - Head Exam Head Exam: NORMAL INSPECTION - Eye Exam Eye Exam: PERRL - ENT Exam ENT Exam: Normal Exam - Neck Exam Neck Exam: Normal Inspection - Respiratory Exam Respiratory Exam: Decreased Breath Sounds, Rhonchi (scattered) - Cardiovascular Exam Cardiovascular Exam: Irregular Rhythm, Murmur (systolic 3/6 apex radiated to axilla.) - GI/Abdominal Exam GI & Abdominal Exam: Soft, Normal Bowel Sounds Additional comments: Peg tube in place with erythema around the border - Extremities Exam Extremities Exam: Pedal Edema - Back Exam Additional comments: Sacral decubitus ulcer stage IV - Neurological Exam Neurological Exam: Awake Additional comments: Expresive aphasia, unable to follows commands, upper extremities contracted, generalized rigidity. - Skin Skin Exam: Warm Assessment and Plan (1) PNA (pneumonia) Status: Acute (2) COPD exacerbation Status: Acute (3) Afib Status: Chronic (4) GUILLERMO (acute kidney injury) Status: Acute (5) Sacral decubitus ulcer, stage IV Status: Chronic (6) HTN (hypertension) Status: Chronic (7) Dementia Status: Chronic - Assessment and Plan (Free Text) Plan: Continue Merrem, Xopenex, Atrovent, Gentamicin and rest of Tx.
[2017-10-07] MEDS: Latanoprost 0.005% Opht SOUTION OU SCH (21:36)
[2017-10-08] MEDS: Meropenem 1 GM in Sodium Chloride 0.9% 100 ML IVPB SCH ×3 (00:21→18:15)
[2017-10-08] MEDS: Levalbuterol 0.63 MG/3 ML Inhal Soln UD INH SCH ×4 (01:04→19:39)
[2017-10-08] MEDS: Ipratropium 0.02% Inhal Soln (0.5 mg/2.5 ml) UD IH SCH ×4 (01:05→19:39)
[2017-10-08] MEDS: Acetaminophen 650mg/20.3ml solution UD PEG PRN ×2 (04:55→14:05)
[2017-10-08] MEDS: Ferrous Sulfate 220 MG/5 ML PEG SCH ×2 (08:31→18:08)
[2017-10-08] MEDS: Enoxaparin 40 mg Syringe SC SCH (08:34)
[2017-10-08] MEDS: Famotidine 40 MG/5 ML PEG SCH (08:35)
[2017-10-08] MEDS: Gentamicin 60mg/50ml NS 60 MG/50 ML BAG IVPB SCH (13:57)
--- NOTE | 2017-10-08 19:56 | CP.PCM.PN ---
Subjective - Date & Time of Evaluation Date of Evaluation: 10/08/17 Time of Evaluation: 10:00 - Subjective Subjective: F/U PNA Eyes open, follows with head verbal stimuli. Objective - Vital Signs/Intake and Output Vital Signs (last 24 hours): Temp Pulse Resp BP Pulse Ox 99.3 F 62 20 93/49 L 100 10/08/17 16:14 10/08/17 18:10 10/08/17 19:40 10/08/17 18:10 10/08/17 16:14 Intake and Output: 10/08/17 10/09/17 18:59 06:59 Intake Total 1661 Output Total 1100 Balance 561 - Medications Medications: Current Medications Acetaminophen (Tylenol 650 Mg Supp) 650 mg [place] Q6 PRN PRN Reason: Fever >100.4 F Last Admin: 10/02/17 16:20 Dose: 650 mg Acetaminophen (Tylenol 650mg/20.3ml Solution Ud) 650 mg PEG Q4 PRN PRN Reason: Pain, Mild (1-3) Last Admin: 10/08/17 14:05 Dose: 650 mg Aspirin (Aspirin Chewable) 81 mg PEG DAILY [facility] Last Admin: 10/08/17 08:22 Dose: 81 mg Atorvastatin Calcium (Lipitor) 10 mg PEG HS [facility] Last Admin: 10/07/17 21:35 Dose: 10 mg Diltiazem HCl (Cardizem) 60 mg PEG Q6 [facility] Last Admin: 10/08/17 18:07 Dose: Not Given Enalapril Maleate (Vasotec) 2.5 mg PEG DAILY [facility] Last Admin: 10/08/17 08:38 Dose: 2.5 mg Enoxaparin Sodium (Lovenox) 40 mg SC DAILY [facility] PRN Reason: Protocol Last Admin: 10/08/17 08:34 Dose: 40 mg Famotidine (Pepcid) 20 mg PEG DAILY [facility] Last Admin: 10/08/17 08:35 Dose: 20 mg Ferrous Sulfate (Ferrous Sulfate) 330 mg PEG BID [facility] Last Admin: 10/08/17 18:08 Dose: 330 mg Meropenem 1 gm/ Sodium (Chloride) 100 mls @ 100 mls/hr IVPB Q8 [facility] PRN Reason: Protocol Last Admin: 10/08/17 18:15 Dose: 100 mls/hr Gentamicin Sulfate/Sodium Chloride (Gentamicin 60mg/50ml Ns) 60 mg in 50 mls @ 49.261 mls/hr IVPB Q12@0000,1200 [facility] PRN Reason: Protocol Stop: 10/09/17 13:46 Last Admin: 10/08/17 13:57 Dose: 49.261 mls/hr Ipratropium [place] (Atrovent) 0.5 mg IH RQ6 [facility] Last Admin: 10/08/17 19:39 Dose: 0.5 mg Latanoprost (Xalatan Opht) 1 drop OU HS [facility] Last Admin: 10/07/17 21:36 Dose: 1 drop Levalbuterol HCl (Xopenex) 0.63 mg INH RQ6 [facility] Last Admin: 10/08/17 19:39 Dose: 0.63 mg Magnesium Hydroxide (Milk Of Magnesia) 30 ml PEG HS PRN PRN Reason: Constipation Metoprolol Tartrate (Lopressor) 25 mg PEG Q8 [facility] Last Admin: 10/08/17 18:10 Dose: Not Given Zinc Sulfate (Zinc Sulfate 220 Mg Cap) 220 mg PEG DAILY [facility] Last Admin: 10/08/17 08:42 Dose: 220 mg - Labs Labs: 10/05/17 04:20 10/05/17 04:20 PT 11.3 Seconds (9.8-13.1) 10/04/17 06:47 INR 1.0 (0.9-1.2) 10/04/17 06:47 APTT 29.5 Seconds (25.6-37.1) 10/04/17 06:47 - Constitutional Appears: Chronically Ill - Head Exam Head Exam: NORMAL INSPECTION - Eye Exam Eye Exam: PERRL - ENT Exam ENT Exam: Normal Exam - Neck Exam Neck Exam: Normal Inspection - Respiratory Exam Respiratory Exam: Decreased Breath Sounds, Rhonchi (scattered) - Cardiovascular Exam Cardiovascular Exam: Irregular Rhythm, Murmur (systolic 3/6 apex radiated to axilla) - GI/Abdominal Exam GI & Abdominal Exam: Soft, Normal Bowel Sounds Additional comments: Peg tube in place - Extremities Exam Extremities Exam: Pedal Edema - Back Exam Additional comments: Sacral decubitus ulcer stage IV - Neurological Exam Neurological Exam: Awake Additional comments: Disoriented, expressive aphasia, unable to follows commands, upper extremities contracted, generalized rigidity. - Skin Skin Exam: Erythema (around the peg tube border), Warm Assessment and Plan (1) PNA (pneumonia) Status: Acute (2) COPD exacerbation Status: Acute (3) Afib Status: Chronic (4) GUILLERMO (acute kidney injury) Status: Acute (5) Sacral decubitus ulcer, stage IV Status: Chronic (6) HTN (hypertension) Status: Chronic (7) Dementia Status: Chronic - Assessment and Plan (Free Text) Plan: Awaiting family decision for Hospice status to be transferred to [facility], continue Xopenex, Atrovent, Merren, Cardizem, Lopressor, Lipitior
[2017-10-08] MEDS ORDERED: Chlorhexidine Gluconate 1 APPL/PKT TP ONE (20:39)
[2017-10-08] MEDS: Latanoprost 0.005% Opht SOUTION OU SCH (21:15)
[2017-10-09] MEDS: Gentamicin 60mg/50ml NS 60 MG/50 ML BAG IVPB SCH ×2 (00:03→11:46)
[2017-10-09] MEDS: Ipratropium 0.02% Inhal Soln (0.5 mg/2.5 ml) UD IH SCH ×4 (01:17→19:31)
[2017-10-09] MEDS: Levalbuterol 0.63 MG/3 ML Inhal Soln UD INH SCH ×4 (01:18→19:31)
[2017-10-09] MEDS: Meropenem 1 GM in Sodium Chloride 0.9% 100 ML IVPB SCH ×3 (01:35→17:49)
[2017-10-09] MEDS: Ferrous Sulfate 220 MG/5 ML PEG SCH ×2 (08:54→17:51)
[2017-10-09] MEDS: Enoxaparin 40 mg Syringe SC SCH (08:55)
[2017-10-09] MEDS: Famotidine 40 MG/5 ML PEG SCH (08:57)
--- NOTE | 2017-10-09 12:40 | CP.PCM.PN ---
Subjective - Date & Time of Evaluation Date of Evaluation: 10/09/17 Time of Evaluation: 09:00 - Subjective Subjective: more alert aphasic sounds less congested no fever Objective - Vital Signs/Intake and Output Vital Signs (last 24 hours): Temp Pulse Resp BP Pulse Ox 99.2 F 98 H 18 91/63 L 100 10/09/17 12:02 10/09/17 12:02 10/09/17 12:02 10/09/17 12:02 10/09/17 12:02 Intake and Output: 10/09/17 10/09/17 06:59 18:59 Intake Total 1661 Output Total 1100 Balance 561 - Medications Medications: Current Medications Acetaminophen (Tylenol 650 Mg Supp) 650 mg [place] Q6 PRN PRN Reason: Fever >100.4 F Last Admin: 10/02/17 16:20 Dose: 650 mg Acetaminophen (Tylenol 650mg/20.3ml Solution Ud) 650 mg PEG Q4 PRN PRN Reason: Pain, Mild (1-3) Last Admin: 10/08/17 14:05 Dose: 650 mg Aspirin (Aspirin Chewable) 81 mg PEG DAILY [facility] Last Admin: 10/09/17 08:54 Dose: 81 mg Atorvastatin Calcium (Lipitor) 10 mg PEG HS [facility] Last Admin: 10/08/17 21:14 Dose: 10 mg Diltiazem HCl (Cardizem) 60 mg PEG Q6 [facility] Last Admin: 10/09/17 11:48 Dose: Not Given Enalapril Maleate (Vasotec) 2.5 mg PEG DAILY [facility] Last Admin: 10/09/17 08:57 Dose: 2.5 mg Enoxaparin Sodium (Lovenox) 40 mg SC DAILY [facility] PRN Reason: Protocol Last Admin: 10/09/17 08:55 Dose: 40 mg Famotidine (Pepcid) 20 mg PEG DAILY [facility] Last Admin: 10/09/17 08:57 Dose: 20 mg Ferrous Sulfate (Ferrous Sulfate) 330 mg PEG BID [facility] Last Admin: 10/09/17 08:54 Dose: 330 mg Meropenem 1 gm/ Sodium (Chloride) 100 mls @ 100 mls/hr IVPB Q8 [facility] PRN Reason: Protocol Last Admin: 10/09/17 08:56 Dose: 100 mls/hr Gentamicin Sulfate/Sodium Chloride (Gentamicin 60mg/50ml Ns) 60 mg in 50 mls @ 49.261 mls/hr IVPB Q12@0000,1200 [facility] PRN Reason: Protocol Stop: 10/09/17 13:46 Last Admin: 10/09/17 11:46 Dose: 49.261 mls/hr Ipratropium [place] (Atrovent) 0.5 mg IH RQ6 [facility] Last Admin: 10/09/17 07:23 Dose: 0.5 mg Latanoprost (Xalatan Opht) 1 drop OU HS [facility] Last Admin: 10/08/17 21:15 Dose: 1 drop Levalbuterol HCl (Xopenex) 0.63 mg INH RQ6 [facility] Last Admin: 10/09/17 07:23 Dose: 0.63 mg Magnesium Hydroxide (Milk Of Magnesia) 30 ml PEG HS PRN PRN Reason: Constipation Metoprolol Tartrate (Lopressor) 25 mg PEG Q8 [facility] Last Admin: 10/09/17 08:55 Dose: 25 mg Zinc Sulfate (Zinc Sulfate 220 Mg Cap) 220 mg PEG DAILY [facility] Last Admin: 10/09/17 08:57 Dose: 220 mg - Labs Labs: 10/05/17 04:20 10/05/17 04:20 PT 11.3 Seconds (9.8-13.1) 10/04/17 06:47 INR 1.0 (0.9-1.2) 10/04/17 06:47 APTT 29.5 Seconds (25.6-37.1) 10/04/17 06:47 - Constitutional Appears: Non-toxic, Cachectic, Chronically Ill - Head Exam Head Exam: NORMOCEPHALIC - Eye Exam Eye Exam: PERRL - ENT Exam ENT Exam: Mucous Membranes Dry - Neck Exam Neck Exam: absent: Lymphadenopathy - Respiratory Exam Respiratory Exam: Decreased Breath Sounds, Prolonged Expiratory Phase, Rhonchi - Cardiovascular Exam Cardiovascular Exam: REGULAR RHYTHM, +S1, +S2 - GI/Abdominal Exam GI & Abdominal Exam: Distended, Soft - Rectal Exam Rectal Exam: Deferred - Exam Exam: NORMAL INSPECTION - Extremities Exam Extremities Exam: absent: Pedal Edema - Back Exam Back Exam: absent: CVA tenderness (L), CVA tenderness (R) - Neurological Exam Neurological Exam: Alert, Awake, CN II-XII Intact Assessment and Plan (1) Acute hypernatremia Status: Deleted (2) Acute kidney injury Status: Acute (3) Acute on chronic systolic CHF (congestive heart failure) Status: Deleted (4) Pneumonia Status: Acute - Assessment and Plan (Free Text) Assessment: iv rx reordered possible d/c to hospice care
--- NOTE | 2017-10-09 14:27 | CP.PCM.PN ---
Subjective - Date & Time of Evaluation Date of Evaluation: 10/09/17 Time of Evaluation: 11:20 - Subjective Subjective: F/U PNA Objective - Vital Signs/Intake and Output Vital Signs (last 24 hours): Temp Pulse Resp BP Pulse Ox 99.2 F 98 H 18 91/63 L 100 10/09/17 12:02 10/09/17 12:02 10/09/17 12:02 10/09/17 12:02 10/09/17 12:02 Intake and Output: 10/09/17 10/09/17 06:59 18:59 Intake Total 1661 Output Total 1100 Balance 561 - Medications Medications: Current Medications Acetaminophen (Tylenol 650 Mg Supp) 650 mg [place] Q6 PRN PRN Reason: Fever >100.4 F Last Admin: 10/02/17 16:20 Dose: 650 mg Acetaminophen (Tylenol 650mg/20.3ml Solution Ud) 650 mg PEG Q4 PRN PRN Reason: Pain, Mild (1-3) Last Admin: 10/08/17 14:05 Dose: 650 mg Aspirin (Aspirin Chewable) 81 mg PEG DAILY [facility] Last Admin: 10/09/17 08:54 Dose: 81 mg Atorvastatin Calcium (Lipitor) 10 mg PEG HS [facility] Last Admin: 10/08/17 21:14 Dose: 10 mg Diltiazem HCl (Cardizem) 60 mg PEG Q6 [facility] Last Admin: 10/09/17 11:48 Dose: Not Given Enalapril Maleate (Vasotec) 2.5 mg PEG DAILY [facility] Last Admin: 10/09/17 08:57 Dose: 2.5 mg Enoxaparin Sodium (Lovenox) 40 mg SC DAILY [facility] PRN Reason: Protocol Last Admin: 10/09/17 08:55 Dose: 40 mg Famotidine (Pepcid) 20 mg PEG DAILY [facility] Last Admin: 10/09/17 08:57 Dose: 20 mg Ferrous Sulfate (Ferrous Sulfate) 330 mg PEG BID [facility] Last Admin: 10/09/17 08:54 Dose: 330 mg Meropenem 1 gm/ Sodium (Chloride) 100 mls @ 100 mls/hr IVPB Q8 [facility] PRN Reason: Protocol Last Admin: 10/09/17 08:56 Dose: 100 mls/hr Ipratropium [place] (Atrovent) 0.5 mg IH RQ6 [facility] Last Admin: 10/09/17 13:05 Dose: 0.5 mg Latanoprost (Xalatan Opht) 1 drop OU HS [facility] Last Admin: 10/08/17 21:15 Dose: 1 drop Levalbuterol HCl (Xopenex) 0.63 mg INH RQ6 [facility] Last Admin: 10/09/17 13:05 Dose: 0.63 mg Magnesium Hydroxide (Milk Of Magnesia) 30 ml PEG HS PRN PRN Reason: Constipation Metoprolol Tartrate (Lopressor) 25 mg PEG Q8 [facility] Last Admin: 10/09/17 08:55 Dose: 25 mg Zinc Sulfate (Zinc Sulfate 220 Mg Cap) 220 mg PEG DAILY [facility] Last Admin: 10/09/17 08:57 Dose: 220 mg - Labs Labs: 10/05/17 04:20 10/05/17 04:20 PT 11.3 Seconds (9.8-13.1) 10/04/17 06:47 INR 1.0 (0.9-1.2) 10/04/17 06:47 APTT 29.5 Seconds (25.6-37.1) 10/04/17 06:47 - Constitutional Appears: Chronically Ill - Head Exam Head Exam: NORMAL INSPECTION - Eye Exam Eye Exam: PERRL - ENT Exam ENT Exam: Normal Exam - Neck Exam Neck Exam: Normal Inspection - Respiratory Exam Respiratory Exam: Decreased Breath Sounds, Rhonchi (scattered) - Cardiovascular Exam Cardiovascular Exam: Irregular Rhythm, Murmur (systolic 3/6 apex radiated to axilla.) - GI/Abdominal Exam GI & Abdominal Exam: Soft, Normal Bowel Sounds Additional comments: Peg tube in place - Extremities Exam Extremities Exam: Pedal Edema - Back Exam Additional comments: Sacral ulcer stage IV - Neurological Exam Neurological Exam: Awake Additional comments: Disoriented, expressive aphasia, unable to follows commands, upper extremities contracted.generalized rigidity - Skin Skin Exam: Erythema (aound peg tube), Warm Assessment and Plan (1) PNA (pneumonia) Status: Acute (2) COPD exacerbation Status: Acute (3) Afib Status: Chronic (4) GUILLERMO (acute kidney injury) Status: Acute (5) Sacral decubitus ulcer, stage IV Status: Chronic (6) HTN (hypertension) Status: Chronic (7) Dementia Status: Chronic
[2017-10-09] MEDS: Latanoprost 0.005% Opht SOUTION OU SCH (21:26)
[2017-10-10] MEDS: Acetaminophen 650mg/20.3ml solution UD PEG PRN (00:46)
[2017-10-10] MEDS: Meropenem 1 GM in Sodium Chloride 0.9% 100 ML IVPB SCH ×3 (00:46→16:33)
[2017-10-10] MEDS: Ipratropium 0.02% Inhal Soln (0.5 mg/2.5 ml) UD IH SCH ×4 (02:04→19:12)
[2017-10-10] MEDS: Levalbuterol 0.63 MG/3 ML Inhal Soln UD INH SCH ×4 (02:04→19:12)
[2017-10-10] MEDS ORDERED: Chlorhexidine Gluconate 1 APPL/PKT TP ONE (02:34)
[2017-10-10 08:09] LABS: BASO # 0.1 K/uL (0.0-0.2); BASO % 0.9 % (0.0-2.0); EOS # 0.1 K/uL (0.0-0.7); EOS % 0.8 % (0.0-4.0); LYMPH # 1.5 K/uL (1.0-4.3); MEAN CORPUSCULAR HEMOGLOBIN 28.8 pg (27.0-31.0); MEAN CORPUSCULAR HGB CONC 32.7 g/dL (33.0-37.0); MEAN PLATELET VOLUME 8.6 fl (7.2-11.7); MONO # 1.1 K/uL (0.0-0.8); MONO % 8.6 % (0.0-10.0); NEUT # 10.4 K/uL (1.8-7.0); NEUT % 78.7 % (50.0-75.0); RBC 3.48 Mil/uL (3.80-5.20); RED CELL DISTRIBUTION WIDTH 15.2 % (11.5-14.5); WHITE BLOOD COUNT 13.3 K/uL (4.8-10.8)
[2017-10-10 08:25] LABS: ALB/GLOB RATIO 0.8 (1.0-2.1); ALBUMIN 3.7 g/dL (3.5-5.0); ALT/SGPT 48 U/L (9-52); AST/SGOT 50 U/L (14-36); BLOOD UREA NITROGEN 16 mg/dl (7-17); CALCIUM 9.4 mg/dL (8.4-10.2); GFR AFRICAN-AMERICAN > 60; GFR NON-AFRICAN AMERICAN > 60
[2017-10-10] MEDS: Enoxaparin 40 mg Syringe SC SCH (09:01)
[2017-10-10] MEDS: Ferrous Sulfate 220 MG/5 ML PEG SCH ×2 (09:02→16:34)
[2017-10-10] MEDS: Famotidine 40 MG/5 ML PEG SCH (09:03)
--- NOTE | 2017-10-10 14:08 | CP.PCM.PN ---
Subjective - Date & Time of Evaluation Date of Evaluation: 10/10/17 Time of Evaluation: 16:40 - Subjective Subjective: F/U PNA aphasic, follows with eyes verbal stimulation Objective - Vital Signs/Intake and Output Vital Signs (last 24 hours): Temp Pulse Resp BP Pulse Ox 99.5 F 108 H 18 102/71 100 10/10/17 11:58 10/10/17 11:58 10/10/17 11:58 10/10/17 11:58 10/10/17 11:58 Intake and Output: 10/10/17 10/10/17 06:59 18:59 Intake Total 1350 Output Total 900 Balance 450 - Medications Medications: Current Medications Acetaminophen (Tylenol 650 Mg Supp) 650 mg [place] Q6 PRN PRN Reason: Fever >100.4 F Last Admin: 10/02/17 16:20 Dose: 650 mg Acetaminophen (Tylenol 650mg/20.3ml Solution Ud) 650 mg PEG Q4 PRN PRN Reason: Pain, Mild (1-3) Last Admin: 10/10/17 00:46 Dose: 650 mg Aspirin (Aspirin Chewable) 81 mg PEG DAILY [facility] Last Admin: 10/10/17 09:01 Dose: 81 mg Atorvastatin Calcium (Lipitor) 10 mg PEG HS [facility] Last Admin: 10/09/17 21:26 Dose: 10 mg Diltiazem HCl (Cardizem) 60 mg PEG Q6 [facility] Last Admin: 10/10/17 09:02 Dose: 60 mg Enalapril Maleate (Vasotec) 2.5 mg PEG DAILY [facility] Last Admin: 10/10/17 09:00 Dose: Not Given Famotidine (Pepcid) 20 mg PEG DAILY [facility] Last Admin: 10/10/17 09:03 Dose: 20 mg Ferrous Sulfate (Ferrous Sulfate) 330 mg PEG BID [facility] Last Admin: 10/10/17 09:02 Dose: 330 mg Meropenem 1 gm/ Sodium (Chloride) 100 mls @ 100 mls/hr IVPB Q8 [facility] PRN Reason: Protocol Last Admin: 10/10/17 09:02 Dose: 100 mls/hr Ipratropium [place] (Atrovent) 0.5 mg IH RQ6 [facility] Last Admin: 10/10/17 07:14 Dose: 0.5 mg Latanoprost (Xalatan Opht) 1 drop OU HS [facility] Last Admin: 10/09/17 21:26 Dose: 1 drop Levalbuterol HCl (Xopenex) 0.63 mg INH RQ6 [facility] Last Admin: 10/10/17 13:30 Dose: 0.63 mg Magnesium Hydroxide (Milk Of Magnesia) 30 ml PEG HS PRN PRN Reason: Constipation Metoprolol Tartrate (Lopressor) 25 mg PEG Q8 [facility] Last Admin: 10/10/17 08:14 Dose: Not Given Zinc Sulfate (Zinc Sulfate 220 Mg Cap) 220 mg PEG DAILY [facility] Last Admin: 10/10/17 09:03 Dose: 220 mg - Labs Labs: 10/10/17 07:00 10/10/17 07:00 PT 11.3 Seconds (9.8-13.1) 10/04/17 06:47 INR 1.0 (0.9-1.2) 10/04/17 06:47 APTT 29.5 Seconds (25.6-37.1) 10/04/17 06:47 - Constitutional Appears: Chronically Ill - Head Exam Head Exam: NORMAL INSPECTION - Eye Exam Eye Exam: PERRL - ENT Exam ENT Exam: Normal Exam - Neck Exam Neck Exam: Normal Inspection - Respiratory Exam Respiratory Exam: Decreased Breath Sounds, Rhonchi (scattered) - Cardiovascular Exam Cardiovascular Exam: Irregular Rhythm, Murmur (systolic 3/6 apex radiated to axilla) - GI/Abdominal Exam GI & Abdominal Exam: Soft, Normal Bowel Sounds Additional comments: Peg tube in place - Extremities Exam Extremities Exam: Pedal Edema - Back Exam Additional comments: Sacral decubitus ulcer stage IV - Neurological Exam Neurological Exam: Awake Additional comments: expressive aphasia, unable to follows commands, upper extremities contracted, generalized rigidity. - Skin Skin Exam: Erythema (around peg tube border), Warm Assessment and Plan (1) PNA (pneumonia) Status: Acute (2) COPD exacerbation Status: Acute (3) Afib Status: Chronic (4) GUILLERMO (acute kidney injury) Status: Acute (5) Sacral decubitus ulcer, stage IV Status: Chronic (6) HTN (hypertension) Status: Chronic (7) Dementia Status: Chronic - Assessment and Plan (Free Text) Plan: Fever, A Fib increased RVR, continue Diflucan , Genta , Merren , Xopenex, Atrovent.
[2017-10-10] MEDS: Latanoprost 0.005% Opht SOUTION OU SCH (22:40)
[2017-10-11] MEDS: Meropenem 1 GM in Sodium Chloride 0.9% 100 ML IVPB SCH ×3 (01:01→16:04)
[2017-10-11] MEDS: Levalbuterol 0.63 MG/3 ML Inhal Soln UD INH SCH ×4 (01:49→19:51)
[2017-10-11] MEDS: Ipratropium 0.02% Inhal Soln (0.5 mg/2.5 ml) UD IH SCH ×4 (01:49→19:51)
[2017-10-11] MEDS: Famotidine 40 MG/5 ML PEG SCH (08:29)
[2017-10-11] MEDS: Ferrous Sulfate 220 MG/5 ML PEG SCH ×2 (08:29→16:02)
--- NOTE | 2017-10-11 12:03 | CP.PCM.PN ---
Subjective - Date & Time of Evaluation Date of Evaluation: 10/11/17 Time of Evaluation: 09:00 - Subjective Subjective: restless at times in NAD Objective - Vital Signs/Intake and Output Vital Signs (last 24 hours): Temp Pulse Resp BP Pulse Ox 99.3 F 118 H 18 109/72 100 10/11/17 08:00 10/11/17 11:00 10/11/17 08:00 10/11/17 11:00 10/11/17 08:00 Intake and Output: 10/11/17 10/11/17 06:59 18:59 Intake Total 560 Output Total 600 Balance -40 - Medications Medications: Current Medications Acetaminophen (Tylenol 650 Mg Supp) 650 mg [place] Q6 PRN PRN Reason: Fever >100.4 F Last Admin: 10/02/17 16:20 Dose: 650 mg Acetaminophen (Tylenol 650mg/20.3ml Solution Ud) 650 mg PEG Q4 PRN PRN Reason: Pain, Mild (1-3) Last Admin: 10/10/17 00:46 Dose: 650 mg Aspirin (Aspirin Chewable) 81 mg PEG DAILY [facility] Last Admin: 10/11/17 08:30 Dose: 81 mg Atorvastatin Calcium (Lipitor) 10 mg PEG HS [facility] Last Admin: 10/10/17 22:07 Dose: 10 mg Diltiazem HCl (Cardizem) 60 mg PEG Q6 [facility] Last Admin: 10/11/17 11:00 Dose: 60 mg Enalapril Maleate (Vasotec) 2.5 mg PEG DAILY [facility] Last Admin: 10/11/17 08:31 Dose: Not Given Famotidine (Pepcid) 20 mg PEG DAILY [facility] Last Admin: 10/11/17 08:29 Dose: 20 mg Ferrous Sulfate (Ferrous Sulfate) 330 mg PEG BID [facility] Last Admin: 10/11/17 08:29 Dose: 330 mg Meropenem 1 gm/ Sodium (Chloride) 100 mls @ 100 mls/hr IVPB Q8 [facility] PRN Reason: Protocol Last Admin: 10/11/17 08:28 Dose: 100 mls/hr Gentamicin Sulfate 60 mg/ (Sodium Chloride) 101.5 mls @ 100 mls/hr IVPB Q12H [facility] PRN Reason: Protocol Ipratropium [place] (Atrovent) 0.5 mg IH RQ6 [facility] Last Admin: 10/11/17 07:33 Dose: 0.5 mg Latanoprost (Xalatan Opht) 1 drop OU HS [facility] Last Admin: 10/10/17 22:40 Dose: 1 drop Levalbuterol HCl (Xopenex) 0.63 mg INH RQ6 [facility] Last Admin: 10/11/17 07:33 Dose: 0.63 mg Magnesium Hydroxide (Milk Of Magnesia) 30 ml PEG HS PRN PRN Reason: Constipation Metoprolol Tartrate (Lopressor) 25 mg PEG Q8 [facility] Last Admin: 10/11/17 11:00 Dose: 25 mg Zinc Sulfate (Zinc Sulfate 220 Mg Cap) 220 mg PEG DAILY [facility] Last Admin: 10/11/17 08:30 Dose: 220 mg - Labs Labs: 10/10/17 07:00 10/10/17 07:00 PT 11.3 Seconds (9.8-13.1) 10/04/17 06:47 INR 1.0 (0.9-1.2) 10/04/17 06:47 APTT 29.5 Seconds (25.6-37.1) 10/04/17 06:47 - Constitutional Appears: Confused, Cachectic, Chronically Ill - Head Exam Head Exam: NORMOCEPHALIC - Eye Exam Eye Exam: PERRL - ENT Exam ENT Exam: Mucous Membranes Dry - Neck Exam Neck Exam: absent: Lymphadenopathy - Respiratory Exam Respiratory Exam: Decreased Breath Sounds, Prolonged Expiratory Phase, Rhonchi - Cardiovascular Exam Cardiovascular Exam: REGULAR RHYTHM - GI/Abdominal Exam GI & Abdominal Exam: Distended, Soft - Rectal Exam Rectal Exam: Deferred - Exam Exam: NORMAL INSPECTION Assessment and Plan (1) Acute hypernatremia Status: Deleted (2) Acute kidney injury Status: Acute (3) Acute on chronic systolic CHF (congestive heart failure) Status: Deleted (4) Pneumonia Status: Acute
[2017-10-11] MEDS: FLUCONAZOLE IN DEXTROSE 200 MG/100 ML PIGGYBACK IVPB SCH (12:19)
[2017-10-11] MEDS: Gentamicin 60mg/50ml NS 60 MG/50 ML BAG IVPB SCH ×2 (12:19→23:08)
[2017-10-11] MEDS: Enoxaparin 40 mg Syringe SC SCH (15:47)
[2017-10-11] MEDS: Latanoprost 0.005% Opht SOUTION OU SCH (21:56)
[2017-10-12] MEDS: Meropenem 1 GM in Sodium Chloride 0.9% 100 ML IVPB SCH ×3 (01:13→17:46)
[2017-10-12] MEDS: Levalbuterol 0.63 MG/3 ML Inhal Soln UD INH SCH ×4 (01:35→19:05)
[2017-10-12] MEDS: Ipratropium 0.02% Inhal Soln (0.5 mg/2.5 ml) UD IH SCH ×4 (01:35→19:05)
--- NOTE | 2017-10-12 08:50 | CP.PCM.PN ---
Subjective - Date & Time of Evaluation Date of Evaluation: 10/11/17 Time of Evaluation: 11:40 - Subjective Subjective: NOTE FOR 10-11-17 eyes open, follows with head movement verbal stimuli Objective - Vital Signs/Intake and Output Vital Signs (last 24 hours): Temp Pulse Resp BP Pulse Ox 99 F 98 H 18 97/65 L 100 10/12/17 07:54 10/12/17 07:54 10/12/17 07:54 10/12/17 07:54 10/12/17 07:54 - Medications Medications: Current Medications Acetaminophen (Tylenol 650 Mg Supp) 650 mg [place] Q6 PRN PRN Reason: Fever >100.4 F Last Admin: 10/02/17 16:20 Dose: 650 mg Acetaminophen (Tylenol 650mg/20.3ml Solution Ud) 650 mg PEG Q4 PRN PRN Reason: Pain, Mild (1-3) Last Admin: 10/10/17 00:46 Dose: 650 mg Aspirin (Aspirin Chewable) 81 mg PEG DAILY [facility] Last Admin: 10/11/17 08:30 Dose: 81 mg Atorvastatin Calcium (Lipitor) 10 mg PEG HS [facility] Last Admin: 10/11/17 21:55 Dose: 10 mg Diltiazem HCl (Cardizem) 60 mg PEG Q6 [facility] Last Admin: 10/12/17 04:27 Dose: 60 mg Enalapril Maleate (Vasotec) 2.5 mg PEG DAILY [facility] Last Admin: 10/11/17 08:31 Dose: Not Given Enoxaparin Sodium (Lovenox) 40 mg SC DAILY [facility] PRN Reason: Protocol Last Admin: 10/11/17 15:47 Dose: 40 mg Famotidine (Pepcid) 20 mg PEG DAILY [facility] Last Admin: 10/11/17 08:29 Dose: 20 mg Ferrous Sulfate (Ferrous Sulfate) 330 mg PEG BID [facility] Last Admin: 10/11/17 16:02 Dose: 330 mg Meropenem 1 gm/ Sodium (Chloride) 100 mls @ 100 mls/hr IVPB Q8 [facility] PRN Reason: Protocol Last Admin: 10/12/17 01:13 Dose: 100 mls/hr Gentamicin Sulfate/Sodium Chloride (Gentamicin 60mg/50ml Ns) 60 mg in 50 mls @ 49.261 mls/hr IVPB Q12H [facility] PRN Reason: Protocol Last Admin: 10/11/17 23:08 Dose: 49.261 mls/hr FLUCONAZOLE IN DEXTROSE (Fluconazole-Dext 200 Mg/100 Ml) 200 mg in 100 mls @ 100 mls/hr IVPB DAILY [facility] PRN Reason: Protocol Last Admin: 10/11/17 12:19 Dose: 100 mls/hr Ipratropium [place] (Atrovent) 0.5 mg IH RQ6 [facility] Last Admin: 10/12/17 07:34 Dose: 0.5 mg Latanoprost (Xalatan Opht) 1 drop OU HS [facility] Last Admin: 10/11/17 21:56 Dose: 1 drop Levalbuterol HCl (Xopenex) 0.63 mg INH RQ6 [facility] Last Admin: 10/12/17 07:34 Dose: 0.63 mg Magnesium Hydroxide (Milk Of Magnesia) 30 ml PEG HS PRN PRN Reason: Constipation Metoprolol Tartrate (Lopressor) 25 mg PEG Q8 [facility] Last Admin: 10/12/17 01:27 Dose: 25 mg Zinc Sulfate (Zinc Sulfate 220 Mg Cap) 220 mg PEG DAILY [facility] Last Admin: 10/11/17 08:30 Dose: 220 mg - Labs Labs: 10/10/17 07:00 10/10/17 07:00 PT 11.3 Seconds (9.8-13.1) 10/04/17 06:47 INR 1.0 (0.9-1.2) 10/04/17 06:47 APTT 29.5 Seconds (25.6-37.1) 10/04/17 06:47 - Constitutional Appears: Chronically Ill - Head Exam Head Exam: NORMAL INSPECTION - Eye Exam Eye Exam: PERRL - ENT Exam ENT Exam: Normal Exam - Neck Exam Neck Exam: Normal Inspection - Respiratory Exam Respiratory Exam: Decreased Breath Sounds, Rhonchi - Cardiovascular Exam Cardiovascular Exam: Irregular Rhythm, Murmur (3/6 [place]-Axilla) - GI/Abdominal Exam GI & Abdominal Exam: Soft, Normal Bowel Sounds Additional comments: PEG - Extremities Exam Additional comments: edema L/E - Back Exam Additional comments: L-S decubitus Stage IV - Neurological Exam Additional comments: aphasic, not following commands, generalized rigidity - Skin Skin Exam: Warm Assessment and Plan (1) PNA (pneumonia) Status: Acute (2) COPD exacerbation Status: Acute (3) Afib Status: Chronic (4) GUILLERMO (acute kidney injury) Status: Acute (5) Sacral decubitus ulcer, stage IV Status: Chronic (6) HTN (hypertension) Status: Chronic (7) Dementia Status: Chronic - Assessment and Plan (Free Text) Plan: afebril today , RSR to Sinus Tach low 100's , Continue Diflucan, Genta , Merren and rest of treatment
[2017-10-12] MEDS: Ferrous Sulfate 220 MG/5 ML PEG SCH ×2 (10:00→17:43)
[2017-10-12] MEDS: Enoxaparin 40 mg Syringe SC SCH (10:01)
[2017-10-12] MEDS: Famotidine 40 MG/5 ML PEG SCH (10:02)
--- NOTE | 2017-10-12 10:24 | CP.PCM.PN ---
Subjective - Date & Time of Evaluation Date of Evaluation: 10/12/17 Time of Evaluation: 10:00 - Subjective Subjective: congested confused DNR in effect Objective - Vital Signs/Intake and Output Vital Signs (last 24 hours): Temp Pulse Resp BP Pulse Ox 99 F 98 H 18 97/65 L 100 10/12/17 07:54 10/12/17 10:00 10/12/17 07:54 10/12/17 10:00 10/12/17 07:54 - Medications Medications: Current Medications Acetaminophen (Tylenol 650 Mg Supp) 650 mg [place] Q6 PRN PRN Reason: Fever >100.4 F Last Admin: 10/02/17 16:20 Dose: 650 mg Acetaminophen (Tylenol 650mg/20.3ml Solution Ud) 650 mg PEG Q4 PRN PRN Reason: Pain, Mild (1-3) Last Admin: 10/10/17 00:46 Dose: 650 mg Aspirin (Aspirin Chewable) 81 mg PEG DAILY [facility] Last Admin: 10/12/17 09:59 Dose: 81 mg Atorvastatin Calcium (Lipitor) 10 mg PEG HS [facility] Last Admin: 10/11/17 21:55 Dose: 10 mg Diltiazem HCl (Cardizem) 60 mg PEG Q6 [facility] Last Admin: 10/12/17 09:59 Dose: Not Given Enalapril Maleate (Vasotec) 2.5 mg PEG DAILY [facility] Last Admin: 10/12/17 10:03 Dose: Not Given Enoxaparin Sodium (Lovenox) 40 mg SC DAILY [facility] PRN Reason: Protocol Last Admin: 10/12/17 10:01 Dose: 40 mg Famotidine (Pepcid) 20 mg PEG DAILY [facility] Last Admin: 10/12/17 10:02 Dose: 20 mg Ferrous Sulfate (Ferrous Sulfate) 330 mg PEG BID [facility] Last Admin: 10/12/17 10:00 Dose: 330 mg Meropenem 1 gm/ Sodium (Chloride) 100 mls @ 100 mls/hr IVPB Q8 [facility] PRN Reason: Protocol Last Admin: 10/12/17 10:01 Dose: 100 mls/hr Gentamicin Sulfate/Sodium Chloride (Gentamicin 60mg/50ml Ns) 60 mg in 50 mls @ 49.261 mls/hr IVPB Q12H [facility] PRN Reason: Protocol Last Admin: 10/11/17 23:08 Dose: 49.261 mls/hr FLUCONAZOLE IN DEXTROSE (Fluconazole-Dext 200 Mg/100 Ml) 200 mg in 100 mls @ 100 mls/hr IVPB DAILY [facility] PRN Reason: Protocol Last Admin: 10/11/17 12:19 Dose: 100 mls/hr Ipratropium [place] (Atrovent) 0.5 mg IH RQ6 [facility] Last Admin: 10/12/17 07:34 Dose: 0.5 mg Latanoprost (Xalatan Opht) 1 drop OU HS [facility] Last Admin: 10/11/17 21:56 Dose: 1 drop Levalbuterol HCl (Xopenex) 0.63 mg INH RQ6 [facility] Last Admin: 10/12/17 07:34 Dose: 0.63 mg Magnesium Hydroxide (Milk Of Magnesia) 30 ml PEG HS PRN PRN Reason: Constipation Metoprolol Tartrate (Lopressor) 25 mg PEG Q8 [facility] Last Admin: 10/12/17 10:00 Dose: Not Given Zinc Sulfate (Zinc Sulfate 220 Mg Cap) 220 mg PEG DAILY [facility] Last Admin: 10/12/17 10:03 Dose: 220 mg - Labs Labs: 10/10/17 07:00 10/10/17 07:00 PT 11.3 Seconds (9.8-13.1) 10/04/17 06:47 INR 1.0 (0.9-1.2) 10/04/17 06:47 APTT 29.5 Seconds (25.6-37.1) 10/04/17 06:47 - Constitutional Appears: Confused, Cachectic, Chronically Ill - Head Exam Head Exam: NORMOCEPHALIC - Eye Exam Eye Exam: PERRL. absent: Scleral icterus - ENT Exam ENT Exam: Mucous Membranes Dry - Neck Exam Neck Exam: absent: Lymphadenopathy - Respiratory Exam Respiratory Exam: Decreased Breath Sounds - Cardiovascular Exam Cardiovascular Exam: REGULAR RHYTHM - GI/Abdominal Exam GI & Abdominal Exam: Distended, Soft - Rectal Exam Rectal Exam: Deferred Assessment and Plan (1) Acute hypernatremia Status: Deleted (2) Acute kidney injury Status: Acute (3) Acute on chronic systolic CHF (congestive heart failure) Status: Deleted (4) Pneumonia Status: Acute
[2017-10-12] MEDS: FLUCONAZOLE IN DEXTROSE 200 MG/100 ML PIGGYBACK IVPB SCH (11:30)
--- NOTE | 2017-10-12 12:19 | RAD ---
Date of service: 10/12/2017 PROCEDURE: CHEST RADIOGRAPH, 1 VIEW HISTORY: congestion COMPARISON: 10/04/2017. Single-view chest. 10/05/2017 CT thorax. FINDINGS: LUNGS: Improved aeration of the lungs compared to prior studies. Residual atelectasis/infiltrate left lower lobe. PLEURA: No pneumothorax or pleural fluid seen. CARDIOVASCULAR: Normal. OSSEOUS STRUCTURES: No significant abnormalities. VISUALIZED UPPER ABDOMEN: Normal. OTHER FINDINGS: None. IMPRESSION: Substantial interval improvement in lower lobe infiltrates.
[2017-10-12] MEDS: Gentamicin 60mg/50ml NS 60 MG/50 ML BAG IVPB SCH (13:36)
--- NOTE | 2017-10-12 13:48 | VASCULAR ---
PROCEDURE: Date of procedure: 10/05/2017 Procedure: 1. Placement of a right arm PICC with ultrasound and fluoroscopic guidance, CPT 18731 2. PICC tip confirmation with spot radiograph and is in the superior vena cava Medications: 1 percent lidocaine Total Fluoro time: 2.1 seconds Radiation: 0.26 MGy EBL: 2 cc HISTORY: Infection requiring long-term IV antibiotics TECHNIQUE: Following informed consent and procedure time-out, the patient was placed supine on the interventional table and the right arm prepped and draped in the usual sterile fashion. Ultrasound showed a patent and compressible right basilic vein. After the skin was anesthetized with lidocaine, the basilic vein was accessed with micro micropuncture technique using ultrasound guidance. A guidewire was then advanced under fluoroscopic guidance into the superior vena cava. An image documenting ultrasound guidance for vascular access was permanently saved. The length of the single-lumen 4 [place] PICC was trimmed to 40 centimeters and advanced through a peel-away sheath. The PICC was position with tip of PICC confirm a spot radiograph the superior vena cava. The PICC was secured to the patient's skin. The PICC was flushed. A biopatch and sterile dressing was applied. IMPRESSION: Placement of a single-lumen 4 [place] PICC trimmed to 40 centimeters via right basilic vein. The tip of the PICC is confirmed with spot radiograph and is in the superior vena cava.
--- NOTE | 2017-10-12 15:39 | CP.PCM.PN ---
Subjective - Date & Time of Evaluation Date of Evaluation: 10/12/17 Time of Evaluation: 10:05 - Subjective Subjective: F/U PNA awake, aphasic, follows with head movements verbal stimulation Objective - Vital Signs/Intake and Output Vital Signs (last 24 hours): Temp Pulse Resp BP Pulse Ox 98.6 F 71 18 127/79 100 10/12/17 12:14 10/12/17 12:14 10/12/17 12:14 10/12/17 12:14 10/12/17 12:14 - Medications Medications: Current Medications Acetaminophen (Tylenol 650 Mg Supp) 650 mg [place] Q6 PRN PRN Reason: Fever >100.4 F Last Admin: 10/02/17 16:20 Dose: 650 mg Acetaminophen (Tylenol 650mg/20.3ml Solution Ud) 650 mg PEG Q4 PRN PRN Reason: Pain, Mild (1-3) Last Admin: 10/10/17 00:46 Dose: 650 mg Aspirin (Aspirin Chewable) 81 mg PEG DAILY [facility] Last Admin: 10/12/17 09:59 Dose: 81 mg Atorvastatin Calcium (Lipitor) 10 mg PEG HS [facility] Last Admin: 10/11/17 21:55 Dose: 10 mg Diltiazem HCl (Cardizem) 60 mg PEG Q6 [facility] Last Admin: 10/12/17 09:59 Dose: Not Given Enalapril Maleate (Vasotec) 2.5 mg PEG DAILY [facility] Last Admin: 10/12/17 10:03 Dose: Not Given Enoxaparin Sodium (Lovenox) 40 mg SC DAILY [facility] PRN Reason: Protocol Last Admin: 10/12/17 10:01 Dose: 40 mg Famotidine (Pepcid) 20 mg PEG DAILY [facility] Last Admin: 10/12/17 10:02 Dose: 20 mg Ferrous Sulfate (Ferrous Sulfate) 330 mg PEG BID [facility] Last Admin: 10/12/17 10:00 Dose: 330 mg Meropenem 1 gm/ Sodium (Chloride) 100 mls @ 100 mls/hr IVPB Q8 [facility] PRN Reason: Protocol Last Admin: 10/12/17 10:01 Dose: 100 mls/hr Gentamicin Sulfate/Sodium Chloride (Gentamicin 60mg/50ml Ns) 60 mg in 50 mls @ 49.261 mls/hr IVPB Q12H [facility] PRN Reason: Protocol Last Admin: 10/12/17 13:36 Dose: 49.261 mls/hr FLUCONAZOLE IN DEXTROSE (Fluconazole-Dext 200 Mg/100 Ml) 200 mg in 100 mls @ 100 mls/hr IVPB DAILY [facility] PRN Reason: Protocol Last Admin: 10/12/17 11:30 Dose: 100 mls/hr Ipratropium [place] (Atrovent) 0.5 mg IH RQ6 [facility] Last Admin: 10/12/17 13:26 Dose: 0.5 mg Latanoprost (Xalatan Opht) 1 drop OU HS [facility] Last Admin: 10/11/17 21:56 Dose: 1 drop Levalbuterol HCl (Xopenex) 0.63 mg INH RQ6 [facility] Last Admin: 10/12/17 13:26 Dose: 0.63 mg Magnesium Hydroxide (Milk Of Magnesia) 30 ml PEG HS PRN PRN Reason: Constipation Metoprolol Tartrate (Lopressor) 25 mg PEG Q8 [facility] Last Admin: 10/12/17 10:00 Dose: Not Given Zinc Sulfate (Zinc Sulfate 220 Mg Cap) 220 mg PEG DAILY [facility] Last Admin: 10/12/17 10:03 Dose: 220 mg - Labs Labs: 10/10/17 07:00 10/10/17 07:00 PT 11.3 Seconds (9.8-13.1) 10/04/17 06:47 INR 1.0 (0.9-1.2) 10/04/17 06:47 APTT 29.5 Seconds (25.6-37.1) 10/04/17 06:47 - Constitutional Appears: Chronically Ill - Head Exam Head Exam: NORMAL INSPECTION - Eye Exam Eye Exam: PERRL - ENT Exam ENT Exam: Normal Exam - Neck Exam Neck Exam: Normal Inspection - Respiratory Exam Respiratory Exam: Decreased Breath Sounds, Rhonchi - Cardiovascular Exam Cardiovascular Exam: Irregular Rhythm, Murmur (3/6 [place]) - GI/Abdominal Exam GI & Abdominal Exam: Soft, Normal Bowel Sounds Additional comments: PEG - Extremities Exam Additional comments: Edema L/E - Back Exam Additional comments: L-S decubitus stage IV - Neurological Exam Neurological Exam: Awake Additional comments: Aphasic, not following commands, generalized rigidity. - Skin Skin Exam: Warm Assessment and Plan (1) PNA (pneumonia) Status: Acute (2) COPD exacerbation Status: Acute (3) Afib Status: Chronic (4) GUILLERMO (acute kidney injury) Status: Acute (5) Sacral decubitus ulcer, stage IV Status: Chronic (6) HTN (hypertension) Status: Chronic (7) Dementia Status: Chronic - Assessment and Plan (Free Text) Plan: CXR improvement lower lobes infltrates, continue Merren, Genta , Xopenex, Atrovent, Discharge planning
[2017-10-12] MEDS: Latanoprost 0.005% Opht SOUTION OU SCH (22:07)
[2017-10-13] MEDS: Gentamicin 60mg/50ml NS 60 MG/50 ML BAG IVPB SCH ×2 (00:11→13:36)
[2017-10-13] MEDS: Ipratropium 0.02% Inhal Soln (0.5 mg/2.5 ml) UD IH SCH ×3 (01:00→13:10)
[2017-10-13] MEDS: Levalbuterol 0.63 MG/3 ML Inhal Soln UD INH SCH ×3 (01:00→13:10)
[2017-10-13] MEDS: Meropenem 1 GM in Sodium Chloride 0.9% 100 ML IVPB SCH ×2 (01:14→09:08)
[2017-10-13] MEDS: Ferrous Sulfate 220 MG/5 ML PEG SCH (09:05)
[2017-10-13] MEDS: FLUCONAZOLE IN DEXTROSE 200 MG/100 ML PIGGYBACK IVPB SCH (09:06)
[2017-10-13] MEDS: Enoxaparin 40 mg Syringe SC SCH (09:07)
[2017-10-13] MEDS: Famotidine 40 MG/5 ML PEG SCH (09:09)
--- NOTE | 2017-10-13 11:11 | CP.PCM.PN ---
Subjective - Date & Time of Evaluation Date of Evaluation: 10/13/17 Time of Evaluation: 06:00 - Subjective Subjective: afeb weak bedridden congested poor prognosis Objective - Vital Signs/Intake and Output Vital Signs (last 24 hours): Temp Pulse Resp BP Pulse Ox 99.6 F 101 H 20 137/76 100 10/13/17 08:00 10/13/17 09:06 10/13/17 08:00 10/13/17 09:06 10/13/17 08:00 - Medications Medications: Current Medications Acetaminophen (Tylenol 650 Mg Supp) 650 mg [place] Q6 PRN PRN Reason: Fever >100.4 F Last Admin: 10/02/17 16:20 Dose: 650 mg Acetaminophen (Tylenol 650mg/20.3ml Solution Ud) 650 mg PEG Q4 PRN PRN Reason: Pain, Mild (1-3) Last Admin: 10/10/17 00:46 Dose: 650 mg Aspirin (Aspirin Chewable) 81 mg PEG DAILY [facility] Last Admin: 10/13/17 09:04 Dose: 81 mg Atorvastatin Calcium (Lipitor) 10 mg PEG HS [facility] Last Admin: 10/12/17 22:07 Dose: 10 mg Diltiazem HCl (Cardizem) 60 mg PEG Q6 [facility] Last Admin: 10/13/17 09:05 Dose: 60 mg Enalapril Maleate (Vasotec) 2.5 mg PEG DAILY [facility] Last Admin: 10/13/17 09:09 Dose: 2.5 mg Enoxaparin Sodium (Lovenox) 40 mg SC DAILY [facility] PRN Reason: Protocol Last Admin: 10/13/17 09:07 Dose: 40 mg Famotidine (Pepcid) 20 mg PEG DAILY [facility] Last Admin: 10/13/17 09:09 Dose: 20 mg Ferrous Sulfate (Ferrous Sulfate) 330 mg PEG BID [facility] Last Admin: 10/13/17 09:05 Dose: 330 mg Meropenem 1 gm/ Sodium (Chloride) 100 mls @ 100 mls/hr IVPB Q8 [facility] PRN Reason: Protocol Last Admin: 10/13/17 09:08 Dose: 100 mls/hr Gentamicin Sulfate/Sodium Chloride (Gentamicin 60mg/50ml Ns) 60 mg in 50 mls @ 49.261 mls/hr IVPB Q12H [facility] PRN Reason: Protocol Last Admin: 10/13/17 00:11 Dose: 49.261 mls/hr FLUCONAZOLE IN DEXTROSE (Fluconazole-Dext 200 Mg/100 Ml) 200 mg in 100 mls @ 100 mls/hr IVPB DAILY [facility] PRN Reason: Protocol Last Admin: 10/13/17 09:06 Dose: 100 mls/hr Ipratropium [place] (Atrovent) 0.5 mg IH RQ6 [facility] Last Admin: 10/13/17 07:20 Dose: 0.5 mg Latanoprost (Xalatan Opht) 1 drop OU HS [facility] Last Admin: 10/12/17 22:07 Dose: 1 drop Levalbuterol HCl (Xopenex) 0.63 mg INH RQ6 [facility] Last Admin: 10/13/17 07:20 Dose: 0.63 mg Magnesium Hydroxide (Milk Of Magnesia) 30 ml PEG HS PRN PRN Reason: Constipation Metoprolol Tartrate (Lopressor) 25 mg PEG Q8 [facility] Last Admin: 10/13/17 09:06 Dose: 25 mg Zinc Sulfate (Zinc Sulfate 220 Mg Cap) 220 mg PEG DAILY [facility] Last Admin: 10/13/17 09:09 Dose: 220 mg - Labs Labs: 10/10/17 07:00 10/10/17 07:00 PT 11.3 Seconds (9.8-13.1) 10/04/17 06:47 INR 1.0 (0.9-1.2) 10/04/17 06:47 APTT 29.5 Seconds (25.6-37.1) 10/04/17 06:47 - Constitutional Appears: Confused, Chronically Ill - Head Exam Head Exam: NORMOCEPHALIC - Eye Exam Eye Exam: absent: Scleral icterus - ENT Exam ENT Exam: Normal External Ear Exam - Neck Exam Neck Exam: absent: Lymphadenopathy - Respiratory Exam Respiratory Exam: Decreased Breath Sounds - Cardiovascular Exam Cardiovascular Exam: REGULAR RHYTHM - GI/Abdominal Exam GI & Abdominal Exam: Distended - Rectal Exam Rectal Exam: Deferred - Extremities Exam Extremities Exam: absent: Pedal Edema - Back Exam Back Exam: absent: CVA tenderness (L), CVA tenderness (R) Assessment and Plan (1) Acute hypernatremia Status: Deleted (2) Acute kidney injury Status: Acute (3) Acute on chronic systolic CHF (congestive heart failure) Status: Deleted (4) Pneumonia Status: Acute
[2017-10-13 12:46] VITALS: BP 128/72; PULSE 72; RESP 18; TEMP 99.1; O2SAT 99
--- NOTE | 2017-10-13 15:07 | CP.PCM.PN ---
Subjective - Date & Time of Evaluation Date of Evaluation: 10/13/17 - Subjective Subjective: F/U PNA Objective - Vital Signs/Intake and Output Vital Signs (last 24 hours): Temp Pulse Resp BP Pulse Ox 99.1 F 72 18 128/72 99 10/13/17 12:45 10/13/17 12:45 10/13/17 12:45 10/13/17 12:45 10/13/17 12:45 - Medications Medications: Current Medications Acetaminophen (Tylenol 650 Mg Supp) 650 mg [place] Q6 PRN PRN Reason: Fever >100.4 F Last Admin: 10/02/17 16:20 Dose: 650 mg Acetaminophen (Tylenol 650mg/20.3ml Solution Ud) 650 mg PEG Q4 PRN PRN Reason: Pain, Mild (1-3) Last Admin: 10/10/17 00:46 Dose: 650 mg Aspirin (Aspirin Chewable) 81 mg PEG DAILY [facility] Last Admin: 10/13/17 09:04 Dose: 81 mg Atorvastatin Calcium (Lipitor) 10 mg PEG HS [facility] Last Admin: 10/12/17 22:07 Dose: 10 mg Diltiazem HCl (Cardizem) 60 mg PEG Q6 [facility] Last Admin: 10/13/17 09:05 Dose: 60 mg Enalapril Maleate (Vasotec) 2.5 mg PEG DAILY [facility] Last Admin: 10/13/17 09:09 Dose: 2.5 mg Enoxaparin Sodium (Lovenox) 40 mg SC DAILY [facility] PRN Reason: Protocol Last Admin: 10/13/17 09:07 Dose: 40 mg Famotidine (Pepcid) 20 mg PEG DAILY [facility] Last Admin: 10/13/17 09:09 Dose: 20 mg Ferrous Sulfate (Ferrous Sulfate) 330 mg PEG BID [facility] Last Admin: 10/13/17 09:05 Dose: 330 mg Meropenem 1 gm/ Sodium (Chloride) 100 mls @ 100 mls/hr IVPB Q8 [facility] PRN Reason: Protocol Last Admin: 10/13/17 09:08 Dose: 100 mls/hr Gentamicin Sulfate/Sodium Chloride (Gentamicin 60mg/50ml Ns) 60 mg in 50 mls @ 49.261 mls/hr IVPB Q12H [facility] PRN Reason: Protocol Last Admin: 10/13/17 13:36 Dose: 49.261 mls/hr FLUCONAZOLE IN DEXTROSE (Fluconazole-Dext 200 Mg/100 Ml) 200 mg in 100 mls @ 100 mls/hr IVPB DAILY [facility] PRN Reason: Protocol Last Admin: 10/13/17 09:06 Dose: 100 mls/hr Ipratropium [place] (Atrovent) 0.5 mg IH RQ6 [facility] Last Admin: 10/13/17 13:10 Dose: 0.5 mg Latanoprost (Xalatan Opht) 1 drop OU HS [facility] Last Admin: 10/12/17 22:07 Dose: 1 drop Levalbuterol HCl (Xopenex) 0.63 mg INH RQ6 [facility] Last Admin: 10/13/17 13:10 Dose: 0.63 mg Magnesium Hydroxide (Milk Of Magnesia) 30 ml PEG HS PRN PRN Reason: Constipation Metoprolol Tartrate (Lopressor) 25 mg PEG Q8 [facility] Last Admin: 10/13/17 09:06 Dose: 25 mg Zinc Sulfate (Zinc Sulfate 220 Mg Cap) 220 mg PEG DAILY [facility] Last Admin: 10/13/17 09:09 Dose: 220 mg - Labs Labs: 10/10/17 07:00 10/10/17 07:00 PT 11.3 Seconds (9.8-13.1) 10/04/17 06:47 INR 1.0 (0.9-1.2) 10/04/17 06:47 APTT 29.5 Seconds (25.6-37.1) 10/04/17 06:47 - Constitutional Appears: Chronically Ill - Head Exam Head Exam: NORMAL INSPECTION - Eye Exam Eye Exam: PERRL - ENT Exam ENT Exam: Normal Exam - Neck Exam Neck Exam: Normal Inspection - Respiratory Exam Respiratory Exam: Decreased Breath Sounds, Rhonchi - Cardiovascular Exam Cardiovascular Exam: Irregular Rhythm, Murmur (3/6 [place] to [place]) - GI/Abdominal Exam GI & Abdominal Exam: Soft, Normal Bowel Sounds Additional comments: PEG - Extremities Exam Additional comments: Edema L/E - Back Exam Additional comments: L-S decubitus ulcer stage IV - Neurological Exam Neurological Exam: Awake Additional comments: Aphasic, not following commands, generalized rigidity. - Skin Skin Exam: Warm Assessment and Plan (1) PNA (pneumonia) Status: Acute (2) COPD exacerbation Status: Acute (3) Afib Status: Chronic (4) GUILLERMO (acute kidney injury) Status: Acute (5) Sacral decubitus ulcer, stage IV Status: Chronic (6) HTN (hypertension) Status: Chronic (7) Dementia Status: Chronic
--- NOTE | 2017-10-13 15:38 | CP.PCM.DIS ---
Provider - Provider Date of Admission: 10/01/17 18:55 Attending physician: Sy Del Valle MD Diagnosis - Discharge Diagnosis (1) PNA (pneumonia) Status: Acute (2) COPD exacerbation Status: Acute (3) Afib Status: Chronic (4) GUILLERMO (acute kidney injury) Status: Acute (5) Sacral decubitus ulcer, stage IV Status: Chronic (6) HTN (hypertension) Status: Chronic (7) Dementia Status: Chronic Hospital Course - Lab Results Lab Results: Micro Results 10/01/17 19:55 Blood Blood Culture - Final NO GROWTH AFTER 5 DAYS 10/01/17 19:55 Blood Gram Stain - Final TEST NOT PERFORMED 10/01/17 19:55 Blood Blood Culture - Final NO GROWTH AFTER 5 DAYS 10/01/17 19:55 Blood Gram Stain - Final TEST NOT PERFORMED 10/01/17 19:35 Urine,Clean Catch Urine Culture - Final Escherichia Coli Most Recent Lab Values WBC 13.3 K/uL (4.8-10.8) H D 10/10/17 07:00 RBC 3.48 Mil/uL (3.80-5.20) L 10/10/17 07:00 Hgb 10.0 g/dL (12.0-16.0) L 10/10/17 07:00 Hct 30.6 % (34.0-47.0) L 10/10/17 07:00 MCV 88.0 fl (81.0-99.0) 10/10/17 07:00 MCH 28.8 pg (27.0-31.0) 10/10/17 07:00 MCHC 32.7 g/dL (33.0-37.0) L 10/10/17 07:00 RDW 15.2 % (11.5-14.5) H 10/10/17 07:00 Plt Count 505 K/uL (130-400) H D 10/10/17 07:00 MPV 8.6 fl (7.2-11.7) 10/10/17 07:00 Neut % (Auto) 78.7 % (50.0-75.0) H 10/10/17 07:00 Lymph % (Auto) 11.0 % (20.0-40.0) L 10/10/17 07:00 [place] % (Auto) 8.6 % (0.0-10.0) 10/10/17 07:00 Eos % (Auto) 0.8 % (0.0-4.0) 10/10/17 07:00 Baso % (Auto) 0.9 % (0.0-2.0) 10/10/17 07:00 Neut # (Auto) 10.4 K/uL (1.8-7.0) H 10/10/17 07:00 Lymph # (Auto) 1.5 K/uL (1.0-4.3) 10/10/17 07:00 [place] # (Auto) 1.1 K/uL (0.0-0.8) H 10/10/17 07:00 Eos # (Auto) 0.1 K/uL (0.0-0.7) 10/10/17 07:00 Baso # (Auto) 0.1 K/uL (0.0-0.2) 10/10/17 07:00 Neutrophils % (Manual) 78 % (42-75) H 10/01/17 18:18 Band Neutrophils % 11 % (0-2) H* 10/01/17 18:18 Lymphocytes % (Manual) 3 % (20-50) L 10/01/17 18:18 Monocytes % (Manual) 7 % (0-10) 10/01/17 18:18 Metamyelocytes % 1 % (0-0) H 10/01/17 18:18 Platelet Estimate Normal (NORMAL) 10/01/17 18:18 Large Platelets Present 10/01/17 18:18 Anisocytosis (manual) Slight 10/01/17 18:18 Ovalocytes Moderate 10/01/17 18:18 PT 11.3 Seconds (9.8-13.1) 10/04/17 06:47 INR 1.0 (0.9-1.2) 10/04/17 06:47 APTT 29.5 Seconds (25.6-37.1) 10/04/17 06:47 pCO2 36 mm/Hg (35-45) 10/01/17 18:16 pO2 33 mm/Hg (30-55) 10/01/17 21:34 HCO3 30.2 mmol/L (21-28) H 10/01/17 18:16 ABG pH 7.53 (7.35-7.45) H 10/01/17 18:16 ABG Total CO2 31.2 mmol/L (22-28) H 10/01/17 18:16 ABG O2 Saturation 89.4 % (95-98) L 10/01/17 18:16 ABG Base Excess 7.1 mmol/L (-2.0-3.0) H 10/01/17 18:16 Ze Test Yes 10/01/17 18:16 ABG Potassium 3.9 mmol/L (3.6-5.2) 10/01/17 18:16 VBG pH 7.42 (7.32-7.43) 10/01/17 21:34 VBG pCO2 46 mmHg (40-60) 10/01/17 21:34 VBG HCO3 27.6 mmol/L 10/01/17 21:34 VBG Total CO2 31.2 mmol/L (22-28) H 10/01/17 21:34 VBG O2 Sat (Calc) 67.7 % (40-65) H 10/01/17 21:34 VBG Base Excess 4.5 mmol/L (0.0-2.0) H 10/01/17 21:34 VBG Potassium 3.8 mmol/L (3.6-5.2) 10/01/17 21:34 A-a O2 Difference 194.0 mm/Hg 10/01/17 18:16 Sodium 134.0 mmol/L (132-148) 10/01/17 21:34 Chloride 102.0 mmol/L (98-107) 10/01/17 21:34 Glucose 122 mg/dL (65-105) H 10/01/17 21:34 Lactate 2.8 mmol/L (0.7-2.1) H 10/01/17 21:34 Vent Mode Tx neb mask 10/01/17 18:16 FiO2 96.0 % 10/01/17 21:34 Sodium 139 mmol/l (132-148) 10/10/17 07:00 Potassium 5.0 MMOL/L (3.6-5.0) 10/10/17 07:00 Chloride 98 mmol/L (98-107) 10/10/17 07:00 Carbon Dioxide 32 mmol/L (22-30) H 10/10/17 07:00 Anion Gap 14 (10-20) 10/10/17 07:00 BUN 16 mg/dl (7-17) 10/10/17 07:00 Creatinine 0.4 mg/dl (0.7-1.2) L 10/10/17 07:00 Est GFR ( Amer) > 60 10/10/17 07:00 Est GFR (Non-Af Amer) > 60 10/10/17 07:00 Random Glucose 121 mg/dL (65-105) H 10/10/17 07:00 Calcium 9.4 mg/dL (8.4-10.2) 10/10/17 07:00 Total Bilirubin 0.7 mg/dl (0.2-1.3) 10/10/17 07:00 AST 50 U/L (14-36) H D 10/10/17 07:00 ALT 48 U/L (9-52) 10/10/17 07:00 Alkaline Phosphatase 96 U/L (38-126) 10/10/17 07:00 Troponin I 0.0390 ng/mL (0.00-0.120) 10/01/17 18:18 Total Protein 8.2 G/DL (6.3-8.2) 10/10/17 07:00 Albumin 3.7 g/dL (3.5-5.0) 10/10/17 07:00 Globulin 4.5 gm/dL (2.2-3.9) H 10/10/17 07:00 Albumin/Globulin Ratio 0.8 (1.0-2.1) L 10/10/17 07:00 Arterial Blood Potassium 3.9 mmol/L (3.6-5.2) 10/01/17 18:16 Venous Blood Potassium 3.8 mmol/L (3.6-5.2) 10/01/17 21:34 Urine Color Yellow (YELLOW) 10/02/17 09:26 Urine Clarity Cloudy (Clear) 10/02/17 09:26 Urine pH 5.0 (5.0-8.0) 10/02/17 09:26 Ur Specific [place] 1.016 (1.003-1.030) 10/02/17 09:26 Urine Protein 30 mg/dL (NEGATIVE) 10/02/17 09:26 Urine Glucose (UA) 50 mg/dL (Normal) 10/02/17 09:26 Urine Ketones Negative mg/dL (NEGATIVE) 10/02/17 09:26 Urine Blood Negative (NEGATIVE) 10/02/17 09:26 Urine Nitrate Negative (NEGATIVE) 10/02/17 09:26 Urine Bilirubin Negative (NEGATIVE) 10/02/17 09:26 Urine Urobilinogen 0.2-1.0 mg/dL (0.2-1.0) 10/02/17 09:26 Ur Leukocyte Esterase Neg [place]/uL (Negative) 10/02/17 09:26 Urine RBC (Auto) 4 /hpf (0-3) H 10/02/17 09:26 Urine WBC Clumps (Auto) Occ /hpf (NONE) H 10/02/17 09:26 Urine Microscopic WBC 4 /hpf (0-5) 10/02/17 09:26 Ur Squamous Epith Cells < 1 /hpf (0-5) 10/02/17 09:26 Calcium Oxalate Crystal Occ /hpf (<OCC) H 10/01/17 19:35 Amorphous Sediment Occ /ul (<OCC) H 10/02/17 09:26 Urine Bacteria Rare (<OCC) 10/02/17 09:26 Hyaline Casts 3-5 /hpf (0-2) H 10/01/17 19:35 Gentamicin Trough 2.6 ug/mL (0.0-0.9) H* 10/13/17 06:05 Discharge Exam - Head Exam Head Exam: NORMAL INSPECTION Discharge Plan - Discharge Medications Prescriptions: Gentamicin 60mg/50ml NS 60 mg IV Q12 #26 bag Meropenem IV 1 gm in NS [Merrem IV 1 gm Premix] 1 gm IVPB Q8 #42 bag - Follow Up Plan Condition: GUARDED Disposition: Trans to Other Acute Care Hosp Instructions: Sepsis, Adult (DC), Community-Acquired Pneumonia, Adult (DC) Referrals: [facility] [Outside] Ezequiel Blankenship MD [Staff Provider] -
--- NOTE | 2017-10-22 12:29 | PQF ---
PROVIDER RESPONSE TEXT: Type unable to determine REVIEWER QUERY TEXT: Pneumonia Specificity Pneumonia is documented in the Medical Record. Please specify the type of pneumonia and the causative organism if known: Type: -- Aspiration pneumonia (please also specify the aspirate) - Please indicate if the aspiration is postprocedure -- Bacterial (please document suspected or probable organism) -- Bronchopneumonia (please document suspected or probable organism) -- Interstitial pneumonia -- Organizing pneumonia / BOOP -- Pneumonia with influenza, mark flu, or H1N1 flu -- RSV -- Tuberculosis, pulmonary -- Viral -- Other, please specify --Unable to determine 10/01 CXR: Impression: Extensive left lower lobe infiltrate. Alveolar type with air bronchograms likel y acute pneumonia. CT Chest: Impression: Bilateral lower lobe almost complete consolidation which may represent atelecta sis due to pleural effusion. The possibility of underlying infiltrate or neoplasm is not totally exc luded. Small to moderate bilateral pleural effusions. [id number] pulmonary vascular congestion. Mild mediastinal lymphadenopathy. Diffuse esophageal mucosal thickening. Re- demonstration of right UP junction renal stone H and P; 66 y/o F,, Multiple chronic medical conditions Hx CVA L side, CHF, A Fib with RVR, COPD, Alzheimer- Dementia, referred from [facility] on , via EMS, to be evaluated for severe SOB with no relief that began 1 Hr [employer]. Pt with increased difficulty breathing, associated to persistent high fever, chest congestion, productive cough with thick green phlegms, non bloody, with difficulty to bring up secretions Pt was placed on high flow O2 NC, FIO2 33%. Hx of been hospitalized [facility] from 09/04/17 to 09/10/17 for Pseudomona MDR Pneumonia treated Tx with Merren and Genta. Assessment: (1) PNA (pneumonia) Status: Acute Comment: HCAP (2) Afib Status: Chronic Priority: High (3) Acute kidney injury Status: Acute (4) Sacral decubitus ulcer, stage IV Status: Chronic (5) HTN (hypertension) Status: Chronic (6) COPD (chronic obstructive pulmonary disease) Status: Chronic (7) Dementia Status: Chronic F/U U C-S, Blood C-S. Continue O2 NC, Xopenex, Merren, Gentamycin, Zyox, ASA 81mg, Atrovent, Lovenox, and rest of treatment , ID consult appreciated The patient's Clinical Indicators include: xxxx Query created by: Evita Cooper on 10/07/2017 12:07 PM PROVIDER RESPONSE TEXT: Sepsis ruled out REVIEWER QUERY TEXT: Clarification of Clinical Diagnostic Findings 2 queries as follows: 1. Sepsis ruled in or Sepsis ruled out? 2. Etiology of Sepsis if known? OR: Other explanation of clinical findings WBC: 37.0->25.8->11.5 Band 11 V/S tab in the EMR: 10/02: Temp.: 100.6->99.7->101.3 10/01 Pulse: 110->125->125-.114 10/01: Respiratory Effort and Depth: Retractive, Tachypnea: Non-Rebreather: O2 Flow Rate: 100 Respiratory Rate:22->29 ->21->21->26 H and P: referred from [place] to [facility], via EMS, to be evaluated for severe SOB with no relief that began 1 Hr [employer]. Pt with increased difficulty breathing, associated to persistent high fever, Admission order: Admitting diagnoses include: Pneumonia, Sepsis H and P:PE: PEG tube with erythema around the border, no bleeding (1) PNA (pneumonia) Status: Acute Comment: HCAP (2) Afib Status: Chronic Priority: High (3) Acute kidney injury Status: Acute (4) Sacral decubitus ulcer, stage IV Status: Chronic (5) HTN (hypertension) Status: Chronic (6) COPD (chronic obstructive pulmonary disease) Status: Chronic (7) Dementia Status: Chronic F/U U C-S, Blood C-S. Continue O2 NC, Xopenex, Merren, Gentamycin, Zyox, ASA 81mg, Atrovent, Lovenox, and rest of treatment , ID consult 10/04 ID; Assessment: (1) Acute hypernatremia Status: Deleted (2) Acute kidney injury Status: Acute (3) Acute on chronic systolic CHF (congestive heart failure) Status: Deleted (4) Pneumonia Status: Acute still congested but less tachypneic and less fever The patient's Clinical Indicators include: XXXX Query created by: Evita Cooper on 10/07/2017 12:25 PM Electronically signed by: Sy Del Valle MD 10/22/2017 12:27 PM
== END 2017-10-13 17:00 | DRG 193 ==
LOC: H.ER 17:09 → H.ERHOLD 18:55 → H.TEL 23:49
PROVIDERS: ADMIT Internal Medicine Pulmonary Disease; ATTEND Internal Medicine Pulmonary Disease
PROC: 02HV33Z Insertion of Infusion Device into Superior Vena Cava, Percutaneous Approach (ICD-10-PCS; principal; 2017-10-04)
PROC: B518ZZA Fluoroscopy of Superior Vena Cava, Guidance (ICD-10-PCS; 2017-10-04)
PROC: B548ZZA Ultrasonography of Superior Vena Cava, Guidance (ICD-10-PCS; 2017-10-04)
PROC: 3E0F7GC Introduction of Other Therapeutic Substance into Respiratory Tract, Via Natural or Artificial Opening (ICD-10-PCS; 2017-10-05)
DX: J18.9 Pneumonia, unspecified organism (principal); L89.154 Pressure ulcer of sacral region, stage 4; I50.23 Acute on chronic systolic (congestive) heart failure; J44.0 Chronic obstructive pulmonary disease with (acute) lower respiratory infection; J44.1 Chronic obstructive pulmonary disease with (acute) exacerbation; N17.9 Acute kidney failure, unspecified; R47.01 Aphasia; I13.0 Hypertensive heart and chronic kidney disease with heart failure and stage 1 through stage 4 chronic kidney disease, or unspecified chronic kidney disease; E87.0 Hyperosmolality and hypernatremia; N18.9 Chronic kidney disease, unspecified; Y95 Nosocomial condition; Z66 Do not resuscitate; Z74.01 Bed confinement status; Z86.73 Personal history of transient ischemic attack (TIA), and cerebral infarction without residual deficits; Z87.01 Personal history of pneumonia (recurrent); Z87.440 Personal history of urinary (tract) infections; Z87.891 Personal history of nicotine dependence; D64.9 Anemia, unspecified; F32.9 Major depressive disorder, single episode, unspecified; F45.9 Somatoform disorder, unspecified; M19.90 Unspecified osteoarthritis, unspecified site; Z87.81 Personal history of (healed) traumatic fracture; Z79.899 Other long term (current) drug therapy; R00.0 Tachycardia, unspecified; E78.00 Pure hypercholesterolemia, unspecified; F02.80 Dementia in other diseases classified elsewhere, unspecified severity, without behavioral disturbance, psychotic disturbance, mood disturbance, and anxiety; G30.9 Alzheimer's disease, unspecified; I48.2 Chronic atrial fibrillation; Z79.82 Long term (current) use of aspirin